=== PATIENT | female | born 1945 | race Caucasian/White ===

== ENCOUNTER 2020-02-02 16:35 | Inpatient (IN) | payer MEDICARE, SELFPAY ==
[2020-02-02] VITALS (11 sets, daily range): BP systolic 118–166; BP diastolic 65–103; PULSE 78–96; RESP 17–24; TEMP 36.3–36.4; O2SAT 82–100; BMI 16.2
--- NOTE | ~2020-02-02 | XR_ITS ---
EXAMINATION: XR chest 2V DATE: 02/02/2020 17:23 INDICATION: Emphysema presenting with shortness of breath TECHNIQUE: frontal and lateral views of the chest were obtained. COMPARISON: Chest radiograph dated 07/19/2018 FINDINGS: Hyperexpansion of the lungs with flattening of the diaphragm consistent with given history of emphyse ma. No pulmonary edema, pleural effusion or pneumothorax. Calcified nodule in the right midlung zone consistent with old granulomatous disease. The cardiomediastinal silhouette is normal. Cholecystectom y clips in the right upper quadrant. IMPRESSION: 1. Emphysema. No acute cardiopulmonary disease. Reviewed, dictated and finalized at location A.
--- NOTE | ~2020-02-02 | XR_ITS ---
EXAMINATION: XR barium swallow modified DATE: 02/04/2020 14:14 INDICATION: Dysphagia. TECHNIQUE: The patient was given barium-containing material of multiple consistencies to swallow by ruth lowery speech pathologist while I performed fluoroscopy. Dose-area product was 1.184 Gy-cm2. 2 minutes fluoroscopy time FINDINGS: Oral Preparatory Stage: Normal Oral Stage: Normal Pharyngeal Phase: Normal Cervical/Esophageal Stage: Normal IMPRESSION: Modified esophagram findings as above. Please refer to the speech therapy report [facility]. Reviewed, dictated and finalized at Location [facility]. Reviewed, dictated and finalized at location A. IMPRESSION: Modified esophagram findings as above. Please refer to the speech t herapy report for specific recommendations.
--- NOTE | 2020-02-02 16:50 | ECG_ITS ---
Measurements Intervals [place] Rate: 95 P: 92 MS: 151 QRS: 50 QRSD: 76 T: 54 QT: 333 QTc: 420 Interpretive Statements SINUS RHYTHM POSSIBLE RIGHT ATRIAL ENLARGEMENT BORDERLINE ST ABNORMALITY- LATERAL LEADS BASELINE ARTIFACT- I, II, III, AVR, AVL, AVF, V1-V6 BORDERLINE ECG Electronically Signed On 02-03-2020 8:21:50 CDT by Moises Hidalgo D.O.
--- NOTE | 2020-02-02 16:56 | PC.NURSE ---
patient put on o2 at 3lpm/nc for low o2 sat
[2020-02-02 16:58] LABS: Basophils Percent Auto 0.2 % (0.2-1.2); Eosinophils Absolute Auto 0.8 K/mm3 (0-0.3); Eosinophils Percent Auto 6.1 % (0-4.4); Hematocrit 44.7 % (37.0-47.0); Hemoglobin 15.1 g/dL (12.0-15.0); Immature Granulocyte Absolute 0.04 K/mm3 (0.00-0.031); Immature Granulocyte Percent A 0.3 % (0-0.5); Lymphocytes Absolute Auto 3.52 K/mm3 (0.9-3.2); Lymphocytes Percent Auto 26.8 % (18.3-44.2); Mean Corpuscular HGB Conc 33.8 g/dl (32-36); Mean Corpuscular Hemoglobin 30.6 pg (26-34); Mean Corpuscular Volume 90.5 fl (80-100); Mean Platelet Volume 8.7 fl (7.4-10.4); Monocytes Absolute Auto 1.2 K/mm3 (0.1-0.6); Monocytes Percent Auto 8.8 % (2.6-8.5); Neutrophils Absolute Auto 7.6 K/mm3 (1.3-6.7); Neutrophils Percent Auto 57.8 % (45.5-73.1); Platelet Count Result 521 k/mm3 (150-375); Red Blood Count 4.94 M/mm3 (4.2-5.4); Red Cell Distribution Width 12.4 % (11.5-14.5); White Blood Count 13.1 K/mm3 (4.5-10.0)
[2020-02-02 17:09] LABS: Anion Gap 6 mmol/L (8-16); Blood Urea Nitrogen 17 mg/dL (7-17); Calcium 9.5 mg/dL (8.4-10.2); Carbon Dioxide 37 mmol/L (22-30); Chloride 88 mmol/L (98-107); Estimated Glomerular Filt Rate > 60; Glucose 134 mg/dL (65-105); Potassium 4.2 mmol/L (3.4-5.0); Sodium 131 mmol/L (137-145)
[2020-02-02] MEDS: methylPREDNISolone SOD SUCC 125 MG VIAL IV PUSH (17:14)
--- NOTE | 2020-02-02 17:15 | PCRCNOTE ---
Arrived to draw ABG and give continuous neb tx and Pt. was not in the room.
[2020-02-02] MEDS: ALBUTEROL SULFATE NEB 2.5 MG/0.5 ML INH 10 MG INHALATION (17:22)
[2020-02-02] MEDS: IPRATROPIUM BR 0.02% INH SOLN 0.5 MG/2.5 ML VIAL 1 MG INHALATION (17:22)
--- NOTE | 2020-02-02 17:31 | ED.SOB ---
HPI - SOB/Dyspnea General Chief Complaint: Shortness of Breath/Dyspnea Stated Complaint: diff breathing Time Seen by Provider: 02/02/20 17:00 History of Present Illness HPI Narrative: 74 yo female w/ COPD presents from home for SOB. She reports that she has had constant SOB for several weeks. She has seen Dr. Plaza. She has not been taking all of her medications due to side effects. She has trouble getting around at home due to SOB. She reports dropping as low as 85% at times. Related Data Home Medications Medication Instructions Recorded Confirmed atorvastatin 20 mg tablet 20 mg PO DAILY 10/10/19 02/02/20 levothyroxine 125 mcg tablet 125 mcg PO DAILY 10/10/19 02/02/20 Allergies Allergy/AdvReac Type Severity Reaction Status Date / Time aspirin Allergy Intermediate Nausea Verified 02/02/20 20:58 Macrolide Antibiotics Allergy Intermediate Unknown Verified 02/02/20 20:58 erythromycin base Allergy Unknown Nausea Verified 02/02/20 20:58 latex Allergy Unknown Itching Verified 02/02/20 20:58 mold Allergy Unknown Difficulty Verified 02/02/20 20:58 Breathing ragweed pollen Allergy Unknown Difficulty Verified 02/02/20 20:58 Breathing Sulfa (Sulfonamide Allergy Unknown Unknown Verified 02/02/20 20:58 Antibiotics) Review of Systems Review of Systems: All systems reviewed & are unremarkable except as noted in HPI and below Constitutional: Constitutional: Denies chills and Denies fever(s) ENT: Denies dizziness Cardiovascular: Cardiovascular: Reports chest pain and Denies radiating jaw, neck or arm pain Respiratory: Respiratory: Reports chest congestion, Reports cough and Reports dyspnea Gastrointestinal: Gastrointestinal: Denies abdominal pain Neurologic: Reports weakness Psychiatric: Psychiatric: Reports anxiety PMFSH Past Medical History Medical History 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 attack Chronic obstructive pulmonary disease Depression Diastolic dysfunction Echocardiogram April 2018 demonstrated grade 1 diastolic dysfunction EF of 60% impaired right ventricular systolic dysfunction mild mitral valve regurgitation mild aortic stenosis based on velocities valve not well visualized Elevated platelet count Chronic Emphysema lung Essential (primary) hypertension (12/07/18) Fibromyalgia Hyperlipidemia, unspecified Hypothyroidism, unspecified Osteoporosis, unspecified PAD (peripheral artery disease) Sleep disorder breathing Noted on polysomnogram March 2018 TIA (transient ischemic attack) Tobacco abuse Vitamin D deficiency, unspecified (12/07/18) Surgical History Surgical History History of appendectomy History of bilateral carpal tunnel release History of bilateral cataract extraction History of cholecystectomy History of colonoscopy with polypectomy [address] Alcantara with pathology demonstrating adenomas polyp History of hysterectomy History of tonsillectomy Family History Family History Father Family history of lung cancer Chronic obstructive pulmonary disease Mother Bulbar myasthenia gravis Chronic obstructive pulmonary disease Unknown Anxiety Depression ADHD Sibling Chronic obstructive pulmonary disease Social History Social History Social History: She is since 2015 and lives in her own home in [place]. Just prior to November she was planning on moving in with her son but when she went in his home she thought she smelled mold and thought that it made her breathing worse and has remained in her own home. She is considering other living options at this time as she feels that her current house is too big. Primary care provider: Dr. Justice Platt Code status: DNR/DNI Durable power of hea
[2020-02-02 17:40] LABS: Alveolar/Arterial O2 Gradient 52.6 mmHg; Base Excess ABG 3.4 mEq/l (+/-2.0); Carboxyhemoglobin 0.7 % THb (0-2.0); Fractional Inspired Oxygen 36 %; HCO3 ABG 30.1 mEq/l (22.0-26.0); Methemoglobin ABG 0.2 %THb (0-1.5); Oxygen Saturation ABG 98.7 % (95.0-100.0); Oxyhemoglobin 97.6 % THb (90.0-100.0); PCO2 ABG 54.4 mmHg (35.0-45.0); PO2 FiO2 Ratio Arterial Blood 3.92 %; Reduced Hemoglobin 1.5 %THb (0-5.0); Total Hemoglobin 14.4 g/dL (12.0-18.0); pH ABG 7.361 (7.350-7.450)
[2020-02-02 17:41] LABS: Device NASAL CANNULA; Site Drawn LEFT BRACHIAL
--- NOTE | 2020-02-02 20:44 | ADMGEN ---
This patient, Ella Puckett, was admitted to Medical Room 346-01. Patient/family oriented to hospital policies and general routines including ID bracelet, bed and alarms, visiting hours, pain management, procedures, bathroom and other care routines, personal items, smoking policy, room service/diet, and visiting hours. Valuables list has been completed. Information on how to activate the Rapid Response Team has been discussed. Patient/Family are encouraged to report perceived risks to care and to ask questions if they do not understand what they are told or what they should do.
[2020-02-02] MEDS: IPRATROPIUM BR 0.02% INH SOLN 0.5 MG/2.5 ML VIAL INHALATION (21:03)
[2020-02-02] MEDS: ALBUTEROL SULFATE NEB 2.5 MG/0.5 ML INH 5 MG INHALATION (21:03)
[2020-02-02] MEDS: LACTATED RINGERS 1,000 ML 75 ML IV CONT (21:12)
[2020-02-03] VITALS (19 sets, daily range): BP systolic 136–166; BP diastolic 53–67; PULSE 69–115; RESP 14–22; TEMP 36.3–36.8; O2SAT 94–99
[2020-02-03] MEDS: methylPREDNISolone SOD SUCC 125 MG VIAL 60 MG IV PUSH ×2 (00:51→06:47)
[2020-02-03] MEDS: IPRATROPIUM BR 0.02% INH SOLN 0.5 MG/2.5 ML VIAL INHALATION ×2 (03:19→10:14)
[2020-02-03] MEDS: ALBUTEROL SULFATE NEB 2.5 MG/0.5 ML INH 5 MG INHALATION ×2 (03:19→10:13)
--- NOTE | 2020-02-03 06:24 | PM.IMHP ---
H&P: HPI History of Present Illness Date/Time: 02/03/20 06:24 Chief complaint: Shortness of breath Narrative: Ella Puckett is a 74 year old female With a past medical history of COPD who presented to the ER with constant shortness of breath for several weeks. The patient is established with Dr. Plaza. She had an appoint with Dr. Plaza in November at at which time a sick had walk test and PFTs were ordered. Patient could not get in to have the studies performed until February 07. She reports that she has been chronically short of breath for months. Her shortness of breath has been persistent since she saw all the engineering clerk. Her cough has increased slightly but her sputum production is unchanged. She still produces of very tiny amount of sputum a couple of times a day that may be yellow err green in color. She has not had any fevers or chills. She reports that she cannot walk from her living room to her bathroom without sitting in the bathroom for quite some time and praying that she can catch her breath again. Her oxygen saturations at rest home have been in the low 90s. She reports that after she walks back from the bathroom her oxygen saturations have been as low as 85%. After her pulmonology visit she was sent home on Daliresp, albuterol and Atrovent nebulizers. She reports that took 5 days to get her medications from the [employer]. When she started using the albuterol and Atrovent she began having pain in her lower posterior ribs. She is directly associated this with the medications. She did not know which medication was causing the symptoms so she stopped taking both of them after 2 days. She does admit that she would feel very panicked after taking those medications and would be claustrophobic and had open her front door to get relief. She has been receiving albuterol nebulizers since admission to the hospital last night and denies any back pain or symptoms similar to the ones that she had at home when using the medication. She attributes this to the nebulizer machine at home being different than her receiving the nebulizers here. The patient is quite anxious and is frequently tearful during my interview. She has several environmental triggers to her symptoms including mold and dust. Weight and muscle mass. At the engineering clerk office was 52.6 kg. She has lost 10 kg since November. Given her will weight loss and localized wheezing during her engineering clerk visit the patient had a CT scan ordered which the patient has not yet had completed. She also was supposed to received a prednisone taper. She denies ever having received prednisone prescription. She states that she has been reading up on COPD and that she knows that she is end-stage COPD. When she mentions that she again becomes tearful. She denies any recent ill contacts. She has not been going to the store or doing her own shopping. Her children have been doing her shopping for her. Review of Systems Review of Systems: Narrative: 12 systems were reviewed with pertinent positives and negatives per HPI. Except as documented in the HPI, all other systems were reviewed and are negative. [facility] Past Medical History Medical History (Updated 02/03/20 @ 08:57 by Shakira Carrera, DO) 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 attack Chronic obstructive pulmonary disease Depression Diastolic dysfunction Echocardiogram April 2018 demonstrated grade 1 diastolic dysfunction EF of 60% impaired right ventricular systolic dysfunction mild mitral valve regurgitation mild aortic stenosis based on velocities valve not well visualized Elevated platelet count Chronic Emphysema lung Essential (primary) hypertension (12/07/18) Fibromyalgia Hyperlipidemia, unspecified Hypothyroidism, unspecified Osteoporosis, unspecified PAD (peripheral artery disease) Sleep disorder breathing Noted on polysomnogram March 2018 TIA (transient ischemic attack) Tobacco abuse V
[2020-02-03] MEDS: LEVOTHYROXINE SODIUM 125 MCG TABLET PO (06:47)
[2020-02-03] MEDS: ATORVASTATIN 20 MG TABLET PO (09:15)
[2020-02-03] MEDS: SERTRALINE HCL 50 MG TABLET 150 MG PO (09:15)
[2020-02-03] MEDS: carvediloL 6.25 MG TABLET PO (09:19)
[2020-02-03] MEDS: FLUTICASONE/SALMETEROL 115-21 MCG INHALER 1 PUFF 2 PUFF INHALATION ×2 (12:10→21:44)
--- NOTE | 2020-02-03 12:11 | PM.IMPN ---
Progress Note: A&P Assessment and Plan (1) Acute respiratory failure: Code(s): J96.00 - Acute respiratory failure, unspecified whether with hypoxia or hypercapnia Status: Acute Assessment and Plan: Patient with hypoxia on admission felt to be acute but may be chronic if she is having disease progression. ABG with pO2 141 on 4L. Also with elevated pCO2 at 54 with normal pH to suggest chronic respiratory failure. Will check apnea link when she is better. Wean O2 as tolerated. Repeat ABG when feeling better. (2) COPD exacerbation: Code(s): J44.1 - Chronic obstructive pulmonary disease with (acute) exacerbation Status: Acute Assessment and Plan: COPD exacerbation versus progression of the patient's chronic lung disease. Patient has been placed on scheduled nebulizer treatments with albuterol and Atrovent as well as IV Solu-Medrol. Pulmonology consult ordered. Continue Advair. Consider adding LAMA. Plan for home O2 evaluation prior to discharge. (3) Dysphagia: Code(s): R13.10 - Dysphagia, unspecified Status: Acute Assessment and Plan: Patient having dysphagia with liquids. Probably able to protect her airway but brice have speech evaluate. (4) Essential (primary) hypertension: Onset Date: 12/07/18 Code(s): I10 - Essential (primary) hypertension Status: Acute Assessment and Plan: Patient's blood pressure was reviewed on 02/02 Blood pressure elevated mostly since admission. Will continue current medications. (5) PAD (peripheral artery disease): Code(s): I73.9 - Peripheral vascular disease, unspecified Status: Acute Assessment and Plan: Patient with hx of PAD. Not on ASA but takes Lipitor. Continue Lipitor. (6) Anxiety: Code(s): F41.9 - Anxiety disorder, unspecified Status: Acute Assessment and Plan: Mood stable. Continue Zoloft. Consider Buspar. (7) DVT prophylaxis: Code(s): Z29.9 - Encounter for prophylactic measures, unspecified Status: Acute Assessment and Plan: Lovenox Subjective Date/time seen: 02/03/20 12:11 Interval history: Date of service: 02/02 74yo female with COPD here for SOB. Patient up walking to the bathroom. She feels very weak. She has dyspnea on exertion. She denies any shortness of breath at rest at this time. No chest pain. She has a chronic dry cough that she states has been more noticeable since November. No new medications. Eating poorly at home. She denies any dysphagia symptoms with solids but does have occasional symptoms with liquids. She quit tobacco in 2013. Exam Narrative: Exam Narrative: AF 97.3 166/63 85 20 94% 2L Gen - NARD sitting up in bed Chest - distatn BS with prolonged expiratory phase; no wheezes CV - RRR S1/S2; Tele showing one episode of NSVT x4 Abd - Soft, NT/ND, Positive BS Ext - No pedal edema; negative Suzanne's Neuro - Alert and oriented. Nonfocal exam. Psych - mildly tearful at times Skin - Warm and dry Objective Data Vital Signs Vital Signs: Vital Signs - 24 hr 02/02/20 16:38 02/02/20 16:55 02/02/20 17:32 Temperature 97.6 F Pulse Rate 91 96 87 Respiratory Rate 24 H 24 H 17 Blood Pressure 164/65 H 118/103 H Pulse Oximetry 92 82 L 02/02/20 18:18 02/02/20 18:35 02/02/20 20:00 Temperature Pulse Rate 83 90 87 Respiratory Rate 20 19 Blood Pressure 147/73 H Pulse Oximetry 100 02/02/20 20:20 02/02/20 20:44 02/02/20 21:04 Temperature 97.3 F L Pulse Rate 78 88 88 Respiratory Rate 20 20 20 Blood Pressure 166/74 H 151/78 H Pulse Oximetry 99 97 02/02/20 21:10 02/02/20 21:16 02/03/20 00:00 Temperature Pulse Rate 90 75 Respiratory Rate 20 Blood Pressure Pulse Oximetry 95 02/03/20 03:19 02/03/20 03:26 02/03/20 04:07 Temperature Pulse Rate 81 82 80 Respiratory Rate 20 20 Blood Pressure Pulse Oximetry
[2020-02-03] MEDS: ENOXAPARIN 40 MG/0.4 ML SYRINGE SUB-Q (12:31)
[2020-02-03] MEDS: LORazepam (*CRX) 0.5 MG TABLET PO ×2 (12:36→21:29)
[2020-02-03] MEDS: ALBUTEROL SULFATE NEB 2.5 MG/0.5 ML INH INHALATION (15:29)
--- NOTE | 2020-02-03 16:52 | PM.CNPUL ---
Assessment and Plan Assessment and plan (1) COPD exacerbation: Code(s): J44.1 - Chronic obstructive pulmonary disease with (acute) exacerbation Status: Acute Assessment and Plan: - advised her to use Advair with spacer device and not to miss doses - will add spiriva 18 mcg 1 puff daily - recommend switch from Carvedilol to Metorpolol as a carvedilol can cause bronchospasm in patients with COPD - PT/OT - she has some baseline hypercarbia at base line with CO2 in 50's. Would recommend repeating ABG in 48 hours, if chronic hypercapnia still present she may benefit from NIV therpay at home. History of Present Illness History of Present Illness Consult date: 02/03/20 Chief complaint: Shortness of breath Narrative: 74 y/o female with COPD presents with COPD exarbation. She takes Advair 115/21 mcg 2 puffs bid at home but does not use a space device and admits to missing doses sometimes. She also takes Ventolin PRN. She developed itching after use of albuterol nebulizer and daliresp and stopped both because she didn't know which one caused it. She Denies fever, chills, night sweats, loss of taste or smell, n/v, diarrhea, body aches, nasal stuffiness or runny nose. She is feeling slight better since admission and she is on duonebs Q6, systemic steroids, and advair and antibiotics. Review of Systems Review of Systems: All systems reviewed & are unremarkable except as noted in HPI and below PMFSH Past Medical History Medical History (Updated 02/03/20 @ 12:21 by Panchito Daniels MD) 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 attack Chronic obstructive pulmonary disease Depression Diastolic dysfunction Echocardiogram April 2018 demonstrated grade 1 diastolic dysfunction EF of 60% impaired right ventricular systolic dysfunction mild mitral valve regurgitation mild aortic stenosis based on velocities valve not well visualized Elevated platelet count Chronic Emphysema lung Essential (primary) hypertension (12/07/18) Fibromyalgia Hyperlipidemia, unspecified Hypothyroidism, unspecified Osteoporosis, unspecified PAD (peripheral artery disease) Sleep disorder breathing Noted on polysomnogram March 2018 TIA (transient ischemic attack) Tobacco abuse Vitamin D deficiency, unspecified (12/07/18) Surgical History Surgical History (Updated 02/03/20 @ 06:41 by Shakira Carrera DO) History of appendectomy History of bilateral carpal tunnel release History of bilateral cataract extraction History of cholecystectomy History of colonoscopy with polypectomy [address] Alcantara with pathology demonstrating adenomas polyp History of hysterectomy History of tonsillectomy Family History Family History Father Family history of lung cancer Chronic obstructive pulmonary disease Mother Bulbar myasthenia gravis Chronic obstructive pulmonary disease Unknown Anxiety Depression ADHD Sibling Chronic obstructive pulmonary disease Social History Social History (Updated 02/03/20 @ 08:48 by Shakira Carrera DO) Social History: She is since 2015 and lives in her own home in [place]. Just prior to November she was planning on moving in with her son but when she went in his home she thought she smelled mold and thought that it made her breathing worse and has remained in her own home. She is considering other living options at this time as she feels that her current house is too big. Primary care provider: Dr. Justice Platt Code status: DNR/DNI Durable power of healthcare: Magno Betty (oldest son) Smoking packs per day: 1 Smoking cigarettes per day: 20.0 Years smoked: 49 Smoking pack-years: 49.00 Smoking status: Former smoker Tobacco type: cigarettes Smoking end date: 05/02/13 Alcohol intake: never Substance use: never Gender identity (if verbalized by the patient): Female Spiritual care c
[2020-02-03] MEDS: METOPROLOL TARTRATE 25 MG TABLET PO (20:10)
[2020-02-04] VITALS (14 sets, daily range): BP systolic 111–166; BP diastolic 47–61; PULSE 69–99; RESP 12–16; TEMP 36.6–37.1; O2SAT 86–97; BMI 16.2
[2020-02-04] MEDS: LEVOTHYROXINE SODIUM 125 MCG TABLET PO (06:02)
[2020-02-04] MEDS: FLUTICASONE/SALMETEROL 115-21 MCG INHALER 1 PUFF 2 PUFF INHALATION (07:16)
[2020-02-04 07:40] LABS: Base Excess ABG 5.4 mEq/l (+/-2.0); Fractional Inspired Oxygen 24 %; Oxygen Content ABG 17.3 %vol (16.0-22.0); Oxyhemoglobin 94.5 % THb (90.0-100.0); PCO2 ABG 43.8 mmHg (35.0-45.0); PO2 FiO2 Ratio Arterial Blood 3.25 %; pH ABG 7.453 (7.350-7.450)
[2020-02-04 07:41] LABS: Device NASAL CANNULA; Modified Allen's Test Pass; Site Drawn RIGHT RADIAL
[2020-02-04] MEDS: predniSONE 20 MG, predniSONE 10 MG 30 MG PO (08:38)
[2020-02-04] MEDS: SERTRALINE HCL 50 MG TABLET 150 MG PO (08:39)
[2020-02-04] MEDS: ENOXAPARIN 40 MG/0.4 ML SYRINGE SUB-Q (08:40)
[2020-02-04] MEDS: ATORVASTATIN 20 MG TABLET PO (08:40)
[2020-02-04] MEDS: METOPROLOL TARTRATE 25 MG TABLET PO (08:41)
--- NOTE | 2020-02-04 14:30 | PCSTNOTE ---
Please refer to the Bedside Swallow Evaluation in the EMR. Please note, silent aspiration cannot be ruled out at bedside.
--- NOTE | 2020-02-04 14:30 | PCSTNOTE ---
Please refer to the Modified Barium Swallow Evaluation in the EMR.
--- NOTE | 2020-02-04 15:28 | HOMEO2EVAL ---
Home Oxygen Evaluation RC: Home Oxygen (O2) Evaluation Start: 02/04/20 07:05 Freq: ONCE Status: Active Protocol: RPE Activity Type Activity Date Activity User E-Sign Co-Sign Detail Recorded Client Recorded Date Recorded By Document 02/04/20 11:20 GERMAN [id number] 02/04/20 15:28 GERMAN Document 02/04/20 11:25 GERMAN [id number] 02/04/20 15:28 GERMAN Document 02/04/20 11:28 GERMAN [email or web address] 02/04/20 15:28 GERMAN Document 02/04/20 11:30 GERMAN [id number] 02/04/20 15:28 GERMAN Document 02/04/20 11:45 GERMAN [id number] 02/04/20 15:28 GERMAN 02/04/20 02/04/20 02/04/20 11:20 11:25 11:28 Home O2 Evaluation Test Phase Resting Exercise Exercise Oxygen Delivery Room Air Room Air Nasal Cannula Oxygen Flow Rate (L/min) 1 Pulse Oximetry (90-100 %) 94 86 L 87 L Pulse Rate (60-100 beats/min) 76 99 Activity Tolerance Home Oxygen Evaluation Comments Treatment Charges O2 Evaluation 02/04/20 02/04/20 11:30 11:45 Home O2 Evaluation Test Phase Exercise Resting Oxygen Delivery Nasal Cannula Room Air Oxygen Flow Rate (L/min) 2 Pulse Oximetry (90-100 %) 91 93 Pulse Rate (60-100 beats/min) 96 79 Activity Tolerance Good Home Oxygen Evaluation Comments PT REQUIRES 2L WITH ACTIVITY ONLY Treatment Charges
--- NOTE | 2020-02-04 16:02 | PCRCNOTE ---
HOME O2 EVAL COMPLETED. PT WILL BE SET UP WITH [facility]. CONTACT CELINE AT [phone] OR OFFICE [phone]. I WILL DROP OFF TANK IN PATIENTS ROOM FOR TRANSPORT HOME. PT TO CALL [facility] ONCE HOME.
--- NOTE | 2020-02-04 16:04 | PM.DS ---
DS: Admitting Diagnosis Admitting Diagnosis Admitting Diagnosis: Shortness of breath DS: Discharge Diagnosis Discharge Diagnosis (1) Acute respiratory failure: Code(s): J96.00 - Acute respiratory failure, unspecified whether with hypoxia or hypercapnia Status: Acute Assessment and Plan: Patient with hypoxia on admission felt to be acute but may be chronic if she is having disease progression. ABG with pO2 141 on 4L. Also with elevated pCO2 at 54 with normal pH to suggest chronic respiratory failure. Repeat ABG showing now normal pCO2. She did have improvement but did require O2 2L NC with activity but no O2 at rest. (2) COPD exacerbation: Code(s): J44.1 - Chronic obstructive pulmonary disease with (acute) exacerbation Status: Acute Assessment and Plan: COPD exacerbation versus progression of the patient's chronic lung disease. Patient was placed on scheduled nebulizer treatments with albuterol and Atrovent as well as IV Solu-Medrol. Pulmonology was consulted. We continued Advair. Steroids changed to Prednisone. Spiriva added. (3) Dysphagia: Code(s): R13.10 - Dysphagia, unspecified Status: Acute Assessment and Plan: Patient having dysphagia with liquids. Speech evaluation done with MBS showing patient able to swallow safely. (4) Essential (primary) hypertension: Onset Date: 12/07/18 Code(s): I10 - Essential (primary) hypertension Status: Acute Assessment and Plan: Patient's blood pressure was monitored. Blood pressure elevated at times. We continued her curent home meds. (5) PAD (peripheral artery disease): Code(s): I73.9 - Peripheral vascular disease, unspecified Status: Acute Assessment and Plan: Patient with hx of PAD. Not on ASA but takes Lipitor. Continue Lipitor. (6) Anxiety: Code(s): F41.9 - Anxiety disorder, unspecified Status: Acute Assessment and Plan: Mood stable. We continued Zoloft. DS: Summary Hospital Course Reason for hospitalization: 74yo female here SOB. Please see H&P for details, Hospital Course: As above Time Spent with Patient Time attestation: Total time spent providing and/or coordinating discharge services:34 minutes Time spent: Greater than 30 minutes Specific discharge activities: patient eduaction Exam Narrative: Exam Narrative: AF 97.9 166/61 80 16 97% 2L Gen - NARD sitting up in chair Chest - distant but clear BS, nml RR CV - RRR S1/S2; Tele showing 2 episodes of brief, probable ATach Abd - Soft, NT/ND, Positive BS Ext - No pedal edema Psych - less anxious today Skin - Warm and dry DS: Data Data Completed and Pending Labs on day of discharge: Labs from last 24 hours 02/04/20 07:31 Puncture Site Right radial ABG pH 7.453 H ABG pCO2 43.8 ABG pO2 78.0 L ABG PO2/FiO2 Ratio 3.25 ABG HCO3 30.0 H ABG O2 Saturation 96.0 ABG O2 Content 17.3 ABG Base Excess 5.4 A-a Gradient 41.0 Oxyhemoglobin 94.5 Total Hemoglobin 13.0 O2 Delivery Device Nasal cannula O2 Liters/Min 1.0 FiO2 24 Discharge Plan Discharge Attending physician on discharge: Panchito Daniels Consulting providers: Radu Salinas Discharging Clinician: Panchito Daniels Anticipated Discharge Date/Time: 02/04/20 16:16 Patient Disposition: Home, Self-Care Activity: as tolerated Diet: regular Discharge Instructions: Please avoid large gathering, wear face coverings in public and practice social distance. Take precautions to avoid falls. Rise slowly from a lying or sitting position. Pause before standing or walking. Use Home oxygen at 2 Liters when active. You do not need to wear Oxygen when you are at rest. Follow-up with your doctor in 1-2 weeks. Please call for appointment. Patient Instructions: COPD (Chronic Obstructive Pulmonary Disease) (DC), Antibiotic Form Stand Alone Forms: Gen
--- NOTE | 2020-02-04 17:20 | PM.PNPUL ---
Progress Note: A&P Assessment and Plan (1) COPD exacerbation: Code(s): J44.1 - Chronic obstructive pulmonary disease with (acute) exacerbation Status: Acute Assessment and Plan: - advised her to use Advair with spacer device and not to miss doses - Spiriva 18 mcg 1 puff daily - Dr Daniels stopped her carvedilol and switched to Metoprolol 25 mg twice a day; carvedilol can cause bronchospasm in patients with COPD - PT/OT - she has some baseline hypercarbia at base line with CO2 in 50's. Her new ABG shows that this has resolved. - she is stable and able to go home today. We will see her in the office in a month. - She got a letter from [employer] allowing low dose chest CT for lung cancer screening. We will schedule this from the office. (2) Chronic shortness of breath: Code(s): R06.02 - Shortness of breath Status: Acute Assessment and Plan: May be able to adjust meds after discharge. She reports that she feels anxious and tearful after using ipratropium /albuterol nebulized. She had 2 treatments in one day before admission, and this caused her great distress. SHe stopped the nebs and the Daliresp not knowing which medication it was. She can continue Daliresp 250 mcg a day until the 28 day pack is complete then start 500 mcg a day Daliresp. Continue Advair and Spiriva. (3) Acute respiratory failure: Code(s): J96.00 - Acute respiratory failure, unspecified whether with hypoxia or hypercapnia Status: Acute Assessment and Plan: Improved. Needs no supplemental O2 at rest, 2 L/min with exertion. Came in with O2 at 4 L/min which may have worsened CO2 retention. Subjective Date/time seen: 02/04/20 17:20 This 74 yo female is seen in follow up for a COPD exacerbation. Her son Magno is at the bedside. SHe is being discharged this evening. She feels better than when she was admitted. Her ABG today is improved; pH 7.45, pCO2 43.8, pO2 78, HCO3 30 on 1 L/min. She is planning to keep her Mar 06 appt in our office. She lives at home alone, has friends near by. She is tearful, COPD is causing weight loss, weakness, and she has upper back pain. About 4 years ago she lost 3 people close to her within 5 months, and she feels that she is ready to , although she is not in any way thinking of hurting herself. Review of Systems Review of Systems: All systems reviewed & are unremarkable except as noted in HPI and below Exam Const: General: comfortable and no acute distress Eyes: General: appearance normal, both eyes and all related structures Neck: Neck: supple and no JVD Resp: Auscultation: no crackles, no rales, no rhonchi, wheezes and diminished lung sounds Cardio: Rate: regular rate Rhythm: regular rhythm Heart sounds: no murmurs GI: Auscultation: normal bowel sounds Skin: General skin exam: normal color and no rashes or lesions noted Neuro: Speech: normal speech Extrem: General: normal to inspection Psych: Mental Status: mental status grossly normal Affect: normal affect Objective Data Vital Signs Vital Signs: Vital Signs - 24 hr 02/03/20 20:00 02/03/20 20:10 02/03/20 21:17 Temperature 36.8 C Pulse Rate 85 115 H 76 Respiratory Rate 14 Blood Pressure 136/53 L Pulse Oximetry 99 02/03/20 21:45 02/03/20 21:51 02/04/20 00:00 Temperature Pulse Rate 69 69 70 Respiratory Rate 20 20 Blood Pressure Pulse Oximetry 97 02/04/20 04:00 02/04/20 06:39 02/04/20 07:19 Temperature 37.1 C Pulse Rate 69 69 Respiratory Rate 12 Blood Pressure 111/47 L Pulse Oximetry 96 95 02/04/20 08:00 02/04/20 08:41 02/04/20 11:20 Temperature Pulse Rate 80 76 76 Respiratory Rate 14 Blood Pressure Pulse Oximetry 94 94 02/04/20 11:25 02/04/20 11:28
== END 2020-02-04 18:45 | disposition home or self-care (01) | DRG 190 ==
LOC: ANHED 19:08 → ANH3MED 19:17
PROVIDERS: Admitting Provider Internal Medicine; Emergency Provider Emergency Medicine; PCP Internal Medicine; Visit Provider Internal Medicine
DX: J43.9 Emphysema, unspecified (principal); J96.00 Acute respiratory failure, unspecified whether with hypoxia or hypercapnia; R13.10 Dysphagia, unspecified; I10 Essential (primary) hypertension; I73.9 Peripheral vascular disease, unspecified; F41.9 Anxiety disorder, unspecified; E03.9 Hypothyroidism, unspecified; E78.5 Hyperlipidemia, unspecified; Z66 Do not resuscitate; Z79.899 Other long term (current) drug therapy; Z86.73 Personal history of transient ischemic attack (TIA), and cerebral infarction without residual deficits; Z87.891 Personal history of nicotine dependence; Z98.41 Cataract extraction status, right eye; Z98.42 Cataract extraction status, left eye
CPT/HCPCS: 36415; 36600; 71046; 80048; 82375; 82805; 83050; 85025; 92610; 92611; 93005; 94618; 94640; 96374; 97161; 99285; A9270; J1650; J2930; J7120; J7512

== ENCOUNTER 2020-03-17 11:10 | Outpatient (CLI) | payer MEDICARE, SELFPAY ==
--- NOTE | ~2020-03-17 | CT_ITS ---
EXAMINATION: CT lung screening DATE: 03/17/2020 11:37 INDICATION: PERS HX OF TOBACCO DEPENDENCE Z87.891 - Personal history of nicotine dependence TECHNIQUE: Computed tomography (CT) of the chest was performed without intravenous contrast. Addition al 3D reconstructions utilizing coronal maximum intensity projection (MIP) were performed. Automated exposure control and iterative reconstruction technique were employed. The dose-length product was 61 .00 mGy-cm. COMPARISON: None FINDINGS: Moderate emphysema. There are a few calcified nodules in the right lung along with calcified right hi lar and mediastinal lymph nodes consistent with old granulomatous disease. There are several scattere d tiny <3 mm nodules in both lungs with upper lung predominance most likely additional granulomatous disease. No pneumonia, pulmonary edema or pleural effusion. Heart size is normal. Atherosclerotic cor onary artery calcification. Aortic valve calcification. No pericardial effusion. Atherosclerotic calc ific a cyst along the normal caliber thoracic aorta. No pathologically enlarged thoracic lymphadenopa thy. Several scattered hepatic and splenic calcification is also consistent with old granulomatous di sease. Cholecystectomy clips at the gallbladder fossa. Mild thoracic spondylosis. IMPRESSION: 1. . Lung-RADS category 2: Benign appearance or behavior. Continue annual screening with noncontrast low-dose chest CT in 12 months. Reviewed, dictated and finalized at location H. RATING SUPERVISOR IMPRESSION: 1. . Lung-RADS category 2: Benign appearance or behavior. Continue annual scree sylvester with noncontrast low-dose chest CT in 12 months.
--- NOTE | 2020-03-20 17:16 | PFT_ITS ---
This report was moved to the correct visit, [id number], on April 03, 2020. Original report was signed by Dr. Plaza on March 20, 2020 at 1716. PFT Interpretation PFT Interpretation: DOS: 03/17/2020 REQUESTING: Dr Plaza REASON FOR TESTING: Nicotine use, [facility] Results are reliable and reproducible. Spirometry: FEV1 47%, severely decreased. FVC 70%. FEV1% severely decreased. FVC increased 13% and more than 200 ml, which is significant. Lung volumes: TLC 113%. RV 178% severe air trapping. Airway resistance severely increased 998%. Diffusion: DLCO moderately decreased 57%. Flow volume loop: Severe scooping of the expiratory limb. IMPRESSION: Severe obstructive ventilatory impairment, severe air trapping, severe increase in airway resistance and moderate decrease in diffusion. There is a significant response to bronchodilator. This pattern is compatible with emphysema. Marcy Plaza MD Report Initialized date/time: Marcy Plaza MD 03/20/20 / 1716 Electronically signed by: Marcy Plaza MD 03/20/20 1716 [facility]
== END 2020-03-17 11:11 | disposition home or self-care (01) ==
PROVIDERS: PCP Internal Medicine; Visit Provider Internal Medicine Critical Care Medicine
DX: Z12.2 Encounter for screening for malignant neoplasm of respiratory organs (principal); Z87.891 Personal history of nicotine dependence
CPT/HCPCS: 94060; 94726; 94729; G0297

== ENCOUNTER 2020-08-04 21:40 | Inpatient (IN) | payer MEDICARE, SELFPAY ==
--- NOTE | ~2020-08-04 | XR_ITS ---
EXAMINATION: XR ribs LT 2V DATE: 08/05/2020 01:33 INDICATION: Left rib pain. TECHNIQUE: 3 views of the left ribs were obtained. COMPARISON: Chest 2 views 08/04/2020, chest CT 03/17/2020 FINDINGS: There is no left-sided pneumonia, pleural effusion, or pneumothorax. The heart size is norm al. There is no rib fracture. IMPRESSION: 1. No rib fracture. Reviewed, dictated and finalized at location A. IMPRESSION: 1. No rib fracture.
--- NOTE | ~2020-08-04 | XR_ITS ---
EXAMINATION: XR chest 2V DATE: 08/04/2020 22:39 INDICATION: Shortness of breath and hypoxia TECHNIQUE: Frontal and lateral views of the chest are obtained COMPARISON: 02/02/2020, 03/17/2020 FINDINGS: A calcified nodule of the right lower lobe is consistent with old granulomatous disease. Th ere is a focal opacity of the right lung base on the frontal view. There is no pleural effusion or pn eumothorax. The cardiomediastinal silhouette is normal. There is mild thoracic spondylosis. Surgical clips in the right upper quadrant are likely from prior cholecystectomy. IMPRESSION: 1. Focal opacity of the right lung base of the frontal view which is likely infectious or inflammator y given the recent CT lung cancer screening examination. Recommend followup radiographs in 10-14 days after appropriate therapy to evaluate for improvement/resolution. Reviewed, dictated and finalized at location A. IMPRESSION: 1. Focal opacity of the right lung base of the frontal view which is likely inf ectious or inflammatory given the recent CT lung cancer screening examination. Recommend followup radiographs in 10-14 days after appropriate therapy to evalu ate for improvement/resolution.
[2020-08-04 21:43] VITALS: BP 206/75; PULSE 73; RESP 16; TEMP 36.2; O2SAT 88
--- NOTE | 2020-08-04 21:50 | PC.NURSE ---
Pt's home O2 noted to not be working. Pt placed on 2L per n/c on a portable tank and oxygen saturations increased to 97%. PT reports feeling better at this time.
--- NOTE | 2020-08-04 22:11 | ECG_ITS ---
Measurements Intervals [place] Rate: 68 P: 83 MA: 158 QRS: 73 QRSD: 80 T: 78 QT: 376 QTc: 400 Interpretive Statements SINUS RHYTHM INCOMPLETE RIGHT BUNDLE BRANCH BLOCK BORDERLINE R WAVE PROGRESSION, ANTERIOR LEADS BASELINE ARTIFACT- AVR, AVL, AVF, V4-V6 BORDERLINE ECG Electronically Signed On 08-05-2020 6:46:38 CDT by Moises Hidalgo D.O.
[2020-08-04 22:23] LABS: Basophils Percent Auto 0.2 % (0.2-1.2); Eosinophils Absolute Auto 1.3 K/mm3 (0-0.3); Eosinophils Percent Auto 10.4 % (0-4.4); Hematocrit 39.8 % (37.0-47.0); Hemoglobin 13.1 g/dL (12.0-15.0); Immature Granulocyte Absolute 0.04 K/mm3 (0.00-0.031); Immature Granulocyte Percent A 0.3 % (0-0.5); Lymphocytes Absolute Auto 3.26 K/mm3 (0.9-3.2); Lymphocytes Percent Auto 26.8 % (18.3-44.2); Mean Corpuscular HGB Conc 32.9 g/dl (32-36); Mean Corpuscular Hemoglobin 29.9 pg (26-34); Mean Corpuscular Volume 90.9 fl (80-100); Mean Platelet Volume 8.6 fl (7.4-10.4); Monocytes Absolute Auto 1.1 K/mm3 (0.1-0.6); Monocytes Percent Auto 9.2 % (2.6-8.5); Neutrophils Absolute Auto 6.4 K/mm3 (1.3-6.7); Neutrophils Percent Auto 53.1 % (45.5-73.1); Platelet Count Result 451 k/mm3 (150-375); Red Blood Count 4.38 M/mm3 (4.2-5.4); Red Cell Distribution Width 12.6 % (11.5-14.5); White Blood Count 12.2 K/mm3 (4.5-10.0)
[2020-08-04 22:35] LABS: Anion Gap 3 mmol/L (8-16); Blood Urea Nitrogen 20 mg/dL (7-17); Calcium 9.3 mg/dL (8.4-10.2); Carbon Dioxide 33 mmol/L (22-30); Chloride 96 mmol/L (98-107); Estimated CRCL calculation 42 ml/min; Estimated Glomerular Filt Rate > 60; Glucose 109 mg/dL (65-105); Potassium 4.7 mmol/L (3.4-5.0); Sodium 132 mmol/L (137-145)
[2020-08-04 23:19] VITALS: O2SAT 92
--- NOTE | 2020-08-04 23:32 | ED.SOB ---
HPI - SOB/Dyspnea General Chief Complaint: Shortness of Breath/Dyspnea Stated Complaint: L flank pain Time Seen by Provider: 08/04/20 23:20 Source: patient Mode of arrival: ambulatory Limitations: no limitations History of Present Illness HPI Narrative: Patient is a 74-year-old female complaining of shortness of breath x3 weeks, worse for the past week. Patient also complaining of chest discomfort, left chest, radiating to her left ribs, 5 out of 10, worse with movement that started approximately 2 to 3 days ago. Patient states that she has a history of COPD and on 2 L at home. Related Data Allergies Allergy/AdvReac Type Severity Reaction Status Date / Time aspirin Allergy Intermediate Nausea Verified 08/05/20 00:32 Macrolide Antibiotics Allergy Intermediate Unknown Verified 08/05/20 00:32 erythromycin base Allergy Unknown Nausea Verified 08/05/20 00:32 latex Allergy Unknown Itching Verified 08/05/20 00:32 mold Allergy Unknown Difficulty Verified 08/05/20 00:32 Breathing ragweed pollen Allergy Unknown Difficulty Verified 08/05/20 00:32 Breathing Sulfa (Sulfonamide Allergy Unknown Unknown Verified 08/05/20 00:32 Antibiotics) ipratropium AdvReac Severe Itching Verified 08/05/20 00:32 and panic attacks Review of Systems Review of Systems: All systems reviewed & are unremarkable except as noted in HPI and below Constitutional: Constitutional: Denies body ache(s), Denies chills, Denies excessive sweating, Denies fatigue, Denies fever(s), Denies headache(s), Denies lethargy, Denies malaise, Denies weakness and Denies weight loss Eyes: Eyes: Denies blurry vision, Denies change in vision and Denies loss of vision ENT: Denies dizziness, Denies ear discharge, Denies headache(s), Denies lip swelling, Denies epistaxis, Denies nasal congestion, Denies neck pain, Denies throat swelling and Denies tongue swelling Cardiovascular: Cardiovascular: Denies diaphoresis, Denies rapid heart rate, Denies edema, Denies irregular heart rhythm, Denies lightheadedness and Denies palpitations Respiratory: Respiratory: Denies chest congestion and Denies hemoptysis Gastrointestinal: Gastrointestinal: Denies abdominal pain, Denies melena, Denies hematochezia, Denies diarrhea, Denies nausea, Denies vomiting and Denies hematemesis Musculoskeletal: Musculoskeletal: Denies abnormal gait, Denies deformity, Denies joint swelling, Denies limited range of motion, Denies neck pain and Denies numbness Neurologic: Denies Abnormal speech present, Denies abnormal gait, Denies confusion, Denies dizziness, Denies headache(s), Denies focal weakness, Denies loss of vision, Denies numbness, Denies Other visual disturbances, Denies Sensory deficit (Neuro) and Denies weakness Psychiatric: Psychiatric: Denies confusion, Denies depression, Denies auditory hallucinations, Denies homicidal ideation and Denies suicidal ideation Endocrine: Endocrine: Denies cold intolerance, Denies excessive sweating, Denies fatigue, Denies heat intolerance and Denies palpitations Hematologic/Lymphatic: Hematologic/Lymphatic: Denies easy bleeding and Denies easy bruising Allergic/Immunologic: Allergic/Immunologic: Denies lip swelling, Denies throat swelling and Denies tongue swelling PMFSH Past Medical History Medical History 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 attack Chronic obstructive pulmonary disease Depression Diastolic dysfunction Echocardiogram April 2018 demonstrated grade 1 diastolic dysfunction EF of 60% impaired right ventricular systolic dysfunction mild mitral valve regurgitation mild aortic stenosis based on velocities valve not well visualized Elevated platelet count Chronic Emphysema lung Essential (primary) hypertension (12/07/18) Fibromyalgia History of tobacco abuse Hyperlipidemia, unspecified Hypothyroidism Hypothyroidism, unspecified Osteoporosis, unspecified PAD (periph
[2020-08-04] MEDS: methylPREDNISolone SOD SUCC 125 MG VIAL IV PUSH (23:44)
[2020-08-04 23:51] VITALS: PULSE 77; RESP 20
[2020-08-04] MEDS: ALBUTEROL SULFATE NEB 2.5 MG/0.5 ML INH 5 MG INHALATION (23:51)
[2020-08-04 23:52] LABS: Base Excess ABG 1.8 mEq/l (+/-2.0); Carboxyhemoglobin 0.4 % THb (0-2.0); Fractional Inspired Oxygen 28 %; HCO3 ABG 29.1 mEq/l (22.0-26.0); Methemoglobin ABG 0.4 %THb (0-1.5); Oxygen Saturation ABG 98.7 % (95.0-100.0); Oxyhemoglobin 97.5 % THb (90.0-100.0); PCO2 ABG 57.3 mmHg (35.0-45.0); PO2 ABG 145.1 mmHg (80.0-100.0); PO2 FiO2 Ratio Arterial Blood 5.18 %; Reduced Hemoglobin 1.7 %THb (0-5.0); Total Hemoglobin 13.7 g/dL (12.0-18.0); pH ABG 7.324 (7.350-7.450)
[2020-08-04 23:53] LABS: Device NASAL CANNULA; Modified Allen's Test Pass; Site Drawn RIGHT RADIAL
[2020-08-04 23:54] LABS: D Dimer 0.32 ug/mL (<0.48)
[2020-08-05] VITALS (20 sets, daily range): BP systolic 96–147; BP diastolic 51–80; PULSE 67–105; RESP 18–21; TEMP 36.1–36.6; O2SAT 94–100; BMI 20.8
[2020-08-05 00:03] LABS: Troponin I < 0.012 ng/mL (0.000-0.034)
--- NOTE | 2020-08-05 01:06 | PM.IMHP ---
H&P: HPI History of Present Illness Date/Time: 08/05/20 01:06 Chief Complaint: Left lateral rib pain and worsening shortness of breath Narrative: This is a pleasant 74-year-old female with known history of chronic respiratory failure on 1.5 L of oxygen at home at all times, COPD, and hypertension who presented to the hospital with a complaint of increased exertional shortness of breath over the past 3 weeks. She also complains of worsening productive cough, wheezing, and left-sided rib discomfort which has been very annoying to her for the past 3 days. The patient is known to see Dr. Plaza for her COPD. She denies any fevers, chills, chest pain other than left rib pain, nausea, vomiting, abdominal pain, dysuria, hematuria, diarrhea, or rectal bleeding. The patient was found to be saturating 88% on her usual 1.5 L of oxygen and she was bumped up to 3 L of oxygen in the ER today. she was treated with bronchodilators, Solu-Medrol, and Levaquin in the ER tonight. Chest x-ray demonstrated a focal opacity of the right lung base of the frontal view. We been asked to admit the patient to the hospital for her acute respiratory failure and likely COPD exacerbation. On my encounter with the patient tonight she states she feels somewhat better and is in no acute distress. 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 attack Chronic obstructive pulmonary disease Depression Diastolic dysfunction Echocardiogram April 2018 demonstrated grade 1 diastolic dysfunction EF of 60% impaired right ventricular systolic dysfunction mild mitral valve regurgitation mild aortic stenosis based on velocities valve not well visualized Elevated platelet count Chronic Emphysema lung Essential (primary) hypertension (12/07/18) Fibromyalgia History of tobacco abuse Hyperlipidemia, unspecified Hypothyroidism Hypothyroidism, unspecified Osteoporosis, unspecified PAD (peripheral artery disease) Sleep disorder breathing Noted on polysomnogram March 2018 TIA (transient ischemic attack) Tobacco abuse Vitamin D deficiency, unspecified (12/07/18) Surgical History Surgical History History of appendectomy History of bilateral carpal tunnel release History of bilateral cataract extraction History of cholecystectomy History of colonoscopy with polypectomy [address] Alcantara with pathology demonstrating adenomas polyp History of hysterectomy History of tonsillectomy Family History Family History Father Family history of lung cancer Chronic obstructive pulmonary disease Mother Bulbar myasthenia gravis Chronic obstructive pulmonary disease Unknown Anxiety Depression ADHD Sibling Chronic obstructive pulmonary disease Social History Social History Social History: She is since 2015 and lives in her own home in [place]. Just prior to November she was planning on moving in with her son but when she went in his home she thought she smelled mold and thought that it made her breathing worse and has remained in her own home. She is considering other living options at this time as she feels that her current house is too big. Primary care provider: Dr. Justice Platt Code status: DNR/DNI Durable power of healthcare: Magno Hernández (oldest son) Smoking packs per day: 1 Smoking cigarettes per day: 20.0 Years smoked: 49 Smoking pack-years: 49.00 Smoking status: Former smoker Tobacco type: cigarettes Smoking end date: 05/02/13 Alcohol intake: never Substance use: never Gender identity (if verbalized by the patient): Female Spir
[2020-08-05] MEDS: HYDROcodone/acetaminophen (*CRX) 5-325 MG TABLET 1 TAB PO (01:39)
[2020-08-05] MEDS: LACTATED RINGERS 1,000 ML 100 ML IV CONT ×3 (01:39→22:47)
--- NOTE | 2020-08-05 02:24 | ADMGEN ---
This patient, Ella Puckett, was admitted to IMU Room 211-01 ay 2023. Patient/family oriented to hospital policies and general routines including ID bracelet, bed and alarms, visiting hours, pain management, procedures, bathroom and other care routines, personal items, smoking policy, room service/diet, and visiting hours. Information on how to activate the Rapid Response Team has been discussed. Patient/Family are encouraged to report perceived risks to care and to ask questions if they do not understand what they are told or what they should do.
[2020-08-05 03:04] LABS: Troponin I < 0.012 ng/mL (0.000-0.034)
[2020-08-05 04:27] LABS: Basophils Percent Auto 0.2 % (0.2-1.2); Eosinophils Absolute Auto 0.1 K/mm3 (0-0.3); Eosinophils Percent Auto 0.6 % (0-4.4); Hematocrit 38.2 % (37.0-47.0); Hemoglobin 12.6 g/dL (12.0-15.0); Immature Granulocyte Absolute 0.05 K/mm3 (0.00-0.031); Immature Granulocyte Percent A 0.5 % (0-0.5); Lymphocytes Absolute Auto 1.21 K/mm3 (0.9-3.2); Lymphocytes Percent Auto 10.9 % (18.3-44.2); Mean Corpuscular Hemoglobin 29.9 pg (26-34); Mean Corpuscular Volume 90.7 fl (80-100); Mean Platelet Volume 8.7 fl (7.4-10.4); Monocytes Absolute Auto 0.1 K/mm3 (0.1-0.6); Monocytes Percent Auto 1.2 % (2.6-8.5); Neutrophils Absolute Auto 9.6 K/mm3 (1.3-6.7); Neutrophils Percent Auto 86.6 % (45.5-73.1); Platelet Count Result 413 k/mm3 (150-375); Red Blood Count 4.21 M/mm3 (4.2-5.4); Red Cell Distribution Width 12.5 % (11.5-14.5); White Blood Count 11.1 K/mm3 (4.5-10.0)
[2020-08-05 04:44] LABS: Anion Gap 3 mmol/L (8-16); Blood Urea Nitrogen 19 mg/dL (7-17); Calcium 8.6 mg/dL (8.4-10.2); Carbon Dioxide 34 mmol/L (22-30); Chloride 96 mmol/L (98-107); Estimated CRCL calculation 47 ml/min; Estimated Glomerular Filt Rate > 60; Glucose 124 mg/dL (65-105); Magnesium 1.8 mg/dL (1.6-2.3); Potassium 4.6 mmol/L (3.4-5.0); Sodium 133 mmol/L (137-145)
[2020-08-05 04:55] LABS: Troponin I < 0.012 ng/mL (0.000-0.034)
[2020-08-05] MEDS: methylPREDNISolone SOD SUCC 40 MG VIAL IV PUSH ×3 (06:23→21:43)
[2020-08-05] MEDS: LEVOTHYROXINE SODIUM 125 MCG TABLET PO (06:23)
[2020-08-05] MEDS: ALBUTEROL SULFATE NEB 2.5 MG/0.5 ML INH 5 MG INHALATION ×2 (07:57→13:45)
[2020-08-05] MEDS: ATORVASTATIN 20 MG TABLET PO (09:08)
[2020-08-05] MEDS: ENOXAPARIN 40 MG/0.4 ML SYRINGE SUB-Q (09:08)
[2020-08-05] MEDS: SERTRALINE HCL 50 MG TABLET 150 MG PO (09:09)
--- NOTE | 2020-08-05 14:16 | PM.IMPN ---
Progress Note: A&P Assessment and Plan (1) Acute respiratory failure: Qualifiers: Respiratory failure complication: unspecified whether with hypoxia or hypercapnia Qualified Code(s): J96.00 - Acute respiratory failure, unspecified whether with hypoxia or hypercapnia Code(s): J96.00 - Acute respiratory failure, unspecified whether with hypoxia or hypercapnia Status: Acute Assessment and Plan: Appears to be secondary to COPD exacerbation. (2) Acute exacerbation of chronic obstructive pulmonary disease: Code(s): J44.1 - Chronic obstructive pulmonary disease with (acute) exacerbation Status: Acute Assessment and Plan: . Continue Solu-Medrol, bronchodilators and Levaquin continue oxygen supplementation wean off as tolerated. (3) Abnormal chest x-ray: Code(s): R93.89 - Abnormal findings on diagnostic imaging of other specified body structures Status: Acute Assessment and Plan: Patient will need a follow-up chest x-ray in 2 weeks (4) Rib pain on left side: Code(s): R07.81 - Pleurodynia Status: Acute Assessment and Plan: We will check a left lateral rib series (5) Hypothyroidism: Qualifiers: Hypothyroidism type: unspecified Qualified Code(s): E03.9 - Hypothyroidism, unspecified Code(s): E03.9 - Hypothyroidism, unspecified Status: Chronic Assessment and Plan: Continue Synthroid (6) Essential (primary) hypertension: Onset Date: 12/07/18 Code(s): I10 - Essential (primary) hypertension Status: Chronic Assessment and Plan: Monitor blood pressure. Continue metoprolol. Subjective Date/time seen: 08/05/20 14:16 Interval history: 74-year-old female complaining of shortness of breath x3 weeks. Pt has history of COPD. Pt uses oxygen at home PRN. Review of Systems Review of Systems: All systems reviewed & are unremarkable except as noted in HPI and below Exam Const: General: alert and awake Neck: Neck: supple and no JVD Thyroid: thyroid normal Lymphatic: lymphadenopathy not noted Resp: Auscultation: wheezes and diminished lung sounds Cardio: Rate: regular rate Rhythm: regular rhythm Heart sounds: no murmurs GI: Inspection: normal to inspection Auscultation: normal bowel sounds Skin: General skin exam: normal color and no rashes or lesions noted Neuro: General: patient oriented x3 Cranial nerves: Yes CN's II-XII intact bilaterally and Yes Equal, round and reactive pupils present Speech: normal speech Motor exam (neuro): 5/5 motor strength present throughout Sensory Exam: normal sensation Extrem: General: normal to inspection and no edema Psych: Mental Status: mental status grossly normal Affect: normal affect Objective Data Vital Signs Vital Signs: Vital Signs - 24 hr 08/04/20 21:43 08/04/20 23:19 08/04/20 23:51 Temperature 36.2 C L Pulse Rate 73 77 Respiratory Rate 16 20 Blood Pressure 206/75 H Pulse Oximetry 88 L 92 08/05/20 00:00 08/05/20 02:02 08/05/20 02:24 Temperature Pulse Rate 79 71 73 Respiratory Rate 20 18 18 Blood Pressure 131/61 Pulse Oximetry 100 98 08/05/20 02:35 08/05/20 04:00 08/05/20 06:00 Temperature 36.4 C 36.5 C Pulse Rate 73 68 78 Respiratory Rate 18 20 Blood Pressure 145/58 H 96/66 L Pulse Oximetry 98 97 08/05/20 08:00 08/05/20 08:08 08/05/20 08:57 Temperature 36.4 C L Pulse Rate 73 74 74 Respiratory Rate 20 20 20 Blood Pressure 115/52 L Pulse Oximetry 95 100 08/05/20 13:00 08/05/20 13:45 08/05/20 13:53 Temperature 36.1 C L Pulse Rate 85 90 89 Respiratory Rate 20 20 20 Blood Pressure 144/51 H Pulse Oximetry 99 Intake/Output Intake/Output: Intake & Output 08/02/20 08/03/20 08/04/20 08/05/20 23:59 23:59 23:59 23:59 Intake Total 370 Output Total 0 Balance 370 Meds/Results Medications: Active Medications Generic Name Dose Route Start Last Admin T
--- NOTE | 2020-08-05 18:05 | PC.NURSE ---
This patient, Ella Puckett, was transferred to [facility] on 08/05/20 at 1806. Personal belongings sent with patient. Report given to THUY Huizar. Appropriate documentation sent with patient.
[2020-08-05] MEDS: IBUPROFEN 400 MG TABLET PO (21:43)
[2020-08-05] MEDS: LORazepam (*CRX) 0.5 MG TABLET PO (21:44)
[2020-08-05] MEDS: METOPROLOL TARTRATE 25 MG TABLET PO (22:58)
[2020-08-06] VITALS (14 sets, daily range): BP systolic 123–155; BP diastolic 61–78; PULSE 72–89; RESP 14–20; TEMP 36.3–36.6; O2SAT 94–100
[2020-08-06] MEDS: LEVOTHYROXINE SODIUM 125 MCG TABLET PO (06:45)
[2020-08-06] MEDS: methylPREDNISolone SOD SUCC 40 MG VIAL IV PUSH (06:45)
[2020-08-06] MEDS: ENOXAPARIN 40 MG/0.4 ML SYRINGE SUB-Q (08:45)
[2020-08-06] MEDS: METOPROLOL TARTRATE 25 MG TABLET PO ×2 (08:45→20:21)
[2020-08-06] MEDS: ATORVASTATIN 20 MG TABLET PO (08:46)
[2020-08-06] MEDS: SERTRALINE HCL 50 MG TABLET 150 MG PO (08:46)
[2020-08-06] MEDS: guaiFENesin/DEXTROMETHORPHAN 10 ML UDC 5 ML PO (08:47)
[2020-08-06] MEDS: ALBUTEROL SULFATE NEB 2.5 MG/0.5 ML INH 5 MG INHALATION ×4 (09:26→20:13)
[2020-08-06] MEDS: FLUTICASONE/SALMETEROL 115-21 MCG INHALER 1 PUFF 2 PUFF INHALATION ×2 (09:28→20:09)
--- NOTE | 2020-08-06 12:05 | PM.IMPN ---
Progress Note: A&P Assessment and Plan (1) Acute respiratory failure: Qualifiers: Respiratory failure complication: unspecified whether with hypoxia or hypercapnia Qualified Code(s): J96.00 - Acute respiratory failure, unspecified whether with hypoxia or hypercapnia Code(s): J96.00 - Acute respiratory failure, unspecified whether with hypoxia or hypercapnia Status: Acute Assessment and Plan: Appears to be secondary to COPD exacerbation. improving, hopeful DC tomorrow. (2) Acute exacerbation of chronic obstructive pulmonary disease: Code(s): J44.1 - Chronic obstructive pulmonary disease with (acute) exacerbation Status: Acute Assessment and Plan: Continue Solu-Medrol, bronchodilators and Levaquin continue oxygen supplementation wean off as tolerated. (3) Abnormal chest x-ray: Code(s): R93.89 - Abnormal findings on diagnostic imaging of other specified body structures Status: Acute Assessment and Plan: Patient will need a follow-up chest x-ray in 2 weeks (4) Rib pain on left side: Code(s): R07.81 - Pleurodynia Status: Acute Assessment and Plan: We will check a left lateral rib series, showed no fracture (5) Hypothyroidism: Qualifiers: Hypothyroidism type: unspecified Qualified Code(s): E03.9 - Hypothyroidism, unspecified Code(s): E03.9 - Hypothyroidism, unspecified Status: Chronic Assessment and Plan: Continue Synthroid (6) Essential (primary) hypertension: Onset Date: 12/07/18 Code(s): I10 - Essential (primary) hypertension Status: Chronic Assessment and Plan: Monitor blood pressure. Continue metoprolol. Subjective Date/time seen: 08/06/20 12:05 Interval history: 74-year-old female complaining of shortness of breath x3 weeks and left sided chest pain. Pt has history of COPD. Pt uses oxygen at home PRN. Review of Systems Review of Systems: All systems reviewed & are unremarkable except as noted in HPI and below Exam Const: General: cooperative, alert and other (on 2 liters of oxygen ) HENMT: Head: normal to inspection General nose exam: Normal external nose present Resp: Auscultation: diminished lung sounds Cardio: Rate: regular rate Rhythm: regular rhythm Heart sounds: no murmurs GI: Inspection: normal to inspection Auscultation: normal bowel sounds Skin: General skin exam: normal color and no rashes or lesions noted Neuro: General: patient oriented x3 Cranial nerves: Yes CN's II-XII intact bilaterally and Yes Equal, round and reactive pupils present Speech: normal speech Motor exam (neuro): 5/5 motor strength present throughout Sensory Exam: normal sensation Extrem: General: normal to inspection and no edema Psych: Mental Status: mental status grossly normal Affect: normal affect Objective Data Vital Signs Vital Signs: Vital Signs - 24 hr 08/05/20 13:00 08/05/20 13:45 08/05/20 13:53 Temperature 36.1 C L Pulse Rate 85 90 89 Respiratory Rate 20 20 20 Blood Pressure 144/51 H Pulse Oximetry 99 08/05/20 14:00 08/05/20 16:00 08/05/20 17:29 Temperature 36.6 C Pulse Rate 95 92 94 Respiratory Rate 21 H Blood Pressure 141/80 H Pulse Oximetry 94 98 08/05/20 20:00 08/05/20 22:00 08/05/20 22:58 Temperature 36.2 C L Pulse Rate 105 H 105 H Respiratory Rate 18 Blood Pressure 147/53 H Pulse Oximetry 98 97 08/06/20 00:00 08/06/20 08:45 08/06/20 08:47 Temperature 36.3 C L Pulse Rate 76 76 Respiratory Rate 18 20 Blood Pressure 155/78 H Pulse Oximetry 97 94 08/06/20 09:31 Temperature Pulse Rate 87 Respiratory Rate 20 Blood Pressure Pulse Oximetry 96 Intake/Output Intake/Output: Intake & Output 08/03/20 08/04/20 08/05/20 08/06/20 23:59 23:59 23:59 23:59 Intake Total 2960 1500 Output Total 400 600 Balance 2560 900 Meds/Results Medications: Active Medications Generic Name Do
[2020-08-06] MEDS: methylPREDNISolone SOD SUCC 40 MG VIAL 20 MG IV PUSH ×2 (14:50→20:21)
[2020-08-06] MEDS: LORazepam (*CRX) 0.5 MG TABLET PO (20:27)
[2020-08-07] VITALS (14 sets, daily range): BP systolic 140–144; BP diastolic 58–62; PULSE 68–98; RESP 18–20; TEMP 36.2–36.9; O2SAT 86–98
[2020-08-07] MEDS: ALBUTEROL SULFATE NEB 2.5 MG/0.5 ML INH 5 MG INHALATION ×3 (01:56→14:00)
[2020-08-07] MEDS: methylPREDNISolone SOD SUCC 40 MG VIAL 20 MG IV PUSH ×2 (06:26→13:47)
[2020-08-07] MEDS: ATORVASTATIN 20 MG TABLET PO (07:52)
[2020-08-07] MEDS: METOPROLOL TARTRATE 25 MG TABLET PO (07:52)
[2020-08-07] MEDS: ENOXAPARIN 40 MG/0.4 ML SYRINGE SUB-Q (07:52)
[2020-08-07] MEDS: SERTRALINE HCL 50 MG TABLET 150 MG PO (07:52)
[2020-08-07] MEDS: FLUTICASONE/SALMETEROL 115-21 MCG INHALER 1 PUFF 2 PUFF INHALATION (08:00)
[2020-08-07] MEDS: LEVOTHYROXINE SODIUM 125 MCG TABLET PO (10:37)
--- NOTE | 2020-08-07 12:26 | PM.DS ---
DS: Admitting Diagnosis Admitting Diagnosis Admitting Diagnosis: Left lateral rib pain and worsening shortness of breath DS: Discharge Diagnosis Discharge Diagnosis (1) Acute respiratory failure: Qualifiers: Respiratory failure complication: unspecified whether with hypoxia or hypercapnia Qualified Code(s): J96.00 - Acute respiratory failure, unspecified whether with hypoxia or hypercapnia Code(s): J96.00 - Acute respiratory failure, unspecified whether with hypoxia or hypercapnia Status: Acute Assessment and Plan: Appears to be secondary to COPD exacerbation. improving, hopeful DC today pt to continue with oxygen at home and inhaler treatments Advair and albuterol and oral medrol dose pack (2) Acute exacerbation of chronic obstructive pulmonary disease: Code(s): J44.1 - Chronic obstructive pulmonary disease with (acute) exacerbation Status: Acute Assessment and Plan: Continue Solu-Medrol, bronchodilators in hospital stable for dischrage (3) Abnormal chest x-ray: Code(s): R93.89 - Abnormal findings on diagnostic imaging of other specified body structures Status: Acute Assessment and Plan: Patient will need a follow-up chest x-ray in 2 weeks- 4 weeks time (4) Rib pain on left side: Code(s): R07.81 - Pleurodynia Status: Acute Assessment and Plan: We will check a left lateral rib series, showed no fracture (5) Hypothyroidism: Qualifiers: Hypothyroidism type: unspecified Qualified Code(s): E03.9 - Hypothyroidism, unspecified Code(s): E03.9 - Hypothyroidism, unspecified Status: Chronic Assessment and Plan: Continue Synthroid (6) Essential (primary) hypertension: Onset Date: 12/07/18 Code(s): I10 - Essential (primary) hypertension Status: Chronic Assessment and Plan: Monitor blood pressure. Continue metoprolol. DS: Summary Hospital Course Hospital Course: 74-year-old female complaining of shortness of breath x3 weeks and left sided chest pain. Pt has history of COPD. Pt uses oxygen at home PRN. Pt feels better stable or discharge. Follow up with DR Plaza with rpt Cxr for granulomatous disease and COPd. Time Spent with Patient Time attestation: Total time spent providing and/or coordinating discharge services:40 minutes on day of discharge Exam Const: General: cooperative, alert and other (on 2 liters of oxygen ) Nutritional Appearance: well nourished Orientation/consciousness: patient oriented x3 Resp: Auscultation: diminished lung sounds Cardio: Rate: regular rate Rhythm: regular rhythm Heart sounds: no murmurs GI: Inspection: normal to inspection Auscultation: normal bowel sounds Skin: General skin exam: normal color and no rashes or lesions noted Neuro: General: patient oriented x3 Cranial nerves: Yes CN's II-XII intact bilaterally and Yes Equal, round and reactive pupils present Speech: normal speech Motor exam (neuro): 5/5 motor strength present throughout Sensory Exam: normal sensation Extrem: General: normal to inspection and no edema Psych: Mental Status: mental status grossly normal Affect: normal affect Discharge Plan Discharge Attending physician on discharge: Kayla Chawla Discharging Clinician: Kayla Chawla Anticipated Discharge Date/Time: 08/07/20 15:00 Patient Disposition: Home, Self-Care Activity: as tolerated Diet: heart healthy Discharge Instructions: Per Care Coordination Patient to call Department of Aging to arrange a time for an assessment to evaluate if qualify for any services in her home. [phone] Patient Instructions: Antibiotic Form, COPD (Chronic Obstructive Pulmonary Disease) (GEN), Chronic Hypertension (GEN) Stand Alone Forms: General Discharge Information Follow-up/Referrals: Marcy Plaza MD [Physician] - (in 1-2 months time ) Justice Platt DO [Primary Care Provider] - Discharg
--- NOTE | 2020-08-07 15:01 | PCRCNOTE ---
HOME O2 EVAL COMPLETE, 1 LITER AT REST AND 3 LITERS WITH ACTIVITY. PT HAS HOME O2 AND HAS A TANK IN ROOM FOR DISCHARGE.
== END 2020-08-07 16:05 | disposition home or self-care (01) | DRG 190 ==
LOC: ANHED 23:49 → ANHIMU 08-05 02:54 → ANH2MED 08-06 02:06 → ANHIMU 08-11 16:40
PROVIDERS: Emergency Medicine; Admitting Provider Family Medicine; Emergency Provider Emergency Medicine; PCP Internal Medicine; Visit Provider Family Medicine
DX: J43.9 Emphysema, unspecified (principal); J96.20 Acute and chronic respiratory failure, unspecified whether with hypoxia or hypercapnia; R93.89 Abnormal findings on diagnostic imaging of other specified body structures; R07.81 Pleurodynia; E03.9 Hypothyroidism, unspecified; I10 Essential (primary) hypertension; E78.5 Hyperlipidemia, unspecified; M79.7 Fibromyalgia; M81.0 Age-related osteoporosis without current pathological fracture; I73.9 Peripheral vascular disease, unspecified; F41.0 Panic disorder [episodic paroxysmal anxiety]; F06.4 Anxiety disorder due to known physiological condition; Z66 Do not resuscitate; Z99.81 Dependence on supplemental oxygen; Z79.899 Other long term (current) drug therapy; Z86.73 Personal history of transient ischemic attack (TIA), and cerebral infarction without residual deficits; Z87.891 Personal history of nicotine dependence; Z88.1 Allergy status to other antibiotic agents; Z88.2 Allergy status to sulfonamides; Z88.8 Allergy status to other drugs, medicaments and biological substances; Z91.040 Latex allergy status; Z98.42 Cataract extraction status, left eye; Z98.41 Cataract extraction status, right eye
CPT/HCPCS: 36415; 36600; 71046; 71100; 80048; 82375; 82805; 83050; 83735; 84484; 85025; 85380; 93005; 94618; 94640; 96374; 99285; A9270; J0696; J1650; J1956; J2920; J2930; J7120

== ENCOUNTER → 2021-05-29 02:51 | Outpatient (CLI) | payer MEDICARE, SELFPAY ==
[2021-05-29 18:24] LABS: SARS-CoV-2 RNA PCR Negative
== END ==
PROVIDERS: PCP Internal Medicine; Visit Provider Internal Medicine
DX: Z20.822 Contact with and (suspected) exposure to COVID-19 (principal); R68.89 Other general symptoms and signs
CPT/HCPCS: C9803; U0003; U0005

== ENCOUNTER 2021-08-18 09:18 | Outpatient (CLI) | payer MEDICARE, SELFPAY ==
--- NOTE | 2021-08-21 12:55 | WPDHOLTEREM ---
Holter/Event Monitor Holter/Event Monitor Date of procedure: 08/18/21 Holter/Event Procedure: 48 Hr Holter Monitor Indications: SVT Conclusion: 1. 48 hour holter monitor on 08/18/21. 2. Underlying rhythm is sinus rhythm. HR range 57-112 bpm; average HR 75 bpm. 3. There are 208 premature supraventricular complexes, 3 supraventricular couplets and 1 supraventricular triplet. No supraventricular tachycardia. 4. There are 27 premature ventricular complexes. No ventricular tachycardia. 5. No sinoatrial or atrioventricular blocks. No significant pauses greater than 2 seconds. 6. Patient reports symptoms of pounding heart beats, difficulty breathing which demonstrate sinus rhythm, HR range 84-91 bpm.
== END 2021-08-18 09:19 | disposition home or self-care (01) ==
PROVIDERS: PCP Internal Medicine; Visit Provider Internal Medicine
DX: R00.0 Tachycardia, unspecified (principal); I49.1 Atrial premature depolarization
CPT/HCPCS: 93225; 93226

== ENCOUNTER 2021-08-22 12:35 | Inpatient (IN) | payer MEDICARE, SELFPAY ==
[2021-08-22] VITALS (38 sets, daily range): BP systolic 114–210; BP diastolic 43–109; PULSE 75–92; RESP 12–29; TEMP 36.3–36.5; O2SAT 85–100; BMI 18.5
--- NOTE | ~2021-08-22 | XR_ITS ---
EXAMINATION: XR chest 1V portable DATE: 08/22/2021 13:40 INDICATION: Dyspnea TECHNIQUE: AP view of the chest was obtained. COMPARISON: Chest radiograph dated 08/05/[address] dated 03/17/2020 FINDINGS: Hyperexpansion of the lungs. Calcified nodule in the right midlung zone consistent with old granuloma tous disease. No pneumonia, pulmonary edema, pleural effusion or pneumothorax. Cardiomediastinal silh ouette is normal. Mild thoracic levocurvature. IMPRESSION: 1. Hyperexpansion of lungs consistent with emphysema better appreciated on prior CT. Reviewed, dictated and finalized at location A. IMPRESSION: 1. Hyperexpansion of lungs consistent with emphysema better appreciated on prio r CT.
--- NOTE | 2021-08-22 12:40 | ECG_ITS ---
Measurements Intervals [place] Rate: 82 P: 89 PA: 161 QRS: 56 QRSD: 90 T: 77 QT: 359 QTc: 422 Interpretive Statements SINUS RHYTHM ST AND T ABNORMALITY CONSIDER HYPERKALEMIA COMPARED TO ECG 08/04/2020 22:03:45 T-WAVE ABNORMALITY NOTED Electronically Signed On 08-23-2021 7:56:49 CDT by Filippo Morelos M.D.
--- NOTE | 2021-08-22 12:45 | PC.NURSE ---
pt c/o increasing sob over past several days. pt unable to speak in full sentences. on home o2 2 liters with multiple tubings connected together. when questioned pt states she does have home neb treatments but hasnt been using them for past 2 weeks because she doesnt feel good.
[2021-08-22 13:09] LABS: Basophils Percent Auto 0.3 % (0.2-1.2); Eosinophils Absolute Auto 1.2 K/mm3 (0-0.3); Eosinophils Percent Auto 8.7 % (0-4.4); Hematocrit 43.5 % (37.0-47.0); Hemoglobin 14.1 g/dL (12.0-15.0); Immature Granulocyte Absolute 0.03 K/mm3 (0.00-0.031); Immature Granulocyte Percent A 0.2 % (0-0.5); Lymphocytes Absolute Auto 3.47 K/mm3 (0.9-3.2); Mean Corpuscular HGB Conc 32.4 g/dl (32-36); Mean Corpuscular Hemoglobin 30.4 pg (26-34); Mean Corpuscular Volume 93.8 fl (80-100); Mean Platelet Volume 8.4 fl (7.4-10.4); Monocytes Percent Auto 7.5 % (2.6-8.5); Neutrophils Absolute Auto 8.1 K/mm3 (1.3-6.7); Neutrophils Percent Auto 58.3 % (45.5-73.1); Platelet Count Result 471 k/mm3 (150-375); Red Blood Count 4.64 M/mm3 (4.2-5.4); Red Cell Distribution Width 12.1 % (11.5-14.5); White Blood Count 13.9 K/mm3 (4.5-10.0)
--- NOTE | 2021-08-22 13:09 | ED.GENADULT ---
HPI - General Adult General Chief complaint: Shortness of Breath/Dyspnea Stated complaint: cant breath Time Seen by Provider: 08/22/21 13:03 Source: patient History of Present Illness HPI narrative: 75-year-old female with history of COPD presented to the emergency department for evaluation of worsening shortness of breath over the course of the last 3 weeks. Patient states over the course of the last few weeks that she has not had follow-up with her primary care physician. Patient is not currently on antibiotics or steroids. Patient states she does have breathing treatments at home but has not had a breathing treatment in approximately 2 weeks because she did not feel well . Patient does have history of COPD with an oxygen requirement of 2 L per nasal cannula at all times Related Data Allergies Allergy/AdvReac Type Severity Reaction Status Date / Time aspirin Allergy Intermediate Nausea Verified 08/22/21 12:51 Macrolide Antibiotics Allergy Intermediate Unknown Verified 08/22/21 12:51 erythromycin base Allergy Unknown Nausea Verified 08/22/21 12:51 latex Allergy Unknown Itching Verified 08/22/21 12:51 mold Allergy Unknown Difficulty Verified 08/22/21 12:51 Breathing ragweed pollen Allergy Unknown Difficulty Verified 08/22/21 12:51 Breathing Sulfa (Sulfonamide Allergy Unknown Unknown Verified 08/22/21 12:51 Antibiotics) ipratropium AdvReac Severe Itching Verified 08/22/21 12:51 and panic attacks Review of Systems Review of Systems: CONSTITUTIONAL: Denies fever, chills, or sweats. EYES: Denies visual changes, redness, or discharge. ENT: Denies rhinorrhea, congestion, sore throat, or otalgia. CARDIOVASCULAR: Denies chest pain, palpitations, or edema. RESPIRATORY: See HPI GASTROINTESTINAL: Denies abdominal pain, nausea, vomiting, or diarrhea. GENITOURINARY: Denies dysuria or hematuria. SKIN: Denies rash or itching. MUSCULOSKELETAL: Denies back pain, joint pain, or myalgia. NEUROLOGIC: Denies headache, numbness, or weakness. [facility] Past Medical History Medical History 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 attack Chronic obstructive pulmonary disease Depression Diastolic dysfunction Echocardiogram April 2018 demonstrated grade 1 diastolic dysfunction EF of 60% impaired right ventricular systolic dysfunction mild mitral valve regurgitation mild aortic stenosis based on velocities valve not well visualized Elevated platelet count Chronic Emphysema lung Essential (primary) hypertension (12/07/18) Fibromyalgia History of tobacco abuse Hyperlipidemia, unspecified Hypothyroidism Hypothyroidism, unspecified Osteoporosis, unspecified PAD (peripheral artery disease) Sleep disorder breathing Noted on polysomnogram March 2018 TIA (transient ischemic attack) Tobacco abuse Vitamin D deficiency, unspecified (12/07/18) Surgical History Surgical History History of appendectomy History of bilateral carpal tunnel release History of bilateral cataract extraction History of cholecystectomy History of colonoscopy with polypectomy [address] Alcantara with pathology demonstrating adenomas polyp History of hysterectomy History of tonsillectomy Family History Family History Father Family history of lung cancer Chronic obstructive pulmonary disease Mother Bulbar myasthenia gravis Chronic obstructive pulmonary disease Unknown Anxiety Depression ADHD Sibling Chronic obstructive pulmonary disease Social History Social History Social History: She is since 2015 and lives in her own home in [place]. Just prior to November she was planning on moving in with her son but when she went in his home she thought she smelled mold and thought th
[2021-08-22] MEDS: ALBUTEROL SULFATE NEB 2.5 MG/0.5 ML INH 5 MG INHALATION (13:11)
[2021-08-22 13:21] LABS: Alanine Aminotransferase 21 U/L (4-35); Albumin Level 4.5 g/dL (3.5-5.1); Alkaline Phosphatase 83 U/L (38-126); Anion Gap 4 mmol/L (8-16); Aspartate Amino Transferase 32 U/L (14-36); Bilirubin,Total 0.2 mg/dL (0.2-1.3); Blood Urea Nitrogen 15 mg/dL (7-17); Calcium 8.9 mg/dL (8.4-10.2); Carbon Dioxide 32 mmol/L (22-30); Chloride 95 mmol/L (98-107); Estimated CRCL calculation 41 ml/min; Estimated Glomerular Filt Rate > 60; Glucose 127 mg/dL (65-110); Potassium 4.9 mmol/L (3.4-5.0); Sodium 131 mmol/L (137-145)
[2021-08-22 13:27] LABS: Base Excess ABG 0.1 mEq/l (+/-2.0); Carboxyhemoglobin 0.5 % THb (0-2.0); Fractional Inspired Oxygen 28 %; HCO3 ABG 28.8 mEq/l (22.0-26.0); Methemoglobin ABG 0.3 %THb (0-1.5); Oxygen Content ABG 19.5 %vol (16.0-22.0); Oxygen Saturation ABG 98.3 % (95.0-100.0); Oxyhemoglobin 97.3 % THb (90.0-100.0); PO2 ABG 136.7 mmHg (80.0-100.0); PO2 FiO2 Ratio Arterial Blood 4.88 %; Reduced Hemoglobin 1.9 %THb (0-5.0); Total Hemoglobin 14.1 g/dL (12.0-18.0)
[2021-08-22 13:28] LABS: PCO2 ABG 65.9 mmHg (35.0-45.0); pH ABG 7.259 (7.350-7.450)
[2021-08-22 13:31] LABS: Modified Allen's Test Pass; Site Drawn RIGHT RADIAL
[2021-08-22 13:32] LABS: Device NASAL CANNULA
[2021-08-22] MEDS: methylPREDNISolone SOD SUCC 125 MG VIAL IV PUSH (13:41)
[2021-08-22] MEDS: ALBUTEROL SULFATE NEB 2.5 MG/0.5 ML INH 10 MG INHALATION (14:50)
[2021-08-22] MEDS: ALBUTEROL SULFATE NEB 2.5 MG/3 ML INH 10 MG (14:50)
--- NOTE | 2021-08-22 15:30 | PC.NURSE ---
pt is breathing much better. less use of accessory muscles noted. pt conversing with family at bedside.
--- NOTE | 2021-08-22 16:45 | PC.NURSE ---
respiratory contacted regarding need for repeat abgs.
[2021-08-22 17:14] LABS: Alveolar/Arterial O2 Gradient 64.7 mmHg; Base Excess ABG 1.2 mEq/l (+/-2.0); Fractional Inspired Oxygen 28 %; HCO3 ABG 26.7 mEq/l (22.0-26.0); Oxygen Content ABG 19.3 %vol (16.0-22.0); Oxygen Saturation ABG 95.7 % (95.0-100.0); PCO2 ABG 45.7 mmHg (35.0-45.0); PO2 FiO2 Ratio Arterial Blood 2.89 %; Total Hemoglobin 14.4 g/dL (12.0-18.0); pH ABG 7.385 (7.350-7.450)
[2021-08-22 17:15] LABS: Device NASAL CANNULA; Modified Allen's Test Pass; Site Drawn RIGHT RADIAL
--- NOTE | 2021-08-22 17:15 | PM.IMHP ---
H&P: HPI History of Present Illness Date/Time: 08/22/21 17:15 Chief Complaint: Shortness of breath. Narrative: This is a 75-year-old female with chronic respiratory failure on 2 L nasal cannula, chronic obstructive pulmonary disease, seasonal allergies, hypertension, hypothyroidism, and anxiety presented to the emergency department from home for evaluation of shortness of breath. She has chronic dyspnea though reports increasing dyspnea on lesser and lesser exertion over the past couple of weeks. Over the last 3 days or so she has developed a cough productive of thick green sputum and her appetite has been poor. She also believes that she has been running a low-grade fever. She uses her inhalers ?when I remember? and she reports being forgetful and ?spacey? which she believes is due to hypoxia, noting that her SpO2 drops down into the mid 80s frequently. Her shortness of breath and wheezing have gotten much worse over the past 2 days however she has not used her nebulizer because it takes too much energy to get set up. SpO2 was 85% on arrival to the emergency department though she is currently at her baseline oxygen requirements with adequate oxygenation. Chest x-ray showed hyperexpansion of the lungs consistent with emphysema without any other acute findings. Due to continued and significant wheezing she is being admitted for further treatment of COPD exacerbation. She denies documented fever, headache, neck ache, sore throat, syncope, near syncope, chest pain, pleuritic pain, orthopnea, paroxysmal nocturnal dyspnea, edema, vomiting, and diarrhea. No sick contacts. No dysarthria concerns for aspiration. Review of Systems Review of Systems: Twelve systems were reviewed. Appetite has been decreased with some nausea. No vomiting. No diarrhea or constipation. She denies dysuria. She does not get out of the house much and does not even walk down the hill to get her mail anymore due to shortness of breath and claudication. Except as documented, all other systems were reviewed and are negative. [facility] Past Medical History Medical History (Updated 08/22/21 @ 22:56 by Melany Dao PA-C) 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 attack Chronic obstructive pulmonary disease Chronic respiratory failure with hypoxia, on home oxygen therapy Depression Diastolic dysfunction Echocardiogram April 2018 demonstrated grade 1 diastolic dysfunction EF of 60% impaired right ventricular systolic dysfunction mild mitral valve regurgitation mild aortic stenosis based on velocities valve not well visualized Elevated platelet count Chronic Emphysema lung Essential (primary) hypertension (12/07/18) Fibromyalgia History of tobacco abuse Hyperlipidemia, unspecified Hypothyroidism Osteoporosis, unspecified Peripheral artery disease Sleep disorder breathing Noted on polysomnogram March 2018 Tobacco abuse Transient ischemic attack Vitamin D deficiency, unspecified (12/07/18) Surgical History Surgical History History of appendectomy History of bilateral carpal tunnel release History of bilateral cataract extraction History of cholecystectomy History of colonoscopy with polypectomy [address] Alcantara with pathology demonstrating adenomas polyp History of hysterectomy History of tonsillectomy Family History Family History Father Family history of lung cancer Chronic obstructive pulmonary disease Mother Bulbar myasthenia gravis Chronic obstructive pulmonary disease Unknown Anxiety Depression ADHD Sibling Chronic obstructive pulmonary disease Social History Social History (Updated 08/22/21 @ 22:44 by Melany Dao PA-C) Social History: Primary care provider: Dr. Justice Platt Code status: DNR/DNI Durable power of healthcare: Magno Hernández (oldest son) Smoking packs per day: 1
--- NOTE | 2021-08-22 19:50 | ADMGEN ---
This patient, Ella Puckett, was admitted to [facility] Surg Room 304-01. Patient/family oriented to hospital policies and general routines including ID bracelet, bed and alarms, visiting hours, pain management, procedures, bathroom and other care routines, personal items, smoking policy, room service/diet, and visiting hours. Information on how to activate the Rapid Response Team has been discussed. Patient/Family are encouraged to report perceived risks to care and to ask questions if they do not understand what they are told or what they should do.
[2021-08-22] MEDS: AMOXICILLIN/CLAVULANATE K 875-125 MG TAB 1 TABLET PO (23:25)
[2021-08-22] MEDS: guaiFENesin 12 HR 600 MG TABCR PO (23:25)
[2021-08-22] MEDS: METOPROLOL TARTRATE 25 MG TABLET PO (23:25)
[2021-08-22] MEDS: methylPREDNISolone SOD SUCC 125 MG VIAL 60 MG IV PUSH (23:25)
[2021-08-22] MEDS: SODIUM CHLORIDE 0.9% IV 1,000 ML 100 ML IV CONT (23:26)
[2021-08-23] VITALS (17 sets, daily range): BP systolic 104–145; BP diastolic 47–62; PULSE 68–91; RESP 16–20; TEMP 36.3–36.8; O2SAT 94–100
[2021-08-23] MEDS: LORazepam (*CRX) 0.5 MG TABLET PO ×3 (00:17→21:35)
--- NOTE | 2021-08-23 01:59 | PCRCNOTE ---
Window of time for administration has passed. See next scheduled administration.
[2021-08-23] MEDS: ALBUTEROL SULFATE NEB 2.5 MG/0.5 ML INH 5 MG INHALATION ×4 (02:01→19:50)
[2021-08-23] MEDS: methylPREDNISolone SOD SUCC 125 MG VIAL 60 MG IV PUSH ×3 (05:36→17:30)
[2021-08-23 06:06] LABS: Hematocrit 38.8 % (37.0-47.0); Hemoglobin 12.7 g/dL (12.0-15.0); Mean Corpuscular HGB Conc 32.7 g/dl (32-36); Mean Corpuscular Hemoglobin 30.5 pg (26-34); Mean Platelet Volume 8.6 fl (7.4-10.4); Platelet Count Result 420 k/mm3 (150-375); Red Blood Count 4.17 M/mm3 (4.2-5.4); Red Cell Distribution Width 12.5 % (11.5-14.5); White Blood Count 10.5 K/mm3 (4.5-10.0)
--- NOTE | 2021-08-23 06:08 | PC.NURSE ---
08/23/[address] spivey contacted regarding pt refusing levothyroxine stating she will only take synthroid. stated that was fine just let day shift know.
[2021-08-23 06:22] LABS: Anion Gap 3 mmol/L (8-16); Blood Urea Nitrogen 18 mg/dL (7-17); Calcium 8.7 mg/dL (8.4-10.2); Carbon Dioxide 31 mmol/L (22-30); Chloride 99 mmol/L (98-107); Estimated CRCL calculation 47 ml/min; Estimated Glomerular Filt Rate > 60; Glucose 134 mg/dL (65-110); Magnesium 2.1 mg/dL (1.6-2.3); Potassium 4.6 mmol/L (3.4-5.0); Sodium 133 mmol/L (137-145)
[2021-08-23 07:00] LABS: Thyroid Stimulating Hormone Reflex 0.029 uIU/mL (0.465-4.68)
[2021-08-23 07:52] LABS: Free T4 Free Thyroxine Reflex 1.35 ng/dL (0.78-2.19)
[2021-08-23 09:05] LABS: Total Triiodothyronine (T3) 1.04 NG/ML (0.97-1.69)
[2021-08-23] MEDS: FLUTICASONE/SALMETEROL 115-21 MCG INHALER 1 PUFF 2 PUFF INHALATION ×2 (09:19→19:50)
[2021-08-23] MEDS: SERTRALINE HCL 50 MG TABLET 150 MG PO (09:53)
[2021-08-23] MEDS: METOPROLOL TARTRATE 25 MG TABLET PO ×2 (09:53→21:37)
[2021-08-23] MEDS: ENOXAPARIN 40 MG/0.4 ML SYRINGE SUB-Q (09:53)
[2021-08-23] MEDS: ATORVASTATIN 20 MG TABLET PO (09:53)
[2021-08-23] MEDS: cefTRIAXone 2 GM in SODIUM CHLORIDE 0.9% IV 100 ML 200 ML IVPB (09:55)
[2021-08-23] MEDS: guaiFENesin 12 HR 600 MG TABCR PO ×2 (09:55→21:35)
[2021-08-23] MEDS: DOXYCYCLINE 100 MG/NS 100 ML 100 MG/100 ML BAG IVPB ×2 (10:07→21:34)
--- NOTE | 2021-08-23 12:33 | PM.IMPN ---
Progress Note: A&P Assessment and Plan (1) COPD exacerbation: Code(s): J44.1 - Chronic obstructive pulmonary disease with (acute) exacerbation Status: Acute Assessment and Plan: Likely precipitated by her seasonal allergies (eosinophils are quite elevated) in addition to intermittent compliance with her inhalers. Patient reports that she forgets to use them sometime and thinks she may be getting forgetful from hypoxia, reporting SpO2 into the mid 80s ?frequently.? She is looking in to assisted living and I think that would be beneficial for her. At this time she will be admitted to the medical floor with scheduled bronchodilators and Solu-Medrol with pulmonary toilet. Chest x-ray showed no acute findings but she has been started on antibiotics given increasing and purulence cough with worsening shortness of breath. 08/23/2021 interval history: Patient is 75-year-old female with history of COPD presented emergency department with complaint cough shortness of breath is found to have exacerbation of COPD patient was started on methylprednisone updraft and started on antibiotics to cover for atypicals, patient states feeling much better compared to when she arrived, will continue present management as patient's symptoms improved will taper Solu-Medrol, will have PT OT evaluate the patient and further recommendation to follow. (2) Acute on chronic respiratory failure with hypoxia and hypercapnia: Code(s): J96.21 - Acute and chronic respiratory failure with hypoxia; J96.22 - Acute and chronic respiratory failure with hypercapnia Status: Resolved Assessment and Plan: Blood gas on arrival showed a pH of 7.259 and a pCO2 of 65.9. She received a continuous nebulizer and is now moving a lot more air with marked improvement in a repeat gas 3-1/2 hours later. She is currently at her baseline oxygen requirement but would benefit from a home oxygen evaluation prior to discharge due to reports of SpO2 in the 80s at home. (3) Hyponatremia: Code(s): E87.1 - Hypo-osmolality and hyponatremia Status: Acute Assessment and Plan: In part secondary to her COPD however she does look dry and with her decreased oral intake the last several days I think she would benefit from a L of fluid overnight. Repeat electrolytes in a.m. (4) Essential (primary) hypertension: Onset Date: 12/07/18 Code(s): I10 - Essential (primary) hypertension Status: Chronic Assessment and Plan: Blood pressures were reviewed and they are reasonable. Continue antihypertensives and monitor daily. (5) Hypothyroidism: Qualifiers: Hypothyroidism type: unspecified Qualified Code(s): E03.9 - Hypothyroidism, unspecified Code(s): E03.9 - Hypothyroidism, unspecified Status: Chronic Assessment and Plan: Continue levothyroxine and check TSH. Subjective Date/time seen: 08/23/21 12:33 Chief Complaint: Shortness of breath. HPI-Narrative: This is a 75-year-old female with chronic respiratory failure on 2 L nasal cannula, chronic obstructive pulmonary disease, seasonal allergies, hypertension, hypothyroidism, and anxiety presented to the emergency department from home for evaluation of shortness of breath. She has chronic dyspnea though reports increasing dyspnea on lesser and lesser exertion over the past couple of weeks. Over the last 3 days or so she has developed a cough productive of thick green sputum and her appetite has been poor. She also believes that she has been running a low-grade fever. She uses her inhalers ?when I remember? and she reports being forgetful and ?spacey? which she believes is due to hypoxia, noting that her SpO2 drops down into the mid 80s frequently. Her shortness of breath and wheezing have gotten much worse over the past 2 days however she has not used her nebulizer because it takes too much energy to get set up. SpO2 was 85% on arrival to the emergency department th
--- NOTE | 2021-08-23 18:01 | PC.NURSE ---
when I went to give pt her 1700 meds, she was nonverbal, not directable, and had a vacant stare. I checked pt's vitals and her pulse ox was 82% and 114. I administered oxygen via nasal canula until pt's pulse ox was at least 90% and then began weaning it down until she remained at least 90%. Pt's was in the room and had been feeding her instead of letting her attempt to feed herself or ask for our help. Pt was in a reclined position and her cheeks were full of unchewed food. Pt's keep shaking pt's cheek and stroking her throat telling her to eat with no response from pt.
[2021-08-24] VITALS (10 sets, daily range): BP systolic 133; BP diastolic 58; PULSE 75–87; RESP 16–18; TEMP 36.3; O2SAT 88–97
[2021-08-24] MEDS: methylPREDNISolone SOD SUCC 125 MG VIAL 60 MG IV PUSH ×3 (00:05→13:05)
--- NOTE | 2021-08-24 06:29 | PC.NURSE ---
08/24/21 0629 attempted to administer pt's levothyroxine pt refused stating it wouldn't be the first time she has not taken that med. pt states she always go sometimes w/o taking it. pt reminded of risks of not taking levothyroxine pt verbalized understanding.
[2021-08-24 06:50] LABS: Hematocrit 37.4 % (37.0-47.0); Hemoglobin 12.4 g/dL (12.0-15.0); Mean Corpuscular HGB Conc 33.2 g/dl (32-36); Mean Corpuscular Hemoglobin 30.9 pg (26-34); Mean Corpuscular Volume 93.3 fl (80-100); Mean Platelet Volume 9.4 fl (7.4-10.4); Platelet Count Result 451 k/mm3 (150-375); Red Blood Count 4.01 M/mm3 (4.2-5.4); Red Cell Distribution Width 13.1 % (11.5-14.5); White Blood Count 22.4 K/mm3 (4.5-10.0)
[2021-08-24 07:05] LABS: Anion Gap 6 mmol/L (8-16); Blood Urea Nitrogen 19 mg/dL (7-17); Calcium 8.7 mg/dL (8.4-10.2); Carbon Dioxide 26 mmol/L (22-30); Chloride 102 mmol/L (98-107); Estimated CRCL calculation 47 ml/min; Estimated Glomerular Filt Rate > 60; Glucose 133 mg/dL (65-110); Potassium 4.4 mmol/L (3.4-5.0); Sodium 134 mmol/L (137-145)
[2021-08-24] MEDS: LORazepam (*CRX) 0.5 MG TABLET PO (08:52)
[2021-08-24] MEDS: METOPROLOL TARTRATE 25 MG TABLET PO (08:52)
[2021-08-24] MEDS: ATORVASTATIN 20 MG TABLET PO (08:52)
[2021-08-24] MEDS: guaiFENesin 12 HR 600 MG TABCR PO (08:52)
[2021-08-24] MEDS: SERTRALINE HCL 50 MG TABLET 150 MG PO (08:53)
[2021-08-24] MEDS: ENOXAPARIN 40 MG/0.4 ML SYRINGE SUB-Q (08:53)
[2021-08-24] MEDS: cefTRIAXone 2 GM in SODIUM CHLORIDE 0.9% IV 100 ML 200 ML IVPB (08:54)
[2021-08-24] MEDS: DOXYCYCLINE 100 MG/NS 100 ML 100 MG/100 ML BAG IVPB (08:54)
[2021-08-24] MEDS: FLUTICASONE/SALMETEROL 115-21 MCG INHALER 1 PUFF 2 PUFF INHALATION (09:04)
[2021-08-24] MEDS: ALBUTEROL SULFATE NEB 2.5 MG/0.5 ML INH 5 MG INHALATION (09:04)
--- NOTE | 2021-08-24 12:19 | HOMEO2EVAL ---
Evaluation was performed at [facility] Home Oxygen Evaluation RC: Home Oxygen (O2) Evaluation Start: 08/24/21 10:23 Freq: ONCE Status: Active Protocol: RPE Activity Type Activity Date Activity User E-Sign Co-Sign Detail Recorded Client Recorded Date Recorded By Document 08/24/21 12:00 KRM [id number] 08/24/21 12:19 KRM Document 08/24/21 12:02 KRM [email or web address] 08/24/21 12:19 KRM Document 08/24/21 12:04 KRM [email or web address] 08/24/21 12:19 KRM Document 08/24/21 12:06 KRM [email or web address] 08/24/21 12:19 KRM 08/24/21 08/24/21 08/24/21 12:00 12:02 12:04 Home O2 Evaluation Test Phase Resting Resting Resting Oxygen Delivery Room Air Nasal Cannula Nasal Cannula Oxygen Flow Rate (L/min) 1 2 Pulse Oximetry (90-100 %) 88 L 89 L 90 Pulse Rate (60-100 beats/min) 79 78 79 Activity Tolerance Ambulation Distance (feet) Ambulation Distance (meters) Home Oxygen Evaluation Comments Treatment Charges 08/24/21 12:06 Home O2 Evaluation Test Phase Exercise Oxygen Delivery Nasal Cannula Oxygen Flow Rate (L/min) 2 Pulse Oximetry (90-100 %) 89 L Pulse Rate (60-100 beats/min) 75 Activity Tolerance Good Ambulation Distance (feet) 200 Ambulation Distance (meters) 60.95 Home Oxygen Evaluation Comments 2lpm at rest and with activity. Treatment Charges O2 Evaluation - Inpatient
--- NOTE | 2021-08-24 12:21 | PCRCNOTE ---
HOME O2 EVAL COMPLETE. NO CHANGES FROM CURRENT OXYGEN SETTING OF 2LPM.
--- NOTE | 2021-08-24 13:15 | PM.DS ---
DS: Admitting Diagnosis Discharge Date Admitting Diagnosis shortness of breath DS: Discharge Diagnosis Discharge Diagnosis (1) COPD exacerbation: Code(s): J44.1 - Chronic obstructive pulmonary disease with (acute) exacerbation Status: Acute Assessment and Plan: Likely precipitated by her seasonal allergies (eosinophils are quite elevated) in addition to intermittent compliance with her inhalers. Patient reports that she forgets to use them sometime and thinks she may be getting forgetful from hypoxia, reporting SpO2 into the mid 80s ?frequently.? She is looking in to assisted living and I think that would be beneficial for her. At this time she will be admitted to the medical floor with scheduled bronchodilators and Solu-Medrol with pulmonary toilet. Chest x-ray showed no acute findings but she has been started on antibiotics given increasing and purulence cough with worsening shortness of breath. 08/23/2021 interval history: Patient is 75-year-old female with history of COPD presented emergency department with complaint cough shortness of breath is found to have exacerbation of COPD patient was started on methylprednisone updraft and started on antibiotics to cover for atypicals, patient states feeling much better compared to when she arrived, will continue present management as patient's symptoms improved will taper Solu-Medrol, will have PT OT evaluate the patient and further recommendation to follow. (2) Acute on chronic respiratory failure with hypoxia and hypercapnia: Code(s): J96.21 - Acute and chronic respiratory failure with hypoxia; J96.22 - Acute and chronic respiratory failure with hypercapnia Status: Resolved Assessment and Plan: Blood gas on arrival showed a pH of 7.259 and a pCO2 of 65.9. She received a continuous nebulizer and is now moving a lot more air with marked improvement in a repeat gas 3-1/2 hours later. She is currently at her baseline oxygen requirement but would benefit from a home oxygen evaluation prior to discharge due to reports of SpO2 in the 80s at home. (3) Hyponatremia: Code(s): E87.1 - Hypo-osmolality and hyponatremia Status: Acute Assessment and Plan: In part secondary to her COPD however she does look dry and with her decreased oral intake the last several days I think she would benefit from a L of fluid overnight. Repeat electrolytes in a.m. (4) Essential (primary) hypertension: Onset Date: 12/07/18 Code(s): I10 - Essential (primary) hypertension Status: Chronic Assessment and Plan: Blood pressures were reviewed and they are reasonable. Continue antihypertensives and monitor daily. (5) Hypothyroidism: Qualifiers: Hypothyroidism type: unspecified Qualified Code(s): E03.9 - Hypothyroidism, unspecified Code(s): E03.9 - Hypothyroidism, unspecified Status: Chronic Assessment and Plan: Continue levothyroxine and check TSH. DS: Summary Hospital Course Reason for hospitalization: Chief Complaint: Shortness of breath. Narrative: This is a 75-year-old female with chronic respiratory failure on 2 L nasal cannula, chronic obstructive pulmonary disease, seasonal allergies, hypertension, hypothyroidism, and anxiety presented to the emergency department from home for evaluation of shortness of breath. She has chronic dyspnea though reports increasing dyspnea on lesser and lesser exertion over the past couple of weeks. Over the last 3 days or so she has developed a cough productive of thick green sputum and her appetite has been poor. She also believes that she has been running a low-grade fever. She uses her inhalers ?when I remember? and she reports being forgetful and ?spacey? which she believes is due to hypoxia, noting that her SpO2 drops down into the mid 80s frequently. Her shortness of breath and wheezing have gotten much worse over the past 2 days however she has not used her
--- NOTE | 2021-09-08 10:12 | PC.NURSE ---
Called patient about home medications that were left behind at discharge. I let patient know it was a Tuesday and Tuesday pill sorter with some pills. Patient said to throw away.
== END 2021-08-24 15:01 | disposition home or self-care (01) | DRG 190 ==
LOC: ANHED 13:25 → ANH3MEDSUR 18:41
PROVIDERS: Emergency Medicine; Physician Assistant; Admitting Provider Internal Medicine; Emergency Provider Emergency Medicine; PCP Internal Medicine; Visit Provider Family Medicine
DX: J44.1 Chronic obstructive pulmonary disease with (acute) exacerbation (principal); J96.21 Acute and chronic respiratory failure with hypoxia; J96.22 Acute and chronic respiratory failure with hypercapnia; E87.1 Hypo-osmolality and hyponatremia; I10 Essential (primary) hypertension; E03.9 Hypothyroidism, unspecified; Z99.81 Dependence on supplemental oxygen; Z87.891 Personal history of nicotine dependence; Z66 Do not resuscitate; Z83.6 Family history of other diseases of the respiratory system; Z86.73 Personal history of transient ischemic attack (TIA), and cerebral infarction without residual deficits; I73.9 Peripheral vascular disease, unspecified; M19.90 Unspecified osteoarthritis, unspecified site; G47.9 Sleep disorder, unspecified; M79.7 Fibromyalgia; M81.0 Age-related osteoporosis without current pathological fracture; E78.5 Hyperlipidemia, unspecified; Z79.899 Other long term (current) drug therapy
CPT/HCPCS: 36415; 36600; 71045; 80048; 80053; 82375; 82805; 83050; 83735; 84439; 84443; 84480; 85025; 85027; 93005; 94618; 94640; 94667; 94668; 96361; 96365; 96366; 96367; 96372; 96375; 96376; 99285; A9270; G0378; J0696; J1650; J2930; J7030

== ENCOUNTER 2021-10-18 12:19 | Observation (INO) | payer MEDICARE, SELFPAY ==
[2021-10-18] VITALS (13 sets, daily range): BP systolic 112–200; BP diastolic 54–88; PULSE 74–94; RESP 16–26; TEMP 36.2–36.5; O2SAT 91–100; BMI 18.1
--- NOTE | ~2021-10-18 | XR_ITS ---
XR chest 2V DATE: 10/18/2021 12:46 INDICATION: Increasing shortness of breath. COPD. TECHNIQUE: AP and lateral views COMPARISON: 08/22/2021 portable AP chest FINDINGS: There is bilateral hyperinflation with flattening the diaphragm and increased retrosternal airspace, consistent with COPD. No pulmonary infiltrate or consolidation, pleural effusion or pulmona ry vascular congestion or pneumothorax is detected. Heart size is within normal range. There is aortic arch calcification. There is diffuse osteopenia. IMPRESSION: COPD Aortic atherosclerosis Osteopenia No active pulmonary disease Reviewed, dictated and finalized at location A.
--- NOTE | 2021-10-18 12:27 | ECG_ITS ---
Measurements Intervals [place] Rate: 79 P: 86 [place]: 125 QRS: 58 QRSD: 88 T: 80 QT: 374 QTc: 430 Interpretive Statements SINUS RHYTHM POSSIBLE RIGHT ATRIAL ENLARGEMENT [0.25mV P WAVE] BORDERLINE ECG COMPARED TO ECG 08/22/2021 12:46:10 T-WAVE ABNORMALITY HAS IMPROVED Electronically Signed On 10-19-2021 12:58:43 CDT by Filippo Morelos M.D.
[2021-10-18] MEDS: ALBUTEROL SULFATE NEB 2.5 MG/3 ML INH 15 MG INHALATION (12:49)
[2021-10-18] MEDS: methylPREDNISolone SOD SUCC 125 MG VIAL IV PUSH (13:03)
[2021-10-18 13:04] LABS: Basophils Absolute Auto 0.1 K/mm3 (0.0-0.1); Basophils Percent Auto 0.3 % (0.2-1.2); Eosinophils Absolute Auto 1.6 K/mm3 (0-0.3); Hemoglobin 14.4 g/dL (12.0-15.0); Immature Granulocyte Absolute 0.07 K/mm3 (0.00-0.031); Immature Granulocyte Percent A 0.4 % (0-0.5); Lymphocytes Absolute Auto 3.16 K/mm3 (0.9-3.2); Mean Corpuscular HGB Conc 32.7 g/dl (32-36); Mean Corpuscular Hemoglobin 30.2 pg (26-34); Mean Corpuscular Volume 92.2 fl (80-100); Mean Platelet Volume 8.6 fl (7.4-10.4); Monocytes Absolute Auto 1.2 K/mm3 (0.1-0.6); Monocytes Percent Auto 6.9 % (2.6-8.5); Neutrophils Absolute Auto 11.5 K/mm3 (1.3-6.7); Neutrophils Percent Auto 65.4 % (45.5-73.1); Platelet Count Result 442 k/mm3 (150-375); Red Blood Count 4.77 M/mm3 (4.2-5.4); Red Cell Distribution Width 12.7 % (11.5-14.5); White Blood Count 17.5 K/mm3 (4.5-10.0)
[2021-10-18 13:10] LABS: Alveolar/Arterial O2 Gradient 10.2 mmHg; Base Excess ABG 0.9 mEq/l (+/-2.0); Carboxyhemoglobin 0.7 % THb (0-2.0); Fractional Inspired Oxygen 28 %; HCO3 ABG 27.2 mEq/l (22.0-26.0); Methemoglobin ABG 0.3 %THb (0-1.5); Oxygen Content ABG 19.6 %vol (16.0-22.0); Oxygen Saturation ABG 98.5 % (95.0-100.0); Oxyhemoglobin 97.3 % THb (90.0-100.0); PCO2 ABG 49.4 mmHg (35.0-45.0); PO2 ABG 131.2 mmHg (80.0-100.0); PO2 FiO2 Ratio Arterial Blood 4.69 %; Reduced Hemoglobin 1.7 %THb (0-5.0); Total Hemoglobin 14.2 g/dL (12.0-18.0); pH ABG 7.358 (7.350-7.450)
[2021-10-18 13:11] LABS: Device NASAL CANNULA; Modified Allen's Test Pass; Site Drawn LEFT RADIAL
[2021-10-18 13:32] LABS: Alanine Aminotransferase 28 U/L (6-35); Albumin Level 4.4 g/dL (3.5-5.1); Alkaline Phosphatase 90 U/L (38-126); Anion Gap 2 mmol/L (8-16); Aspartate Amino Transferase 35 U/L (14-36); Bilirubin,Total 0.1 mg/dL (0.2-1.3); Blood Urea Nitrogen 15 mg/dL (7-17); Carbon Dioxide 33 mmol/L (22-30); Chloride 94 mmol/L (98-107); Estimated CRCL calculation 46 ml/min; Estimated Glomerular Filt Rate > 60; Glucose 101 mg/dL (65-110); Potassium 4.5 mmol/L (3.4-5.0); Sodium 129 mmol/L (137-145)
--- NOTE | 2021-10-18 14:19 | ED.SOB ---
HPI - SOB/Dyspnea General Chief Complaint: Shortness of Breath/Dyspnea Stated Complaint: SOB Time Seen by Provider: 10/18/21 12:29 History of Present Illness HPI Narrative: Patient is a 75-year-old female who presents ER with shortness of breath. Worsening over the last couple weeks. Especially so over the last day. She reports she cannot walk without turning of her oxygen but states she cannot walk due to extreme fatigue. No fevers or chills or sweats. No sinus congestion or sore throat. Patient has not called her doctor to get steroids. No new productive cough. Related Data Allergies Allergy/AdvReac Type Severity Reaction Status Date / Time aspirin Allergy Intermediate Nausea Verified 09/04/21 13:13 Macrolide Antibiotics Allergy Intermediate Unknown Verified 09/04/21 13:13 erythromycin base Allergy Unknown Nausea Verified 09/04/21 13:13 latex Allergy Unknown Itching Verified 09/04/21 13:13 mold Allergy Unknown Difficulty Verified 09/04/21 13:13 Breathing ragweed pollen Allergy Unknown Difficulty Verified 09/04/21 13:13 Breathing Sulfa (Sulfonamide Allergy Unknown Unknown Verified 09/04/21 13:13 Antibiotics) ipratropium AdvReac Severe Itching Verified 09/04/21 13:13 and panic attacks Review of Systems Review of Systems: All systems reviewed & are unremarkable except as noted in HPI and below Constitutional: Constitutional: Denies chills and Denies fever(s) ENT: Denies nasal congestion and Denies sore throat Cardiovascular: Cardiovascular: Denies chest pain, Denies rapid heart rate and Denies radiating jaw, neck or arm pain Respiratory: Respiratory: Reports cough, Reports dyspnea and Reports wheezing Gastrointestinal: Gastrointestinal: Denies abdominal pain, Denies nausea and Denies vomiting [facility] Past Medical History Medical History 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 attack Chronic obstructive pulmonary disease Chronic respiratory failure with hypoxia, on home oxygen therapy Depression Diastolic dysfunction Echocardiogram April 2018 demonstrated grade 1 diastolic dysfunction EF of 60% impaired right ventricular systolic dysfunction mild mitral valve regurgitation mild aortic stenosis based on velocities valve not well visualized Elevated platelet count Chronic Emphysema lung Essential (primary) hypertension (12/07/18) Fibromyalgia History of tobacco abuse Hyperlipidemia, unspecified Hypothyroidism Osteoporosis, unspecified Peripheral artery disease Sleep disorder breathing Noted on polysomnogram March 2018 Tobacco abuse Transient ischemic attack Vitamin D deficiency, unspecified (12/07/18) Surgical History Surgical History History of appendectomy History of bilateral carpal tunnel release History of bilateral cataract extraction History of cholecystectomy History of colonoscopy with polypectomy [address] Alcantara with pathology demonstrating adenomas polyp History of hysterectomy History of tonsillectomy Family History Family History Father Family history of lung cancer Chronic obstructive pulmonary disease Mother Bulbar myasthenia gravis Chronic obstructive pulmonary disease Unknown Anxiety Depression ADHD Sibling Chronic obstructive pulmonary disease Social History Social History Social History: Primary care provider: Dr. Justice Platt Code status: DNR/DNI Durable power of healthcare: Magno Hernández (oldest son) Smoking packs per day: 1 Smoking cigarettes per day: 20.0 Years smoked: 49 Smoking pack-years: 49.00 Second hand tobacco smoke exposure: No Alcohol intake: never Alcohol use details: Rare alcohol use. Substance use: never Substance use type: does not use Add
--- NOTE | 2021-10-18 14:25 | PM.IMHP ---
H&P: HPI History of Present Illness Date/Time: 10/18/21 14:25 Chief Complaint: Shortness of breath. Narrative: This is a very pleasant 75-year-old female with chronic respiratory failure on 2 L nasal cannula, chronic obstructive pulmonary disease, seasonal allergies, hypertension, hypothyroidism, and anxiety who presented to the emergency department from home for evaluation of shortness of breath. She has chronic dyspnea though reports increasing dyspnea on lesser and lesser exertion over the past couple of weeks. The last 5 days she has been wheezing pretty consistently and reports a cough productive of thick, green sputum. She has been so short of breath with minimal activity that it is hard for her to even get up to go to the kitchen to eat let alone set up her nebulizer. She is feeling somewhat better after receiving a nebulizer and dose of Solu-Medrol in the ER and she is being admitted in this setting for further care. She denies fever, chills, sweats, chest pain, pleuritic pain, nausea, vomiting, syncope, and near syncope. Review of Systems Review of Systems: 12 systems were reviewed and are negative except for as per HPI. 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 attack Chronic obstructive pulmonary disease Chronic respiratory failure with hypoxia, on home oxygen therapy Depression Diastolic dysfunction Echocardiogram April 2018 demonstrated grade 1 diastolic dysfunction EF of 60% impaired right ventricular systolic dysfunction mild mitral valve regurgitation mild aortic stenosis based on velocities valve not well visualized Emphysema lung Essential (primary) hypertension (12/07/18) Fibromyalgia History of tobacco abuse Hyperlipidemia, unspecified Hypothyroidism Osteoporosis, unspecified Peripheral artery disease Sleep disorder breathing Noted on polysomnogram March 2018 Thrombocytosis Tobacco abuse Transient ischemic attack Vitamin D deficiency, unspecified (12/07/18) Surgical History Surgical History History of appendectomy History of bilateral carpal tunnel release History of bilateral cataract extraction History of cholecystectomy History of colonoscopy with polypectomy [address] Alcantara with pathology demonstrating adenomas polyp History of hysterectomy History of tonsillectomy Family History Family History Father Family history of lung cancer Chronic obstructive pulmonary disease Mother Bulbar myasthenia gravis Chronic obstructive pulmonary disease Unknown Anxiety Depression ADHD Sibling Chronic obstructive pulmonary disease Social History Social History Social History: Primary care provider: Dr. Justice Platt Code status: DNR/DNI Durable power of [facility]: Magno Hernández (oldest son) Smoking packs per day: 1 Smoking cigarettes per day: 20.0 Years smoked: 49 Smoking pack-years: 49.00 Smoking status: Former smoker Tobacco type: cigarettes Second hand tobacco smoke exposure: No Alcohol intake: never Alcohol use details: Rare alcohol use. Substance use: never Substance use type: does not use Additional living arrangements comments: The patient lives in her own home in [place]. Spiritual care concerns: No Meds Home Medications and Allergies Home Medications Medication Instructions Recorded Confirmed Type Synthroid 125 mcg tablet 125 mcg PO DAILY #90 tabs 11/26/20 08/22/21 Rx (levothyroxine) albuterol sulfate 1.25 mg/3 mL 1.25 mg (3 mL) inhalation Q4-6H 11/26/20 08/22/21 Rx solution for nebulization PRN shortness of breath or wheezing #360 mL fluticasone 250 mcg-salmeterol 50 1 inh inhalation BID #180 ea 11/26/20
--- NOTE | 2021-10-18 16:37 | ADMGEN ---
This patient, Ella Puckett, was admitted to [facility] Surg Room 329-01 at 1630. Patient/family oriented to hospital policies and general routines including ID bracelet, bed and alarms, visiting hours, pain management, procedures, bathroom and other care routines, personal items, smoking policy, room service/diet, and visiting hours. Information on how to activate the Rapid Response Team has been discussed. Patient/Family are encouraged to report perceived risks to care and to ask questions if they do not understand what they are told or what they should do.
[2021-10-18] MEDS: methylPREDNISolone SOD SUCC 125 MG VIAL 60 MG IV PUSH ×2 (16:59→23:00)
[2021-10-18] MEDS: METOPROLOL TARTRATE 25 MG TABLET PO (20:12)
[2021-10-18] MEDS: guaiFENesin 12 HR 600 MG TABCR PO (20:12)
[2021-10-18] MEDS: AMOXICILLIN/CLAVULANATE K 875-125 MG TAB 1 TABLET PO (20:12)
[2021-10-18] MEDS: LORazepam (*CRX) 0.5 MG TABLET PO (20:20)
[2021-10-18] MEDS: ALBUTEROL SULFATE NEB 2.5 MG/3 ML INH 5 MG INHALATION (20:23)
[2021-10-19] VITALS (16 sets, daily range): BP systolic 104–128; BP diastolic 42–68; PULSE 65–83; RESP 14–19; TEMP 36.6–36.9; O2SAT 97–99
[2021-10-19] MEDS: ALBUTEROL SULFATE NEB 2.5 MG/3 ML INH 5 MG INHALATION ×4 (02:31→20:15)
[2021-10-19] MEDS: LEVOTHYROXINE SODIUM 125 MCG TABLET PO (05:35)
[2021-10-19] MEDS: methylPREDNISolone SOD SUCC 125 MG VIAL 60 MG IV PUSH (05:36)
[2021-10-19 05:48] LABS: Hematocrit 37.8 % (37.0-47.0); Hemoglobin 12.6 g/dL (12.0-15.0); Mean Corpuscular HGB Conc 33.3 g/dl (32-36); Mean Corpuscular Hemoglobin 30.3 pg (26-34); Mean Corpuscular Volume 90.9 fl (80-100); Mean Platelet Volume 8.6 fl (7.4-10.4); Platelet Count Result 393 k/mm3 (150-375); Red Blood Count 4.16 M/mm3 (4.2-5.4); Red Cell Distribution Width 12.9 % (11.5-14.5)
[2021-10-19 06:08] LABS: Anion Gap 2 mmol/L (8-16); Blood Urea Nitrogen 17 mg/dL (7-17); Calcium 8.9 mg/dL (8.4-10.2); Carbon Dioxide 30 mmol/L (22-30); Chloride 96 mmol/L (98-107); Estimated CRCL calculation 48 ml/min; Estimated Glomerular Filt Rate > 60; Glucose 146 mg/dL (65-110); Potassium 3.9 mmol/L (3.4-5.0); Sodium 128 mmol/L (137-145)
[2021-10-19] MEDS: METOPROLOL TARTRATE 25 MG TABLET PO ×2 (08:03→20:18)
[2021-10-19] MEDS: ATORVASTATIN 20 MG TABLET PO (08:03)
[2021-10-19] MEDS: ENOXAPARIN 40 MG/0.4 ML SYRINGE SUB-Q (08:03)
[2021-10-19] MEDS: SERTRALINE HCL 50 MG TABLET 150 MG PO (08:03)
[2021-10-19] MEDS: guaiFENesin 12 HR 600 MG TABCR PO ×2 (08:03→20:18)
[2021-10-19] MEDS: AMOXICILLIN/CLAVULANATE K 875-125 MG TAB 1 TABLET PO ×2 (08:04→20:18)
[2021-10-19] MEDS: FLUTICASONE/SALMETEROL 115-21 MCG INHALER 1 PUFF 2 PUFF INHALATION ×2 (08:05→20:39)
--- NOTE | 2021-10-19 09:22 | PM.IMPN ---
Progress Note: A&P Assessment and Plan (1) COPD exacerbation: Code(s): J44.1 - Chronic obstructive pulmonary disease with (acute) exacerbation Status: Acute Assessment and Plan: Monitor vital signs, I&Os, neuro status and patient is a fall risk Monitor serum electrolytes, cultures and CBC Monitor Oxygen saturation, Oxygen via NC; wean oxygen as tolerated, keep SpO2 greater than 88% Send sputum cultures if possible Patient had increasing shortness of breath with purulence cough therefore she was started on course of antibiotics. Due to the patient's allergy list she was started on Augmentin. However, no pneumonia noted on imaging. Duonebz q6H and Albuterol q2H prn Solu-Medrol 60 mg IV q.6 was transition to Solu-Medrol 40 mg IVq12H on 10/19/2021. Patient did receive a 1 time dose of 125 mg Solu-Medrol in the emergency department. (2) Hyponatremia: Code(s): E87.1 - Hypo-osmolality and hyponatremia Status: Acute Assessment and Plan: Patient does have a history of chronically low sodium. Ranging from 06/01 to 134. Sodium on 10/18/2021 was 129. Continue to monitor sodium levels and neurosis status. Low-sodium most likely due to underlying lung disease and sertraline. Patient does appear euvolemic (3) Essential (primary) hypertension: Onset Date: 12/07/18 Code(s): I10 - Essential (primary) hypertension Status: Chronic Assessment and Plan: Blood pressures were reviewed and aside from a elevated pressure on arrival (200/86) they have been reasonable. Continue antihypertensives and monitor daily. (4) Hypothyroidism: Qualifiers: Hypothyroidism type: unspecified Qualified Code(s): E03.9 - Hypothyroidism, unspecified Code(s): E03.9 - Hypothyroidism, unspecified Status: Chronic Assessment and Plan: Continue levothyroxine. She was normal in May 2021. (5) Leukocytosis: Code(s): D72.829 - Elevated white blood cell count, unspecified Status: Acute Assessment and Plan: She has chronic leukocytosis. Ranging from 13.1-17. 65.4% neutrophils, 18% lymphocytes, and 9% eosinophils noted on automated differential on 10/18/2021 Subjective Date/time seen: 10/19/21 09:22 Patient is doing well this morning. She is on her 2 L of oxygen. She wears 2 L of oxygen at home. Patient continues with Augmentin. She does have a chronic leukocytosis. Receiving IV steroids and nebulizer treatments. Patient is noncompliant with medications at home. She reports that she can not be home on the hottest days of the year. Therefore she is in hospital. Patient reports his air conditioner home. She appears stable, here under observation. Monitor clinically for 24 hours and plan for discharge pending patient's clinical course. Exam Narrative: General: Thin female sitting up in bed. Weight: 48.08 kg. BMI: 18.2. HEENT: PERRL, EOMI. Sclerae anicteric. Tacky mucous membranes. Neck: Supple. No lymphadenopathy or jugular venous distention. Respiratory: Lungs are clear to auscultation bilaterally. Cardiovascular: She is speaking in 4-5 word sentences but appears to be in no distress at this time. Diffuse inspiratory and expiratory wheezes with increased expiratory phase. Gastrointestinal: Abdomen is soft, nontender, and nondistended with positive bowel sounds. Skin: Warm and dry. No rash or lesions on limited exam. Extremities: No cyanosis, clubbing, or edema. Radial and pedal pulses intact. Neurological: Alert. Cranial nerves 2-12 are grossly intact. No gross focal deficits to casual conversation. Psychiatric: Pleasant and cooperative with normal mood and affect. Judgment and insight intact. Objective Data Vital Signs Vital Signs: Vital Signs - 24 hr 10/18/21 12:22 10/18/21 13:03 10/18/21 13:04 Temperature 97.2 F L Pulse Rate 74 78 87 Respiratory Rate 26 H 20 Blood Pressure 200/86 H Pulse Oximetry 91 Oxygen Delivery N
[2021-10-19 11:48] LABS: Appearance Urine Clear (Clear); Bilirubin Urine Negative (Negative); Blood Urine Negative (Negative); Color Urine Yellow (Yellow); Glucose Urine UA Negative (Negative); Ketones Urine Negative (Negative); Leukocyte Esterase Ur Negative LEU/UL (NEGATIVE); Nitrate Urine Negative (Negative); Protein Urine Negative (Negative); Specific Grav Ur 1.015 (1.001-1.035); Urobilinogen Urine 0.2 mg/dL (<2.0)
[2021-10-19 12:58] LABS: Add Urine Microscopic? NO
[2021-10-19] MEDS: methylPREDNISolone SOD SUCC 40 MG VIAL IV PUSH (16:15)
[2021-10-19] MEDS: LORazepam (*CRX) 0.5 MG TABLET PO (20:19)
[2021-10-20] VITALS (12 sets, daily range): BP systolic 117–136; BP diastolic 43–65; PULSE 71–85; RESP 16–18; TEMP 36.4–37; O2SAT 97–100
[2021-10-20] MEDS: LEVOTHYROXINE SODIUM 125 MCG TABLET PO (05:39)
[2021-10-20] MEDS: FLUTICASONE/SALMETEROL 115-21 MCG INHALER 1 PUFF 2 PUFF INHALATION ×2 (07:44→20:55)
[2021-10-20] MEDS: ALBUTEROL SULFATE NEB 2.5 MG/3 ML INH 5 MG INHALATION ×3 (07:44→20:54)
[2021-10-20 08:37] LABS: Hematocrit 36.8 % (37.0-47.0); Hemoglobin 12.3 g/dL (12.0-15.0); Mean Corpuscular HGB Conc 33.4 g/dl (32-36); Mean Corpuscular Hemoglobin 30.8 pg (26-34); Mean Platelet Volume 8.5 fl (7.4-10.4); Platelet Count Result 404 k/mm3 (150-375); Red Cell Distribution Width 13.5 % (11.5-14.5); White Blood Count 20.9 K/mm3 (4.5-10.0)
[2021-10-20 08:46] LABS: Anion Gap -2 mmol/L (8-16); Blood Urea Nitrogen 21 mg/dL (7-17); Calcium 8.7 mg/dL (8.4-10.2); Carbon Dioxide 35 mmol/L (22-30); Chloride 98 mmol/L (98-107); Estimated CRCL calculation 42 ml/min; Estimated Glomerular Filt Rate > 60; Glucose 100 mg/dL (65-110); Potassium 4.2 mmol/L (3.4-5.0); Sodium 131 mmol/L (137-145)
[2021-10-20] MEDS: ENOXAPARIN 40 MG/0.4 ML SYRINGE SUB-Q (08:46)
[2021-10-20] MEDS: AMOXICILLIN/CLAVULANATE K 875-125 MG TAB 1 TABLET PO ×2 (08:46→21:42)
[2021-10-20] MEDS: ATORVASTATIN 20 MG TABLET PO (08:46)
[2021-10-20] MEDS: methylPREDNISolone SOD SUCC 40 MG VIAL IV PUSH ×2 (08:46→17:48)
[2021-10-20] MEDS: METOPROLOL TARTRATE 25 MG TABLET PO ×2 (08:46→21:41)
[2021-10-20] MEDS: SERTRALINE HCL 50 MG TABLET 150 MG PO (08:46)
[2021-10-20] MEDS: guaiFENesin 12 HR 600 MG TABCR PO ×2 (08:46→21:41)
--- NOTE | 2021-10-20 14:55 | PM.IMPN ---
Progress Note: A&P Assessment and Plan (1) COPD exacerbation: Code(s): J44.1 - Chronic obstructive pulmonary disease with (acute) exacerbation Status: Acute Assessment and Plan: Presented with increased shortness of breath and wheezing Continue IV Solu-Medrol 40 mg b.i.d. Plan to transition to p.o. prednisone tomorrow and will continue for 5 days of treatment Maintaining adequate O2 saturations on 2 L per nasal cannula, consistent with her home setting CXR reviewed which demonstrated bilateral hyperinflation consistent with COPD, no evidence of pneumonia Given increased sputum production, she has been started on Augmentin which will be continued Continue bronchodilators Hopeful discharge tomorrow if continued improved (2) Hyponatremia: Code(s): E87.1 - Hypo-osmolality and hyponatremia Status: Acute Assessment and Plan: Improved. Appears to be a chronic issue. Sodium 131 today May be due to chronic lung disease as well as chronic SSRI use Continue to monitor levels closely (3) Essential (primary) hypertension: Onset Date: 12/07/18 Code(s): I10 - Essential (primary) hypertension Status: Chronic Assessment and Plan: Blood pressure reviewed and has been well controlled. Last BP 129/43 Continue metoprolol tartrate Monitor BP trends (4) Hypothyroidism: Qualifiers: Hypothyroidism type: unspecified Qualified Code(s): E03.9 - Hypothyroidism, unspecified Code(s): E03.9 - Hypothyroidism, unspecified Status: Chronic Assessment and Plan: Check updated TSH Continue levothyroxine (5) Leukocytosis: Code(s): D72.829 - Elevated white blood cell count, unspecified Status: Acute Assessment and Plan: She has chronic leukocytosis. Ranging from 13.1-17. White blood cell count slightly elevated from baseline at 20 today, likely due to IV steroid use Continue to monitor CBC Subjective Date/time seen: 10/20/21 14:55 Interval history: Date of service: 10/20/2021 Ella Puckett is a 75-year-old female with a history COPD, chronic respiratory failure on 2 L supplemental oxygen, diastolic CHF, hypertension, hyperlipidemia, hypothyroidism, fibromyalgia, and anxiety who is seen in follow-up for COPD exacerbation. She continues to endorse shortness of breath. She feels very poorly today and states she is ?exhausted? from dealing with this COPD exacerbation. She does note that overall her shortness of breath has improved this hospitalization but is still rather significant. She endorses cough productive of phlegm that she is not able to expectorates. She states she coughs more after receiving breathing treatments. She feels very weak and a bit shaky when she is trying to walk. She states that it does not take much to trigger COPD exacerbation for her, and she felt that this time it was due to allergens. She denies wheezing. She did become quite frustrated and tearful, stating that at her last hospitalization she had issues with insurance coverage and providers being out of network. She expressed that she did not want me to see her because she was afraid my visit would not be covered. I explained to her that a medical provider needs to monitor her while in the hospital. I did offer her to have a physician see her tomorrow if she would prefer, however she does not want to change providers, she just wants to ensure that her stay will be covered. I informed her that I would pass this along to nursing bead supervisor to determine what can be done. Following that conversation, I was informed that she will be contacted tomorrow to review this issue. I informed the patient of this and she was pleased. Review of Systems Review of Systems: All systems reviewed & are unremarkable except as noted in HPI and below Exam Narrative: General: Thin, well-appearing 75year-old female, sitting up in bed, comfortable, NARD N
[2021-10-20] MEDS: LORazepam (*CRX) 0.5 MG TABLET PO (21:47)
[2021-10-21] VITALS (9 sets, daily range): BP systolic 140; BP diastolic 63; PULSE 68–84; RESP 16–18; TEMP 36.7; O2SAT 95–100
[2021-10-21] MEDS: ALBUTEROL SULFATE NEB 2.5 MG/3 ML INH 5 MG INHALATION ×3 (02:08→14:04)
[2021-10-21] MEDS: LEVOTHYROXINE SODIUM 125 MCG TABLET PO (05:40)
[2021-10-21 05:58] LABS: Hematocrit 36.2 % (37.0-47.0); Hemoglobin 11.9 g/dL (12.0-15.0); Mean Corpuscular HGB Conc 32.9 g/dl (32-36); Mean Corpuscular Hemoglobin 30.4 pg (26-34); Mean Corpuscular Volume 92.6 fl (80-100); Mean Platelet Volume 8.7 fl (7.4-10.4); Platelet Count Result 390 k/mm3 (150-375); Red Blood Count 3.91 M/mm3 (4.2-5.4); Red Cell Distribution Width 13.6 % (11.5-14.5); White Blood Count 18.7 K/mm3 (4.5-10.0)
[2021-10-21 06:14] LABS: Anion Gap 3 mmol/L (8-16); Blood Urea Nitrogen 26 mg/dL (7-17); Calcium 8.4 mg/dL (8.4-10.2); Carbon Dioxide 30 mmol/L (22-30); Chloride 99 mmol/L (98-107); Estimated CRCL calculation 42 ml/min; Estimated Glomerular Filt Rate > 60; Glucose 101 mg/dL (65-110); Potassium 4.2 mmol/L (3.4-5.0); Sodium 132 mmol/L (137-145)
[2021-10-21] MEDS: FLUTICASONE/SALMETEROL 115-21 MCG INHALER 1 PUFF 2 PUFF INHALATION (07:55)
[2021-10-21] MEDS: guaiFENesin 12 HR 600 MG TABCR PO (09:10)
[2021-10-21] MEDS: SERTRALINE HCL 50 MG TABLET 150 MG PO (09:10)
[2021-10-21] MEDS: AMOXICILLIN/CLAVULANATE K 875-125 MG TAB 1 TABLET PO (09:10)
[2021-10-21] MEDS: predniSONE 20 MG TABLET 40 MG PO (09:10)
[2021-10-21] MEDS: ATORVASTATIN 20 MG TABLET PO (09:10)
[2021-10-21] MEDS: METOPROLOL TARTRATE 25 MG TABLET PO (09:11)
[2021-10-21] MEDS: ENOXAPARIN 40 MG/0.4 ML SYRINGE SUB-Q (09:11)
--- NOTE | 2021-10-22 08:51 | PM.DS ---
DS: Admitting Diagnosis Discharge Date 10/21/21 Admitting Diagnosis COPD exacerbation DS: Discharge Diagnosis Discharge Diagnosis (1) COPD exacerbation: Code(s): J44.1 - Chronic obstructive pulmonary disease with (acute) exacerbation Status: Acute Assessment and Plan: Presented with increased shortness of breath and wheezing Treated with IV Solu-Medrol with symptomatic improvement Transitioned to p.o. prednisone 40 mg daily which she will continue to complete 5 days of treatment Maintained adequate oxygen saturations on usual home settings, 2 L per nasal cannula CXR reviewed which demonstrated bilateral hyperinflation consistent with COPD, no evidence of pneumonia Given increased sputum production, she was started on Augmentin which will be continued on discharge to complete 7 days of therapy Continue home bronchodilators and maintenance inhalers (2) Hyponatremia: Code(s): E87.1 - Hypo-osmolality and hyponatremia Status: Acute Assessment and Plan: Appears to be a chronic issue. Sodium did declined slightly to 128 but improved and was 132 at time of discharge May be due to chronic lung disease as well as chronic SSRI use (3) Essential (primary) hypertension: Onset Date: 12/07/18 Code(s): I10 - Essential (primary) hypertension Status: Chronic Assessment and Plan: Blood pressure reviewed and was well controlled. Continue metoprolol tartrate Monitor BP trends (4) Hypothyroidism: Qualifiers: Hypothyroidism type: unspecified Qualified Code(s): E03.9 - Hypothyroidism, unspecified Code(s): E03.9 - Hypothyroidism, unspecified Status: Chronic Assessment and Plan: Continue levothyroxine (5) Leukocytosis: Code(s): D72.829 - Elevated white blood cell count, unspecified Status: Acute Assessment and Plan: She has chronic leukocytosis. Ranging from 13.1-17. White blood cell count slightly elevated from baseline due to IV steroid use DS: Summary Hospital Course Hospital Course: Date of admission: 10/18/2021 Date of discharge: 10/21/2021 Ella Puckett is a 75-year-old female with a history COPD, chronic respiratory failure on 2 L supplemental oxygen, diastolic CHF, hypertension, hyperlipidemia, hypothyroidism, fibromyalgia, and anxiety who presented to the emergency department on 10/18/2021 with complaints of shortness of breath worsening over the past couple weeks. On presentation to the ED, she was mildly tachypneic, maintaining adequate oxygen saturations on her home oxygen settings, white blood cell count was elevated, sodium 129, CXR showed findings consistent with COPD with no active pulmonary disease. She was admitted to the hospitalist service for further evaluation and management. Please see above for further details. She had symptomatic improvement following IV steroids and was able to be transitioned to prednisone. She was feeling improved and requested discharge home. Given her overall improvement, she was determined to no longer require inpatient care and was discharged in hemodynamically stable condition on 10/21/2021. Status at Discharge Functional status at discharge: independent ambulation Overall status at discharge: patient is progressing back to baseline Time Spent with Patient Time attestation: Total time spent providing and/or coordinating discharge services: 45 minutes Time spent: Greater than 30 minutes Exam Narrative: General: Thin, well-appearing 75year-old female, sitting up in bed, comfortable, NARD Neuro: awake, alert and oriented x4, speech clear, no focal neuro deficits noted HEENMT: normocephalic, atraumatic, EOMI, sclerae anicteric, moist oral mucosa Respiratory: Clear to auscultation bilaterally without crackles, rhonchi, or wheezes, nonlabored breathing Cardio: regular rate, regular rhythm with S1-S2 Abdomen: nondistended, normoactive bowel sounds,
== END 2021-10-21 14:40 | disposition home or self-care (01) ==
LOC: ANHED 14:49 → ANH3MEDSUR 15:16
PROVIDERS: Nurse Practitioner Family; Physician Assistant; Admitting Provider Chiropractor; Emergency Provider Emergency Medicine; PCP Internal Medicine; Visit Provider Family Medicine
DX: J44.1 Chronic obstructive pulmonary disease with (acute) exacerbation (principal); E87.1 Hypo-osmolality and hyponatremia; D72.829 Elevated white blood cell count, unspecified; I11.0 Hypertensive heart disease with heart failure; E03.9 Hypothyroidism, unspecified; E78.5 Hyperlipidemia, unspecified; F41.9 Anxiety disorder, unspecified; M81.0 Age-related osteoporosis without current pathological fracture; I50.30 Unspecified diastolic (congestive) heart failure; Z99.81 Dependence on supplemental oxygen; J96.10 Chronic respiratory failure, unspecified whether with hypoxia or hypercapnia
CPT/HCPCS: 36415; 36600; 71046; 80048; 80053; 81003; 82375; 82805; 83050; 85025; 85027; 93005; 94640; 96372; 96374; 96376; 97110; 97116; 97161; 97165; 97530; 99285; A9270; G0378; J1650; J2920; J2930; J7512

== ENCOUNTER 2022-07-08 10:11 | Emergency (ER) | payer MEDICARE, SELFPAY ==
[2022-07-08] VITALS (9 sets, daily range): BP systolic 128–144; BP diastolic 50–79; PULSE 75–84; RESP 14–32; O2SAT 96–100
--- NOTE | ~2022-07-08 | XR_ITS ---
Clinical Indication: Shortness of breath PA and lateral views of the chest: Comparison: 10/18/2021 Findings: Probable COPD pattern with stable calcified right upper lobe granuloma. No acute consolidat ion or pleural effusion seen. No pneumothorax. Cardiomediastinal silhouette is within normal limits. Bones and soft tissues are unremarkable. Impression: No acute abnormality. COPD. Reviewed, dictated and finalized at location . LINING SUPERVISOR Impression: No acute abnormality. COPD.
--- NOTE | 2022-07-08 10:12 | ECG_ITS ---
Measurements Intervals [place] Rate: 79 P: 89 NH: 147 QRS: 52 QRSD: 86 T: 87 QT: 386 QTc: 443 Interpretive Statements SINUS RHYTHM POSSIBLE RIGHT ATRIAL ENLARGEMENT POSSIBLE LEFT ATRIAL ENLARGEMENT INCOMPLETE RIGHT BUNDLE BRANCH BLOCK BASELINE ARTIFACT- I, II, III, AVR, AVL, V1-V2 BORDERLINE ECG COMPARED TO ECG 10/18/2021 14:01:05 NO SIGNIFICANT CHANGES Electronically Signed On 07-08-2022 11:11:00 HARDENING MACHINE OPERATOR by Moises Hidalgo D.O.
[2022-07-08 10:42] LABS: Basophils Absolute Auto 0.1 K/mm3 (0.0-0.1); Basophils Percent Auto 0.5 % (0.2-1.2); Eosinophils Absolute Auto 1.2 K/mm3 (0-0.3); Eosinophils Percent Auto 9.1 % (0-4.4); Hematocrit 45.8 % (37.0-47.0); Hemoglobin 14.9 g/dL (12.0-15.0); Immature Granulocyte Absolute 0.03 K/mm3 (0.00-0.031); Immature Granulocyte Percent A 0.2 % (0-0.5); Lymphocytes Absolute Auto 2.17 K/mm3 (0.9-3.2); Mean Corpuscular HGB Conc 32.5 g/dl (32-36); Mean Corpuscular Hemoglobin 30.7 pg (26-34); Mean Corpuscular Volume 94.4 fl (80-100); Mean Platelet Volume 8.4 fl (7.4-10.4); Monocytes Absolute Auto 1.2 K/mm3 (0.1-0.6); Monocytes Percent Auto 9.1 % (2.6-8.5); Neutrophils Absolute Auto 8.2 K/mm3 (1.3-6.7); Neutrophils Percent Auto 64.1 % (45.5-73.1); Platelet Count Result 480 k/mm3 (150-375); Red Blood Count 4.85 M/mm3 (4.2-5.4); Red Cell Distribution Width 13.5 % (11.5-14.5); White Blood Count 12.8 K/mm3 (4.5-10.0)
[2022-07-08 10:48] LABS: Alanine Aminotransferase 29 U/L (6-35); Albumin Level 4.4 g/dL (3.5-5.1); Alkaline Phosphatase 71 U/L (38-126); Anion Gap 6 mmol/L (8-16); Aspartate Amino Transferase 37 U/L (14-36); Bilirubin,Total 0.4 mg/dL (0.2-1.3); Blood Urea Nitrogen 23 mg/dL (7-17); Calcium 8.9 mg/dL (8.4-10.2); Carbon Dioxide 31 mmol/L (22-30); Chloride 100 mmol/L (98-107); Estimated CRCL calculation 51 ml/min; Estimated Glomerular Filt Rate > 60; Glucose 84 mg/dL (65-110); Potassium 4.4 mmol/L (3.4-5.0); Sodium 137 mmol/L (137-145)
--- NOTE | 2022-07-08 10:50 | PC.NURSE ---
Patient off unit to radiology.
--- NOTE | 2022-07-08 11:01 | PC.NURSE ---
Patient report given to THUY Zamora. All questions answered and care of patient transferred.
--- NOTE | 2022-07-08 11:19 | ED.SOB ---
HPI - SOB/Dyspnea General Chief Complaint: Shortness of Breath/Dyspnea Stated Complaint: SOB Time Seen by Provider: 07/08/22 11:19 Source: patient, family and EMS Mode of arrival: EMS Limitations: no limitations History of Present Illness HPI Narrative: 76 years old white female with history of COPD on 2 L of oxygen. Patient reported that her shortness of breath getting worse over the last few days, her oxygen level been increased to 3 L by nasal cannula recently. Patient came from [facility]. Last nebulizer treatment was this morning. She denies any fever, chills, chest pain, nausea or vomiting. Patient reports that she have been coughing green sputum over the last few days Related Data Allergies Allergy/AdvReac Type Severity Reaction Status Date / Time aspirin Allergy Intermediate Nausea Verified 07/08/22 10:25 Macrolide Antibiotics Allergy Intermediate Unknown Verified 07/08/22 10:25 erythromycin base Allergy Unknown Nausea Verified 07/08/22 10:25 latex Allergy Unknown Itching Verified 07/08/22 10:25 mold Allergy Unknown Difficulty Verified 07/08/22 10:25 Breathing ragweed pollen Allergy Unknown Difficulty Verified 07/08/22 10:25 Breathing Sulfa (Sulfonamide Allergy Unknown Unknown Verified 07/08/22 10:25 Antibiotics) ipratropium AdvReac Severe Itching Verified 07/08/22 10:25 and panic attacks 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 attack Chronic obstructive pulmonary disease Chronic respiratory failure with hypoxia, on home oxygen therapy Depression Diastolic dysfunction Echocardiogram April 2018 demonstrated grade 1 diastolic dysfunction EF of 60% impaired right ventricular systolic dysfunction mild mitral valve regurgitation mild aortic stenosis based on velocities valve not well visualized Emphysema lung Essential (primary) hypertension (12/07/18) Fibromyalgia History of tobacco abuse Hyperlipidemia, unspecified Hypothyroidism Osteoporosis, unspecified Peripheral artery disease Sleep disorder breathing Noted on polysomnogram March 2018 Thrombocytosis Tobacco abuse Transient ischemic attack Vitamin D deficiency, unspecified (12/07/18) Surgical History Surgical History History of appendectomy History of bilateral carpal tunnel release History of bilateral cataract extraction History of cholecystectomy History of colonoscopy with polypectomy [address] Alcantara with pathology demonstrating adenomas polyp History of hysterectomy History of tonsillectomy Family History Family History Father Family history of lung cancer Chronic obstructive pulmonary disease Mother Bulbar myasthenia gravis Chronic obstructive pulmonary disease Unknown Anxiety Depression ADHD Sibling Chronic obstructive pulmonary disease Social History Social History Social History: Primary care provider: Dr. Justice Platt Code status: DNR/DNI Durable power of [facility]: Magno Hernández (oldest son) Smoking packs per day: 1 Smoking cigarettes per day: 20.0 Years smoked: 49 Smoking pack-years: 49.00 Smoking status: Former smoker Tobacco type: cigarettes Second hand tobacco smoke exposure: No Alcohol intake: never Alcohol use details: Rare alcohol use. Substance use: never Substance use type: does not use Living arrangements: alone Additional living arrangements comments: The patient lives in her own home in [place]. Occupation/Education: retired Spiritual care concerns: No Exam Narrative: General appearance: Well-developed, well-josé miguel
[2022-07-08] MEDS: ALBUTEROL SULFATE NEB 2.5 MG/3 ML INH INHALATION ×3 (11:43→12:20)
[2022-07-08] MEDS: methylPREDNISolone SOD SUCC 125 MG VIAL IV PUSH (11:47)
[2022-07-08 11:59] LABS: Alveolar/Arterial O2 Gradient 72.8 mmHg; Base Excess ABG 3.8 mEq/l (+/-2.0); Fractional Inspired Oxygen 32 %; HCO3 ABG 30.1 mEq/l (22.0-26.0); Oxygen Content ABG 19.5 %vol (16.0-22.0); Oxyhemoglobin 95.5 % THb (90.0-100.0); PCO2 ABG 52.1 mmHg (35.0-45.0); PO2 ABG 94.4 mmHg (80.0-100.0); PO2 FiO2 Ratio Arterial Blood 2.95 %; Total Hemoglobin 14.5 g/dL (12.0-18.0)
[2022-07-08 12:00] LABS: Device NASAL CANNULA; Site Drawn RIGHT BRACHIAL
[2022-07-08 12:16] LABS: Magnesium 2.1 mg/dL (1.6-2.3)
[2022-07-08 12:24] LABS: D Dimer < 0.27 ug/mL (<0.48)
[2022-07-08 12:47] LABS: SARS-CoV-2 RNA PCR Negative
== END 2022-07-08 13:52 | disposition home or self-care (01) ==
PROVIDERS: Emergency Provider Emergency Medicine; PCP Internal Medicine
DX: J43.9 Emphysema, unspecified (principal); Z20.822 Contact with and (suspected) exposure to COVID-19; J96.11 Chronic respiratory failure with hypoxia; I10 Essential (primary) hypertension; I73.9 Peripheral vascular disease, unspecified; E78.5 Hyperlipidemia, unspecified; E03.9 Hypothyroidism, unspecified; G47.9 Sleep disorder, unspecified; E55.9 Vitamin D deficiency, unspecified; M81.0 Age-related osteoporosis without current pathological fracture; M79.7 Fibromyalgia; Z99.81 Dependence on supplemental oxygen; Z66 Do not resuscitate; Z86.73 Personal history of transient ischemic attack (TIA), and cerebral infarction without residual deficits; Z86.010 Personal history of colon polyps; Z87.891 Personal history of nicotine dependence; Z98.42 Cataract extraction status, left eye; Z98.41 Cataract extraction status, right eye; Z90.710 Acquired absence of both cervix and uterus; R94.31 Abnormal electrocardiogram [ECG] [EKG]
CPT/HCPCS: 36415; 36600; 71046; 80053; 82805; 83735; 85025; 85380; 93005; 94640; 96374; 99284; J2930; U0003; U0005

== ENCOUNTER 2023-01-10 16:25 | Emergency (ER) | payer MEDICARE, SELFPAY ==
[2023-01-10] VITALS (19 sets, daily range): BP systolic 157–172; BP diastolic 60–88; PULSE 80–89; RESP 13–24; TEMP 36.6; O2SAT 91–99
--- NOTE | ~2023-01-10 | XR_ITS ---
EXAMINATION: XR chest 2V Exam Date/Time: 01/10/2023 18:07 CDT HISTORY: shortness of breath, HX EMPHYSEMA Comparison: 07/08/2022. RESULT: Lines, tubes, and devices: None. Lungs and pleura: Senescent/emphysematous change. Calcified right midlung granuloma. Cardiomediastinal silhouette: Stable. Other: No acute osseous or upper abdominal finding. IMPRESSION: No acute cardiopulmonary process. Reviewed, dictated and finalized at location K.
--- NOTE | 2023-01-10 19:51 | ECG_ITS ---
Measurements Intervals [place] Rate: 81 P: 92 WI: 151 QRS: 47 QRSD: 84 T: 89 QT: 362 QTc: 422 Interpretive Statements SINUS RHYTHM RIGHT ATRIAL ENLARGEMENT BORDERLINE T WAVE ABNORMALITY- HIGH LATERAL LEADS BASELINE ARTIFACT- I, III, AVL, V4-V6 BORDERLINE ECG COMPARED TO ECG 07/08/2022 10:15:37 NO SIGNIFICANT CHANGES Electronically Signed On 01-11-2023 6:41:33 CDT by Moises Hidalgo D.O.
--- NOTE | 2023-01-10 19:54 | ED.SOB ---
HPI - SOB/Dyspnea General Chief Complaint: Shortness of Breath/Dyspnea Stated Complaint: SOB Time Seen by Provider: 01/10/23 19:50 Source: patient and family Mode of arrival: ambulatory Limitations: no limitations History of Present Illness HPI Narrative: 77 years old white female came with her son by private car to the emergency room complaining that her emphysema is exacerbated. Complaining shortness of breath for the last 2 weeks, increased productive cough and frequency of coughing. History of COPD, on 2 L of oxygen. Patient does not remember when the last had her breathing treatment. Does not want to answer this question and is not clear about it. Although she have it at home. She denies any fever, chills, nausea, vomiting, chest pain or back pain. She is telling me that her oxygenation at home is 93% on 2 L, currently her oxygenation is 99% on 2 L. Related Data Home Medications Medication Instructions Recorded Confirmed levothyroxine 112 mcg tablet 112 mcg PO DAILY 10/14/22 10/14/22 (Synthroid) Allergies Allergy/AdvReac Type Severity Reaction Status Date / Time aspirin Allergy Intermediate Nausea Verified 10/14/22 14:46 Macrolide Antibiotics Allergy Intermediate Unknown Verified 10/14/22 14:46 erythromycin base Allergy Unknown Nausea Verified 10/14/22 14:46 latex Allergy Unknown Itching Verified 10/14/22 14:46 mold Allergy Unknown Difficulty Verified 10/14/22 14:46 Breathing ragweed pollen Allergy Unknown Difficulty Verified 10/14/22 14:46 Breathing Sulfa (Sulfonamide Allergy Unknown Unknown Verified 10/14/22 14:46 Antibiotics) ipratropium AdvReac Severe Itching Verified 10/14/22 14:46 and panic attacks 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 attack Chronic obstructive pulmonary disease Chronic respiratory failure with hypoxia, on home oxygen therapy Depression Diastolic dysfunction Echocardiogram April 2018 demonstrated grade 1 diastolic dysfunction EF of 60% impaired right ventricular systolic dysfunction mild mitral valve regurgitation mild aortic stenosis based on velocities valve not well visualized Emphysema lung Essential (primary) hypertension (12/07/18) Fibromyalgia History of tobacco abuse Hyperlipidemia, unspecified Hypothyroidism Osteoporosis, unspecified Peripheral artery disease Sleep disorder breathing Noted on polysomnogram March 2018 Thrombocytosis Tobacco abuse Transient ischemic attack Vitamin D deficiency, unspecified (12/07/18) Surgical History Surgical History History of appendectomy History of bilateral carpal tunnel release History of bilateral cataract extraction History of cholecystectomy History of colonoscopy with polypectomy [address] Alcantara with pathology demonstrating adenomas polyp History of hysterectomy History of tonsillectomy Family History Family History Father Family history of lung cancer Chronic obstructive pulmonary disease Mother Bulbar myasthenia gravis Chronic obstructive pulmonary disease Unknown Anxiety Depression ADHD Sibling Chronic obstructive pulmonary disease Social History Social History Social History: Primary care provider: Dr. Justice Platt Code status: DNR/DNI Durable power of healthcare: Magno Hernández (oldest son) Smoking packs per day: 1 Smoking cigarettes per day: 20.0 Years smoked: 49 Smoking pack-years: 49.00 Smoking status: Former smoker Tobacco type: cigarettes Second hand tobacco smoke exposure: No Alcohol intake: never Alcohol use details: Rare alcohol use. [place]
[2023-01-10] MEDS: ALBUTEROL SULFATE NEB 2.5 MG/3 ML INH INHALATION ×2 (20:33→22:17)
[2023-01-10 20:40] LABS: Alveolar/Arterial O2 Gradient 57.3 mmHg; Base Excess ABG -1.1 mEq/l (+/-2.0); Fractional Inspired Oxygen 28 %; HCO3 ABG 24.7 mEq/l (22.0-26.0); Oxygen Content ABG 19.9 %vol (16.0-22.0); Oxygen Saturation ABG 96.4 % (95.0-100.0); Oxyhemoglobin 95.2 % THb (90.0-100.0); PCO2 ABG 45.4 mmHg (35.0-45.0); PO2 ABG 88.8 mmHg (80.0-100.0); PO2 FiO2 Ratio Arterial Blood 3.17 %; Total Hemoglobin 14.8 g/dL (12.0-18.0); pH ABG 7.354 (7.350-7.450)
[2023-01-10 20:42] LABS: Device NASAL CANNULA; Modified Allen's Test Pass; Site Drawn LEFT RADIAL
[2023-01-10] MEDS: methylPREDNISolone SOD SUCC 125 MG VIAL 62.5 MG IV PUSH (21:07)
[2023-01-10 21:15] LABS: Basophils Percent Auto 0.3 % (0.2-1.2); Eosinophils Absolute Auto 0.7 K/mm3 (0-0.3); Eosinophils Percent Auto 5.6 % (0-4.4); Hematocrit 44.1 % (37.0-47.0); Hemoglobin 14.7 g/dL (12.0-15.0); Immature Granulocyte Absolute 0.04 K/mm3 (0.00-0.031); Immature Granulocyte Percent A 0.3 % (0-0.5); Lymphocytes Absolute Auto 3.19 K/mm3 (0.9-3.2); Lymphocytes Percent Auto 25.8 % (18.3-44.2); Mean Corpuscular HGB Conc 33.3 g/dl (32-36); Mean Corpuscular Hemoglobin 30.6 pg (26-34); Mean Corpuscular Volume 91.9 fl (80-100); Mean Platelet Volume 8.7 fl (7.4-10.4); Monocytes Absolute Auto 1.2 K/mm3 (0.1-0.6); Monocytes Percent Auto 9.5 % (2.6-8.5); Neutrophils Absolute Auto 7.2 K/mm3 (1.3-6.7); Neutrophils Percent Auto 58.5 % (45.5-73.1); Platelet Count Result 444 k/mm3 (150-375); Red Cell Distribution Width 12.5 % (11.5-14.5); White Blood Count 12.4 K/mm3 (4.5-10.0)
[2023-01-10 21:26] LABS: Alanine Aminotransferase 28 U/L (6-35); Albumin Level 4.5 g/dL (3.5-5.1); Alkaline Phosphatase 92 U/L (38-126); Anion Gap 6 mmol/L (8-16); Aspartate Amino Transferase 35 U/L (14-36); Bilirubin,Total 0.5 mg/dL (0.2-1.3); Blood Urea Nitrogen 20 mg/dL (7-17); Calcium 9.3 mg/dL (8.4-10.2); Carbon Dioxide 32 mmol/L (22-30); Chloride 94 mmol/L (98-107); Estimated CRCL calculation 41 ml/min; Estimated Glomerular Filt Rate > 60; Glucose 101 mg/dL (65-110); Magnesium 2.2 mg/dL (1.6-2.3); Potassium 4.4 mmol/L (3.4-5.0); Sodium 132 mmol/L (137-145)
[2023-01-10 21:31] LABS: Prothrombin Time 13.5 Seconds (11.1-14.7)
[2023-01-10 21:32] LABS: Partial Thromboplastin Time 31.5 SECONDS (22.3-36.8)
[2023-01-10 21:36] LABS: NT Pro B Type Natriuretic Pept 2050 pg/mL (19.9-100); Troponin I < 0.012 ng/mL (0.000-0.034)
[2023-01-10 22:55] LABS: Influenza A QL RT-PCR Negative (Negative); Influenza B QL RT-PCR Negative (Negative); SARS-CoV-2 RNA PCR Negative (Negative)
== END 2023-01-10 22:45 | disposition home or self-care (01) ==
PROVIDERS: Emergency Provider Emergency Medicine; PCP Family Medicine
DX: J44.1 Chronic obstructive pulmonary disease with (acute) exacerbation (principal); J96.11 Chronic respiratory failure with hypoxia; Z99.81 Dependence on supplemental oxygen; I11.9 Hypertensive heart disease without heart failure; E78.5 Hyperlipidemia, unspecified; E03.9 Hypothyroidism, unspecified; I73.9 Peripheral vascular disease, unspecified; M79.7 Fibromyalgia; F32.A Depression, unspecified; M81.0 Age-related osteoporosis without current pathological fracture; E55.9 Vitamin D deficiency, unspecified; F41.0 Panic disorder [episodic paroxysmal anxiety]; Z20.822 Contact with and (suspected) exposure to COVID-19; Z86.73 Personal history of transient ischemic attack (TIA), and cerebral infarction without residual deficits; Z87.891 Personal history of nicotine dependence; Z79.82 Long term (current) use of aspirin; Z79.51 Long term (current) use of inhaled steroids; Z79.52 Long term (current) use of systemic steroids
CPT/HCPCS: 36415; 36600; 71046; 80053; 82805; 83735; 83880; 84484; 85025; 85610; 85730; 87040; 87636; 93005; 94640; 96374; 99284; J2930

== ENCOUNTER 2023-07-15 09:48 | Outpatient (CLI) | payer MEDICARE, SELFPAY ==
--- NOTE | ~2023-07-15 | CT_ITS ---
EXAMINATION: CT lung screening DATE: 07/15/2023 INDICATION: Chest pain. Nicotine dependence. TECHNIQUE: Computed tomography (CT) of the chest was performed without intravenous contrast. Addition al 3D reconstructions utilizing coronal maximum intensity projection (MIP) were performed. Automated exposure control and iterative reconstruction technique were employed. The dose-length product was 59 .72 mGy-cm. COMPARISON: 03/17/2020 FINDINGS: Moderate emphysema.There are a few calcified nodules in the right lung along with calcified right hil ar and mediastinal lymph nodes consistent with old granulomatous disease. No interval change in a few scattered <3 mm nodules in both lungs with upper lung predominance most likely additional granulomat ous disease. No pneumonia, pulmonary edema or pleural effusion. Heart size is normal. Atherosclerotic coronary artery calcification. Aortic valve calcification. No pericardial effusion. Atherosclerotic calcifications along the normal caliber thoracic aorta. No pathologically enlarged thoracic lymphaden opathy. Several scattered hepatic and splenic calcification is also consistent with old granulomatous disease. Cholecystectomy clips at the gallbladder fossa. Mild thoracic spondylosis. IMPRESSION: 1. . Lung-RADS category 2: Benign appearance or behavior. Continue annual screening with noncontrast low-dose chest CT in 12 months. Reviewed, dictated and finalized at location B. IMPRESSION: 1. . Lung-RADS category 2: Benign appearance or behavior. Continue annual scree sylvester with noncontrast low-dose chest CT in 12 months.
== END 2023-07-15 09:49 | disposition home or self-care (01) ==
LOC: ANHIMG 09:50
PROVIDERS: PCP Family Medicine; Visit Provider Family Medicine
DX: Z12.2 Encounter for screening for malignant neoplasm of respiratory organs (principal); Z87.891 Personal history of nicotine dependence
CPT/HCPCS: 71271; 92557; 92567

== ENCOUNTER 2023-07-15 13:26 | Outpatient (CLI) | payer MEDICARE, SELFPAY | END 2023-07-15 13:27 | disposition home or self-care (01) | LOC: ANHAUDASC 13:28 | PROVIDERS: PCP Family Medicine; Visit Provider Family Medicine | DX: H90.3 Sensorineural hearing loss, bilateral (principal) | CPT/HCPCS: 92557; 92567 ==

== ENCOUNTER 2023-10-10 11:00 | Outpatient (RCR) | payer MEDICARE, SELFPAY | END 2023-10-23 23:59 | disposition home or self-care (01) | LOC: ANHAUDASC 11:00 | PROVIDERS: PCP Family Medicine; Visit Provider Family Medicine | DX: Z46.1 Encounter for fitting and adjustment of hearing aid (principal) | CPT/HCPCS: 99199; V5261 ==

== ENCOUNTER 2024-02-29 16:38 | Inpatient (IN) | payer MEDICARE, SELFPAY ==
--- NOTE | ~2024-02-29 | XR_ITS ---
EXAMINATION: XR chest 1V portable Exam Date/Time: 02/29/2024 20:46 CDT HISTORY: shortness of breath Comparison: None. RESULT: Lines, tubes, and devices: None. Lungs and pleura: Emphysematous/senescent change. Calcified right lung granulomas. Otherwise clear. Cardiomediastinal silhouette: Stable. Other: No acute osseous or upper abdominal finding. IMPRESSION: No acute cardiopulmonary process. Reviewed, dictated and finalized at location K.
--- NOTE | ~2024-02-29 | CT_ITS ---
EXAMINATION: CTA chest PE protocol DATE: 02/29/2024 21:07 INDICATION: CHEST PAIN TECHNIQUE: Computed tomography angiography (CTA) of the chest was performed with 100 mL Omnipaque-350 intravenous contrast timed to evaluate the pulmonary arteries. Coronal maximum intensity projection 3D-reconstructions were created by the technologist. The dose-length product (DLP) was 179.95 mGy-cm. Automated exposure control and iterative reconstruction technique were employed. COMPARISON: X-ray chest, same date; CT lung screening 07/15/2023. FINDINGS: Lung parenchyma and airways: Motion artifact in the upper lobes. Severe emphysematous change. Multipl e calcified granulomas.. Bronchial wall thickening, most notably in the right lower lobe Pleura: Small bilateral simple pleural fluid collections. Thoracic inlet, axillae and chest wall: Unremarkable. Thoracic aorta: No significant dilation. No dissection. Atherosclerotic calcifications. Mediastinum: Calcified nodes. Heart and pericardium: Aortic valve calcification. Coronary artery calcifications: Mild. Upper abdomen: Bilateral renal cortical thinning. Multifocal hyperdensities/areas of hypoenhancement in the bilateral renal cortices. Bones: No acute osseous finding. Pulmonary arteries: Study quality: Adequate. No pulmonary emboli detected. IMPRESSION: No CT evidence of acute pulmonary embolus. Bronchial wall thickening is seen with bronchitis. Small bilateral pleural effusions. Patchy bilateral renal enhancement, may be secondary to renal scarring and subcentimeter cysts, howev er pyelonephritis could appear similarly, correlate with urinalysis. Reviewed, dictated and finalized at location K. IMPRESSION: No CT evidence of acute pulmonary embolus. Bronchial wall thickening is seen with bronchitis. Small bilateral pleural effusions. Patchy bilateral renal enhancement, may be secondary to renal scarring and subc entimeter cysts, however pyelonephritis could appear similarly, correlate with urinalysis.
[2024-02-29 16:44] VITALS: BP 149/99; PULSE 94; RESP 18; TEMP 36.3; O2SAT 94
--- NOTE | 2024-02-29 16:48 | ECG_ITS ---
Test Date: 2024-02-29 16:53:22 Measurements Intervals [place] Rate: 84 P: 83 [place]: 148 QRS: 44 QRSD: 82 T: 77 QT: 374 QTc: 443 Interpretive Statements SINUS RHYTHM POSSIBLE LEFT ATRIAL ENLARGEMENT [-0.1mV P WAVE IN V1/V2] POSSIBLE LEFT VENTRICULAR HYPERTROPHY [VOLTAGE CRITERIA PLUS LAE OR QRS WIDENING] NONSPECIFIC ST & T-WAVE ABNORMALITY No previous ECG available for comparison Electronically Signed On 03-01-2024 11:39:00 CDT by Kris Aldana M.D.
--- NOTE | 2024-02-29 18:21 | ED.SOB ---
HPI - SOB/Dyspnea General Chief Complaint: Shortness of Breath/Dyspnea Stated Complaint: EMPHYSEMA EXACERBATION Time Seen by Provider: 02/29/24 18:00 Focused HPI: Patient is a 78-year-old female presents to the ER with a COPD exacerbation. She reports she started having chills approximately 4 days ago and her dyspnea has progressively worsened. Patient called her PCP who called her in a prescription for azithromycin and oral steroids. She reports she completed the last pill of her prescription today. Patient endorses significant shortness of breath that has not improved with nebulizer treatments at home. Patient has no complaints of chest pain, fevers, or abdominal pain. GENERAL: Well-appearing, well-nourished, and in mild respiratory distress. HEAD: Normocephalic, atraumatic. CHEST: Decreased air movement through all lung toure. ?Mild respiratory distress increases with exertion. HEART: Regular rate and rhythm.?Swollen bilateral lower extremities. NEURO: ?Alert and oriented x3. Patient screened in triage and initial orders placed.? ?Additional care and disposition to be based upon?diagnostic testing and treatment. Related Data Allergies Allergy/AdvReac Type Severity Reaction Status Date / Time aspirin Allergy Intermediate Nausea Verified 11/01/23 10:10 Macrolide Antibiotics Allergy Intermediate Unknown Verified 11/01/23 10:10 erythromycin base Allergy Unknown Nausea Verified 11/01/23 10:10 latex Allergy Unknown Itching Verified 11/01/23 10:10 mold Allergy Unknown Difficulty Verified 11/01/23 10:10 Breathing ragweed pollen Allergy Unknown Difficulty Verified 11/01/23 10:10 Breathing Sulfa (Sulfonamide Allergy Unknown Unknown Verified 11/01/23 10:10 Antibiotics) ipratropium AdvReac Severe Itching Verified 11/01/23 10:10 and panic attacks metal Allergy Unknown Itching Uncoded 11/01/23 10:10 [facility] Past Medical History Medical History 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 attack Chronic obstructive pulmonary disease Chronic respiratory failure with hypoxia, on home oxygen therapy Depression Diastolic dysfunction Echocardiogram April 2018 demonstrated grade 1 diastolic dysfunction EF of 60% impaired right ventricular systolic dysfunction mild mitral valve regurgitation mild aortic stenosis based on velocities valve not well visualized Emphysema lung Essential (primary) hypertension (12/07/18) Fibromyalgia History of tobacco abuse Hyperlipidemia, unspecified Hypothyroidism Osteoporosis, unspecified Peripheral artery disease Personal history of colonic polyps Sleep disorder breathing Noted on polysomnogram March 2018 Thrombocytosis Tobacco abuse Transient ischemic attack Vitamin D deficiency, unspecified (12/07/18) Surgical History Surgical History History of appendectomy History of bilateral carpal tunnel release History of bilateral cataract extraction History of cholecystectomy History of colonoscopy with polypectomy [address] Alcantara with pathology demonstrating adenomas polyp History of hysterectomy History of tonsillectomy Family History Family History Father Family history of lung cancer Chronic obstructive pulmonary disease Mother Bulbar myasthenia gravis Chronic obstructive pulmonary disease Unknown Anxiety Depression ADHD Sibling Chronic obstructive pulmonary disease Social History Social History Social History: Primary care provider: Dr. Justice Platt Code status: DNR/DNI Durable power of healthcare: Magno Hernández (oldest son) Smoking packs per day: 1 Smoking cigarettes per day: 20.0 Years smoked: 49 Smoking pack-years: 49.00 Smoking status: Former smoker Tobacco type: cigarettes Second hand tobacco smoke exposure: No Alcohol intake: never Alcohol use details: Rare alcohol use. Substance use: never Substance use type: does not use Lack of Transportation: No Lack of Food: Never True Current Housing: Decline to Answer Concerned About Future Housing: No Difficulty Paying Gas/Electric Bills: No Difficulty Paying for Meds: No Currently Unemployed: YES Education: High School Diploma/GED Difficulty w/ Childcare or Family Care: No Living arrangements: skilled nursing [facility] Additional living arrangements comments: The patient lives in her own home in [place]. Occupation/Education: retired Spiritual care concerns: No Course Vital Signs Vital signs: Vital Signs Temperature 36.3 C L 02/29/24 16:44 Pulse Rate 94 02/29/24 16:44 Respiratory Rate 18 02/29/24 16:44 Blood Pressure 149/99 H 02/29/24 16:44 Pulse Oximetry 94 02/29/24 16:44 Oxygen Delivery Nasal Cannula 02/29/24 16:44 Oxygen Flow Rate 2 02/29/24 16:44 Temperature 36.3 C L 02/29/24 16:44 Pulse Rate 94 02/29/24 16:44 Respiratory Rate 18 02/29/24 16:44 Blood Pressure 149/99 H 02/29/24 16:44 Pulse Oximetry 94 02/29/24 16:44 Oxygen Delivery Nasal Cannula 02/29/24 16:44 Oxygen Flow Rate 2 02/29/24 16:44 Discharge Plan Discharge Prescriptions: No Action terbinafine HCl 250 mg tablet 250 mg PO DAILY Qty: 84 0RF Breztri Aerosphere 160-9-4.8 mcg/actuation HFA aerosol inhaler 2 inh inhalation QAM AND QPM 30 Days Qty: 10.7 8RF levothyroxine [Synthroid] 112 mcg tablet 112 mcg PO DAILY Qty: 90 1RF albuterol sulfate 2.5 mg/0.5 mL Solution For Nebulization 5 mg inhalation Q6HRT Qty: 30 0RF metoprolol tartrate 25 mg tablet See Rx Instructions .ROUTE .COMPLEX Qty: 180 1RF Dose Instruction: TAKE 1 TABLET BY MOUTH EVERY 12 HOURS Rx Instructions: TAKE 1 TABLET BY MOUTH EVERY 12 HOURS lorazepam 0.5 mg tablet 0.5 mg PO TID PRN (Reason: anxiety) Qty: 60 0RF albuterol sulfate [Ventolin HFA] 90 mcg/actuation HFA aerosol inhaler 1 inh inhalation Q4H PRN (Reason: shortness of breath or wheezing) Qty: 51 2RF atorvastatin 20 mg tablet See Rx Instructions .ROUTE .COMPLEX Qty: 90 2RF Dose Instruction: TAKE 1 TABLET BY MOUTH EVERY DAY Rx Instructions: TAKE 1 TABLET BY MOUTH EVERY DAY prednisone 20 mg tablet 40 mg PO DAILY Qty: 10 0RF azithromycin [Zithromax Z-Navin] 250 mg tablet See Rx Instructions PO .COMPLEX Qty: 6 0RF Rx Instructions: For 250 mg dose pack: take 500 mg today (day 1), then 250 mg for 4 days (days 2-5) PO sertraline 100 mg tablet See Rx Instructions .ROUTE .COMPLEX Qty: 135 2RF Dose Instruction: TAKE ONE AND ONE-HALF TABLET BY MOUTH EVERY DAY Rx Instructions: TAKE ONE AND ONE-HALF TABLET BY MOUTH EVERY DAY Follow-up/Referrals: Omer Antunez MD [Primary Care Provider] -
[2024-02-29 18:35] LABS: Alveolar/Arterial O2 Gradient 43.5 mmHg; Base Excess ABG -2.3 mEq/l (+/-2.0); Fractional Inspired Oxygen 28 %; HCO3 ABG 23.1 mEq/l (22.0-26.0); Oxygen Content ABG 17.9 %vol (16.0-22.0); Oxygen Saturation ABG 97.7 % (95.0-100.0); Oxyhemoglobin 97.1 % THb (90.0-100.0); PCO2 ABG 41.8 mmHg (35.0-45.0); PO2 ABG 106.8 mmHg (80.0-100.0); PO2 FiO2 Ratio Arterial Blood 3.81 %
[2024-02-29 18:37] LABS: Device NASAL CANNULA; Site Drawn LEFT BRACHIAL
--- NOTE | 2024-02-29 18:42 | PCRCNOTE ---
ABG AND CONTINUOUS NEB TREATMENT WERE ORDERED WHILE THE PT. WAS IN THE WAITING ROOM. PULLED TO A ROOM TO DRAW THE ABG. PROVIDER STATES WILL CALL WHEN PT. GETS A ROOM SO THE CONTINUOUS NEB CAN BE STARTED. WILL INFORM ED THERAPIST FOR PRINCIPAL AUTOMATION ENGINEER.
[2024-02-29] MEDS: methylPREDNISolone SOD SUCC 125 MG VIAL IV PUSH (19:36)
[2024-02-29 19:43] VITALS: O2SAT 100
[2024-02-29 20:06] LABS: Hematocrit 36.6 % (37.0-47.0); Hemoglobin 12.1 g/dL (12.0-15.0); Immature Granulocyte Absolute 0.03 K/mm3 (0.00-0.031); Immature Granulocyte Percent A 0.3 % (0-0.5); Lymphocytes Absolute Auto 1.27 K/mm3 (0.9-3.2); Lymphocytes Percent Auto 13.9 % (18.3-44.2); Mean Corpuscular HGB Conc 33.1 g/dl (32-36); Mean Corpuscular Hemoglobin 31.2 pg (26-34); Mean Corpuscular Volume 94.3 fl (80-100); Mean Platelet Volume 9.4 fl (7.4-10.4); Monocytes Absolute Auto 0.6 K/mm3 (0.1-0.6); Monocytes Percent Auto 6.1 % (2.6-8.5); Neutrophils Absolute Auto 7.3 K/mm3 (1.3-6.7); Neutrophils Percent Auto 79.7 % (45.5-73.1); Platelet Count Result 406 k/mm3 (150-375); Red Blood Count 3.88 M/mm3 (4.2-5.4); Red Cell Distribution Width 13.1 % (11.5-14.5); White Blood Count 9.1 K/mm3 (4.5-10.0)
[2024-02-29 20:16] LABS: Partial Thromboplastin Time 27.3 Seconds (22.3-36.8); Prothrombin Time 13.6 Seconds (11.1-14.7)
[2024-02-29 20:17] LABS: Alanine Aminotransferase 39 U/L (6-35); Albumin Level 4.1 g/dL (3.5-5.1); Alkaline Phosphatase 78 U/L (38-126); Anion Gap 8 mmol/L (4-12); Aspartate Amino Transferase 35 U/L (14-36); Bilirubin,Total 0.4 mg/dL (0.2-1.3); Blood Urea Nitrogen 19 mg/dL (7-17); Calcium 8.9 mg/dL (8.4-10.2); Carbon Dioxide 26 mmol/L (22-30); Chloride 100 mmol/L (98-107); Estimated CRCL calculation 40 ml/min; Estimated Glomerular Filt Rate > 60; Glucose 119 mg/dL (65-110); Magnesium 2.1 mg/dL (1.6-2.3); Potassium 4.3 mmol/L (3.4-5.0); Sodium 134 mmol/L (137-145)
[2024-02-29 20:28] LABS: NT Pro B Type Natriuretic Pept 18200 pg/mL (19.9-100); Troponin I < 0.012 ng/mL (0.000-0.034)
--- NOTE | 2024-02-29 20:30 | PC.NURSE ---
RN called respiratory at this time.
--- NOTE | 2024-02-29 20:31 | PC.NURSE ---
This patient brought in for SOB, patient is on 2 L nc. Patient has normal work of breathing. Patient is alert and oriented x's 4. Medication given per MAR. Labs drawn and sent to laboratory.
--- NOTE | 2024-02-29 20:40 | ED.SOB ---
HPI - SOB/Dyspnea General Chief Complaint: Shortness of Breath/Dyspnea Stated Complaint: EMPHYSEMA EXACERBATION Time Seen by Provider: 02/29/24 18:00 History of Present Illness HPI Narrative: Pt presents with SOB for several weeks getting gradually worse. Pt denies fever or CP. Pt has already completed antibiotics and steroids without relief. Related Data Allergies Allergy/AdvReac Type Severity Reaction Status Date / Time aspirin Allergy Intermediate Nausea Verified 11/01/23 10:10 Macrolide Antibiotics Allergy Intermediate Unknown Verified 11/01/23 10:10 erythromycin base Allergy Unknown Nausea Verified 11/01/23 10:10 latex Allergy Unknown Itching Verified 11/01/23 10:10 mold Allergy Unknown Difficulty Verified 11/01/23 10:10 Breathing ragweed pollen Allergy Unknown Difficulty Verified 11/01/23 10:10 Breathing Sulfa (Sulfonamide Allergy Unknown Unknown Verified 11/01/23 10:10 Antibiotics) ipratropium AdvReac Severe Itching Verified 11/01/23 10:10 and panic attacks metal Allergy Unknown Itching Uncoded 11/01/23 10:10 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 attack Chronic obstructive pulmonary disease Chronic respiratory failure with hypoxia, on home oxygen therapy Depression Diastolic dysfunction Echocardiogram April 2018 demonstrated grade 1 diastolic dysfunction EF of 60% impaired right ventricular systolic dysfunction mild mitral valve regurgitation mild aortic stenosis based on velocities valve not well visualized Emphysema lung Essential (primary) hypertension (12/07/18) Fibromyalgia History of tobacco abuse Hyperlipidemia, unspecified Hypothyroidism Osteoporosis, unspecified Peripheral artery disease Personal history of colonic polyps Sleep disorder breathing Noted on polysomnogram March 2018 Thrombocytosis Tobacco abuse Transient ischemic attack Vitamin D deficiency, unspecified (12/07/18) Surgical History Surgical History History of appendectomy History of bilateral carpal tunnel release History of bilateral cataract extraction History of cholecystectomy History of colonoscopy with polypectomy [address] Alcantara with pathology demonstrating adenomas polyp History of hysterectomy History of tonsillectomy Family History Family History Father Family history of lung cancer Chronic obstructive pulmonary disease Mother Bulbar myasthenia gravis Chronic obstructive pulmonary disease Unknown Anxiety Depression ADHD Sibling Chronic obstructive pulmonary disease Social History Social History Social History: Primary care provider: Dr. Justice Platt Code status: DNR/DNI Durable power of healthcare: Magno Hernández (oldest son) Smoking packs per day: 1 Smoking cigarettes per day: 20.0 Years smoked: 49 Smoking pack-years: 49.00 Smoking status: Former smoker Tobacco type: cigarettes Second hand tobacco smoke exposure: No Alcohol intake: never Alcohol use details: Rare alcohol use. Substance use: never Substance use type: does not use Lack of Transportation: No Lack of Food: Never True Current Housing: Decline to Answer Concerned About Future Housing: No Difficulty Paying Gas/Electric Bills: No Difficulty Paying for Meds: No Currently Unemployed: YES Education: High School Diploma/GED Difficulty w/ Childcare or Family Care: No Living arrangements: custodial village Additional living arrangements comments: The patient lives in her own home in [place]. Occupation/Education: retired Spiritual care concerns: No Exam Const: General: healthy appearing and no acute distress Nutritional Appearance: well nourished Orientation/consciousness: patient oriented x3 Limitations: no limitations Resp: Effort & Inspection: labored Auscultation: wheezes Cardio: Rate: regular rate Rhythm: regular rhythm GI: GI Palp: Yes Soft to palpation Auscultation: normal bowel sounds Skin: General skin exam: normal color Wounds: no wounds Neuro: General: patient oriented x3 and moves all extremities Cranial nerves: Yes Nystagmus not present Speech: normal speech Extrem: General: normal to inspection and no clubbing, cyanosis or edema Psych: Mental Status: mental status grossly normal Affect: normal affect Attitude: cooperative Course Vital Signs Vital signs: Vital Signs Temperature 97.4 F L 02/29/24 16:44 Pulse Rate 94 02/29/24 16:44 Respiratory Rate 18 02/29/24 16:44 Blood Pressure 149/99 H 02/29/24 16:44 Pulse Oximetry 94 02/29/24 16:44 Oxygen Delivery Nasal Cannula 02/29/24 16:44 Oxygen Flow Rate 2 02/29/24 16:44 Temperature 97.4 F L 02/29/24 16:44 Pulse Rate 94 02/29/24 21:19 Respiratory Rate 22 H 02/29/24 21:19 Blood Pressure 149/99 H 02/29/24 16:44 Pulse Oximetry 100 02/29/24 19:43 Oxygen Delivery Nasal Cannula 02/29/24 19:43 Oxygen Flow Rate 2 02/29/24 19:43 MDM - SOB/Dyspnea MDM Narrative Medical decision making narrative: Pt could be in chf or pneumonia or copd. will get cxr and ekg and labs. BNP elevated. will give lasix and nebs. cxr and cta unremarkable. Pt copd exacerbation also elevated bnp but cxr looks fine. discussed with dr harmon agrees to admit ot obs Differential Diagnosis Differential diagnosis: Likely acute exacerbation of chronic obstructive airways disease, congestive heart failure, community acquired pneumonia and asthma with exacerbation Lab Data 02/29/24 19:52 02/29/24 19:52 Labs: Lab Results 02/29/24 02/29/24 Range/Units 19:52 22:02 WBC 9.1 (4.5-10.0) K/mm3 RBC 3.88 L (4.2-5.4) M/mm3 Hgb 12.1 (12.0-15.0) g/dL Hct 36.6 L (37.0-47.0) % MCV 94.3 (80-100) fl MCH 31.2 (26-34) pg MCHC 33.1 (32-36) g/dl RDW 13.1 (11.5-14.5) % Plt Count 406 H (150-375) k/mm3 MPV 9.4 (7.4-10.4) fl Immature Gran % (Auto) 0.3 (0-0.5) % Neut % (Auto) 79.7 H (45.5-73.1) % Lymph % (Auto) 13.9 L (18.3-44.2) % [place] % (Auto) 6.1 (2.6-8.5) % Eos % (Auto) 0.0 (0-4.4) % Baso % (Auto) 0.0 L (0.2-1.2) % Lymph # (Auto) 1.27 (0.9-3.2) K/mm3 [place] # (Auto) 0.6 (0.1-0.6) K/mm3 Eos # (Auto) 0.0 (0-0.3) K/mm3 Baso # (Auto) 0.0 (0.0-0.1) K/mm3 Abs Immat Gran (auto) 0.03 (0.00-0.031) K/mm3 Absolute Neuts (auto) 7.3 H (1.3-6.7) K/mm3 Absolute Nucleated RBC 0.000 (0.0-0.012) K/mm3 Nucleated RBC % 0.0 (0.0-0.2) % PT 13.6 (11.1-14.7) Seconds INR 1.0 APTT 27.3 (22.3-36.8) Seconds Sodium 134 L (137-145) mmol/L Potassium 4.3 (3.4-5.0) mmol/L Chloride 100 (98-107) mmol/L Carbon Dioxide 26 (22-30) mmol/L Anion Gap 8 (4-12) mmol/L BUN 19 H (7-17) mg/dL Creatinine 0.90 (0.7-1.0) mg/dL Estim Creat Clear Calc 40 ml/min Estimated GFR > 60 (59 - ) Glucose 119 H (65-110) mg/dL Lactic Acid 1.0 (0.7-2.0) mmol/L Calcium 8.9 (8.4-10.2) mg/dL Magnesium 2.1 (1.6-2.3) mg/dL Total Bilirubin 0.4 (0.2-1.3) mg/dL AST 35 (14-36) U/L ALT 39 H (6-35) U/L Alkaline Phosphatase 78 (38-126) U/L Troponin I < 0.012 (0.000-0.034) ng/mL NT-Pro-B Natriuret Pep 31509 H (19.9-100) pg/mL Total Protein 7.0 (6.3-8.2) g/dL Albumin 4.1 (3.5-5.1) g/dL Urine Color Yellow (Yellow) Urine Appearance Clear (Clear) Urine pH 6.0 (5.0-9.0) Ur Specific [place] 1.019 (1.001-1.035) Urine Protein Negative (Negative) mg/dL Urine Glucose (UA) Negative (Negative) mg/dL Urine Ketones Negative (Negative) mg/dL Ur Blood (Man) Negative (Negative) Urine Nitrate Negative (Negative) Urine Bilirubin Negative (Negative) Urine Urobilinogen 0.2 (<2.0) mg/dL Leukocyte Esterase Rfl Negative (Negative) ALAN/UL ABG Data ABG results: 02/29/24 18:30 Puncture Site Left brachial ABG pH 7.360 ABG pCO2 41.8 ABG pO2 106.8 H ABG PO2/FiO2 Ratio 3.81 ABG HCO3 23.1 ABG O2 Saturation 97.7 ABG O2 Content 17.9 ABG Base Excess -2.3 A-a Gradient 43.5 Oxyhemoglobin 97.1 Total Hemoglobin 13.0 O2 Delivery Device Nasal cannula O2 Liters/Min 2.0 FiO2 28 Discharge Plan Discharge Clinical Impression: Acute exacerbation of chronic obstructive pulmonary disease Patient Disposition: Still a Patient Condition: Improved Prescriptions: No Action terbinafine HCl 250 mg tablet 250 mg PO DAILY Qty: 84 0RF Breztri Aerosphere 160-9-4.8 mcg/actuation HFA aerosol inhaler 2 inh inhalation QAM AND QPM 30 Days Qty: 10.7 8RF levothyroxine [Synthroid] 112 mcg tablet 112 mcg PO DAILY Qty: 90 1RF albuterol sulfate 2.5 mg/0.5 mL Solution For Nebulization 5 mg inhalation Q6HRT Qty: 30 0RF metoprolol tartrate 25 mg tablet See Rx Instructions .ROUTE .COMPLEX Qty: 180 1RF Dose Instruction: TAKE 1 TABLET BY MOUTH EVERY 12 HOURS Rx Instructions: TAKE 1 TABLET BY MOUTH EVERY 12 HOURS lorazepam 0.5 mg tablet 0.5 mg PO TID PRN (Reason: anxiety) Qty: 60 0RF albuterol sulfate [Ventolin HFA] 90 mcg/actuation HFA aerosol inhaler 1 inh inhalation Q4H PRN (Reason: shortness of breath or wheezing) Qty: 51 2RF atorvastatin 20 mg tablet See Rx Instructions .ROUTE .COMPLEX Qty: 90 2RF Dose Instruction: TAKE 1 TABLET BY MOUTH EVERY DAY Rx Instructions: TAKE 1 TABLET BY MOUTH EVERY DAY prednisone 20 mg tablet 40 mg PO DAILY Qty: 10 0RF azithromycin [Zithromax Z-Navin] 250 mg tablet See Rx Instructions PO .COMPLEX Qty: 6 0RF Rx Instructions: For 250 mg dose pack: take 500 mg today (day 1), then 250 mg for 4 days (days 2-5) PO sertraline 100 mg tablet See Rx Instructions .ROUTE .COMPLEX Qty: 135 2RF Dose Instruction: TAKE ONE AND ONE-HALF TABLET BY MOUTH EVERY DAY Rx Instructions: TAKE ONE AND ONE-HALF TABLET BY MOUTH EVERY DAY Follow-up/Referrals: Omer Antunez MD [Primary Care Provider] -
[2024-02-29] MEDS: ALBUTEROL SULFATE NEB 2.5 MG/3 ML INH 20 MG INHALATION (21:16)
[2024-02-29] MEDS: ALBUTEROL SULFATE NEB 2.5 MG/3 ML INH INHALATION (21:18)
[2024-02-29 21:19] VITALS: PULSE 94; RESP 22
[2024-02-29] MEDS: FUROSEMIDE INJ 40 MG/4 ML VIAL IV PUSH (21:26)
--- NOTE | 2024-02-29 22:06 | PC.NURSE ---
UA sent to lab
[2024-02-29 22:08] LABS: Add Urine Microscopic? NO; Appearance Urine Clear (Clear); Bilirubin Urine Negative (Negative); Blood Urine Negative (Negative); Color Urine Yellow (Yellow); Glucose Urine UA Negative (Negative); Ketones Urine Negative (Negative); Leukocyte Esterase Ur Negative LEU/UL (Negative); Nitrate Urine Negative (Negative); Protein Urine Negative (Negative); Specific Grav Ur 1.019 (1.001-1.035); Urobilinogen Urine 0.2 mg/dL (<2.0)
--- NOTE | 2024-02-29 22:26 | PC.NURSE ---
this patient reports feeling better.
--- NOTE | 2024-02-29 22:40 | PC.NURSE ---
patient ambulatory to bathroom with walker. Steady gait. Patient reconnected to monitor.
--- NOTE | 2024-02-29 22:43 | PC.NURSE ---
patient is shaky.
[2024-03-01] VITALS (24 sets, daily range): BP systolic 106–142; BP diastolic 42–86; PULSE 75–106; RESP 18–22; TEMP 36.1–36.8; O2SAT 94–100; BMI 19.6
--- NOTE | 2024-03-01 | ECHO_ITS ---
Patient Info Name: Ella Puckett Age: 78 years : 1945 Gender: Female Ht: 65 in Wt: 117 lbs BSA: 1.55 m2 HR: 85 bpm BP: 111 / 46 mmHg Technical Quality: Fair Exam Date: 03/01/2024 2:04 PM Exam Location: Echo Lab Patient Status: Outpatient Admit Date: 02/29/2024 Staff Ordering Physician: Kristin Casas APRN Seismograph Operator: Tyler Mares RDCS Attending Provider: Kristin Casas APRN Exam Type: CA echo doppler color flow Study Info Indications R07.89 - Other chest pain Complete two-dimensional, color flow and Doppler transthoracic echocardiogram is performed. Summary 1. Complete two-dimensional, color flow and Doppler transthoracic echocardiogram is performed. Left Ventricle The left ventricle is normal in size and systolic function. There is mild thickening of the left ventricular ignacio. LVEF is visually estimated to be 60-65%. Right Ventricle The right ventricle is normal in size and systolic function. Left Atria The left atrium is normal size. Right Atria The right atrium is normal size. Aortic Valve The aortic valve is probably trileaflet and heavily calcified. There is evidence of critical aortic stenosis with a peak velocity 5.5 m/sec, mean gradient of 65 mm Hg, and aortic valve area of 0.3cm2. There is at least mild aortic regurgitation. Pulmonic Valve The pulmonic valve is not well visualized. There is no pulmonic regurgitation. Mitral Valve The mitral valves are calcified but opens well. There is mild mitral regurgitation. Tricuspid Valve The tricuspid valve opens well. There is trace tricuspid regurgitation. Pericardium/Pleural Pericardium is normal in appearance with no evidence for significant pericardial effusion. Inferior Vena Cava Normal inferior vena cava with <50% collapse upon inspiration consistent with elevated right atrial pressure, 8 mmHg. Left Ventricular Outflow Tract Name Value Normal LVOT 2D LVOT Diameter 1.9 cm LVOT Doppler LVOT Peak Gradient 2 mmHg LVOT Mean Gradient 1 mmHg LVOT VTI 13 cm LVOT VTI/AV VTI Ratio 0.1 LVOT Stroke Volume 37 ml LVOT CO 2.9 l/min LVOT CI 1.9 l/min/m2 Pulmonic Valve Name Value Normal PV Doppler PV Peak Gradient 2 mmHg Tricuspid Valve Name Value Normal TV Regurgitation Doppler TR Peak Velocity 411 cm/s TR Peak Gradient 68 mmHg Estimated PAP/RSVP RA Pressure 8 mmHg <=5 PA Systolic Pressure 76 mmHg <36 RV Systolic Pressure 76 mmHg <36 Aorta Name Value Normal Ascending Aorta Ao Root Diameter (MM) 2.3 cm Ao Root Diam Index (MM) 1.5 cm/m2 Aortic Valve Name Value Normal AV Doppler AV Peak Velocity 550 cm/s AV Peak Gradient 107 mmHg AV Mean Gradient 65 mmHg AV VTI 129 cm AV Area (Cont Eq VTI) 0.3 cm2 >=3.0 AV Area (Cont Eq Claude) 0.3 cm2 AV Regurgitation 2D LVOT Area 2.8 cm2 AV Regurgitation Doppler AR Decel Time 808 ms AR Decel Real 354 cm/s2 AR PHT 234 ms Ventricles Name Value Normal LV Dimensions 2D/MM IVS Diastolic Thickness (2D) 1.2 cm 0.6-1.0 IVS Diastole Thickness (MM) 0.8 cm 0.6-0.9 LVID Diastole (2D) 4.3 cm 3.8-5.2 LVID Diastole (MM) 4.5 cm 3.8-5.2 LVIW Diastolic Thickness (2D) 1.2 cm 0.6-0.9 LVIW Diastolic Thickness (MM) 0.8 cm 0.6-0.9 LVID Systole (2D) 3.6 cm 2.2-3.5 LVID Systole (MM) 3.0 cm 2.2-3.5 LVOT Diameter 1.9 cm LV Mass (2D Cubed) 192.15 g 67.00-162.00 LV Mass Index (2D Cubed) 124 g/m2 43-95 Relative Wall Thickness (2D) 0.55 LV Mass (MM Cubed) 107.62 g 67.00-162.00 LV Mass Index (MM Cubed) 69 g/m2 43-95 Relative Wall Thickness (MM) 0.34 LV Fractional Shortening/Ejection Fraction 2D/MM LV Fractional Shortening (2D) 18 % 27-45 LV Fractional Shortening (MM) 34 % 27-45 LV EF (MM Teicholz) 63 % 54-74 LV EF (2D Teicholz) 38 % 54-74 LV Diastolic Volume (4C MOD) 76 ml LV EF (4C MOD) 52 % LV Diastolic Volume (2C MOD) 63 ml LV EF (2C MOD) 59 % LV Diastolic Volume (BP MOD) 69 ml 46-106 LV Diastolic Volume Index (BP MOD) 44 ml/m2 29-61 LV Systolic Volume (BP MOD) 32 ml 14-42 LV Systolic Volume Index (BP MOD) 20 ml/m2 8-24 LV EF (BP MOD) 54 % 54-74 LV Diastolic Length (4C) 7.5 cm LV Systolic Length (4C) 6.1 cm LV Stroke Volume (4C MOD) 39 ml Atria Name Value Normal LA Dimensions LA Dimension (MM) 3.8 cm 2.7-3.8 LA Volume (4C A-L) 47 ml LA Volume (BP A-L) 53 ml RA Dimensions RA Area (4C) 10.4 cm2 <=18.0 Report Signatures
--- NOTE | 2024-03-01 01:53 | ADMGEN ---
This patient, Ella Puckett, was admitted to Medical Room 344-01. Patient/family oriented to hospital policies and general routines including ID bracelet, bed and alarms, visiting hours, pain management, procedures, bathroom and other care routines, personal items, smoking policy, room service/diet, and visiting hours. Information on how to activate the Rapid Response Team has been discussed. Patient/Family are encouraged to report perceived risks to care and to ask questions if they do not understand what they are told or what they should do.
[2024-03-01] MEDS: ALBUTEROL SULFATE NEB 2.5 MG/3 ML INH 5 MG INHALATION ×4 (02:39→21:03)
--- NOTE | 2024-03-01 03:07 | P.HP_ITS ---
H&P: HPI History of Present Illness Date/Time: 03/01/24 03:07 Chief Complaint: Increased shortness of breath Narrative: 78-year-old with past medical history of chronic hypoxic respiratory failure, COPD, essential hypertension, hypothyroidism and anxiety who presented to the ER for evaluation of increased shortness of breath. The patient recently received script for prednisone and azithromycin on 02/25/2024 and despite taking these medications she has been having persistent shortness of breath. She reports intermittent sensation of tightness around her ribcage. She reports that symptoms improves intermittently. She has not had an increase her home oxygen level. She denies any recent ill contacts and wears a face mask any time that she is out in the pelvic. She denies any fevers or chills. She denies any significant lower extremity swelling besides the swelling that she gets from a prior ankle injury. She reports that she does have a mild cough and actually seems to feel like she has not been able to cough as much as usual. Review of Systems Review of Systems: 12 systems were reviewed with pertinent positives and negatives per HPI. Except as documented in the HPI, all other systems were reviewed and are negative. [facility] Past Medical History Medical History 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 attack Chronic obstructive pulmonary disease Chronic respiratory failure with hypoxia, on home oxygen therapy Depression Diastolic dysfunction Echocardiogram April 2018 demonstrated grade 1 diastolic dysfunction EF of 60% impaired right ventricular systolic dysfunction mild mitral valve regurgitation mild aortic stenosis based on velocities valve not well visualized Emphysema lung Essential (primary) hypertension (12/07/18) Fibromyalgia History of tobacco abuse Hyperlipidemia, unspecified Hypothyroidism Osteoporosis, unspecified PAD (peripheral artery disease) Peripheral artery disease Personal history of colonic polyps Sleep disorder breathing Noted on polysomnogram March 2018 Thrombocytosis Transient ischemic attack Vitamin D deficiency, unspecified (12/07/18) Surgical History Surgical History History of appendectomy History of bilateral carpal tunnel release History of bilateral cataract extraction History of cholecystectomy History of colonoscopy with polypectomy [address] Alcantara with pathology demonstrating adenomas polyp History of hysterectomy History of tonsillectomy Family History Family History Father Family history of lung cancer Chronic obstructive pulmonary disease Mother Bulbar myasthenia gravis Chronic obstructive pulmonary disease Unknown Anxiety Depression ADHD Sibling Chronic obstructive pulmonary disease Social History Social History (Updated 03/01/24 @ 03:09 by Shakira Carrera DO) Social History: Code status: DNR/DNI Durable power of healthcare: Magno Hernández (oldest son) Smoking packs per day: 1 Smoking cigarettes per day: 20.0 Years smoked: 49 Smoking pack-years: 49.00 Smoking status: Former smoker Second hand tobacco smoke exposure: No Alcohol intake: current Alcohol use details: Rare alcohol use. Substance use: never Substance use type: does not use Do You Feel Safe in your Home?: Yes Lack of Transportation: No Lack of Food: Never True Current Housing: I Have Housing Concerned About Future Housing: No Difficulty Paying Gas/Electric Bills: No Difficulty Paying for Meds: No Currently Unemployed: No Education: High School Diploma/GED Difficulty w/ Childcare or Family Care: No Living arrangements: [facility] Additional living arrangements comments: The patient lives in her own home in [place]. Occupation/Education: retired Spiritual care concerns: No Meds Home Medications and Allergies Home Medications Medication Instructions Recorded Confirmed Type budesonide 160 mcg-glycopyr 9 2 inh inhalation QAM AND QPM 30 03/16/23 03/01/24 Rx mcg-formot 4.8 mcg/actuation HFA days #10.7 grams inhaler (Breztri Aerosphere) Synthroid 112 mcg tablet 112 mcg PO DAILY #90 tabs 11/01/23 03/01/24 Rx (levothyroxine) lorazepam 0.5 mg tablet 0.5 mg PO TID PRN anxiety #60 tabs 01/29/24 03/01/24 Rx albuterol sulfate 90 mcg/actuation 1 inh inhalation Q4H PRN shortness 02/21/24 03/01/24 Rx aerosol inhaler (Ventolin HFA) of breath or wheezing #51 grams atorvastatin 20 mg tablet 20 mg PO DAILY 03/01/24 03/01/24 History metoprolol tartrate 25 mg tablet 25 mg PO Q12H 03/01/24 03/01/24 History sertraline 100 mg tablet 150 mg PO DAILY 03/01/24 03/01/24 History Allergies Allergy/AdvReac Type Severity Reaction Status Date / Time aspirin Allergy Intermediate Nausea Verified 03/01/24 04:51 Macrolide Antibiotics Allergy Intermediate Unknown Verified 03/01/24 04:51 erythromycin base Allergy Unknown Nausea Verified 03/01/24 04:51 latex Allergy Unknown Itching Verified 03/01/24 04:51 mold Allergy Unknown Difficulty Verified 03/01/24 04:51 Breathing ragweed pollen Allergy Unknown Difficulty Verified 03/01/24 04:51 Breathing Sulfa (Sulfonamide Allergy Unknown Unknown Verified 03/01/24 04:51 Antibiotics) ipratropium AdvReac Severe Itching Verified 03/01/24 04:51 and panic attacks metal Allergy Unknown Itching Uncoded 03/01/24 04:51 Vital Signs Vital Signs - 24 hr 02/29/24 16:44 02/29/24 19:43 02/29/24 21:19 Temperature 97.4 F L Pulse Rate 94 94 Respiratory Rate 18 22 H Blood Pressure 149/99 H Pulse Oximetry 94 100 Oxygen Delivery Nasal Cannula Nasal Cannula Oxygen Flow Rate 2 2 03/01/24 01:37 03/01/24 02:00 03/01/24 02:27 Temperature 98.2 F Pulse Rate 106 H 103 H Respiratory Rate 22 H Blood Pressure 124/42 L Pulse Oximetry 95 94 Oxygen Delivery Nasal Cannula Oxygen Flow Rate 2 03/01/24 02:30 03/01/24 02:43 03/01/24 02:52 Temperature 97.0 F L Pulse Rate 95 86 88 Respiratory Rate 20 18 18 Blood Pressure 124/53 L Pulse Oximetry 100 Oxygen Delivery Oxygen Flow Rate Exam Narrative: Weight 53.5 kg BMI 19.6 Const: Other: Thin body habitus, appears stated age, no acute distress, sitting up with head of bed at almost 90? HENMT: Other: Mucous membranes are dry, no oral pharyngeal erythema, head dentures upper and lower jaw, head is normocephalic atraumatic Eyes: Other: Pupils are equal and reactive, no scleral icterus, no conjunctival pallor Neck: Other: No JVD, supple Resp: Other: Conversational dyspnea, crackles at bilateral bases Cardio: Other: Regular rate, regular rhythm, 2+ bilateral radial pedal pulses, 3/6 systolic murmur heard best at the left upper sternal border GI: Other: Soft, nontender, nondistended Back/Spine/Pelvis: Other: Mild thoracic kyphosis Skin: Other: No jaundice, no pallor, normal temperature to touch, no petechiae or bruising Neuro: Other: Alert orient x4, speech is clear, no facial asymmetry Extrem: Other: No clubbing, cyanosis or edema Psych: Other: Pleasant and cooperative, moderately anxious in appearance, slightly pressured speech H&P: Results Labs Labs: Laboratory Tests 02/29/24 19:52 02/29/24 19:52 02/29/24 02/29/24 02/29/24 18:30 19:52 22:02 WBC 9.1 RBC 3.88 L Hgb 12.1 Hct 36.6 L MCV 94.3 MCH 31.2 MCHC 33.1 RDW 13.1 Plt Count 406 H MPV 9.4 Immature Gran % (Auto) 0.3 Neut % (Auto) 79.7 H Lymph % (Auto) 13.9 L [place] % (Auto) 6.1 Eos % (Auto) 0.0 Baso % (Auto) 0.0 L Lymph # (Auto) 1.27 [place] # (Auto) 0.6 Eos # (Auto) 0.0 Baso # (Auto) 0.0 Abs Immat Gran (auto) 0.03 Absolute Neuts (auto) 7.3 H Absolute Nucleated RBC 0.000 Nucleated RBC % 0.0 PT 13.6 INR 1.0 APTT 27.3 Puncture Site Left brachial ABG pH 7.360 ABG pCO2 41.8 ABG pO2 106.8 H ABG PO2/FiO2 Ratio 3.81 ABG HCO3 23.1 ABG O2 Saturation 97.7 ABG O2 Content 17.9 ABG Base Excess -2.3 A-a Gradient 43.5 Oxyhemoglobin 97.1 Total Hemoglobin 13.0 O2 Delivery Device Nasal cannula O2 Liters/Min 2.0 FiO2 28 Sodium 134 L Potassium 4.3 Chloride 100 Carbon Dioxide 26 Anion Gap 8 BUN 19 H Creatinine 0.90 Estim Creat Clear Calc 40 Estimated GFR > 60 Glucose 119 H Lactic Acid 1.0 Calcium 8.9 Magnesium 2.1 Total Bilirubin 0.4 AST 35 ALT 39 H Alkaline Phosphatase 78 Troponin I < 0.012 NT-Pro-B Natriuret Pep 47998 H Total Protein 7.0 Albumin 4.1 Urine Color Yellow Urine Appearance Clear Urine pH 6.0 Ur Specific [place] 1.019 Urine Protein Negative Urine Glucose (UA) Negative Urine Ketones Negative Ur Blood (Man) Negative Urine Nitrate Negative Urine Bilirubin Negative Urine Urobilinogen 0.2 Leukocyte Esterase Rfl Negative 03/01/24 02:50 WBC RBC Hgb Hct MCV MCH MCHC RDW Plt Count MPV Immature Gran % (Auto) Neut % (Auto) Lymph % (Auto) [place] % (Auto) Eos % (Auto) Baso % (Auto) Lymph # (Auto) [place] # (Auto) Eos # (Auto) Baso # (Auto) Abs Immat Gran (auto) Absolute Neuts (auto) Absolute Nucleated RBC Nucleated RBC % PT INR APTT Puncture Site ABG pH ABG pCO2 ABG pO2 ABG PO2/FiO2 Ratio ABG HCO3 ABG O2 Saturation ABG O2 Content ABG Base Excess A-a Gradient Oxyhemoglobin Total Hemoglobin O2 Delivery Device O2 Liters/Min FiO2 Sodium Potassium Chloride Carbon Dioxide Anion Gap BUN Creatinine Estim Creat Clear Calc Estimated GFR Glucose Lactic Acid Calcium Magnesium Total Bilirubin AST ALT Alkaline Phosphatase Troponin I Pending NT-Pro-B Natriuret Pep Total Protein Albumin Urine Color Urine Appearance Urine pH Ur Specific [place] Urine Protein Urine Glucose (UA) Urine Ketones Ur Blood (Man) Urine Nitrate Urine Bilirubin Urine Urobilinogen Leukocyte Esterase Rfl Impressions Chest X-Ray 02/29/24 20:53 (personally reviewed and interpreted. Agree with radiologic interpretation) IMPRESSION: No acute cardiopulmonary process. Chest CTA 02/29/24 21:15 IMPRESSION: No CT evidence of acute pulmonary embolus. Bronchial wall thickening is seen with bronchitis. Small bilateral pleural effusions. Patchy bilateral renal enhancement, may be secondary to renal scarring and subcentimeter cysts, however pyelonephritis could appear similarly, correlate with urinalysis. EKG: Personally reviewed and interpreted. Cardiology interpretation pending Sinus rhythm, baseline artifact in lead 1 and 2, left atrial enlargement, meets criteria for LVH, nonspecific ST and T-wave abnormality in V1, V2. QTC 443 rate 84 Assessment and Plan Assessment and plan (1) Acute exacerbation of chronic obstructive pulmonary disease: Code(s): J44.1 - Chronic obstructive pulmonary disease with (acute) exacerbation Status: Acute (2) Diastolic dysfunction: Code(s): I51.89 - Other ill-defined heart diseases Status: Acute (3) Hypothyroidism: Qualifiers: Hypothyroidism type: unspecified Qualified Code(s): E03.9 - Hypothyroidism, unspecified Code(s): E03.9 - Hypothyroidism, unspecified Status: Chronic (4) Essential (primary) hypertension: Onset Date: 12/07/18 Code(s): I10 - Essential (primary) hypertension Status: Chronic (5) Chronic respiratory failure with hypoxia, on home oxygen therapy: Code(s): J96.11 - Chronic respiratory failure with hypoxia; Z99.81 - Dependence on supplemental oxygen Status: Acute Plan Patient has acute exacerbation of chronic COPD. Will place patient on scheduled nebulizer treatments with albuterol. Will continue patient's home chronic controlling inhalers. Will continue IV Solu-Medrol. Patient does have chronic hypoxic respiratory failure but she is stable on her home oxygen requirement. Will add Mucinex. Patient does have a history of diastolic dysfunction without recorded episodes of heart failure. She is noted to have a loud murmur left upper sternal border. She states that she has had a murmur since childhood but I did not find prior documentation as such. Will check echocardiogram to evaluate for possible valvular disease. Patient's BNP is around the patient's baseline. Patient did receive 1 dose of IV Lasix in the ER but the patient appears euvolemic. Will not continue diuretic therapy. Will check BMP in a.m. given administration of Lasix. Patient does have some chronic hyponatremia and chronic elevation in BUN that her stable compared to prior baselines. Will resume patient's home levothyroxine and antihypertensives. Will continue home anxiety medications. Patient has been admitted as observation status. Quality VTE Prophylaxis VTE prophylaxis: pharmacologic ordered (Lovenox 30 mg subQ daily.) Hospitalist [facility] Advance Care Plan I have confirmed that the patient's Advanced Care Plan is present, code status is documented, or surrogate decision maker is listed in patient medical record.: Yes Medication Reconciliation I have utilized all available resources to obtain, update and review the patients current medications (includes all prescriptions, OTC, herbals, cannabis, and nutritional supplements).: Yes
[2024-03-01 03:18] LABS: Troponin I 0.032 ng/mL (0.000-0.034)
[2024-03-01] MEDS: methylPREDNISolone SOD SUCC 125 MG VIAL 40 MG IV PUSH (05:50)
[2024-03-01] MEDS: LEVOTHYROXINE SODIUM 112 MCG TABLET PO (05:51)
[2024-03-01 06:50] LABS: Anion Gap 6 mmol/L (4-12); Blood Urea Nitrogen 22 mg/dL (7-17); Carbon Dioxide 33 mmol/L (22-30); Chloride 98 mmol/L (98-107); Estimated CRCL calculation 35 ml/min; Estimated Glomerular Filt Rate 54; Glucose 147 mg/dL (65-110); Potassium 3.7 mmol/L (3.4-5.0); Sodium 137 mmol/L (137-145)
[2024-03-01] MEDS: FLUTICASONE/UMECLIDIN/VILANTER 100-62.5-25 MCG ELLIPTA 1 PUFF INHALATION (07:23)
[2024-03-01] MEDS: ATORVASTATIN 20 MG TABLET PO (09:22)
[2024-03-01] MEDS: METOPROLOL TARTRATE 25 MG TABLET PO ×2 (09:22→20:04)
[2024-03-01] MEDS: SERTRALINE HCL 50 MG TABLET 150 MG PO (09:22)
[2024-03-01] MEDS: ENOXAPARIN 30 MG/0.3 ML SYRINGE SUB-Q (09:22)
--- NOTE | 2024-03-01 09:35 | PM.IMPN ---
Progress Note: A&P Assessment and Plan (1) Acute exacerbation of chronic obstructive pulmonary disease: Code(s): J44.1 - Chronic obstructive pulmonary disease with (acute) exacerbation Status: Acute Assessment and Plan: Home meds: Breztri, Albuterol prn S/p Solumedrol 125mg in the ER, continuing 40mg q8 Continue Trelegy, substituted for Breztri --Continue Albuterol nebs 5mg q6 --Change solumedrol to Prednisone 40mg daily x5 days --Check O2 with ambulation (2) Diastolic dysfunction: Code(s): I51.89 - Other ill-defined heart diseases Status: Acute (3) Hypothyroidism: Qualifiers: Hypothyroidism type: unspecified Qualified Code(s): E03.9 - Hypothyroidism, unspecified Code(s): E03.9 - Hypothyroidism, unspecified Status: Chronic Assessment and Plan: Continue synthroid (4) Essential (primary) hypertension: Onset Date: 12/07/18 Code(s): I10 - Essential (primary) hypertension Status: Chronic Assessment and Plan: Home meds: Metoprolol 25 q12 (5) Chronic respiratory failure with hypoxia, on home oxygen therapy: Code(s): J96.11 - Chronic respiratory failure with hypoxia; Z99.81 - Dependence on supplemental oxygen Status: Acute Assessment and Plan: Treating for a COPD exacerbation also s/p lasix 40mg x1 CTA showed bronchial wall thickening possible bronchitis Continuing albuterol Check COVID/Flu Guaifenesin for cough (6) Chest tightness: Code(s): R07.89 - Other chest pain Status: Acute Assessment and Plan: Chest tightness this morning after eating, resolved. Patient reports chronic. Troponins negative x2 Prior echo with mild aortic stenosis, mild MVR, normal LVEF in 2018 --Continue to monitor on tele --Start pantoprazole, steroids may be exacerbating reflux --EKG nonspecific, sinus --TTE Plan Time Spent With Patient Time: 59 minutes Subjective Date/time seen: 03/01/24 09:35 Interval history: Reports shortness of breath walking in the room, but isn't on oxygen. Has 2L O2 that she wears as needed at home. Wheezing resolved on IV solumedrol Had chest tightness this morning after eating, resolved. Reports it's intermittent and ongoing in the last year. No events on telemetry. Review of Systems Review of Systems: 12 systems were reviewed with pertinent positives and negatives per HPI. Except as documented in the HPI, all other systems were reviewed and are negative. Exam Narrative: Weight 53.5 kg BMI 19.6 General - Awake and alert. No acute distress Eyes - PERRLA, EOM intact ENT - No thrush, No erythema Neck - No noticeable or palpable swelling Lymph Nodes - No lymphadenopathy Cardiovascular - RRR no m/r/g, no JVD Lungs: No wheezing, use of accessory muscles, basilar crackles Skin - Skin warm and dry, no wounds or rashes Abdomen - Normal bowel sounds, abdomen soft and nontender Extremities - No edema, cyanosis or clubbing Musculoskeletal - 5/5 strength, normal range of motion, no swollen or erythematous joints. Neurological ? Alert and oriented x 3, CN 2-12 grossly intact. Psych: Normal mood and affect Objective Data Vital Signs Vital Signs: Vital Signs - 24 hr 02/29/24 16:44 02/29/24 19:43 02/29/24 21:19 Temperature 97.4 F L Pulse Rate 94 94 Respiratory Rate 18 22 H Blood Pressure 149/99 H Pulse Oximetry 94 100 Oxygen Delivery Nasal Cannula Nasal Cannula Oxygen Flow Rate 2 2 03/01/24 01:37 03/01/24 02:00 03/01/24 02:27 Temperature 98.2 F Pulse Rate 106 H 103 H Respiratory Rate 22 H Blood Pressure 124/42 L Pulse Oximetry 95 94 Oxygen Delivery Nasal Cannula Oxygen Flow Rate 2 03/01/24 02:30 03/01/24 02:43 03/01/24 02:52 Temperature 97.0 F L Pulse Rate 95 86 88 Respiratory Rate 20 18 18 Blood Pressure 124/53 L Pulse Oximetry 100 Oxygen Delivery Oxygen Flow Rate 03/01/24 04:00 03/01/24 07:24 03/01/24 07:30 Temperature Pulse Rate 88 84 Respiratory Rate 18 Blood Pressure Pulse Oximetry 99 Oxygen Delivery Nasal Cannula Oxygen Flow Rate 2 03/01/24 07:44 03/01/24 06:00 03/01/24 09:22 Temperature 97.0 F L Pulse Rate 87 81 91 Respiratory Rate 18 20 Blood Pressure 106/45 L Pulse Oximetry 100 Oxygen Delivery Oxygen Flow Rate Meds/Results Medications: Active Medications Generic Name Dose Route Start Last Admin Trade Name Freq PRN Reason Stop Dose Admin Albuterol 5 mg 03/01/24 02:00 03/01/24 07:22 Albuterol Sulfate Neb 2.5 Mg/3 Ml Inh INHALATION 5 mg Q6HRT AXEL Administration Atorvastatin Calcium 20 mg 03/01/24 09:00 03/01/24 09:22 Atorvastatin 20 Mg Tablet PO 20 mg DAILY AXEL Administration Enoxaparin Sodium 30 mg 03/01/24 09:00 03/01/24 09:22 Enoxaparin 30 Mg/0.3 Ml Syringe SUB-Q 30 mg DAILY AXEL Administration Fluticasone/Umeclidinium/Vilanterol 1 puff 03/01/24 08:00 03/01/24 07:23 Fluticasone/Umeclidin/Vilanter 100-62.5-25 Mcg Ellipta INHALATION 1 puff DAILYRT AXEL Administration Guaifenesin 600 mg 03/01/24 21:00 Guaifenesin 12 Hr 600 Mg Tabcr PO Q12HR AXEL Levothyroxine Sodium 112 mcg 03/01/24 06:30 03/01/24 05:51 Levothyroxine Sodium 112 Mcg Tablet PO 112 mcg DAILY@0630 AXEL Administration Lorazepam 0.5 mg 03/01/24 03:14 Lorazepam (*Crx) 0.5 Mg Tablet PO TID PRN anxiety Methylprednisolone Sodium Succinate 40 mg 03/01/24 06:00 03/01/24 05:50 Methylprednisolone Sod Succ 125 Mg Vial IV PUSH 40 mg Q8HR AXEL Administration Metoprolol Tartrate 25 mg 03/01/24 09:00 03/01/24 09:22 Metoprolol Tartrate 25 Mg Tablet PO 25 mg Q12HR AXEL Administration Sertraline HCl 150 mg 03/01/24 09:00 03/01/24 09:22 Sertraline Hcl 50 Mg Tablet PO 150 mg DAILY AXEL Administration Radiology Results: ITS Impressions Chest X-Ray 02/29/24 20:53 IMPRESSION: No acute cardiopulmonary process. Chest CTA 02/29/24 21:15 IMPRESSION: No CT evidence of acute pulmonary embolus. Bronchial wall thickening is seen with bronchitis. Small bilateral pleural effusions. Patchy bilateral renal enhancement, may be secondary to renal scarring and subcentimeter cysts, however pyelonephritis could appear similarly, correlate with urinalysis. Labs Labs: Laboratory Results - last 24 hr 02/29/24 02/29/24 02/29/24 18:30 19:52 22:02 WBC 9.1 RBC 3.88 L Hgb 12.1 Hct 36.6 L MCV 94.3 MCH 31.2 MCHC 33.1 RDW 13.1 Plt Count 406 H MPV 9.4 Immature Gran % (Auto) 0.3 Neut % (Auto) 79.7 H Lymph % (Auto) 13.9 L [place] % (Auto) 6.1 Eos % (Auto) 0.0 Baso % (Auto) 0.0 L Lymph # (Auto) 1.27 [place] # (Auto) 0.6 Eos # (Auto) 0.0 Baso # (Auto) 0.0 Abs Immat Gran (auto) 0.03 Absolute Neuts (auto) 7.3 H Absolute Nucleated RBC 0.000 Nucleated RBC % 0.0 PT 13.6 INR 1.0 APTT 27.3 Puncture Site Left brachial ABG pH 7.360 ABG pCO2 41.8 ABG pO2 106.8 H ABG PO2/FiO2 Ratio 3.81 ABG HCO3 23.1 ABG O2 Saturation 97.7 ABG O2 Content 17.9 ABG Base Excess -2.3 A-a Gradient 43.5 Oxyhemoglobin 97.1 Total Hemoglobin 13.0 O2 Delivery Device Nasal cannula O2 Liters/Min 2.0 FiO2 28 Sodium 134 L Potassium 4.3 Chloride 100 Carbon Dioxide 26 Anion Gap 8 BUN 19 H Creatinine 0.90 Estim Creat Clear Calc 40 Estimated GFR > 60 Glucose 119 H Lactic Acid 1.0 Calcium 8.9 Magnesium 2.1 Total Bilirubin 0.4 AST 35 ALT 39 H Alkaline Phosphatase 78 Troponin I < 0.012 NT-Pro-B Natriuret Pep 59067 H Total Protein 7.0 Albumin 4.1 Urine Color Yellow Urine Appearance Clear Urine pH 6.0 Ur Specific [place] 1.019 Urine Protein Negative Urine Glucose (UA) Negative Urine Ketones Negative Ur Blood (Man) Negative Urine Nitrate Negative Urine Bilirubin Negative Urine Urobilinogen 0.2 Leukocyte Esterase Rfl Negative 03/01/24 03/01/24 02:50 06:01 WBC RBC Hgb Hct MCV MCH MCHC RDW Plt Count MPV Immature Gran % (Auto) Neut % (Auto) Lymph % (Auto) [place] % (Auto) Eos % (Auto) Baso % (Auto) Lymph # (Auto) [place] # (Auto) Eos # (Auto) Baso # (Auto) Abs Immat Gran (auto) Absolute Neuts (auto) Absolute Nucleated RBC Nucleated RBC % PT INR APTT Puncture Site ABG pH ABG pCO2 ABG pO2 ABG PO2/FiO2 Ratio ABG HCO3 ABG O2 Saturation ABG O2 Content ABG Base Excess A-a Gradient Oxyhemoglobin Total Hemoglobin O2 Delivery Device O2 Liters/Min FiO2 Sodium 137 Potassium 3.7 Chloride 98 Carbon Dioxide 33 H Anion Gap 6 BUN 22 H Creatinine 1.00 Estim Creat Clear Calc 35 Estimated GFR 54 L Glucose 147 H Lactic Acid Calcium 9.0 Magnesium Total Bilirubin AST ALT Alkaline Phosphatase Troponin I 0.032 D NT-Pro-B Natriuret Pep Total Protein Albumin Urine Color Urine Appearance Urine pH Ur Specific [place] Urine Protein Urine Glucose (UA) Urine Ketones Ur Blood (Man) Urine Nitrate Urine Bilirubin Urine Urobilinogen Leukocyte Esterase Rfl Imaging Radiologist's impression: 02/28 CTA Chest IMPRESSION: No CT evidence of acute pulmonary embolus. Bronchial wall thickening is seen with bronchitis. Small bilateral pleural effusions. Patchy bilateral renal enhancement, may be secondary to renal scarring and subcentimeter cysts, however pyelonephritis could appear similarly, correlate with urinalysis. Quality VTE Prophylaxis VTE prophylaxis: pharmacologic ordered (Lovenox 30 mg subQ daily.) Hospitalist [facility] Advance Care Plan I have confirmed that the patient's Advanced Care Plan is present, code status is documented, or surrogate decision maker is listed in patient medical record.: Yes Medication Reconciliation I have utilized all available resources to obtain, update and review the patients current medications (includes all prescriptions, OTC, herbals, cannabis, and nutritional supplements).: Yes
[2024-03-01] MEDS: predniSONE 20 MG TABLET 40 MG PO (11:25)
[2024-03-01] MEDS: PANTOPRAZOLE 40 MG TABLET PO (11:25)
[2024-03-01 12:28] LABS: Influenza A QL RT-PCR Negative (Negative); Influenza B QL RT-PCR Negative (Negative); RSV RNA, RT-PCR Negative (Negative); SARS-CoV-2 RNA PCR Negative (Negative)
[2024-03-01] MEDS: guaiFENesin 12 HR 600 MG TABCR PO (20:03)
[2024-03-01] MEDS: LORazepam (*CRX) 0.5 MG TABLET PO (20:08)
[2024-03-02] VITALS (19 sets, daily range): BP systolic 117–124; BP diastolic 48–97; PULSE 57–90; RESP 16–20; TEMP 36.1–36.5; O2SAT 91–100
[2024-03-02] MEDS: ALBUTEROL SULFATE NEB 2.5 MG/3 ML INH 5 MG INHALATION ×2 (03:32→07:45)
[2024-03-02] MEDS: LEVOTHYROXINE SODIUM 112 MCG TABLET PO (05:41)
[2024-03-02] MEDS: FLUTICASONE/UMECLIDIN/VILANTER 100-62.5-25 MCG ELLIPTA 1 PUFF INHALATION (07:45)
[2024-03-02] MEDS: ATORVASTATIN 20 MG TABLET PO (10:11)
[2024-03-02] MEDS: PANTOPRAZOLE 40 MG TABLET PO (10:11)
[2024-03-02] MEDS: METOPROLOL TARTRATE 25 MG TABLET PO ×2 (10:11→21:05)
[2024-03-02] MEDS: guaiFENesin 12 HR 600 MG TABCR PO ×2 (10:12→21:05)
[2024-03-02] MEDS: predniSONE 20 MG TABLET 40 MG PO (10:12)
[2024-03-02] MEDS: SERTRALINE HCL 50 MG TABLET 150 MG PO (10:12)
--- NOTE | 2024-03-02 11:54 | P.PNIM_ITS ---
Progress Note: A&P Assessment and Plan (1) Acute exacerbation of chronic obstructive pulmonary disease: Code(s): J44.1 - Chronic obstructive pulmonary disease with (acute) exacerbation Status: Acute Assessment and Plan: - Slowly stabilizing. - Continue scheduled bronchodilators, mucinex, PO prednisone. - Continue supplemental O2 now at 2L/NC. - Monitor symptoms progression. (2) Diastolic dysfunction: Code(s): I51.89 - Other ill-defined heart diseases Status: Acute Assessment and Plan: - Chronic. - Appears stable. - Continue PO lasix. - TT ECHO 03/01/24 showing LVEF 60-65%. (3) Hypothyroidism: Qualifiers: Hypothyroidism type: unspecified Qualified Code(s): E03.9 - Hypothyroidism, unspecified Code(s): E03.9 - Hypothyroidism, unspecified Status: Chronic Assessment and Plan: - Continue levothyrooxine. (4) Essential (primary) hypertension: Onset Date: 12/07/18 Code(s): I10 - Essential (primary) hypertension Status: Chronic Assessment and Plan: - Appears well controlled. - Continue metoprolol. (5) Chronic respiratory failure with hypoxia, on home oxygen therapy: Code(s): J96.11 - Chronic respiratory failure with hypoxia; Z99.81 - Dependence on supplemental oxygen Status: Acute Assessment and Plan: - See # 1. Plan Continue bronchodilators and PO prednisone with supplemental O2 for sats > 90 %. Time Spent With Patient Time with patient: 25 - 35 minutes Subjective Date/time seen: 03/02/24 11:54 Patient states she's not feeling good today. Reports she barely tolerates even just going to the bathroom due to SOB, despite using supplemental O2. States was informed by the nurse she could increase her O2 level when she goes to the bathroom. Interval history: Patient presented to the hospital with reports of worsening SOB at home. She was noted to be in acute exacerbation of her chronic COPD and was admitted for stabilization. Patient currently appears comfortable on 2L supplemental O2, not in any acute distress. Review of Systems Review of Systems: 12 systems were reviewed with pertinent positives and negatives per HPI. Except as documented in the HPI, all other systems were reviewed and are negative. Exam Narrative: Weight 53.5 kg BMI 19.6 General - Awake and alert. No acute distress Eyes - PERRLA, EOM intact ENT - No thrush, No erythema Neck - No noticeable or palpable swelling, supple. Lymph Nodes - No lymphadenopathy Cardiovascular - RRR, left apical murmur, no JVD Lungs: No wheezing, use of accessory muscles, faint basilar crackles Skin - Skin warm and dry, no wounds or rashes Abdomen - Normal bowel sounds, abdomen soft and nontender Extremities - No edema, cyanosis or clubbing Musculoskeletal - 5/5 strength, normal range of motion, no swollen or erythematous joints. Neurological ? Alert and oriented x 3, CN II-XII grossly intact. Psych: Normal mood and affect Const: Other: Thin body habitus, appears stated age, no acute distress, Objective Data Vital Signs Vital Signs: Vital Signs - 24 hr 03/01/24 12:00 03/01/24 14:00 03/01/24 15:40 Temperature 97.0 F L Pulse Rate 75 95 81 Respiratory Rate 18 18 Blood Pressure 133/68 Pulse Oximetry 95 Oxygen Delivery Oxygen Flow Rate Fraction of Inspired Oxygen 03/01/24 15:58 03/01/24 16:00 03/01/24 20:04 Temperature Pulse Rate 85 85 85 Respiratory Rate 18 Blood Pressure Pulse Oximetry Oxygen Delivery Oxygen Flow Rate Fraction of Inspired Oxygen 03/01/24 21:51 03/01/24 20:00 03/02/24 00:00 Temperature 97.6 F Pulse Rate 85 83 70 Respiratory Rate 20 Blood Pressure 142/86 H Pulse Oximetry 100 Oxygen Delivery Oxygen Flow Rate Fraction of Inspired Oxygen 03/01/24 21:03 03/01/24 21:03 03/02/24 03:32 Temperature Pulse Rate 79 77 Respiratory Rate 18 20 Blood Pressure Pulse Oximetry 97 Oxygen Delivery Nasal Cannula Oxygen Flow Rate 2 Fraction of Inspired Oxygen 03/01/24 21:16 03/02/24 04:00 03/02/24 06:00 Temperature 97.0 F L Pulse Rate 82 71 72 Respiratory Rate 18 20 Blood Pressure 124/48 L Pulse Oximetry 100 Oxygen Delivery Oxygen Flow Rate Fraction of Inspired Oxygen 03/02/24 07:47 03/02/24 07:47 03/02/24 08:06 Temperature Pulse Rate 76 72 Respiratory Rate 20 20 Blood Pressure Pulse Oximetry 98 Oxygen Delivery Nasal Cannula Oxygen Flow Rate 2 Fraction of Inspired Oxygen 28 03/02/24 10:11 Temperature Pulse Rate 76 Respiratory Rate Blood Pressure Pulse Oximetry Oxygen Delivery Oxygen Flow Rate Fraction of Inspired Oxygen Intake/Output Intake/Output: Intake & Output 02/28/24 02/29/24 03/01/24 03/02/24 23:59 23:59 23:59 23:59 Intake Total 740 750 Balance 740 750 Meds/Results Medications: Active Medications Generic Name Dose Route Start Last Admin Trade Name Freq PRN Reason Stop Dose Admin Albuterol 5 mg 03/01/24 02:00 03/02/24 07:45 Albuterol Sulfate Neb 2.5 Mg/3 Ml Inh INHALATION 5 mg Q6HRT AXEL Administration Atorvastatin Calcium 20 mg 03/01/24 09:00 03/02/24 10:11 Atorvastatin 20 Mg Tablet PO 20 mg DAILY AXEL Administration Enoxaparin Sodium 30 mg 03/01/24 09:00 03/02/24 10:02 Enoxaparin 30 Mg/0.3 Ml Syringe SUB-Q Not Given DAILY AXEL Fluticasone/Umeclidinium/Vilanterol 1 puff 03/01/24 08:00 03/02/24 07:45 Fluticasone/Umeclidin/Vilanter 100-62.5-25 Mcg Ellipta INHALATION 1 puff DAILYRT AXEL Administration Guaifenesin 600 mg 03/01/24 21:00 03/02/24 10:12 Guaifenesin 12 Hr 600 Mg Tabcr PO 600 mg Q12HR AXEL Administration Levothyroxine Sodium 112 mcg 03/01/24 06:30 03/02/24 05:41 Levothyroxine Sodium 112 Mcg Tablet PO 112 mcg DAILY@0630 AXEL Administration Lorazepam 0.5 mg 03/01/24 03:14 03/01/24 20:08 Lorazepam (*Crx) 0.5 Mg Tablet PO 0.5 mg TID PRN Administration anxiety Metoprolol Tartrate 25 mg 03/01/24 09:00 03/02/24 10:11 Metoprolol Tartrate 25 Mg Tablet PO 25 mg Q12HR AXEL Administration Pantoprazole Sodium 40 mg 03/01/24 11:10 03/02/24 10:11 Pantoprazole 40 Mg Tablet PO 40 mg QAM AXEL Administration Perflutren Lipid Microsphere 0 ml 03/01/24 11:06 Perflutren Lipid Microspheres 1.5 Ml Vial Diluted To 10 Ml Total Volume IV PUSH 03/04/24 11:06 ONCE PRN adequate visualization Protocol Prednisone 40 mg 03/01/24 11:05 03/02/24 10:12 Prednisone 20 Mg Tablet PO 03/05/24 13:00 40 mg DAILY@0800 [facility] Administration Sertraline HCl 150 mg 03/01/24 09:00 03/02/24 10:12 Sertraline Hcl 50 Mg Tablet PO 150 mg DAILY AXEL Administration Radiology Results: ITS Impressions Chest X-Ray 02/29/24 20:53 IMPRESSION: No acute cardiopulmonary process. Chest CTA 02/29/24 21:15 IMPRESSION: No CT evidence of acute pulmonary embolus. Bronchial wall thickening is seen with bronchitis. Small bilateral pleural effusions. Patchy bilateral renal enhancement, may be secondary to renal scarring and subcentimeter cysts, however pyelonephritis could appear similarly, correlate with urinalysis. Labs Labs: Laboratory Results - last 24 hr 03/01/24 11:24 Influenza A (RT-PCR) Negative Influenza B (RT-PCR) Negative RSV (RT-PCR) Negative SARS-CoV-2 RNA (RT-PCR) Negative Quality VTE Prophylaxis VTE prophylaxis: pharmacologic ordered (Lovenox 30 mg subQ daily.) Hospitalist [facility] Advance Care Plan I have confirmed that the patient's Advanced Care Plan is present, code status is documented, or surrogate decision maker is listed in patient medical record.: Yes Medication Reconciliation I have utilized all available resources to obtain, update and review the patients current medications (includes all prescriptions, OTC, herbals, cannabis, and nutritional supplements).: Yes
[2024-03-02] MEDS: ALBUTEROL SULFATE NEB 2.5 MG/3 ML INH INHALATION ×2 (14:06→20:17)
[2024-03-02] MEDS: LORazepam (*CRX) 0.5 MG TABLET PO (21:08)
[2024-03-03] VITALS (13 sets, daily range): BP systolic 112–139; BP diastolic 60–91; PULSE 68–87; RESP 16–20; TEMP 36.4; O2SAT 93–99
[2024-03-03] MEDS: ALBUTEROL SULFATE NEB 2.5 MG/3 ML INH INHALATION ×3 (02:33→13:34)
[2024-03-03] MEDS: LEVOTHYROXINE SODIUM 112 MCG TABLET PO (06:41)
[2024-03-03] MEDS: FLUTICASONE/UMECLIDIN/VILANTER 100-62.5-25 MCG ELLIPTA 1 PUFF INHALATION (08:05)
[2024-03-03] MEDS: METOPROLOL TARTRATE 25 MG TABLET PO (08:45)
[2024-03-03] MEDS: guaiFENesin 12 HR 600 MG TABCR PO (08:45)
[2024-03-03] MEDS: ATORVASTATIN 20 MG TABLET PO (08:45)
[2024-03-03] MEDS: predniSONE 20 MG TABLET 40 MG PO (08:45)
[2024-03-03] MEDS: PANTOPRAZOLE 40 MG TABLET PO (08:46)
[2024-03-03] MEDS: SERTRALINE HCL 50 MG TABLET 150 MG PO (08:46)
[2024-03-03] MEDS: ENOXAPARIN 30 MG/0.3 ML SYRINGE SUB-Q (08:46)
--- NOTE | 2024-03-03 11:55 | P.DS_ITS ---
DS: Admitting Diagnosis Discharge Date 03/03/2024 Admitting Diagnosis SOB DS: Discharge Diagnosis Discharge Diagnosis (1) Acute exacerbation of chronic obstructive pulmonary disease: Code(s): J44.1 - Chronic obstructive pulmonary disease with (acute) exacerbation Status: Acute Assessment and Plan: - Continues to stabilize. - Patient states she's almost at baseline and wants to go home. - Patient to continue scheduled bronchodilators, mucinex, and tapered PO prednisone at home. - Continue supplemental O2 at 2L/NC and adjust as needed for sats > 90 %. - Follow-up with PCP for symptoms mgt outpatient. (2) Diastolic dysfunction: Code(s): I51.89 - Other ill-defined heart diseases Status: Acute Assessment and Plan: - Chronic. - Compensated inpatient. - Continue PO lasix PRN. - TT ECHO 03/01/24 showed LVEF 60-65%. (3) Hypothyroidism: Qualifiers: Hypothyroidism type: unspecified Qualified Code(s): E03.9 - Hypothyroidism, unspecified Code(s): E03.9 - Hypothyroidism, unspecified Status: Chronic Assessment and Plan: - Continued on levothyroxine at home. (4) Essential (primary) hypertension: Onset Date: 12/07/18 Code(s): I10 - Essential (primary) hypertension Status: Chronic Assessment and Plan: - Stayed well controlled inpatient. - Continue metoprolol at home. (5) Chronic respiratory failure with hypoxia, on home oxygen therapy: Code(s): J96.11 - Chronic respiratory failure with hypoxia; Z99.81 - Dependence on supplemental oxygen Status: Acute Assessment and Plan: - Mgt as # 1. - Continue supplemental O2 at home to maintain sats > 90 %. Plan Patient scheduled for home discharge today. States almost back to baseline and will complete treatment at home. DS: Summary Hospital Course Reason for hospitalization: Worsening SOB Hospital Course: Patient presented to the ER for evaluation of increased shortness of breath. The patient recently received script for prednisone and azithromycin 5 days before coming to the hospital and despite taking these medications she has been having persistent shortness of breath. She reports intermittent sensation of tightness around her ribcage. She reports that symptoms improves intermittently. She did not had an increase her home oxygen level. She denies any recent ill contacts and wears a face mask any time that she is out in the public. She also reported intermittent cough episodes but was not able to cough anything up. Patient has chronic hypoxia and uses 2L/NC supplemental O2 and adjusts to 3L/NC with activity. Patient was noted to be in acute exacerbation of her chronic COPD and admitted for stabilization. Patient's symptoms have been stabilized with antibiotics, IV and PO steroids, scheduled bronchodilators and supplemental O2. Pt reports she's almost at her baseline and wants to be discharged today. Patient appears stable for discharge and will be discharged on a tapered dose of steroids. She completed her antibiotics therapy prior to discharge. Patient will also continue to use her supplemental O2 at home and increase dose to 3-4L/NC with activity. Status at Discharge Functional status at discharge: independent ambulation Overall status at discharge: patient is progressing back to baseline Time Spent with Patient Time attestation: Total time spent providing and/or coordinating discharge services: Time spent: Greater than 30 minutes Exam Narrative: Weight 53.5 kg BMI 19.6 General - Awake and alert. No acute distress Eyes - PERRLA, EOM intact ENT - No thrush, No erythema Neck - No noticeable or palpable swelling, supple. Lymph Nodes - No lymphadenopathy Cardiovascular - RRR, left apical murmur, no JVD Lungs: Faint expiratory wheezing, Skin - Skin warm and dry, no wounds or rashes Abdomen - Normal bowel sounds, abdomen soft and nontender Extremities - No edema, cyanosis or clubbing Musculoskeletal - 4/5 strength, normal range of motion, no swollen or erythematous joints. Neurological ? Alert and oriented x 3, CN II-XII grossly intact. Psych: Normal mood and affect Const: Other: Thin body habitus, appears chronically ill, no acute distress, HENMT: Other: Mucous membranes are dry, no oral pharyngeal erythema, head dentures upper and lower jaw, head is normocephalic atraumatic Eyes: Other: Pupils are equal and reactive, no scleral icterus, no conjunctival pallor Neck: Other: No JVD, supple Resp: Other: Conversational dyspnea, faint expiratory wheezes. Cardio: Other: Regular rate, regular rhythm, 2+ bilateral radial pedal pulses, GI: Other: Soft, nontender, nondistended, +ve bowel sounds X4 Quadrants. Back/Spine/Pelvis: Other: Mild thoracic kyphosis Skin: Other: No jaundice, no pallor, normal temperature to touch, no petechiae or bruising Neuro: Other: Alert orient x4, speech is clear, no focal neuro deficits noted. Extrem: Other: No clubbing, cyanosis or edema Psych: Other: Pleasant and cooperative, DS: Data Data Completed and Pending Labs on day of discharge: Preliminary micro results at discharge 02/29/24 20:03 Blood Culture - Preliminary Blood 02/29/24 20:03 Blood Culture - Preliminary Blood Discharge Plan Discharge Attending physician on discharge: Nitesh Vides Discharging Clinician: Diamond Corrales Anticipated Discharge Date/Time: 03/03/24 12:25 Patient Disposition: Home, Self-Care Activity: as tolerated Diet: heart healthy Patient Instructions: Antibiotic Form Patient Language: French Stand Alone Forms: General Discharge Information Follow-up/Referrals: Omer Antunez MD [Primary Care Provider] - 1 Week Discharge Medications: New guaifenesin [Mucus Relief ER] 600 mg Tablet Extended Release 12hr 600 mg PO Q12HR Qty: 8 0RF prednisone 20 mg Tablet 40 mg PO DAILY@0800 Qty: 4 0RF Continued Breztri Aerosphere 160-9-4.8 mcg/actuation HFA aerosol inhaler 2 inh inhalation QAM AND QPM 30 Days Qty: 10.7 8RF levothyroxine [Synthroid] 112 mcg tablet 112 mcg PO DAILY Qty: 90 1RF atorvastatin 20 mg tablet 20 mg PO DAILY sertraline 100 mg tablet 150 mg PO DAILY metoprolol tartrate 25 mg tablet 25 mg PO Q12H lorazepam 0.5 mg tablet 0.5 mg PO TID PRN (Reason: anxiety) Qty: 60 0RF albuterol sulfate [Ventolin HFA] 90 mcg/actuation HFA aerosol inhaler 1 inh inhalation Q4H PRN (Reason: shortness of breath or wheezing) Qty: 51 2RF Date of admission: 03/02/24 13:00 Primary Care Provider: Omer Antunez Admitting Provider: Shakira Carrera Attending physician on admission: Nitesh Vides Condition: Improved Quality VTE Prophylaxis VTE prophylaxis: pharmacologic ordered (Lovenox 30 mg subQ daily.) If No VTE Prophylaxis Answer both mechanical and pharmacologic: Reason no mechanical VTE proph: low risk/not indicated Reason no pharmacologic proph: low risk/not indicated Hospitalist MIPS Heart Failure (Exclusion) Patient has history of Heart Transplant or Left Ventricular Assistive Device?: No IF YES, STOP HERE Heart Failure (Qualifier) Patient has current or prior documentation of LVEF less than or equal to 40%, or mod/servere depressed LVSF?: No IF NO, STOP HERE If Yes, Heart Failure (Qualifier) Patient was prescribed or already taking an Angiotensin-Converting Enzyme (NOLAN) Inhibitor, or Antiotensin Receptor Toni (ARB): No Patient was prescribed or already taking bisoprolol, carvedilol, or sustained release metoprolol succinate: Yes If Medications not prescribed/taking Reason patient not prescribed/taking NOLAN or ARB: Patient reasons: pt declined or other pt reason (Patient declined)
== END 2024-03-03 16:00 | disposition home or self-care (01) | DRG 191 ==
LOC: ANHED 22:32 → ANH3MED 03-01 00:40
PROVIDERS: Nurse Practitioner Acute Care; Registered Nurse; Admitting Provider Internal Medicine; Emergency Provider Emergency Medicine; PCP Family Medicine; Visit Provider Nurse Practitioner Adult Health
DX: J44.1 Chronic obstructive pulmonary disease with (acute) exacerbation (principal); J96.11 Chronic respiratory failure with hypoxia; D69.6 Thrombocytopenia, unspecified; I73.9 Peripheral vascular disease, unspecified; E78.5 Hyperlipidemia, unspecified; E03.9 Hypothyroidism, unspecified; E55.9 Vitamin D deficiency, unspecified; M79.7 Fibromyalgia; M81.0 Age-related osteoporosis without current pathological fracture; F41.0 Panic disorder [episodic paroxysmal anxiety]; F32.A Depression, unspecified; Z20.822 Contact with and (suspected) exposure to COVID-19; Z99.81 Dependence on supplemental oxygen; Z86.0101 Personal history of adenomatous and serrated colon polyps; Z86.73 Personal history of transient ischemic attack (TIA), and cerebral infarction without residual deficits; Z87.891 Personal history of nicotine dependence; I51.89 Other ill-defined heart diseases
CPT/HCPCS: 36415; 36600; 71045; 71275; 80048; 80053; 81003; 82805; 83605; 83735; 83880; 84484; 85018; 85025; 85610; 85730; 87040; 87637; 93005; 93306; 94640; 96372; 96374; 96375; 96376; 97161; 97165; 99285; A9270; G0378; J1650; J1940; J2919; J7512; Q9967

== ENCOUNTER 2024-03-26 01:19 | Inpatient (IN) | payer MEDICARE, SELFPAY ==
[2024-03-26] VITALS (27 sets, daily range): BP systolic 98–152; BP diastolic 52–76; PULSE 82–113; RESP 14–37; TEMP 36.6–37.1; O2SAT 96–100; BMI 21.2; BMI 22.1
--- NOTE | ~2024-03-26 | XR_ITS ---
EXAMINATION: XR chest 1V portable DATE: 03/26/2024 01:45 INDICATION: Shortness of breath. TECHNIQUE: A single frontal view of the chest was obtained. COMPARISON: Chest single view 02/29/2024, chest CT 02/29/2024 FINDINGS: There are lucencies in the lungs, consistent with emphysema. There is a diffuse interstitia l pattern, consistent with mild pulmonary edema. A calcified right lung nodule and calcified right hi lar lymph nodes are consistent with old granulomatous disease. There are small pleural effusions. No pneumothorax. The heart size is normal. IMPRESSION: 1. Mild pulmonary edema. 2. Emphysema. 3. Small pleural effusions. Reviewed, dictated and finalized at location A. OGICAL SCIENTIST
--- NOTE | 2024-03-26 01:31 | ECG_ITS ---
Test Date: 2024-03-26 01:55:43 Measurements Intervals [place] Rate: 89 P: 76 NC: 146 QRS: 67 QRSD: 93 T: 90 QT: 375 QTc: 458 Interpretive Statements SINUS RHYTHM POSSIBLE LEFT ATRIAL ENLARGEMENT DELAYED PRECORDIAL R/S TRANSITION BORDERLINE ST-T WAVE ABNORMALITY- INF/LAT LEADS BASELINE ARTIFACT- I, II, III, AVR, AVL, AVF, V1-V2, V4-V6 BORDERLINE ECG Compared to ECG 02/29/2024 16:53:22 No significant changes Electronically Signed On 03-26-2024 06:25:21 [employer] by Moises Hidalgo D.O.
[2024-03-26 01:45] LABS: Basophils Percent Auto 0.2 % (0.2-1.2); Eosinophils Absolute Auto 0.1 K/mm3 (0-0.3); Eosinophils Percent Auto 0.8 % (0-4.4); Hematocrit 37.6 % (37.0-47.0); Hemoglobin 12.4 g/dL (12.0-15.0); Immature Granulocyte Absolute 0.03 K/mm3 (0.00-0.031); Immature Granulocyte Percent A 0.2 % (0-0.5); Lymphocytes Absolute Auto 2.03 K/mm3 (0.9-3.2); Lymphocytes Percent Auto 16.1 % (18.3-44.2); Mean Corpuscular Hemoglobin 31.5 pg (26-34); Mean Corpuscular Volume 95.4 fl (80-100); Mean Platelet Volume 9.4 fl (7.4-10.4); Monocytes Absolute Auto 1.1 K/mm3 (0.1-0.6); Monocytes Percent Auto 8.9 % (2.6-8.5); Neutrophils Absolute Auto 9.3 K/mm3 (1.3-6.7); Neutrophils Percent Auto 73.8 % (45.5-73.1); Platelet Count Result 312 k/mm3 (150-375); Red Blood Count 3.94 M/mm3 (4.2-5.4); Red Cell Distribution Width 13.4 % (11.5-14.5); White Blood Count 12.6 K/mm3 (4.5-10.0)
[2024-03-26 01:54] LABS: Alanine Aminotransferase 21 U/L (6-35); Albumin Level 3.8 g/dL (3.5-5.1); Alkaline Phosphatase 82 U/L (38-126); Anion Gap 2 mmol/L (4-12); Aspartate Amino Transferase 29 U/L (14-36); Bilirubin,Total 0.7 mg/dL (0.2-1.3); Blood Urea Nitrogen 16 mg/dL (7-17); Calcium 9.1 mg/dL (8.4-10.2); Carbon Dioxide 29 mmol/L (22-30); Chloride 101 mmol/L (98-107); Estimated CRCL calculation 40 ml/min; Estimated Glomerular Filt Rate > 60; Glucose 128 mg/dL (65-110); Potassium 4.7 mmol/L (3.4-5.0); Sodium 132 mmol/L (137-145)
[2024-03-26] MEDS: MAGNESIUM SULF 2 GM/WATER 50ML 2 GM/50 ML BAG IVPB (05:41)
[2024-03-26] MEDS: methylPREDNISolone SOD SUCC 125 MG VIAL IV PUSH ×3 (05:41→18:51)
[2024-03-26] MEDS: LACTATED RINGERS 1,000 ML 999 ML IV CONT (05:41)
--- NOTE | 2024-03-26 05:42 | PC.NURSE ---
RN asked MD Good if magnesium and lactate ringers could be ran together due to no results on micromedex. verbally stated magnbesium and lactated ringers can run together. l
[2024-03-26] MEDS: ALBUTEROL SULFATE NEB 2.5 MG/3 ML INH 10 MG INHALATION (05:46)
[2024-03-26] MEDS: IPRATROPIUM BR 0.02% INH SOLN 0.5 MG/2.5 ML VIAL 1 MG INHALATION (05:46)
--- NOTE | 2024-03-26 06:00 | ED_ITS ---
HPI - SOB/Dyspnea General Chief Complaint: Shortness of Breath/Dyspnea Stated Complaint: DIFFICULTY IN BREATHING Time Seen by Provider: 03/26/24 04:01 History of Present Illness HPI Narrative: 78-year-old female with a past medical history significant for significant emphysema on home oxygen as needed. She also has a history of congestive heart failure and CKD. She presents today with which he feels like is a COPD exacerbation. She did have 2-3 word dyspnea on arrival to the ER. She has been using on her home oxygen more frequently instead of being as needed she has not been using it around the clock and increasing from 2-3 L at home. She states that she has previously been on steroids and azithromycin for her flare ups and that these usually help after several treatments. She has been using her treatments at home without any relief of symptoms. Has been seen by her primary care provider recently and previous admissions for similar complaints earlier this month. She denies any chest pain, nausea, vomiting, headache, vision change, productive cough. Related Data Home Medications Medication Instructions Recorded Confirmed atorvastatin 20 mg tablet 20 mg PO DAILY 03/01/24 03/22/24 metoprolol tartrate 25 mg tablet 25 mg PO Q12H 03/01/24 03/22/24 sertraline 100 mg tablet 150 mg PO DAILY 03/01/24 03/22/24 Allergies Allergy/AdvReac Type Severity Reaction Status Date / Time aspirin Allergy Intermediate Nausea Verified 03/26/24 01:31 Macrolide Antibiotics Allergy Intermediate Unknown Verified 03/26/24 01:31 erythromycin base Allergy Unknown Nausea Verified 03/26/24 01:31 latex Allergy Unknown Itching Verified 03/26/24 01:31 mold Allergy Unknown Difficulty Verified 03/26/24 01:31 Breathing ragweed pollen Allergy Unknown Difficulty Verified 03/26/24 01:31 Breathing Sulfa (Sulfonamide Allergy Unknown Unknown Verified 03/26/24 01:31 Antibiotics) ipratropium AdvReac Severe Itching Verified 03/26/24 01:31 and panic attacks metal Allergy Unknown Itching Uncoded 03/26/24 01:31 Review of Systems Review of Systems: As reviewed above in HPI PMFSH Past Medical History Medical History Acute exacerbation of chronic obstructive pulmonary disease 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 attack Chronic obstructive pulmonary disease Chronic respiratory failure with hypoxia, on home oxygen therapy COPD exacerbation Depression Diastolic dysfunction Echocardiogram April 2018 demonstrated grade 1 diastolic dysfunction EF of 60% impaired right ventricular systolic dysfunction mild mitral valve regurgitation mild aortic stenosis based on velocities valve not well visualized Emphysema lung Essential (primary) hypertension (12/07/18) Fibromyalgia History of tobacco abuse Hyperlipidemia, unspecified Hypothyroidism Osteoporosis, unspecified PAD (peripheral artery disease) Peripheral artery disease Personal history of colonic polyps Sleep disorder breathing Noted on polysomnogram March 2018 Thrombocytosis Transient ischemic attack Vitamin D deficiency, unspecified (12/07/18) Surgical History Surgical History History of appendectomy History of bilateral carpal tunnel release History of bilateral cataract extraction History of cholecystectomy History of colonoscopy with polypectomy [address] Alcantara with pathology demonstrating adenomas polyp History of hysterectomy History of tonsillectomy Family History Family History Father Family history of lung cancer Chronic obstructive pulmonary disease Mother Bulbar myasthenia gravis Chronic obstructive pulmonary disease Unknown Anxiety Depression ADHD Sibling Chronic obstructive pulmonary disease Social History Social History Social History: Code status: DNR/DNI Durable power of healthcare: Magno Hernández (oldest son) Smoking packs per day: 1 Smoking cigarettes per day: 20.0 Years smoked: 49 Smoking pack-years: 49.00 Smoking status: Former smoker Second hand tobacco smoke exposure: No Alcohol intake: current Alcohol use details: Rare alcohol use. Substance use: never Substance use type: does not use Do You Feel Safe in your Home?: Yes Lack of Transportation: No Lack of Food: Never True Current Housing: I Have Housing Concerned About Future Housing: No Difficulty Paying Gas/Electric Bills: No Difficulty Paying for Meds: No Currently Unemployed: No Education: High School Diploma/GED Difficulty w/ Childcare or Family Care: No Living arrangements: [facility] Additional living arrangements comments: The patient lives in her own home in [place]. Occupation/Education: retired Spiritual care concerns: No Exam Narrative: GENERAL: 2-3 word conversational dyspnea but not any severe respiratory distress, awake alert oriented and able to answer my questions. HEAD: [Normocephalic, atraumatic.] EYES: [PERRLA and EOMI.] ENT: Nares clear, no rhinorrhea or epistaxis. Mucous membranes moist. NECK: Supple. CHEST: scattered wheezing in the bilateral bases the lungs but air entry is appreciated. Prolonged expiratory phase without any significant retractions or accessory muscle use noted. No tenderness of the chest wall or overlying skin changes. HEART: [Regular rate and rhythm]. No murmur heard. [Normal peripheral pulses.] ABDOMEN: [Soft, nondistended], [nontender], [No rigidity or guarding] EXTREMITIES: Normal range of motion. [No edema.] SKIN: Warm, dry, no rash. NEURO: [No focal deficits]. Alert and oriented [x3.] PSYCH: [Normal mood and affect.] Course Vital Signs Vital signs: Vital Signs Temperature 36.6 C 03/26/24 01:21 Pulse Rate 94 03/26/24 01:21 Respiratory Rate 26 H 03/26/24 01:21 Blood Pressure 98/73 L 03/26/24 01:21 Pulse Oximetry 100 03/26/24 01:21 Oxygen Delivery Nasal Cannula 03/26/24 01:21 Oxygen Flow Rate 2 03/26/24 01:21 Temperature 36.6 C 03/26/24 01:21 Pulse Rate 113 H 03/26/24 04:31 Respiratory Rate 27 H 03/26/24 04:31 Blood Pressure 140/76 03/26/24 04:31 Pulse Oximetry 100 03/26/24 04:31 Oxygen Delivery Nasal Cannula 03/26/24 01:21 Oxygen Flow Rate 2 03/26/24 01:21 MDM - SOB/Dyspnea MDM Narrative Medical decision making narrative: 78-year-old female with history of severe emphysema presenting to the emergency room with chief complaint of COPD exacerbation. She has a history of oxygen dependence at home but utilizes her home nasal cannula as needed and has been increasing it to 3 L and using it more often now 247 over last few days. She states that it feels similar to her previous flare ups in her last admission for something similar was earlier this month. She recently saw her primary care provider and was referred to a artificial cherry maker but patient had discussions and did not want to seek specialist opinion at This time. patient is denying any chest pain, nausea, vomiting, abdominal pain or back pain. She states that she has tried her bronchodilators at home without any significant improvement in her symptoms and been increasing her oxygen requirements lately. No fevers or chills. Nonproductive cough noted which is chronic for her. Her examination shows scattered end-expiratory wheezes and a prolonged expiratory phase and some conversational dyspnea 2-3 words but she is not in any severe respiratory distress as she is awake alert oriented, lying back comfortably and able to answer my questions. She is saturating 100% presently on 2 L nasal cannula. Slightly tachycardic at 113 but blood pressure reassuring at 170/76, slight tachypneic 27, temperature 36.6? C. differential diagnosis includes COPD exacerbation, CHF exacerbation, pneumonia, less likely other intrathoracic process such as ACS. Workup was ordered including EKG, chest x-ray and she was treated with nebulizers of albuterol and Atrovent in addition to Solu-Medrol and magnesium sulfate. She was given a fluid bolus for her tachycardia. lab shows slight white cell elevation at 12.6 but she is on steroids frequently and this is similar to her previous elevations without infections linings. Her x-ray is clear without any signs of infection. X-rays independent reviewed by myself and also interpreted by radiology. Stable appearance of the chest with severe emphysema but no consolidations, pneumonia or masses. Chemistry panel shows normal electrolyte profile, normal renal function panel. Glucose 126. patient had improvement after the treatment here in the emergency department and given her functional status with increasing oxygen requirements at home and the COPD exacerbation that brought her to the hospital today I believe she would be benefited by an admission for continued treatment on observation admission and patient was agreeable to this plan of care. I discussed the case with Dr. Fermin over the phone who agreed to accept the patient to the hospital at this time after we went over patient's imaging findings, plan of care and improvement in respiratory status after therapies here in the ED. Differential Diagnosis Differential diagnosis: Likely acute exacerbation of chronic obstructive airways disease, congestive heart failure, community acquired pneumonia, asthma with exacerbation and other Medical Records Attestation: I reviewed the patient's medical records. Lab Data Attestation: I reviewed the patient's lab results. 03/26/24 01:37 03/26/24 01:37 Labs: Lab Results 03/26/24 Range/Units 01:37 WBC 12.6 H (4.5-10.0) K/mm3 RBC 3.94 L (4.2-5.4) M/mm3 Hgb 12.4 (12.0-15.0) g/dL Hct 37.6 (37.0-47.0) % MCV 95.4 (80-100) fl MCH 31.5 (26-34) pg MCHC 33.0 (32-36) g/dl RDW 13.4 (11.5-14.5) % Plt Count 312 (150-375) k/mm3 MPV 9.4 (7.4-10.4) fl Immature Gran % (Auto) 0.2 (0-0.5) % Neut % (Auto) 73.8 H (45.5-73.1) % Lymph % (Auto) 16.1 L (18.3-44.2) % [place] % (Auto) 8.9 H (2.6-8.5) % Eos % (Auto) 0.8 (0-4.4) % Baso % (Auto) 0.2 (0.2-1.2) % Lymph # (Auto) 2.03 (0.9-3.2) K/mm3 [place] # (Auto) 1.1 H (0.1-0.6) K/mm3 Eos # (Auto) 0.1 (0-0.3) K/mm3 Baso # (Auto) 0.0 (0.0-0.1) K/mm3 Abs Immat Gran (auto) 0.03 (0.00-0.031) K/mm3 Absolute Neuts (auto) 9.3 H (1.3-6.7) K/mm3 Absolute Nucleated RBC 0.000 (0.0-0.012) K/mm3 Nucleated RBC % 0.0 (0.0-0.2) % Sodium 132 L (137-145) mmol/L Potassium 4.7 (3.4-5.0) mmol/L Chloride 101 (98-107) mmol/L Carbon Dioxide 29 (22-30) mmol/L Anion Gap 2 L (4-12) mmol/L BUN 16 (7-17) mg/dL Creatinine 0.90 (0.7-1.0) mg/dL Estim Creat Clear Calc 40 ml/min Estimated GFR > 60 (59 - ) Glucose 128 H (65-110) mg/dL Calcium 9.1 (8.4-10.2) mg/dL Total Bilirubin 0.7 (0.2-1.3) mg/dL AST 29 (14-36) U/L ALT 21 (6-35) U/L Alkaline Phosphatase 82 (38-126) U/L Total Protein 7.0 (6.3-8.2) g/dL Albumin 3.8 (3.5-5.1) g/dL ABG Data ABG results: 03/26/24 05:49 VBG pH 7.333 VBG pCO2 46.3 VBG pO2 36.4 VBG HCO3 24.0 O2 Delivery Device Nasal cannula O2 Liters/Min 3.0 FiO2 36 Attestation: I personally reviewed and interpreted this ABG as follows: Interpretation: Normal pH, normal pCO2 and oxygen status on a VBG. No acute decompensation or acidosis. Imaging Data Attestation: I personally reviewed and interpreted this imaging study as follows: Radiologist's impression: Impressions Chest X-Ray 03/26/24 05:58 IMPRESSION: 1. Mild pulmonary edema. 2. Emphysema. 3. Small pleural effusions. Critical Care Time Critical Care Time Critical Care Time: Yes Total Critical Care Time: 35 Discharge Plan Discharge Clinical Impression: Acute exacerbation of chronic obstructive pulmonary disease (COPD) Patient Disposition: Still a Patient Condition: Stable Prescriptions: No Action Mary Aerosphere 160-9-4.8 mcg/actuation HFA aerosol inhaler 2 inh inhalation QAM AND QPM 30 Days Qty: 10.7 8RF levothyroxine [Synthroid] 112 mcg tablet 112 mcg PO DAILY Qty: 90 1RF albuterol sulfate 2.5 mg/0.5 mL solution for nebulization 5 mg inhalation Q6H Qty: 30 0RF atorvastatin 20 mg tablet 20 mg PO DAILY sertraline 100 mg tablet 150 mg PO DAILY metoprolol tartrate 25 mg tablet 25 mg PO Q12H prednisone 20 mg Tablet 40 mg PO DAILY@0800 Qty: 4 0RF guaifenesin [Mucus Relief ER] 600 mg Tablet Extended Release 12hr 600 mg PO Q12HR Qty: 8 0RF lorazepam 0.5 mg tablet 0.5 mg PO TID PRN (Reason: anxiety) Qty: 60 0RF albuterol sulfate [Ventolin HFA] 90 mcg/actuation HFA aerosol inhaler 1 inh inhalation Q4H PRN (Reason: shortness of breath or wheezing) Qty: 51 2RF Follow-up/Referrals: Omer Antunez MD [Primary Care Provider] - Time of Disposition: 06:09
[2024-03-26 06:03] LABS: Fractional Inspired Oxygen 36 %; PCO2 VBG 46.3 mmHg (42.0-48.0); PO2 VBG 36.4 mmHg (35.0-45.0); pH VBG 7.333 (7.300-7.400)
[2024-03-26 06:04] LABS: Device NASAL CANNULA
[2024-03-26] MEDS: IPRATROPIUM 0.5 MG/ALBUTEROL SULFATE 2.5 MG AMPUL.NEB 3 ML INHALATION ×3 (08:38→19:43)
--- NOTE | 2024-03-26 09:17 | P.HP_ITS ---
H&P: HPI History of Present Illness Date/Time: 03/26/24 09:17 Chief Complaint: sob Narrative: 78-year-old female with pmh/of COPD, CHF, HTN, Fibfomyalgia, hypothyroidism, TIA, vit d deficiency significant emphysema on home oxygen as needed. She also has a history of congestive heart failure and CKD. She presents today with which he feels like is a COPD exacerbation. She has been using on her home oxygen more frequently instead of being as needed. When she does need it, she wears it at 2l. Has been seen by her primary care provider recently and previous admissions for similar complaints earlier this month. She denies any chest pain, nausea, vomiting, headache, vision change, productive cough. She reports that home remodeling was done recently at her assistive living apartment, and they were pulling carpet- generating a lot of dust. She is wearing mask during the assessment to protect herself . She is alert and oriented. Comfortable, denies chest pain, n/v Review of Systems Review of Systems: All systems reviewed & are unremarkable except as noted in HPI and below (h/p) [facility] Past Medical History Medical History Acute exacerbation of chronic obstructive pulmonary disease 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 attack Chronic obstructive pulmonary disease Chronic respiratory failure with hypoxia, on home oxygen therapy COPD exacerbation Depression Diastolic dysfunction Echocardiogram April 2018 demonstrated grade 1 diastolic dysfunction EF of 60% impaired right ventricular systolic dysfunction mild mitral valve regurgitation mild aortic stenosis based on velocities valve not well visualized Emphysema lung Essential (primary) hypertension (12/07/18) Fibromyalgia History of tobacco abuse Hyperlipidemia, unspecified Hypothyroidism Osteoporosis, unspecified PAD (peripheral artery disease) Peripheral artery disease Personal history of colonic polyps Sleep disorder breathing Noted on polysomnogram March 2018 Thrombocytosis Transient ischemic attack Vitamin D deficiency, unspecified (12/07/18) Surgical History Surgical History History of appendectomy History of bilateral carpal tunnel release History of bilateral cataract extraction History of cholecystectomy History of colonoscopy with polypectomy [address] Alcantara with pathology demonstrating adenomas polyp History of hysterectomy History of tonsillectomy Family History Family History Father Family history of lung cancer Chronic obstructive pulmonary disease Mother Bulbar myasthenia gravis Chronic obstructive pulmonary disease Unknown Anxiety Depression ADHD Sibling Chronic obstructive pulmonary disease Social History Social History Social History: Code status: DNR/DNI Durable power of healthcare: Magno Hernández (oldest son) Smoking packs per day: 1 Smoking cigarettes per day: 20.0 Years smoked: 50 Smoking pack-years: 50.00 Smoking status: Former smoker Tobacco type: cigarettes Second hand tobacco smoke exposure: No Alcohol intake: never Alcohol use details: Rare alcohol use. Substance use: never Substance use type: does not use Do You Feel Safe in your Home?: Yes Lack of Transportation: YES Lack of Food: Never True Current Housing: I Have Housing Concerned About Future Housing: No Difficulty Paying Gas/Electric Bills: No Difficulty Paying for Meds: No Currently Unemployed: No Education: Master's Degree or Higher Difficulty w/ Childcare or Family Care: No Living arrangements: shelter [facility] Additional living arrangements comments: The patient lives in her own home in [place]. Occupation/Education: retired Spiritual care concerns: No Meds Home Medications and Allergies Home Medications Medication Instructions Recorded Confirmed Type budesonide 160 mcg-glycopyr 9 2 inh inhalation QAM AND QPM 30 03/16/23 03/26/24 Rx mcg-formot 4.8 mcg/actuation HFA days #10.7 grams inhaler (Breztri Aerosphere) lorazepam 0.5 mg tablet 0.5 mg PO TID PRN anxiety #60 tabs 01/29/24 03/26/24 Rx albuterol sulfate 90 mcg/actuation 1 inh inhalation Q4H PRN shortness 02/21/24 03/26/24 Rx aerosol inhaler (Ventolin HFA) of breath or wheezing #51 grams atorvastatin 20 mg tablet 20 mg PO DAILY 03/01/24 03/26/24 History metoprolol tartrate 25 mg tablet 25 mg PO Q12H 03/01/24 03/26/24 History sertraline 100 mg tablet 150 mg PO DAILY 03/01/24 03/26/24 History albuterol sulfate 2.5 mg/0.5 mL 5 mg inhalation Q6H #30 vials 03/22/24 03/26/24 Rx solution for nebulization levothyroxine 112 mcg tablet 112 mcg PO DAILY 03/26/24 03/26/24 History (Synthroid) Allergies Allergy/AdvReac Type Severity Reaction Status Date / Time aspirin Allergy Intermediate Nausea Verified 03/26/24 12:21 Macrolide Antibiotics Allergy Intermediate Unknown Verified 03/26/24 12:21 erythromycin base Allergy Unknown Nausea Verified 03/26/24 12:21 latex Allergy Unknown Itching Verified 03/26/24 12:21 mold Allergy Unknown Difficulty Verified 03/26/24 12:21 Breathing ragweed pollen Allergy Unknown Difficulty Verified 03/26/24 12:21 Breathing Sulfa (Sulfonamide Allergy Unknown Unknown Verified 03/26/24 12:21 Antibiotics) ipratropium AdvReac Severe Itching Verified 03/26/24 12:21 and panic attacks metal Allergy Unknown Itching Uncoded 03/26/24 12:21 Vital Signs Vital Signs - 24 hr 03/26/24 01:21 03/26/24 01:21 03/26/24 01:21 Temperature 97.8 F Pulse Rate 94 90 Respiratory Rate 26 H Blood Pressure 98/73 L Pulse Oximetry 100 100 Oxygen Delivery Nasal Cannula Nasal Cannula Oxygen Flow Rate 2 2 Fraction of Inspired Oxygen 03/26/24 02:01 03/26/24 02:16 03/26/24 02:31 Temperature Pulse Rate 90 86 88 Respiratory Rate 35 H 37 H 32 H Blood Pressure 124/61 126/58 L 125/60 Pulse Oximetry 100 100 100 Oxygen Delivery Oxygen Flow Rate Fraction of Inspired Oxygen 03/26/24 02:46 03/26/24 03:16 03/26/24 03:31 Temperature Pulse Rate 90 86 91 Respiratory Rate 36 H 24 H 25 H Blood Pressure 133/69 136/64 139/70 Pulse Oximetry 100 100 100 Oxygen Delivery Oxygen Flow Rate Fraction of Inspired Oxygen 03/26/24 04:31 03/26/24 05:31 03/26/24 05:46 Temperature Pulse Rate 113 H 87 86 Respiratory Rate 27 H 20 21 H Blood Pressure 140/76 122/55 L 129/60 Pulse Oximetry 100 100 100 Oxygen Delivery Oxygen Flow Rate Fraction of Inspired Oxygen 03/26/24 06:01 03/26/24 06:16 03/26/24 06:31 Temperature Pulse Rate 82 82 87 Respiratory Rate 17 23 H 24 H Blood Pressure 126/55 L 130/62 124/58 L Pulse Oximetry 100 100 100 Oxygen Delivery Oxygen Flow Rate Fraction of Inspired Oxygen 03/26/24 06:46 03/26/24 07:40 03/26/24 07:01 Temperature Pulse Rate 88 90 89 Respiratory Rate 24 H 20 19 Blood Pressure 115/68 108/52 L 112/54 L Pulse Oximetry 100 100 Oxygen Delivery Oxygen Flow Rate Fraction of Inspired Oxygen 03/26/24 08:38 03/26/24 08:38 03/26/24 08:36 Temperature 98.6 F Pulse Rate 87 86 Respiratory Rate 20 17 Blood Pressure 152/72 H Pulse Oximetry 99 98 Oxygen Delivery Nasal Cannula Oxygen Flow Rate 3 Fraction of Inspired Oxygen 32 03/26/24 08:44 Temperature Pulse Rate 88 Respiratory Rate 20 Blood Pressure Pulse Oximetry Oxygen Delivery Oxygen Flow Rate Fraction of Inspired Oxygen Exam Const: General: comfortable Eyes: General: appearance normal, both eyes and all related structures Neck: Neck: supple Resp: Effort & Inspection: normal respiratory effort Auscultation: diminished lung sounds Cardio: Rate: regular rate Rhythm: regular rhythm Skin: General skin exam: normal color Neuro: Speech: normal speech Sensory Exam: normal sensation Extrem: General: normal to inspection H&P: Results Labs Labs: Short CBC 03/26/24 Range/Units 01:37 WBC 12.6 H (4.5-10.0) K/mm3 Hgb 12.4 (12.0-15.0) g/dL Hct 37.6 (37.0-47.0) % Plt Count 312 (150-375) k/mm3 BMP 03/26/24 01:37 Sodium 132 L Potassium 4.7 Chloride 101 Carbon Dioxide 29 BUN 16 Creatinine 0.90 Glucose 128 H Calcium 9.1 Liver Function 03/26/24 Range/Units 01:37 Total Bilirubin 0.7 (0.2-1.3) mg/dL AST 29 (14-36) U/L ALT 21 (6-35) U/L Alkaline Phosphatase 82 (38-126) U/L Albumin 3.8 (3.5-5.1) g/dL Assessment and Plan Assessment and plan (1) Acute exacerbation of chronic obstructive pulmonary disease (COPD): Code(s): J44.1 - Chronic obstructive pulmonary disease with (acute) exacerbation Status: Acute Assessment and Plan: continue methylprdnisolone IV duonneb, albuterol wean ox if able IS (2) Hyperlipidemia, unspecified: Code(s): E78.5 - Hyperlipidemia, unspecified Status: Acute Assessment and Plan: continue home statin (3) Hypothyroidism: Qualifiers: Hypothyroidism type: unspecified Qualified Code(s): E03.9 - Hypothyroidism, unspecified Code(s): E03.9 - Hypothyroidism, unspecified Status: Chronic Assessment and Plan: continue home synthroid will check tsh (4) Essential (primary) hypertension: Onset Date: 12/07/18 Code(s): I10 - Essential (primary) hypertension Status: Chronic Assessment and Plan: continue home metoprolol Plan # chronic depression- continue zoloft DVT prophylaxis: lovenox will order PT/OT Quality VTE Prophylaxis VTE prophylaxis: pharmacologic ordered Hospitalist MIPS Advance Care Plan I have confirmed that the patient's Advanced Care Plan is present, code status is documented, or surrogate decision maker is listed in patient medical record.: Yes Medication Reconciliation I have utilized all available resources to obtain, update and review the patients current medications (includes all prescriptions, OTC, herbals, cannabis, and nutritional supplements).: Yes
--- NOTE | 2024-03-26 12:09 | ADMGEN ---
This patient, Ella Puckett, was admitted to 3 [facility] Surg Room 320-01. Patient/family oriented to hospital policies and general routines including ID bracelet, bed and alarms, visiting hours, pain management, procedures, bathroom and other care routines, personal items, smoking policy, room service/diet, and visiting hours. Information on how to activate the Rapid Response Team has been discussed. Patient/Family are encouraged to report perceived risks to care and to ask questions if they do not understand what they are told or what they should do.
--- NOTE | 2024-03-26 14:38 | ECG_ITS ---
Test Date: 2024-03-26 15:16:03 Measurements Intervals [place] Rate: 100 P: 77 OR: 136 QRS: 11 QRSD: 94 T: 89 QT: 370 QTc: 478 Interpretive Statements SINUS TACHYCARDIA POSSIBLE LEFT ATRIAL ENLARGEMENT CANNOT R/O SEPTAL INFARCT, AGE INDETERMINATE ST-T WAVE ABNORMALITY IN INF/LAT LEADS- CONSIDER ISCHEMIA BASELINE ARTIFACT- V4, V6 ABNORMAL ECG Compared to ECG 03/26/2024 01:55:43 HEART RATE HAS INCREASED POSSIBLE ISCHEMIA NOW PRESENT Electronically Signed On 03-26-2024 15:30:03 PAID INTERNSHIP by Moises Hidalgo D.O.
[2024-03-26] MEDS: FAMOTIDINE 20 MG TABLET PO (21:39)
[2024-03-26] MEDS: METOPROLOL TARTRATE 25 MG TABLET PO (21:39)
[2024-03-26] MEDS: LORazepam (*CRX) 0.5 MG TABLET PO (21:39)
[2024-03-27] VITALS (16 sets, daily range): BP systolic 99–124; BP diastolic 48–59; PULSE 72–91; RESP 16–20; TEMP 36.3–36.6; O2SAT 96–99
[2024-03-27] MEDS: methylPREDNISolone SOD SUCC 125 MG VIAL IV PUSH ×5 (00:32→23:56)
[2024-03-27] MEDS: ALBUTEROL SULFATE NEB 2.5 MG/3 ML INH INHALATION ×4 (01:42→20:21)
[2024-03-27] MEDS: LEVOTHYROXINE SODIUM 112 MCG TABLET PO (06:14)
[2024-03-27 07:02] LABS: Hematocrit 34.1 % (37.0-47.0); Hemoglobin 10.9 g/dL (12.0-15.0); Mean Corpuscular Hemoglobin 30.8 pg (26-34); Mean Corpuscular Volume 96.3 fl (80-100); Mean Platelet Volume 10.4 fl (7.4-10.4); Platelet Count Result 250 k/mm3 (150-375); Red Blood Count 3.54 M/mm3 (4.2-5.4); Red Cell Distribution Width 13.7 % (11.5-14.5); White Blood Count 15.5 K/mm3 (4.5-10.0)
[2024-03-27 07:13] LABS: Anion Gap 4 mmol/L (4-12); Blood Urea Nitrogen 16 mg/dL (7-17); Calcium 8.7 mg/dL (8.4-10.2); Carbon Dioxide 27 mmol/L (22-30); Chloride 104 mmol/L (98-107); Estimated CRCL calculation 44 ml/min; Estimated Glomerular Filt Rate > 60; Glucose 147 mg/dL (65-110); Potassium 4.3 mmol/L (3.4-5.0); Sodium 135 mmol/L (137-145)
[2024-03-27 07:43] LABS: Thyroid Stimulating Hormone Reflex < 0.015 uIU/mL (0.465-4.68)
[2024-03-27 08:12] LABS: Free T4 Free Thyroxine Reflex 1.43 ng/dL (0.78-2.19)
[2024-03-27] MEDS: SERTRALINE HCL 50 MG TABLET 150 MG PO (10:01)
[2024-03-27] MEDS: ATORVASTATIN 20 MG TABLET PO (10:01)
[2024-03-27] MEDS: METOPROLOL TARTRATE 25 MG TABLET PO ×2 (10:01→21:23)
[2024-03-27] MEDS: FAMOTIDINE 20 MG TABLET PO ×2 (10:02→21:24)
[2024-03-27] MEDS: ENOXAPARIN 40 MG/0.4 ML SYRINGE SUB-Q (10:02)
[2024-03-27 12:12] LABS: Total Triiodothyronine (T3) 0.88 NG/ML (0.97-1.69)
--- NOTE | 2024-03-27 14:33 | PM.IMPN ---
Progress Note: A&P Assessment and Plan (1) Acute exacerbation of chronic obstructive pulmonary disease (COPD): Code(s): J44.1 - Chronic obstructive pulmonary disease with (acute) exacerbation Status: Acute Assessment and Plan: continue methylprednisolone IV duoneb, albuterol wean ox if able IS wbc elevated today0 prob due to prednisone- small pleural effusion but will hold off on treating with antibiotics if condition worsens- will repeat chest xray and start antibiotics (2) Hyperlipidemia, unspecified: Code(s): E78.5 - Hyperlipidemia, unspecified Status: Acute Assessment and Plan: continue home statin (3) Hypothyroidism: Qualifiers: Hypothyroidism type: unspecified Qualified Code(s): E03.9 - Hypothyroidism, unspecified Code(s): E03.9 - Hypothyroidism, unspecified Status: Chronic Assessment and Plan: continue home synthroid will check tsh (4) Essential (primary) hypertension: Onset Date: 12/07/18 Code(s): I10 - Essential (primary) hypertension Status: Chronic Assessment and Plan: continue home metoprolol Plan # chronic depression- continue zoloft DVT prophylaxis: lovenox will order PT/OT Time Spent With Patient Time with patient: Greater than 35 minutes Subjective Date/time seen: 03/27/24 14:33 Interval history: 03/27 seen and examined. she is doing well today, breathing is better. Does not want duonebs. workign with PT/OT Review of Systems Review of Systems: All systems reviewed & are unremarkable except as noted in HPI and below (h/p) Exam Const: General: comfortable Eyes: General: appearance normal, both eyes and all related structures Neck: Neck: supple Resp: Effort & Inspection: normal respiratory effort Auscultation: diminished lung sounds Cardio: Rate: regular rate Rhythm: regular rhythm Skin: General skin exam: normal color Neuro: Speech: normal speech Sensory Exam: normal sensation Extrem: General: normal to inspection Objective Data Vital Signs Vital Signs: Vital Signs - 24 hr 03/26/24 19:44 03/26/24 19:50 03/26/24 19:57 Temperature Pulse Rate 96 92 Respiratory Rate 20 20 Blood Pressure Pulse Oximetry 96 Oxygen Delivery Nasal Cannula Oxygen Flow Rate 2 Fraction of Inspired Oxygen 28 03/26/24 20:00 03/26/24 21:39 03/27/24 01:45 Temperature 98.1 F Pulse Rate 97 97 83 Respiratory Rate 16 20 Blood Pressure 110/58 L Pulse Oximetry 98 Oxygen Delivery Oxygen Flow Rate Fraction of Inspired Oxygen 03/27/24 01:51 03/27/24 04:45 03/27/24 08:01 Temperature 97.4 F L Pulse Rate 81 85 Respiratory Rate 20 16 Blood Pressure 109/59 L Pulse Oximetry 98 96 Oxygen Delivery Nasal Cannula Oxygen Flow Rate 2 Fraction of Inspired Oxygen 03/27/24 08:01 03/27/24 08:11 03/27/24 08:51 Temperature Pulse Rate 74 77 Respiratory Rate 20 20 Blood Pressure Pulse Oximetry Oxygen Delivery Nasal Cannula Oxygen Flow Rate 2 Fraction of Inspired Oxygen 03/27/24 10:01 03/27/24 10:20 03/27/24 08:00 Temperature Pulse Rate 91 91 Respiratory Rate Blood Pressure Pulse Oximetry 98 Oxygen Delivery Nasal Cannula Nasal Cannula Oxygen Flow Rate 2.5 2 Fraction of Inspired Oxygen 03/27/24 13:26 03/27/24 13:40 Temperature Pulse Rate 72 76 Respiratory Rate 20 20 Blood Pressure Pulse Oximetry Oxygen Delivery Oxygen Flow Rate Fraction of Inspired Oxygen Intake/Output Intake/Output: Intake & Output 03/24/24 03/25/24 03/26/24 03/27/24 23:59 23:59 23:59 23:59 Intake Total 1288 1530 Balance 1288 1530 Meds/Results Medications: Active Medications Generic Name Dose Route Start Last Admin Trade Name Freq PRN Reason Stop Dose Admin Albuterol 1 puff 03/26/24 13:24 Albuterol Sulfate (*Sp) Aerosol 1 Puff INHALATION Q4HRT PRN shortness of breath or wheezing Albuterol 2.5 mg 03/27/24 02:00 03/27/24 13:26 Albuterol Sulfate Neb 2.5 Mg/3 Ml Inh INHALATION 2.5 mg Q6HRT AXEL Administration Atorvastatin Calcium 20 mg 03/27/24 09:00 03/27/24 10:01 Atorvastatin 20 Mg Tablet PO 20 mg DAILY AXEL Administration Enoxaparin Sodium 40 mg 03/27/24 09:00 03/27/24 10:02 Enoxaparin 40 Mg/0.4 Ml Syringe SUB-Q 40 mg DAILY AXEL Administration Famotidine 20 mg 03/26/24 21:00 03/27/24 10:02 Famotidine 20 Mg Tablet PO 20 mg Q12HR AXEL Administration Levothyroxine Sodium 112 mcg 03/27/24 06:30 03/27/24 06:14 Levothyroxine Sodium 112 Mcg Tablet PO 112 mcg DAILY@0630 AXEL Administration Lorazepam 0.5 mg 03/26/24 13:24 03/26/24 21:39 Lorazepam (*Crx) 0.5 Mg Tablet PO 0.5 mg TID PRN Administration anxiety Methylprednisolone Sodium Succinate 125 mg 03/26/24 12:00 03/27/24 12:33 Methylprednisolone Sod Succ 125 Mg Vial IV PUSH 125 mg Q6HR AXEL Administration Metoprolol Tartrate 25 mg 03/26/24 21:00 03/27/24 10:01 Metoprolol Tartrate 25 Mg Tablet PO 25 mg Q12HR AXEL Administration Sertraline HCl 150 mg 03/27/24 09:00 03/27/24 10:01 Sertraline Hcl 50 Mg Tablet PO 150 mg DAILY AXEL Administration Radiology Results: ITS Impressions Chest X-Ray 03/26/24 05:58 IMPRESSION: 1. Mild pulmonary edema. 2. Emphysema. 3. Small pleural effusions. Labs Labs: Laboratory Results - last 24 hr 03/27/24 06:47 WBC 15.5 H RBC 3.54 L Hgb 10.9 L Hct 34.1 L MCV 96.3 MCH 30.8 MCHC 32.0 RDW 13.7 Plt Count 250 MPV 10.4 Sodium 135 L Potassium 4.3 Chloride 104 Carbon Dioxide 27 Anion Gap 4 BUN 16 Creatinine 0.80 Estim Creat Clear Calc 44 Estimated GFR > 60 Glucose 147 H Calcium 8.7 TSH (Reflex) < 0.015 L Free T4 1.43 Total T3 0.88 L Quality VTE Prophylaxis VTE prophylaxis: pharmacologic ordered
[2024-03-27] MEDS: LORazepam (*CRX) 0.5 MG TABLET PO (21:27)
[2024-03-28] VITALS (13 sets, daily range): BP systolic 107–126; BP diastolic 57–63; PULSE 71–100; RESP 18–20; TEMP 36.3–37.3; O2SAT 95–99
[2024-03-28] MEDS: ALBUTEROL SULFATE NEB 2.5 MG/3 ML INH INHALATION ×4 (02:02→21:00)
[2024-03-28] MEDS: methylPREDNISolone SOD SUCC 125 MG VIAL IV PUSH ×3 (06:12→17:49)
[2024-03-28] MEDS: LEVOTHYROXINE SODIUM 88 MCG TABLET PO (06:12)
[2024-03-28 07:01] LABS: Hematocrit 36.2 % (37.0-47.0); Hemoglobin 11.2 g/dL (12.0-15.0); Mean Corpuscular HGB Conc 30.9 g/dl (32-36); Mean Corpuscular Hemoglobin 31.5 pg (26-34); Platelet Count Result 324 k/mm3 (150-375); Red Blood Count 3.55 M/mm3 (4.2-5.4); Red Cell Distribution Width 14.1 % (11.5-14.5); White Blood Count 14.4 K/mm3 (4.5-10.0)
[2024-03-28 07:13] LABS: Anion Gap 5 mmol/L (4-12); Blood Urea Nitrogen 28 mg/dL (7-17); Calcium 8.8 mg/dL (8.4-10.2); Carbon Dioxide 25 mmol/L (22-30); Chloride 100 mmol/L (98-107); Estimated CRCL calculation 40 ml/min; Estimated Glomerular Filt Rate > 60; Glucose 146 mg/dL (65-110); Potassium 5.2 mmol/L (3.4-5.0); Sodium 130 mmol/L (137-145)
[2024-03-28] MEDS: ENOXAPARIN 40 MG/0.4 ML SYRINGE SUB-Q (08:03)
[2024-03-28] MEDS: METOPROLOL TARTRATE 25 MG TABLET PO ×2 (08:04→21:10)
[2024-03-28] MEDS: SERTRALINE HCL 50 MG TABLET 150 MG PO (08:04)
[2024-03-28] MEDS: ATORVASTATIN 20 MG TABLET PO (08:04)
[2024-03-28] MEDS: FAMOTIDINE 20 MG TABLET PO ×2 (08:04→21:10)
[2024-03-28] MEDS: FLUTICASONE/UMECLIDIN/VILANTER 100-62.5-25 MCG ELLIPTA 1 PUFF INHALATION (08:49)
--- NOTE | 2024-03-28 19:02 | PM.IMPN ---
Progress Note: A&P Assessment and Plan (1) Acute exacerbation of chronic obstructive pulmonary disease (COPD): Code(s): J44.1 - Chronic obstructive pulmonary disease with (acute) exacerbation Status: Acute Assessment and Plan: methylprednisolone IV dose decreased; 125 mg QID>> 60 mg QID. Continue budesonide with duoneb and albuterol updrafts. wean ox if able to maintain sats > 90 %, currently on 2L/NC. - Consider repeat chest xray and antibiotics if no significant improvement. (2) Hyperlipidemia, unspecified: Code(s): E78.5 - Hyperlipidemia, unspecified Status: Acute Assessment and Plan: continue home statin (3) Hypothyroidism: Qualifiers: Hypothyroidism type: unspecified Qualified Code(s): E03.9 - Hypothyroidism, unspecified Code(s): E03.9 - Hypothyroidism, unspecified Status: Chronic Assessment and Plan: continue home dose synthroid (4) Essential (primary) hypertension: Onset Date: 12/07/18 Code(s): I10 - Essential (primary) hypertension Status: Chronic Assessment and Plan: continue home metoprolol Plan # chronic depression- continue zoloft DVT prophylaxis: lovenox will order PT/OT Time Spent With Patient Time with patient: 25 - 35 minutes Subjective Date/time seen: 03/28/24 14:02 Patient states she's feeling better but still gets really SOB with minimal exertion, including just ambulating to the bathroom. Interval history: Patient calm on bedrest and looks to be in no acute distress. Review of Systems Review of Systems: All systems reviewed & are unremarkable except as noted in HPI and below (h/p) Exam Narrative: General: Chronically ill appearing. HEENT: Atraumatic, PERRL, EOM, moist mucosa. Neck: Supple. Lungs: Diminished with faint expiratory wheezes. Heart: RRR, no murmurs. Abdomen: Soft, non-tender, non-distended, +ve bowel sounds X4 quadrants. Extremities: No edema, 2+ radial and pedal pulses. Skin: Warm and dry with no lesions. Neuro: Well oriented. no focal neuro deficits noted. Psych: Pleasant and co-operative. Objective Data Vital Signs Vital Signs: Vital Signs - 24 hr 03/27/24 20:23 03/27/24 20:26 03/27/24 20:36 Temperature Pulse Rate 87 90 Respiratory Rate 20 20 Blood Pressure Pulse Oximetry 97 Oxygen Delivery Nasal Cannula Oxygen Flow Rate 2 03/27/24 21:23 03/27/24 20:33 03/28/24 02:03 Temperature 98 F Pulse Rate 86 86 71 Respiratory Rate 20 19 Blood Pressure 124/58 L Pulse Oximetry 99 Oxygen Delivery Oxygen Flow Rate 03/28/24 02:13 03/28/24 04:45 03/28/24 08:04 Temperature 98.2 F Pulse Rate 73 84 82 Respiratory Rate 19 20 Blood Pressure 126/58 L Pulse Oximetry 95 Oxygen Delivery Oxygen Flow Rate 03/28/24 08:53 03/28/24 08:53 03/28/24 09:16 Temperature Pulse Rate 77 74 Respiratory Rate 20 20 Blood Pressure Pulse Oximetry 97 Oxygen Delivery Nasal Cannula Oxygen Flow Rate 2 03/28/24 13:42 03/28/24 14:11 03/28/24 14:29 Temperature 97.4 F L Pulse Rate 86 82 79 Respiratory Rate 20 20 20 Blood Pressure 121/57 L Pulse Oximetry 96 Oxygen Delivery Oxygen Flow Rate Intake/Output Intake/Output: Intake & Output 03/25/24 03/26/24 03/27/24 03/28/24 23:59 23:59 23:59 23:59 Intake Total 1288 1650 1664 Balance 1288 1650 1664 Meds/Results Medications: Active Medications Generic Name Dose Route Start Last Admin Trade Name Freq PRN Reason Stop Dose Admin Albuterol 1 puff 03/26/24 13:24 Albuterol Sulfate (*Sp) Aerosol 1 Puff INHALATION Q4HRT PRN shortness of breath or wheezing Albuterol 2.5 mg 03/27/24 02:00 03/28/24 14:10 Albuterol Sulfate Neb 2.5 Mg/3 Ml Inh INHALATION 2.5 mg Q6HRT AXEL Administration Atorvastatin Calcium 20 mg 03/27/24 09:00 03/28/24 08:04 Atorvastatin 20 Mg Tablet PO 20 mg DAILY AXEL Administration Enoxaparin Sodium 40 mg 03/27/24 09:00 03/28/24 08:03 Enoxaparin 40 Mg/0.4 Ml Syringe SUB-Q 40 mg DAILY AXEL Administration Famotidine 20 mg 03/26/24 21:00 03/28/24 08:04 Famotidine 20 Mg Tablet PO 20 mg Q12HR AXEL Administration Fluticasone/Umeclidinium/Vilanterol 1 puff 03/28/24 08:00 03/28/24 08:49 Fluticasone/Umeclidin/Vilanter 100-62.5-25 Mcg Ellipta INHALATION 1 puff DAILYRT AXEL Administration Levothyroxine Sodium 88 mcg 03/28/24 06:30 03/28/24 06:12 Levothyroxine Sodium 88 Mcg Tablet PO 88 mcg DAILY@0630 AXEL Administration Lorazepam 0.5 mg 03/26/24 13:24 03/27/24 21:27 Lorazepam (*Crx) 0.5 Mg Tablet PO 0.5 mg TID PRN Administration anxiety Methylprednisolone Sodium Succinate 125 mg 03/26/24 12:00 03/28/24 17:49 Methylprednisolone Sod Succ 125 Mg Vial IV PUSH 125 mg Q6HR AXEL Administration Metoprolol Tartrate 25 mg 03/26/24 21:00 03/28/24 08:04 Metoprolol Tartrate 25 Mg Tablet PO 25 mg Q12HR AXEL Administration Sertraline HCl 150 mg 03/27/24 09:00 03/28/24 08:04 Sertraline Hcl 50 Mg Tablet PO 150 mg DAILY AXEL Administration Radiology Results: ITS Impressions Chest X-Ray 03/26/24 05:58 IMPRESSION: 1. Mild pulmonary edema. 2. Emphysema. 3. Small pleural effusions. Labs Labs: Laboratory Results - last 24 hr 03/28/24 06:29 WBC 14.4 H RBC 3.55 L Hgb 11.2 L Hct 36.2 L MCV 102.0 H D MCH 31.5 MCHC 30.9 L RDW 14.1 Plt Count 324 MPV 10.0 Sodium 130 L Potassium 5.2 H Chloride 100 Carbon Dioxide 25 Anion Gap 5 BUN 28 H D Creatinine 0.90 Estim Creat Clear Calc 40 Estimated GFR > 60 Glucose 146 H Calcium 8.8 Quality VTE Prophylaxis VTE prophylaxis: pharmacologic ordered Hospitalist [facility] Advance Care Plan I have confirmed that the patient's Advanced Care Plan is present, code status is documented, or surrogate decision maker is listed in patient medical record.: Yes Medication Reconciliation I have utilized all available resources to obtain, update and review the patients current medications (includes all prescriptions, OTC, herbals, cannabis, and nutritional supplements).: Yes
[2024-03-28] MEDS: LORazepam (*CRX) 0.5 MG TABLET PO (21:12)
[2024-03-29] VITALS (12 sets, daily range): BP systolic 105–127; BP diastolic 59–76; PULSE 63–84; RESP 16–20; TEMP 36.2–36.6; O2SAT 97–100
[2024-03-29] MEDS: methylPREDNISolone SOD SUCC 125 MG VIAL 60 MG IV PUSH ×3 (00:17→12:19)
[2024-03-29] MEDS: ALBUTEROL SULFATE NEB 2.5 MG/3 ML INH INHALATION ×3 (02:06→20:24)
[2024-03-29] MEDS: LEVOTHYROXINE SODIUM 88 MCG TABLET PO (05:44)
[2024-03-29 06:47] LABS: Hematocrit 34.3 % (37.0-47.0); Hemoglobin 10.9 g/dL (12.0-15.0); Mean Corpuscular HGB Conc 31.8 g/dl (32-36); Mean Corpuscular Hemoglobin 30.5 pg (26-34); Mean Corpuscular Volume 96.1 fl (80-100); Mean Platelet Volume 9.7 fl (7.4-10.4); Platelet Count Result 341 k/mm3 (150-375); Red Blood Count 3.57 M/mm3 (4.2-5.4); Red Cell Distribution Width 13.7 % (11.5-14.5); White Blood Count 10.4 K/mm3 (4.5-10.0)
[2024-03-29 06:56] LABS: Anion Gap 3 mmol/L (4-12); Blood Urea Nitrogen 34 mg/dL (7-17); Calcium 8.6 mg/dL (8.4-10.2); Carbon Dioxide 28 mmol/L (22-30); Chloride 100 mmol/L (98-107); Estimated CRCL calculation 30 ml/min; Estimated Glomerular Filt Rate 44; Glucose 149 mg/dL (65-110); Potassium 4.4 mmol/L (3.4-5.0); Sodium 131 mmol/L (137-145)
[2024-03-29] MEDS: FLUTICASONE/UMECLIDIN/VILANTER 100-62.5-25 MCG ELLIPTA 1 PUFF INHALATION (08:02)
[2024-03-29] MEDS: ATORVASTATIN 20 MG TABLET PO (08:58)
[2024-03-29] MEDS: FAMOTIDINE 20 MG TABLET PO ×2 (08:58→20:22)
[2024-03-29] MEDS: SERTRALINE HCL 50 MG TABLET 150 MG PO (08:58)
[2024-03-29] MEDS: METOPROLOL TARTRATE 25 MG TABLET PO ×2 (08:59→20:21)
[2024-03-29] MEDS: ENOXAPARIN 40 MG/0.4 ML SYRINGE SUB-Q (09:00)
--- NOTE | 2024-03-29 13:46 | PM.IMPN ---
Progress Note: A&P Assessment and Plan (1) Acute exacerbation of chronic obstructive pulmonary disease (COPD): Code(s): J44.1 - Chronic obstructive pulmonary disease with (acute) exacerbation Status: Acute Assessment and Plan: methylprednisolone IV discontinued and steroids changed to oral. Continue budesonide with duoneb and albuterol updrafts. wean ox if able to maintain sats > 90 %, currently on 2L/NC, per home dose. - Continue to monitor closely for decompensation. (2) Hyperlipidemia, unspecified: Code(s): E78.5 - Hyperlipidemia, unspecified Status: Acute Assessment and Plan: continue home statin (3) Hypothyroidism: Qualifiers: Hypothyroidism type: unspecified Qualified Code(s): E03.9 - Hypothyroidism, unspecified Code(s): E03.9 - Hypothyroidism, unspecified Status: Chronic Assessment and Plan: continue home dose synthroid (4) Essential (primary) hypertension: Onset Date: 12/07/18 Code(s): I10 - Essential (primary) hypertension Status: Chronic Assessment and Plan: continue home metoprolol (5) Generalized weakness: Code(s): R53.1 - Weakness Status: Acute Assessment and Plan: PT/OT eval and treatment. Fall precautions. Plan # chronic depression- continue zoloft DVT prophylaxis: lovenox Time Spent With Patient Time with patient: 15 - 25 minutes Subjective Date/time seen: 03/29/24 13:46 Patient states she's improving and SOB is slowly getting better, even with activity. Interval history: Patient seated bedside with no signs of acute distress noted. Review of Systems Review of Systems: All systems reviewed & are unremarkable except as noted in HPI and below (h/p) Exam Narrative: General: Chronically ill appearing, no acute distress. HEENT: Atraumatic, PERRL, EOM, moist mucosa. Neck: Supple. Lungs: Diminished breath sounds. Heart: RRR, no murmurs. Abdomen: Soft, non-tender, non-distended, +ve bowel sounds X4 quadrants. Extremities: No edema, 2+ radial and pedal pulses. Skin: Warm and dry with no lesions. Neuro: Well oriented. no focal neuro deficits noted. Psych: Pleasant and co-operative. Objective Data Vital Signs Vital Signs: Vital Signs - 24 hr 03/28/24 14:11 03/28/24 14:29 03/28/24 21:01 Temperature Pulse Rate 82 79 Respiratory Rate 20 20 Blood Pressure Pulse Oximetry 97 Oxygen Delivery Nasal Cannula Oxygen Flow Rate 2 03/28/24 21:01 03/28/24 20:25 03/28/24 21:09 Temperature 99.2 F Pulse Rate 87 89 82 Respiratory Rate 18 20 18 Blood Pressure 107/63 Pulse Oximetry 99 Oxygen Delivery Oxygen Flow Rate 03/28/24 21:10 03/29/24 02:08 03/29/24 04:22 Temperature 98 F Pulse Rate 100 74 78 Respiratory Rate 18 Blood Pressure 127/63 Pulse Oximetry 100 Oxygen Delivery Oxygen Flow Rate 03/29/24 07:41 03/29/24 07:42 03/29/24 07:58 Temperature Pulse Rate 79 77 Respiratory Rate Blood Pressure Pulse Oximetry 98 Oxygen Delivery Nasal Cannula Oxygen Flow Rate 2 03/29/24 08:59 Temperature Pulse Rate 84 Respiratory Rate Blood Pressure Pulse Oximetry Oxygen Delivery Oxygen Flow Rate Intake/Output Intake/Output: Intake & Output 03/26/24 03/27/24 03/28/24 03/29/24 23:59 23:59 23:59 23:59 Intake Total 1288 1650 1664 749 Balance 1288 1650 1664 749 Meds/Results Medications: Active Medications Generic Name Dose Route Start Last Admin Trade Name Freq PRN Reason Stop Dose Admin Albuterol 1 puff 03/26/24 13:24 Albuterol Sulfate (*Sp) Aerosol 1 Puff INHALATION Q4HRT PRN shortness of breath or wheezing Albuterol 2.5 mg 03/27/24 02:00 03/29/24 07:36 Albuterol Sulfate Neb 2.5 Mg/3 Ml Inh INHALATION 2.5 mg Q6HRT AXEL Administration Atorvastatin Calcium 20 mg 03/27/24 09:00 03/29/24 08:58 Atorvastatin 20 Mg Tablet PO 20 mg DAILY AXEL Administration Enoxaparin Sodium 40 mg 03/27/24 09:00 03/29/24 09:00 Enoxaparin 40 Mg/0.4 Ml Syringe SUB-Q 40 mg DAILY AXEL Administration Famotidine 20 mg 03/26/24 21:00 03/29/24 08:58 Famotidine 20 Mg Tablet PO 20 mg Q12HR AXEL Administration Fluticasone/Umeclidinium/Vilanterol 1 puff 03/28/24 08:00 03/28/24 08:49 Fluticasone/Umeclidin/Vilanter 100-62.5-25 Mcg Ellipta INHALATION 1 puff DAILYRT AXEL Administration Levothyroxine Sodium 88 mcg 03/28/24 06:30 03/29/24 05:44 Levothyroxine Sodium 88 Mcg Tablet PO 88 mcg DAILY@0630 AXEL Administration Lorazepam 0.5 mg 03/26/24 13:24 03/28/24 21:12 Lorazepam (*Crx) 0.5 Mg Tablet PO 0.5 mg TID PRN Administration anxiety Methylprednisolone Sodium Succinate 60 mg 03/29/24 00:00 03/29/24 12:19 Methylprednisolone Sod Succ 125 Mg Vial IV PUSH 60 mg Q6HR AXEL Administration Metoprolol Tartrate 25 mg 03/26/24 21:00 03/29/24 08:59 Metoprolol Tartrate 25 Mg Tablet PO 25 mg Q12HR AXEL Administration Sertraline HCl 150 mg 03/27/24 09:00 03/29/24 08:58 Sertraline Hcl 50 Mg Tablet PO 150 mg DAILY AXEL Administration Radiology Results: ITS Impressions Chest X-Ray 03/26/24 05:58 IMPRESSION: 1. Mild pulmonary edema. 2. Emphysema. 3. Small pleural effusions. Labs Labs: Laboratory Results - last 24 hr 03/29/24 06:38 WBC 10.4 H RBC 3.57 L Hgb 10.9 L Hct 34.3 L MCV 96.1 D MCH 30.5 MCHC 31.8 L RDW 13.7 Plt Count 341 MPV 9.7 Sodium 131 L Potassium 4.4 Chloride 100 Carbon Dioxide 28 Anion Gap 3 L BUN 34 H Creatinine 1.20 H Estim Creat Clear Calc 30 Estimated GFR 44 L Glucose 149 H Calcium 8.6 Quality VTE Prophylaxis VTE prophylaxis: pharmacologic ordered Hospitalist [facility] Advance Care Plan I have confirmed that the patient's Advanced Care Plan is present, code status is documented, or surrogate decision maker is listed in patient medical record.: Yes Medication Reconciliation I have utilized all available resources to obtain, update and review the patients current medications (includes all prescriptions, OTC, herbals, cannabis, and nutritional supplements).: Yes
[2024-03-29] MEDS: predniSONE 20 MG TABLET 40 MG PO (17:45)
--- NOTE | 2024-03-29 18:20 | PCRCNOTE ---
Window of time for administration has passed. See next scheduled administration.
[2024-03-29] MEDS: LORazepam (*CRX) 0.5 MG TABLET PO (20:25)
[2024-03-30] VITALS (15 sets, daily range): BP systolic 104–126; BP diastolic 46–73; PULSE 68–83; RESP 16–20; TEMP 36.2–36.4; O2SAT 94–100
[2024-03-30] MEDS: LEVOTHYROXINE SODIUM 88 MCG TABLET PO (05:18)
[2024-03-30 06:22] LABS: Hematocrit 35.1 % (37.0-47.0); Hemoglobin 11.3 g/dL (12.0-15.0); Mean Corpuscular HGB Conc 32.2 g/dl (32-36); Mean Corpuscular Volume 96.4 fl (80-100); Mean Platelet Volume 9.7 fl (7.4-10.4); Platelet Count Result 354 k/mm3 (150-375); Red Blood Count 3.64 M/mm3 (4.2-5.4); Red Cell Distribution Width 13.7 % (11.5-14.5); White Blood Count 10.8 K/mm3 (4.5-10.0)
[2024-03-30 06:42] LABS: Anion Gap 8 mmol/L (4-12); Blood Urea Nitrogen 40 mg/dL (7-17); Calcium 8.6 mg/dL (8.4-10.2); Carbon Dioxide 25 mmol/L (22-30); Chloride 100 mmol/L (98-107); Estimated CRCL calculation 28 ml/min; Estimated Glomerular Filt Rate 40; Glucose 155 mg/dL (65-110); Potassium 4.6 mmol/L (3.4-5.0); Sodium 133 mmol/L (137-145)
[2024-03-30] MEDS: ALBUTEROL SULFATE NEB 2.5 MG/3 ML INH INHALATION ×3 (07:22→20:53)
[2024-03-30] MEDS: FLUTICASONE/UMECLIDIN/VILANTER 100-62.5-25 MCG ELLIPTA 1 PUFF INHALATION (07:23)
[2024-03-30] MEDS: SERTRALINE HCL 50 MG TABLET 150 MG PO (09:19)
[2024-03-30] MEDS: predniSONE 20 MG TABLET 40 MG PO ×2 (09:19→17:57)
[2024-03-30] MEDS: ATORVASTATIN 20 MG TABLET PO (09:19)
[2024-03-30] MEDS: METOPROLOL TARTRATE 25 MG TABLET PO ×2 (09:20→21:06)
[2024-03-30] MEDS: FAMOTIDINE 20 MG TABLET PO ×2 (09:20→21:06)
[2024-03-30] MEDS: ENOXAPARIN 40 MG/0.4 ML SYRINGE SUB-Q (09:20)
--- NOTE | 2024-03-30 10:42 | PM.IMPN ---
Progress Note: A&P Assessment and Plan (1) Acute exacerbation of chronic obstructive pulmonary disease (COPD): Code(s): J44.1 - Chronic obstructive pulmonary disease with (acute) exacerbation Status: Acute Assessment and Plan: methylprednisolone IV discontinued and steroids changed to oral. Continue PO steroids and we'll taper dose. Continue budesonide with duoneb and albuterol updrafts. wean ox if able to maintain sats > 90 %, currently on 2L/NC, per home dose. Continue to monitor closely for decompensation. (2) Hyperlipidemia, unspecified: Code(s): E78.5 - Hyperlipidemia, unspecified Status: Acute Assessment and Plan: continue home statin (3) Hypothyroidism: Qualifiers: Hypothyroidism type: unspecified Qualified Code(s): E03.9 - Hypothyroidism, unspecified Code(s): E03.9 - Hypothyroidism, unspecified Status: Chronic Assessment and Plan: continue home dose synthroid (4) Essential (primary) hypertension: Onset Date: 12/07/18 Code(s): I10 - Essential (primary) hypertension Status: Chronic Assessment and Plan: Well controlled. continue home metoprolol dose. (5) Generalized weakness: Code(s): R53.1 - Weakness Status: Acute Assessment and Plan: Continue PT/OT treatment. Fall precautions. Plan # chronic depression- continue zoloft DVT prophylaxis: lovenox Subjective Date/time seen: 03/30/24 10:42 Patient states she's not feeling too good today. States her room has been hot and it has affected her breathing. Interval history: Patient seated bedside and looks to be in no acute distress. Review of Systems Review of Systems: All systems reviewed & are unremarkable except as noted in HPI and below Exam Narrative: General: Chronically ill appearing, no acute distress. HEENT: Atraumatic, PERRL, EOM, moist mucosa. Neck: Supple. Lungs: Diminished breath sounds. Heart: RRR, no murmurs. Abdomen: Soft, non-tender, non-distended, +ve bowel sounds X4 quadrants. Extremities: No edema, 2+ radial and pedal pulses. Skin: Warm and dry with no lesions. Neuro: Well oriented. no focal neuro deficits noted. Psych: Pleasant and co-operative. Objective Data Vital Signs Vital Signs: Vital Signs - 24 hr 03/29/24 14:00 03/29/24 20:21 03/29/24 20:24 Temperature 97.1 F L Pulse Rate 81 83 Respiratory Rate 16 Blood Pressure 105/76 Pulse Oximetry 99 97 Oxygen Delivery Nasal Cannula Oxygen Flow Rate 2.5 Fraction of Inspired Oxygen 03/29/24 20:24 03/29/24 21:03 03/29/24 20:00 Temperature 97.6 F Pulse Rate 63 83 83 Respiratory Rate 16 20 20 Blood Pressure 123/59 L Pulse Oximetry 98 98 Oxygen Delivery Nasal Cannula Oxygen Flow Rate 2 Fraction of Inspired Oxygen 03/30/24 05:49 03/30/24 07:23 03/30/24 07:24 Temperature 97.2 F L Pulse Rate 82 68 Respiratory Rate 20 16 Blood Pressure 125/65 Pulse Oximetry 99 98 Oxygen Delivery Nasal Cannula Oxygen Flow Rate 2 Fraction of Inspired Oxygen 03/30/24 09:20 Temperature Pulse Rate 80 Respiratory Rate Blood Pressure Pulse Oximetry Oxygen Delivery Oxygen Flow Rate Fraction of Inspired Oxygen Intake/Output Intake/Output: Intake & Output 03/27/24 03/28/24 03/29/24 03/30/24 23:59 23:59 23:59 23:59 Intake Total 1650 1664 1789 1540 Balance 1650 1664 1789 1540 Meds/Results Medications: Active Medications Generic Name Dose Route Start Last Admin Trade Name Freq PRN Reason Stop Dose Admin Albuterol 1 puff 03/26/24 13:24 Albuterol Sulfate (*Sp) Aerosol 1 Puff INHALATION Q4HRT PRN shortness of breath or wheezing Albuterol 2.5 mg 03/27/24 02:00 03/30/24 07:22 Albuterol Sulfate Neb 2.5 Mg/3 Ml Inh INHALATION 2.5 mg Q6HRT AXEL Administration Atorvastatin Calcium 20 mg 03/27/24 09:00 03/30/24 09:19 Atorvastatin 20 Mg Tablet PO 20 mg DAILY AXEL Administration Enoxaparin Sodium 40 mg 03/27/24 09:00 03/30/24 09:20 Enoxaparin 40 Mg/0.4 Ml Syringe SUB-Q 40 mg DAILY AXEL Administration Famotidine 20 mg 03/26/24 21:00 03/30/24 09:20 Famotidine 20 Mg Tablet PO 20 mg Q12HR AXEL Administration Fluticasone/Umeclidinium/Vilanterol 1 puff 03/28/24 08:00 03/30/24 07:23 Fluticasone/Umeclidin/Vilanter 100-62.5-25 Mcg Ellipta INHALATION 1 puff DAILYRT AXEL Administration Levothyroxine Sodium 88 mcg 03/28/24 06:30 03/30/24 05:18 Levothyroxine Sodium 88 Mcg Tablet PO 88 mcg DAILY@0630 AXEL Administration Lorazepam 0.5 mg 03/26/24 13:24 03/29/24 20:25 Lorazepam (*Crx) 0.5 Mg Tablet PO 0.5 mg TID PRN Administration anxiety Metoprolol Tartrate 25 mg 03/26/24 21:00 03/30/24 09:20 Metoprolol Tartrate 25 Mg Tablet PO 25 mg Q12HR AXEL Administration Prednisone 40 mg 03/29/24 17:00 03/30/24 09:19 Prednisone 20 Mg Tablet PO 40 mg BID AXEL Administration Sertraline HCl 150 mg 03/27/24 09:00 03/30/24 09:19 Sertraline Hcl 50 Mg Tablet PO 150 mg DAILY AXEL Administration Radiology Results: ITS Impressions Chest X-Ray 03/26/24 05:58 IMPRESSION: 1. Mild pulmonary edema. 2. Emphysema. 3. Small pleural effusions. Labs Labs: Laboratory Results - last 24 hr 03/30/24 06:10 WBC 10.8 H RBC 3.64 L Hgb 11.3 L Hct 35.1 L MCV 96.4 MCH 31.0 MCHC 32.2 RDW 13.7 Plt Count 354 MPV 9.7 Sodium 133 L Potassium 4.6 Chloride 100 Carbon Dioxide 25 Anion Gap 8 BUN 40 H Creatinine 1.30 H Estim Creat Clear Calc 28 Estimated GFR 40 L Glucose 155 H Calcium 8.6 Quality VTE Prophylaxis VTE prophylaxis: pharmacologic ordered
[2024-03-30] MEDS: LORazepam (*CRX) 0.5 MG TABLET PO (21:07)
[2024-03-31] VITALS (10 sets, daily range): BP systolic 94–113; BP diastolic 56–70; PULSE 69–88; RESP 16–20; TEMP 36.1–36.3; O2SAT 95–100
[2024-03-31] MEDS: ALBUTEROL SULFATE NEB 2.5 MG/3 ML INH INHALATION ×3 (01:51→13:20)
[2024-03-31] MEDS: LEVOTHYROXINE SODIUM 88 MCG TABLET PO (05:52)
[2024-03-31 06:59] LABS: Hematocrit 35.9 % (37.0-47.0); Hemoglobin 11.7 g/dL (12.0-15.0); Mean Corpuscular HGB Conc 32.6 g/dl (32-36); Mean Corpuscular Hemoglobin 30.8 pg (26-34); Mean Corpuscular Volume 94.5 fl (80-100); Mean Platelet Volume 9.8 fl (7.4-10.4); Platelet Count Result 361 k/mm3 (150-375); Red Cell Distribution Width 13.7 % (11.5-14.5); White Blood Count 10.5 K/mm3 (4.5-10.0)
[2024-03-31 07:18] LABS: Anion Gap 3 mmol/L (4-12); Blood Urea Nitrogen 32 mg/dL (7-17); Calcium 8.5 mg/dL (8.4-10.2); Carbon Dioxide 29 mmol/L (22-30); Chloride 102 mmol/L (98-107); Estimated CRCL calculation 36 ml/min; Estimated Glomerular Filt Rate 54; Glucose 118 mg/dL (65-110); Potassium 4.4 mmol/L (3.4-5.0); Sodium 134 mmol/L (137-145)
[2024-03-31] MEDS: FLUTICASONE/UMECLIDIN/VILANTER 100-62.5-25 MCG ELLIPTA 1 PUFF INHALATION (08:15)
[2024-03-31] MEDS: SERTRALINE HCL 50 MG TABLET 150 MG PO (08:25)
[2024-03-31] MEDS: ATORVASTATIN 20 MG TABLET PO (08:25)
[2024-03-31] MEDS: predniSONE 20 MG TABLET 40 MG PO (08:25)
[2024-03-31] MEDS: FAMOTIDINE 20 MG TABLET PO (08:25)
[2024-03-31] MEDS: ENOXAPARIN 40 MG/0.4 ML SYRINGE SUB-Q (08:25)
[2024-03-31] MEDS: METOPROLOL TARTRATE 25 MG TABLET PO (08:26)
--- NOTE | 2024-03-31 10:54 | PM.DS ---
DS: Admitting Diagnosis Discharge Date 03/31/2024 Patient states she feels alright and her breathing appears to be back to normal. Patient wants to be discharged today. Admitting Diagnosis Acute on Chronic COPD Exacerbation DS: Discharge Diagnosis Discharge Diagnosis (1) Acute exacerbation of chronic obstructive pulmonary disease (COPD): Code(s): J44.1 - Chronic obstructive pulmonary disease with (acute) exacerbation Status: Acute Assessment and Plan: Initially treated with methylprednisolone IV and steroids now changed to oral. Continue to taper PO steroids. Continue budesonide and duoneb updrafts at home. Currently on 2L/NC supplemental O2, home dose, with O2 sats > 90 %. (2) Hyperlipidemia, unspecified: Code(s): E78.5 - Hyperlipidemia, unspecified Status: Acute Assessment and Plan: continue home statin (3) Hypothyroidism: Qualifiers: Hypothyroidism type: unspecified Qualified Code(s): E03.9 - Hypothyroidism, unspecified Code(s): E03.9 - Hypothyroidism, unspecified Status: Chronic Assessment and Plan: continue home dose synthroid (4) Essential (primary) hypertension: Onset Date: 12/07/18 Code(s): I10 - Essential (primary) hypertension Status: Chronic Assessment and Plan: Well controlled. continue home metoprolol dose. (5) Generalized weakness: Code(s): R53.1 - Weakness Status: Acute Assessment and Plan: Continue PT/OT treatment. Fall precautions. Plan # chronic depression- continue zoloft DVT prophylaxis: lovenox DS: Summary Hospital Course Reason for hospitalization: COPD Exacerbation Hospital Course: Patient was admitted for COPD exacerbation after being discharged and discharged at this facility 3 weeks prior to this admission for the same condition. Patient is normally on 3L/NC at home and is back on 2L/NC with O2 sats > 90 %. She has been treated with IV and PO steroids, scheduled nebulized bronchodilators, and supplemental O2, initially at 3-4L/NC bus she's been able to be weaned down to 2L/NC per home dose, with sats > 90 %. Shes states she feels back to her baseline and wants to be discharged today. All her other chronic conditions remained stable inpatient. Status at Discharge Functional status at discharge: uses cane/walker Overall status at discharge: patient is progressing back to baseline Time Spent with Patient Time attestation: Total time spent providing and/or coordinating discharge services: Time spent: Greater than 30 minutes Exam Narrative: General: Chronically ill appearing, no acute distress. HEENT: Atraumatic, PERRL, EOM, moist mucosa. Neck: Supple. Lungs: Diminished breath sounds. Heart: RRR, no murmurs. Abdomen: Soft, non-tender, non-distended, +ve bowel sounds X4 quadrants. Extremities: No edema, 2+ radial and pedal pulses. Skin: Warm and dry with no lesions. Neuro: Well oriented. no focal neuro deficits noted. Psych: Pleasant and co-operative. DS: Data Data Completed and Pending Labs on day of discharge: Labs from last 24 hours 03/31/24 06:26 WBC 10.5 H RBC 3.80 L Hgb 11.7 L Hct 35.9 L MCV 94.5 MCH 30.8 MCHC 32.6 RDW 13.7 Plt Count 361 MPV 9.8 Sodium 134 L Potassium 4.4 Chloride 102 Carbon Dioxide 29 Anion Gap 3 L BUN 32 H Creatinine 1.00 Estim Creat Clear Calc 36 Estimated GFR 54 L Glucose 118 H Calcium 8.5 Discharge Plan Discharge Attending physician on discharge: Nitesh Vides Discharging Clinician: Diamond Corrales Anticipated Discharge Date/Time: 03/31/24 11:10 [facility] Activity: as tolerated Diet: heart healthy Patient Instructions: Antibiotic Form, Pain Management in Older Adults (DC) Stand Alone Forms: General Discharge Information Follow-up/Referrals: Omer Antunez MD [Primary Care Provider] - 1 Week Discharge Medications: New prednisone 20 mg tablet 20 mg PO DAILY Qty: 7 0RF Rx Instructions: 40 mg daily X 2 days then 20 mg daily X3 days then discontinue. Continued Breztri Aerosphere 160-9-4.8 mcg/actuation HFA aerosol inhaler 2 inh inhalation QAM AND QPM 30 Days Qty: 10.7 8RF albuterol sulfate 2.5 mg/0.5 mL solution for nebulization 5 mg inhalation Q6H Qty: 30 0RF atorvastatin 20 mg tablet 20 mg PO DAILY sertraline 100 mg tablet 150 mg PO DAILY metoprolol tartrate 25 mg tablet 25 mg PO Q12H levothyroxine [Synthroid] 112 mcg tablet 112 mcg PO DAILY lorazepam 0.5 mg tablet 0.5 mg PO TID PRN (Reason: anxiety) Qty: 60 0RF albuterol sulfate [Ventolin HFA] 90 mcg/actuation HFA aerosol inhaler 1 inh inhalation Q4H PRN (Reason: shortness of breath or wheezing) Qty: 51 2RF Date of admission: 03/28/24 18:30 Primary Care Provider: Omer Antunez Admitting Provider: Ambika Fermin V. Attending physician on admission: Luis Antonio Hawley Condition: Stable Quality If No VTE Prophylaxis Answer both mechanical and pharmacologic: Reason no mechanical VTE proph: low risk/not indicated Reason no pharmacologic proph: low risk/not indicated Hospitalist MIPS Heart Failure (Exclusion) Patient has history of Heart Transplant or Left Ventricular Assistive Device?: No IF YES, STOP HERE Heart Failure (Qualifier) Patient has current or prior documentation of LVEF less than or equal to 40%, or mod/servere depressed LVSF?: No IF NO, STOP HERE
== END 2024-03-31 15:05 | DRG 191 ==
LOC: ANHED 06:09 → ANH3MEDSUR 07:25
PROVIDERS: Nurse Practitioner; Admitting Provider Internal Medicine; Emergency Provider Student in an Organized Health Care Education/Training Program; PCP Family Medicine; Visit Provider Internal Medicine
DX: J44.1 Chronic obstructive pulmonary disease with (acute) exacerbation (principal); I13.0 Hypertensive heart and chronic kidney disease with heart failure and stage 1 through stage 4 chronic kidney disease, or unspecified chronic kidney disease; J96.12 Chronic respiratory failure with hypercapnia; I50.9 Heart failure, unspecified; N18.9 Chronic kidney disease, unspecified; E78.5 Hyperlipidemia, unspecified; E03.9 Hypothyroidism, unspecified; I73.9 Peripheral vascular disease, unspecified; E55.9 Vitamin D deficiency, unspecified; M81.0 Age-related osteoporosis without current pathological fracture; M79.7 Fibromyalgia; F41.0 Panic disorder [episodic paroxysmal anxiety]; F32.A Depression, unspecified; Z99.81 Dependence on supplemental oxygen; Z86.73 Personal history of transient ischemic attack (TIA), and cerebral infarction without residual deficits; Z87.891 Personal history of nicotine dependence
CPT/HCPCS: 36415; 71045; 80048; 80053; 82803; 84439; 84443; 84480; 85025; 85027; 93005; 94640; 96361; 96365; 96366; 96372; 96375; 97110; 97161; 97165; 97530; 97535; 99285; A9270; G0378; J1650; J2919; J3475; J7120; J7512

== ENCOUNTER 2024-04-06 16:32 | Inpatient (IN) | payer MEDICARE, SELFPAY ==
--- NOTE | ~2024-04-06 | XR_ITS ---
XR chest 2V Ordering provider: Jaylyn Mckeon PA-C History: 78 years Female with . cough, fever, sob . Comparison: March 26, 2024 FINDINGS: MEDIASTINUM: The cardiac silhouette is not enlarged. LUNGS: No pneumothorax. Bilateral basal interstitial thickening with infiltrate suggestive of pneumon itis with right pleural effusion. Blunting of the left costophrenic angle suggestive of minimal pleur al effusion. Opacification in the right midzone is noted. Underlying emphysematous changes. Cystic changes are seen suggestive of bronchiectasis. OTHER: No free air under the diaphragm. IMPRESSION: Bilateral basal pneumonia with bilateral pleural effusion. Reviewed, dictated and finalized at location [facility]
[2024-04-06 16:32] VITALS: BP 117/49; PULSE 93; RESP 17; TEMP 37.3; O2SAT 100
--- NOTE | 2024-04-06 18:34 | ECG_ITS ---
Test Date: 2024-04-06 18:43:24 Measurements Intervals [place] Rate: 87 P: 60 NM: 129 QRS: 35 QRSD: 85 T: 121 QT: 376 QTc: 453 Interpretive Statements SINUS RHYTHM WITH OCCASIONAL SUPRAVENTRICULAR PREMATURE COMPLEXES POSSIBLE LEFT ATRIAL ENLARGEMENT [-0.1mV P WAVE IN V1/V2] LEFT VENTRICULAR HYPERTROPHY AND ST-T CHANGE Compared to ECG 03/26/2024 15:16:03 Left ventricular hypertrophy now present Sinus tachycardia no longer present Electronically Signed On 04-07-2024 14:28:32 GALLERY MANAGER by Gato Sesay M.D.
--- NOTE | 2024-04-06 18:39 | ED_ITS ---
HPI - SOB/Dyspnea General Chief Complaint: Shortness of Breath/Dyspnea <MART Bone Last Filed: 04/06/24 18:43> Stated Complaint: SOB <MART Bone Last Filed: 04/06/24 18:43> Time Seen by Provider: 04/06/24 18:36 <MART Bone Last Filed: 04/06/24 18:43> Focused HPI: Patient is a 78-year-old female, with past medical history of COPD/emphysema on chronic 2 L nasal cannula, who presents to the ED via EMS with report of SOB. Patient reports she was recently admitted to the ED here for COPD exacerbation. States she has not been doing well since being discharged from the hospital. Has had persistent shortness of breath - worse with any type of exertion, productive cough, fevers up to 103? F. Also reports swelling in her lower extremities. States she contacted her PCP today and was rx'd augmentin and doxycycline for suspected PNA. Patient took first doses today. GENERAL: Elderly, frail, and in no acute distress. HEAD: Normocephalic, atraumatic. CHEST: Mild tachypnea with labored breathing, some accessory muscle use. Decreased air movement throughout. HEART: Regular rate and rhythm.? NEURO: ?Alert and oriented x3. Patient screened in triage and initial orders placed.? ?Additional care and disposition to be based upon?diagnostic testing and treatment. <Jaylyn Mckeon PA-C - Last Filed: 04/06/24 18:43> Source: patient and old records reviewed <MART Bone Last Filed: 04/06/24 18:43> Mode of arrival: ambulatory <MART Bone Last Filed: 04/06/24 18:43> Limitations: no limitations <MART Bone Last Filed: 04/06/24 18:43> History of Present Illness HPI Narrative: Patient 78-year-old female presents emergency department with chief complaint of shortness of breath patient reports that she has recently treated for COPD exacerbation was in the hospital the patient reports she had a fever up to 103 reports that she has had a cough also reports she has been having increasing edema. The patient was started on Augmentin and doxycycline as an outpatient <Panchito Mcpherson MD - Last Filed: 04/06/24 20:27> Related Data Home Medications: Home Medications Medication Instructions Recorded Confirmed atorvastatin 20 mg tablet 20 mg PO DAILY 03/01/24 04/06/24 metoprolol tartrate 25 mg tablet 25 mg PO Q12H 03/01/24 04/06/24 sertraline 100 mg tablet 150 mg PO DAILY 03/01/24 04/06/24 levothyroxine 112 mcg tablet 112 mcg PO DAILY 03/26/24 04/06/24 (Synthroid) <Jaylyn Mckeon PA-C - Last Filed: 04/06/24 18:43> Allergies/Adverse Reactions: Allergies Allergy/AdvReac Type Severity Reaction Status Date / Time aspirin Allergy Intermediate Nausea Verified 03/26/24 12:21 Macrolide Antibiotics Allergy Intermediate Unknown Verified 03/26/24 12:21 erythromycin base Allergy Unknown Nausea Verified 03/26/24 12:21 latex Allergy Unknown Itching Verified 03/26/24 12:21 mold Allergy Unknown Difficulty Verified 03/26/24 12:21 Breathing ragweed pollen Allergy Unknown Difficulty Verified 03/26/24 12:21 Breathing Sulfa (Sulfonamide Allergy Unknown Unknown Verified 03/26/24 12:21 Antibiotics) ipratropium AdvReac Severe Itching Verified 03/26/24 12:21 and panic attacks metal Allergy Unknown Itching Uncoded 03/26/24 12:21 <Jaylyn Mckeon PA-C - Last Filed: 04/06/24 18:43> Review of Systems 2 Review of Systems: A 10 system review of systems was completed on the patient and is negative except for what is stated in the HPI. Nursing and ancillary documentation was reviewed. <Panchito Mcpherson MD - Last Filed: 04/06/24 20:27> [facility] Past Medical History Medical History: Medical History Acute exacerbation of chronic obstructive pulmonary disease 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 attack Chronic obstructive pulmonary disease Chronic respiratory failure with hypoxia, on home oxygen therapy COPD exacerbation Depression Diastolic dysfunction Echocardiogram April 2018 demonstrated grade 1 diastolic dysfunction EF of 60% impaired right ventricular systolic dysfunction mild mitral valve regurgitation mild aortic stenosis based on velocities valve not well visualized Emphysema lung Essential (primary) hypertension (12/07/18) Fibromyalgia History of tobacco abuse Hyperlipidemia, unspecified Hypothyroidism Osteoporosis, unspecified PAD (peripheral artery disease) Peripheral artery disease Personal history of colonic polyps Sleep disorder breathing Noted on polysomnogram March 2018 Thrombocytosis Transient ischemic attack Vitamin D deficiency, unspecified (12/07/18) <Jaylyn Mckeon PA-C - Last Filed: 04/06/24 18:43> Surgical History Surgical History: Surgical History History of appendectomy History of bilateral carpal tunnel release History of bilateral cataract extraction History of cholecystectomy History of colonoscopy with polypectomy [address] Alcantara with pathology demonstrating adenomas polyp History of hysterectomy History of tonsillectomy <MART Bone Last Filed: 04/06/24 18:43> Family History Family History: Family History Father Family history of lung cancer Chronic obstructive pulmonary disease Mother Bulbar myasthenia gravis Chronic obstructive pulmonary disease Unknown Anxiety Depression ADHD Sibling Chronic obstructive pulmonary disease <Jaylyn Mckeon PA-C - Last Filed: 04/06/24 18:43> Social History Social History: Social History Social History: Code status: DNR/DNI Durable power [facility]: Magno Hernández (oldest son) Smoking packs per day: 1 Smoking cigarettes per day: 20.0 Years smoked: 50 Smoking pack-years: 50.00 Smoking status: Former smoker Tobacco type: cigarettes Second hand tobacco smoke exposure: No Alcohol intake: never Alcohol use details: Rare alcohol use. Substance use: never Substance use type: does not use Do You Feel Safe in your Home?: Yes Lack of Transportation: YES Lack of Food: Never True Current Housing: I Have Housing Concerned About Future Housing: No Difficulty Paying Gas/Electric Bills: No Difficulty Paying for Meds: No Currently Unemployed: No Education: Master's Degree or Higher Difficulty w/ Childcare or Family Care: No Living arrangements: skilled nursing [facility] Additional living arrangements comments: The patient lives in her own home in [place]. Occupation/Education: retired Spiritual care concerns: No <Jaylyn Mckeon PA-C - Last Filed: 04/06/24 18:43> Exam Narrative: GENERAL: Frail-appearing, well-nourished, and in no acute distress. HEAD: Normocephalic, atraumatic. EYES: PERRLA and EOMI. ENT: Nares clear, no rhinorrhea or epistaxis. Mucous membranes moist. NECK: Supple. CHEST: Clear to auscultation. No respiratory distress. HEART: Regular rate and rhythm. No murmur heard. Normal peripheral pulses. ABDOMEN: Soft, nontender, nondistended, normal active bowel sounds. EXTREMITIES: Normal range of motion. No edema. SKIN: Warm, dry, no rash. NEURO: No focal deficits. Alert and oriented x3. PSYCH: Normal mood and affect. <Panchito Mcpherson MD - Last Filed: 04/06/24 20:27> Course Vital Signs Vital signs: Vital Signs Temperature 37.3 C 04/06/24 16:32 Pulse Rate 93 04/06/24 16:32 Respiratory Rate 17 04/06/24 16:32 Blood Pressure 117/49 L 04/06/24 16:32 Pulse Oximetry 100 04/06/24 16:32 Oxygen Delivery Nasal Cannula 04/06/24 16:32 Oxygen Flow Rate 2 04/06/24 16:32 Temperature 37.3 C 04/06/24 16:32 Pulse Rate 82 04/06/24 20:02 Respiratory Rate 21 H 04/06/24 20:02 Blood Pressure 122/62 04/06/24 20:02 Pulse Oximetry 98 04/06/24 20:02 Oxygen Delivery Nasal Cannula 04/06/24 20:02 Oxygen Flow Rate 2 04/06/24 20:02 <Jaylyn Mckeon PA-C - Last Filed: 04/06/24 18:43> Vital Signs Temperature 37.3 C 04/06/24 16:32 Pulse Rate 93 04/06/24 16:32 Respiratory Rate 17 04/06/24 16:32 Blood Pressure 117/49 L 04/06/24 16:32 Pulse Oximetry 100 04/06/24 16:32 Oxygen Delivery Nasal Cannula 04/06/24 16:32 Oxygen Flow Rate 2 04/06/24 16:32 Temperature 37.3 C 04/06/24 16:32 Pulse Rate 82 04/06/24 20:02 Respiratory Rate 21 H 04/06/24 20:02 Blood Pressure 122/62 04/06/24 20:02 Pulse Oximetry 98 04/06/24 20:02 Oxygen Delivery Nasal Cannula 04/06/24 20:02 Oxygen Flow Rate 2 04/06/24 20:02 <Panchito Mcpherson MD - Last Filed: 04/06/24 20:27> MDM - SOB/Dyspnea MDM Narrative Medical decision making narrative: MSE by ALVA in triage. <Jaylyn Mckeon PA-C - Last Filed: 04/06/24 18:43> MSE by ALVA in triage. Differential diagnosis includes pneumonia, CHF, ACS BNP was significantly elevated from previous studies. Chest x-ray shows evidence of pneumonia patient has significant leukocytosis blood cultures were obtained the patient started on cefepime and vanc doxycycline was added for atypical coverage as the patient is allergic to macrolides <Panchito Mcpherson MD - Last Filed: 04/06/24 20:27> Lab Data Result diagrams: 04/06/24 18:52 04/06/24 18:52 <Jaylyn Mckeon PA-C - Last Filed: 04/06/24 18:43> Labs: Lab Results 04/06/24 Range/Units 18:52 WBC 22.3 H (4.5-10.0) K/mm3 RBC 3.95 L (4.2-5.4) M/mm3 Hgb 12.2 (12.0-15.0) g/dL Hct 37.1 (37.0-47.0) % MCV 93.9 (80-100) fl MCH 30.9 (26-34) pg MCHC 32.9 (32-36) g/dl RDW 14.1 (11.5-14.5) % Plt Count 324 (150-375) k/mm3 MPV 9.3 (7.4-10.4) fl Immature Gran % (Auto) 3.2 H (0-0.5) % Neut % (Auto) 81.1 H (45.5-73.1) % Lymph % (Auto) 7.3 L (18.3-44.2) % Traill % (Auto) 8.1 (2.6-8.5) % Eos % (Auto) 0.0 (0-4.4) % Baso % (Auto) 0.3 (0.2-1.2) % Lymph # (Auto) 1.63 (0.9-3.2) K/mm3 Traill # (Auto) 1.8 H (0.1-0.6) K/mm3 Eos # (Auto) 0.0 (0-0.3) K/mm3 Baso # (Auto) 0.1 (0.0-0.1) K/mm3 Abs Immat Gran (auto) 0.72 H (0.00-0.031) K/mm3 Absolute Neuts (auto) 18.1 H (1.3-6.7) K/mm3 Absolute Nucleated RBC 0.000 (0.0-0.012) K/mm3 Nucleated RBC % 0.0 (0.0-0.2) % PT 14.3 (11.1-14.7) Seconds INR 1.1 APTT 30.2 (22.3-36.8) Seconds D-Dimer 0.48 (<0.48) ug/mL Sodium 127 L (137-145) mmol/L Potassium 4.3 (3.4-5.0) mmol/L Chloride 96 L (98-107) mmol/L Carbon Dioxide 29 (22-30) mmol/L Anion Gap 2 L (4-12) mmol/L BUN 23 H (7-17) mg/dL Creatinine 0.90 (0.7-1.0) mg/dL Estim Creat Clear Calc Not Reportable Estimated GFR > 60 (59 - ) Glucose 98 (65-110) mg/dL Lactic Acid 0.8 (0.7-2.0) mmol/L Calcium 8.7 (8.4-10.2) mg/dL Total Bilirubin 0.6 (0.2-1.3) mg/dL AST 47 H (14-36) U/L ALT 67 H (6-35) U/L Alkaline Phosphatase 84 (38-126) U/L Troponin I 0.119 H* (0.000-0.034) ng/mL NT-Pro-B Natriuret Pep > 95953 H (19.9-100) pg/mL Total Protein 6.0 L (6.3-8.2) g/dL Albumin 3.5 (3.5-5.1) g/dL <Jaylyn Mckeon PA-C - Last Filed: 04/06/24 18:43> Lab Results 04/06/24 Range/Units 18:52 WBC 22.3 H (4.5-10.0) K/mm3 RBC 3.95 L (4.2-5.4) M/mm3 Hgb 12.2 (12.0-15.0) g/dL Hct 37.1 (37.0-47.0) % MCV 93.9 (80-100) fl MCH 30.9 (26-34) pg MCHC 32.9 (32-36) g/dl RDW 14.1 (11.5-14.5) % Plt Count 324 (150-375) k/mm3 MPV 9.3 (7.4-10.4) fl Immature Gran % (Auto) 3.2 H (0-0.5) % Neut % (Auto) 81.1 H (45.5-73.1) % Lymph % (Auto) 7.3 L (18.3-44.2) % Traill % (Auto) 8.1 (2.6-8.5) % Eos % (Auto) 0.0 (0-4.4) % Baso % (Auto) 0.3 (0.2-1.2) % Lymph # (Auto) 1.63 (0.9-3.2) K/mm3 Traill # (Auto) 1.8 H (0.1-0.6) K/mm3 Eos # (Auto) 0.0 (0-0.3) K/mm3 Baso # (Auto) 0.1 (0.0-0.1) K/mm3 Abs Immat Gran (auto) 0.72 H (0.00-0.031) K/mm3 Absolute Neuts (auto) 18.1 H (1.3-6.7) K/mm3 Absolute Nucleated RBC 0.000 (0.0-0.012) K/mm3 Nucleated RBC % 0.0 (0.0-0.2) % PT 14.3 (11.1-14.7) Seconds INR 1.1 APTT 30.2 (22.3-36.8) Seconds D-Dimer 0.48 (<0.48) ug/mL Sodium 127 L (137-145) mmol/L Potassium 4.3 (3.4-5.0) mmol/L Chloride 96 L (98-107) mmol/L Carbon Dioxide 29 (22-30) mmol/L Anion Gap 2 L (4-12) mmol/L BUN 23 H (7-17) mg/dL Creatinine 0.90 (0.7-1.0) mg/dL Estim Creat Clear Calc Not Reportable Estimated GFR > 60 (59 - ) Glucose 98 (65-110) mg/dL Lactic Acid 0.8 (0.7-2.0) mmol/L Calcium 8.7 (8.4-10.2) mg/dL Total Bilirubin 0.6 (0.2-1.3) mg/dL AST 47 H (14-36) U/L ALT 67 H (6-35) U/L Alkaline Phosphatase 84 (38-126) U/L Troponin I 0.119 H* (0.000-0.034) ng/mL NT-Pro-B Natriuret Pep > 68090 H (19.9-100) pg/mL Total Protein 6.0 L (6.3-8.2) g/dL Albumin 3.5 (3.5-5.1) g/dL <Panchito Mcpherson MD - Last Filed: 04/06/24 20:27> Discharge Plan Discharge Clinical Impression: Pneumonia, CHF (congestive heart failure), Elevated troponin <Jaylyn Mckeon PA-C - Last Filed: 04/06/24 18:43> Patient Disposition: Still a Patient <Jaylyn Mckeon PA-C - Last Filed: 04/06/24 18:43> Condition: Stable <Jaylyn Mckeon PA-C - Last Filed: 04/06/24 18:43> Prescriptions: No Action amoxicillin-pot clavulanate 875-125 mg tablet 1 tablet PO BID 5 Days Qty: 10 0RF doxycycline hyclate 100 mg tablet 100 mg PO BID 5 Days Qty: 10 0RF Breztri Aerosphere 160-9-4.8 mcg/actuation HFA aerosol inhaler 2 inh inhalation QAM AND QPM 30 Days Qty: 10.7 8RF albuterol sulfate 2.5 mg/0.5 mL solution for nebulization 5 mg inhalation Q6H Qty: 30 0RF atorvastatin 20 mg tablet 20 mg PO DAILY sertraline 100 mg tablet 150 mg PO DAILY metoprolol tartrate 25 mg tablet 25 mg PO Q12H levothyroxine [Synthroid] 112 mcg tablet 112 mcg PO DAILY lorazepam 0.5 mg tablet 0.5 mg PO TID PRN (Reason: anxiety) Qty: 60 0RF albuterol sulfate [Ventolin HFA] 90 mcg/actuation HFA aerosol inhaler 1 inh inhalation Q4H PRN (Reason: shortness of breath or wheezing) Qty: 51 2RF <Jaylyn Mckeon PA-C - Last Filed: 04/06/24 18:43> Follow-up/Referrals: Omer Antunez MD [Primary Care Provider] - <Jaylyn Mckeon PA-C - Last Filed: 04/06/24 18:43> Time of Disposition: 20:27 <Jaylyn Mckeon PA-C - Last Filed: 04/06/24 18:43> 20:27 <Panchito Mcpherson MD - Last Filed: 04/06/24 20:27>
[2024-04-06 18:58] LABS: Basophils Absolute Auto 0.1 K/mm3 (0.0-0.1); Basophils Percent Auto 0.3 % (0.2-1.2); Hematocrit 37.1 % (37.0-47.0); Hemoglobin 12.2 g/dL (12.0-15.0); Immature Granulocyte Absolute 0.72 K/mm3 (0.00-0.031); Immature Granulocyte Percent A 3.2 % (0-0.5); Lymphocytes Absolute Auto 1.63 K/mm3 (0.9-3.2); Lymphocytes Percent Auto 7.3 % (18.3-44.2); Mean Corpuscular HGB Conc 32.9 g/dl (32-36); Mean Corpuscular Hemoglobin 30.9 pg (26-34); Mean Corpuscular Volume 93.9 fl (80-100); Mean Platelet Volume 9.3 fl (7.4-10.4); Monocytes Absolute Auto 1.8 K/mm3 (0.1-0.6); Monocytes Percent Auto 8.1 % (2.6-8.5); Neutrophils Absolute Auto 18.1 K/mm3 (1.3-6.7); Neutrophils Percent Auto 81.1 % (45.5-73.1); Platelet Count Result 324 k/mm3 (150-375); Red Blood Count 3.95 M/mm3 (4.2-5.4); Red Cell Distribution Width 14.1 % (11.5-14.5); White Blood Count 22.3 K/mm3 (4.5-10.0)
[2024-04-06 19:07] LABS: Alanine Aminotransferase 67 U/L (6-35); Albumin Level 3.5 g/dL (3.5-5.1); Alkaline Phosphatase 84 U/L (38-126); Anion Gap 2 mmol/L (4-12); Aspartate Amino Transferase 47 U/L (14-36); Bilirubin,Total 0.6 mg/dL (0.2-1.3); Blood Urea Nitrogen 23 mg/dL (7-17); Calcium 8.7 mg/dL (8.4-10.2); Carbon Dioxide 29 mmol/L (22-30); Chloride 96 mmol/L (98-107); Estimated Glomerular Filt Rate > 60; Glucose 98 mg/dL (65-110); Lactic Acid Reflex 0.8 mmol/L (0.7-2.0); Potassium 4.3 mmol/L (3.4-5.0); Sodium 127 mmol/L (137-145)
[2024-04-06 19:13] LABS: INR 1.1; Prothrombin Time 14.3 Seconds (11.1-14.7)
[2024-04-06 19:14] LABS: Partial Thromboplastin Time 30.2 Seconds (22.3-36.8)
[2024-04-06 19:23] LABS: NT Pro B Type Natriuretic Pept > 30000 pg/mL (19.9-100); Troponin I 0.119 ng/mL (0.000-0.034)
[2024-04-06 19:38] LABS: D Dimer 0.48 ug/mL (<0.48)
[2024-04-06 20:02] VITALS: BP 122/62; PULSE 82; RESP 21; O2SAT 98
[2024-04-06] MEDS: CEFEPIME 2 GM/NS 50 ML 2 GM/50 ML BAG IVPB (20:28)
[2024-04-06] MEDS: VANCOMYCIN 1,500 MG/NS 500 ML 1,500 MG/500 ML BAG 250 MG IVPB (20:45)
[2024-04-06] MEDS: FUROSEMIDE INJ 40 MG/4 ML VIAL IV PUSH (21:04)
[2024-04-06 21:05] LABS: Influenza A QL RT-PCR Negative (Negative); Influenza B QL RT-PCR Negative (Negative); RSV RNA, RT-PCR Negative (Negative); SARS-CoV-2 RNA PCR Positive (Negative)
[2024-04-06 21:16] VITALS: BMI 21.9
[2024-04-06 21:40] VITALS: BP 106/44; PULSE 94; RESP 24; TEMP 36.7; O2SAT 98
[2024-04-06 21:41] LABS: MRSA (PCR) NOT DETECTED (NOT DETECTE)
[2024-04-06 22:00] VITALS: PULSE 78
[2024-04-06] MEDS: dexAMETHasone 2 MG TABLET 6 MG PO (22:21)
[2024-04-06] MEDS: DOXYCYCLINE 100 MG/NS 100 ML 100 MG/100 ML BAG IVPB (22:21)
--- NOTE | 2024-04-06 22:34 | P.HP_ITS ---
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 The patient was recently hospitalized 03/28 through 03/31 she was discharged home a p.o. prednisone. She evidently began having more shortness of breath and cough and was prescribed amoxicillin as outpatient. She took her 1st dose 1 hour prior to coming to the ER. She came to the ER because she was not feeling better after the 1 dose of amoxicillin. She is on chronic home O2 of 2 L which she is supposed be on all the time but she chooses to not wear it continuously. When EMS arrived at the facility patient was not wearing her oxygen. She was placed back on her oxygen has been satting 98% since presentation to the ER. In the ER she was noted to be [place]achyp[place] [address] and acute on chronic hyponatremia. Her troponin was mildly elevated 0.119 and her BNP had doubled compared to her values at the end of January. Her temperature on presentation the ER was 99.1. X-ray was suggestive of bilateral lower lobe pneumonia. She reports subjective fevers and chills. She reports that her sputum has changed color and is now green. She is unclear on how long her sputum has been green but it may have been a week or so. She has had decreased appetite. She denies nausea or vomiting. Her last bowel movement was is within the last couple of days. She denies hematochezia or melena. Patient was somnolent and was speaking and 2-3 word sentences making history process difficult. On review of records patient had echocardiogram during her admission in January. Echocardiogram at that time demonstrated is severe critical aortic stenosis with valve area of 0.3. The patient denies being told of history of aortic stenosis. She denies having palpitations. She has been having increased lower extremity swelling for the last week or so. She denies any increased abdominal swelling. She denies chest pain. She has not been evaluated by a drum loader and unloader. Review of Systems Review of Systems: 12 systems were reviewed with pertinent positives and negatives per HPI. Except as documented in the HPI, all other systems were reviewed and are negative. PMFSH Past Medical History Medical History (Updated 04/06/24 @ 22:53 by Shakira Carrera DO) 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 attack Chronic obstructive pulmonary disease Chronic respiratory failure with hypoxia, on home oxygen therapy Depression Diastolic dysfunction Echocardiogram April 2018 demonstrated grade 1 diastolic dysfunction EF of 60% impaired right ventricular systolic dysfunction mild mitral valve regurgitation mild aortic stenosis based on velocities valve not well visualized Emphysema lung Essential (primary) hypertension (12/07/18) Fibromyalgia History of tobacco abuse Hyperlipidemia, unspecified Hypothyroidism Osteoporosis, unspecified Peripheral artery disease Personal history of colonic polyps Severe aortic stenosis Echocardiogram 02/29/2024 demonstrated critical aortic stenosis peak velocity of 5.5 gradient of 65 and valve area of 0.3 with mild aortic regurgitation Sleep disorder breathing Noted on polysomnogram March 2018 Thrombocytosis Transient ischemic attack Vitamin D deficiency, unspecified (12/07/18) Surgical History Surgical History History of appendectomy History of bilateral carpal tunnel release History of bilateral cataract extraction History of cholecystectomy History of colonoscopy with polypectomy [address] Alcantara with pathology demonstrating adenomas polyp History of hysterectomy History of tonsillectomy Family History Family History Father Family history of lung cancer Chronic obstructive pulmonary disease Mother Bulbar myasthenia gravis Chronic obstructive pulmonary disease Unknown Anxiety Depression ADHD Sibling Chronic obstructive pulmonary disease Social History Social History (Updated 04/06/24 @ 22:47 by Shakira Carrera DO) Social History: Code status: DNR/DNI Durable power [facility]: Magno Restephanie (oldest son) Smoking packs per day: 1 Smoking cigarettes per day: 20.0 Years smoked: 50 Smoking pack-years: 50.00 Smoking status: Former smoker Tobacco type: cigarettes Second hand tobacco smoke exposure: No Alcohol intake: never Alcohol use details: Rare alcohol use. Substance use: never Substance use type: does not use Do You Feel Safe in your Home?: Yes Lack of Transportation: YES Lack of Food: Never True Current Housing: I Have Housing Concerned About Future Housing: No Difficulty Paying Gas/Electric Bills: No Difficulty Paying for Meds: No Currently Unemployed: No Education: Master's Degree or Higher Difficulty w/ Childcare or Family Care: No [facility] arrangements: [facility] Additional living arrangements comments: She is in the [facility] independent [facility]. Occupation/Education: retired Spiritual care concerns: No Meds Home Medications and Allergies Home Medications Medication Instructions Recorded Confirmed Type budesonide 160 mcg-glycopyr 9 2 inh inhalation QAM AND QPM 30 03/16/23 04/06/24 Rx mcg-formot 4.8 mcg/actuation HFA days #10.7 grams inhaler (Breztri Aerosphere) lorazepam 0.5 mg tablet 0.5 mg PO TID PRN anxiety #60 tabs 01/29/24 04/06/24 Rx albuterol sulfate 90 mcg/actuation 1 inh inhalation Q4H PRN shortness 02/21/24 04/06/24 Rx aerosol inhaler (Ventolin HFA) of breath or wheezing #51 grams atorvastatin 20 mg tablet 20 mg PO DAILY 03/01/24 04/06/24 History metoprolol tartrate 25 mg tablet 25 mg PO Q12H 03/01/24 04/06/24 History sertraline 100 mg tablet 150 mg PO DAILY 03/01/24 04/06/24 History levothyroxine 112 mcg tablet 112 mcg PO DAILY 03/26/24 04/06/24 History (Synthroid) amoxicillin 875 mg-potassium 1 tablet PO BID 5 days #10 tabs 04/06/24 04/06/24 Rx clavulanate 125 mg tablet doxycycline hyclate 100 mg tablet 100 mg PO BID 5 days #10 tabs 04/06/24 04/06/24 Rx Allergies Allergy/AdvReac Type Severity Reaction Status Date / Time aspirin Allergy Intermediate Nausea Verified 03/26/24 12:21 Macrolide Antibiotics Allergy Intermediate Unknown Verified 03/26/24 12:21 erythromycin base Allergy Unknown Nausea Verified 03/26/24 12:21 latex Allergy Unknown Itching Verified 03/26/24 12:21 mold Allergy Unknown Difficulty Verified 03/26/24 12:21 Breathing ragweed pollen Allergy Unknown Difficulty Verified 03/26/24 12:21 Breathing Sulfa (Sulfonamide Allergy Unknown Unknown Verified 03/26/24 12:21 Antibiotics) ipratropium AdvReac Severe Itching Verified 03/26/24 12:21 and panic attacks metal Allergy Unknown Itching Uncoded 03/26/24 12:21 Vital Signs Vital Signs - 24 hr 04/06/24 16:32 04/06/24 20:02 04/06/24 21:40 Temperature 99.1 F 98.1 F Pulse Rate 93 82 94 Respiratory Rate 17 21 H 24 H Blood Pressure 117/49 L 122/62 106/44 L Pulse Oximetry 100 98 98 Oxygen Delivery Nasal Cannula Nasal Cannula Oxygen Flow Rate 2 2 Exam Narrative: Weight 57.8 kg BMI 21.9 Const: Other: Acutely ill-appearing, frail, elderly, sitting up in bed head of bed at about 50? HENMT: Other: Tacky mucous membranes, no oral pharyngeal erythema, head is normocephalic atraumatic Eyes: Other: Pupils are equal and reactive, no scleral icterus Neck: Other: Mild JVD, no gross thyromegaly, supple Resp: Other: Coarse crackles breath sounds with intermittent wheezing, accessory muscle use Cardio: Other: Regular rate, regular rhythm, 2+ bilateral radial pedal pulses, mild JVD GI: Other: Soft, nontender, nondistended, positive bowel sounds : Other: Pure wick catheter in place with approximately 600 mL urine in the suction canister Skin: Other: Cool to touch, generalized pallor, no petechiae 3-4 second cap refill Neuro: Other: Alert oriented x3, Patient is somnolent but easily arousable to verbal stimuli but falls back asleep quickly, no facial asymmetry, follow simple commands Extrem: Other: 1+ pitting edema bilateral lower extremi ties, no clubbing, no cyanosis Psych: Other: Flat affect, cooperative, fair judgment and insight H&P: Results Labs Labs: Laboratory Tests 04/06/24 18:52 04/06/24 18:52 04/06/24 04/06/24 18:52 20:22 WBC 22.3 H RBC 3.95 L Hgb 12.2 Hct 37.1 MCV 93.9 MCH 30.9 MCHC 32.9 RDW 14.1 Plt Count 324 MPV 9.3 Immature Gran % (Auto) 3.2 H Neut % (Auto) 81.1 H Lymph % (Auto) 7.3 L [place] % (Auto) 8.1 Eos % (Auto) 0.0 Baso % (Auto) 0.3 Lymph # (Auto) 1.63 [place] # (Auto) 1.8 H Eos # (Auto) 0.0 Baso # (Auto) 0.1 Abs Immat Gran (auto) 0.72 H Absolute Neuts (auto) 18.1 H Absolute Nucleated RBC 0.000 Nucleated RBC % 0.0 PT 14.3 INR 1.1 APTT 30.2 D-Dimer 0.48 Sodium 127 L Potassium 4.3 Chloride 96 L Carbon Dioxide 29 Anion Gap 2 L BUN 23 H Creatinine 0.90 Estim Creat Clear Calc Not Reportable Estimated GFR > 60 Glucose 98 Lactic Acid 0.8 Calcium 8.7 Total Bilirubin 0.6 AST 47 H ALT 67 H Alkaline Phosphatase 84 Troponin I 0.119 H* NT-Pro-B Natriuret Pep > 05351 H Total Protein 6.0 L Albumin 3.5 Nasal MRSA (PCR) Not detected Influenza A (RT-PCR) Negative Influenza B (RT-PCR) Negative RSV (RT-PCR) Negative SARS-CoV-2 RNA (RT-PCR) Positive A Impressions Chest X-Ray 04/06/24 19:13 (personally reviewed interpreted agree with radiologic interpretation) IMPRESSION: Bilateral basal pneumonia with bilateral pleural effusion. EKG: Personally reviewed and interpreted Sinus rhythm rate of 87 QTC 453 possible left atrial enlargement, left ventricular hypertrophy with marked baseline artifact in all leads Assessment and Plan Assessment and plan (1) Pneumonia: Qualifiers: Laterality: bilateral Lung location: lower lobe of lung Pneumonia type: due to unspecified organism Qualified Code(s): J18.9 - Pneumonia, unspecified organism Code(s): J18.9 - Pneumonia, unspecified organism Status: Acute (2) Severe aortic stenosis: Code(s): I35.0 - Nonrheumatic aortic (valve) stenosis Status: Acute (3) CHF (congestive heart failure): Qualifiers: Heart failure chronicity: acute on chronic Heart failure type: di astolic Qualified Code(s): I50.33 - Acute on chronic diastolic (congestive) heart failure Code(s): I50.9 - Heart failure, unspecified Status: Acute (4) Elevated troponin: Code(s): R79.89 - Other specified abnormal findings of blood chemistry Status: Acute (5) Chronic respiratory failure with hypoxia, on home oxygen therapy: Code(s): J96.11 - Chronic respiratory failure with hypoxia; Z99.81 - Dependence on supplemental oxygen Status: Acute (6) Chronic obstructive pulmonary disease: Qualifiers: COPD type: COPD with acute lower respiratory infection Qualified Code(s): J44.0 - Chronic obstructive pulmonary disease with (acute) lower respiratory infection Code(s): J44.9 - Chronic obstructive pulmonary disease, unspecified Status: Acute (7) Hyponatremia: Code(s): E87.1 - Hypo-osmolality and hyponatremia Status: Acute Plan Patient has chronic hypoxic respiratory failure with increased respiratory distress. Symptoms arm likely multifactorial due to COVID, underlying pneumonia COVID versus bacterial in nature and likely cardiac decompensation with critical aortic stenosis. Patient was given a dose of Lasix in the ER. Will repeat electrolyte panel in a.m. and consider additional Lasix administration. Will consult Cardiology is she will need somewhat follow-up with his outpatient regar ding critical aortic stenosis and evaluation for possible TAVR. Patient been started empiric antibiotic therapy with cefepime and vancomycin given her recent hospitalization and healthcare exposures in multiple courses of recent antibiotics. Will check urine Legionella antigen and pneumococcal antigen. Will place patient on scheduled nebulizer treatments. Will also add the Decadron and remdesivir given her multiple cor morbidities in the setting of acute COVID infection. Will repeat CBC and electrolyte panel in a.m.. Will monitor coag panels and hepatic function panel per protocol. Patient does have elevated troponin this likely again due to multiple above factors including the patient not wearing her home oxygen despite having respiratory distress. Patient's troponin is trending downward. Will trend serial troponins and monitor in IMU. Will continue home metoprolol. Will marcella tor strict I&O's and daily weights. Patient does have some acute on chronic hyponatremia is unclear if this could be due to pneumonia/Legionella verses fluid overload from heart failure versus relative intravascular volume depletion. Will repeat electrolyte panel in a.m. and monitor. Will resume home levothyroxine. Quality VTE Prophylaxis VTE prophylaxis: pharmacologic ordered (Lovenox 40 mg subQ daily.) Hospitalist [facility] Advance Care Plan I have confirmed that the patient's Advanced Care Plan is present, code status is documented, or surrogate decision maker is listed in patient medical record.: Yes Medication Reconciliation I have utilized all available resources to obtain, update and review the patients current medications (includes all prescriptions, OTC, herbals, cannabis, and nutritional supplements).: Yes
--- NOTE | 2024-04-06 22:48 | ADMGEN ---
This patient, Ella Puckett, was admitted to IMU Room 231-01. Patient/family oriented to hospital policies and general routines including ID bracelet, bed and alarms, visiting hours, pain management, procedures, bathroom and other care routines, personal items, smoking policy, room service/diet, and visiting hours. Information on how to activate the Rapid Response Team has been discussed. Patient/Family are encouraged to report perceived risks to care and to ask questions if they do not understand what they are told or what they should do.
[2024-04-07] VITALS (21 sets, daily range): BP systolic 88–113; BP diastolic 42–66; PULSE 69–83; RESP 16–24; TEMP 36.4–37.1; O2SAT 94–100
[2024-04-07] MEDS: REMDESIVIR 200 MG/NS 250 ML 200 MG/250 ML BAG 250 MG IVPB (00:14)
[2024-04-07 00:24] LABS: Troponin I 0.106 ng/mL (0.000-0.034)
[2024-04-07 03:10] LABS: Basophils Absolute Auto 0.1 K/mm3 (0.0-0.1); Basophils Percent Auto 0.3 % (0.2-1.2); Eosinophils Percent Auto 0.1 % (0-4.4); Hematocrit 36.2 % (37.0-47.0); Immature Granulocyte Absolute 0.42 K/mm3 (0.00-0.031); Immature Granulocyte Percent A 2.2 % (0-0.5); Lymphocytes Absolute Auto 0.81 K/mm3 (0.9-3.2); Lymphocytes Percent Auto 4.2 % (18.3-44.2); Mean Corpuscular HGB Conc 33.1 g/dl (32-36); Mean Corpuscular Hemoglobin 31.3 pg (26-34); Mean Corpuscular Volume 94.3 fl (80-100); Mean Platelet Volume 9.8 fl (7.4-10.4); Monocytes Absolute Auto 0.7 K/mm3 (0.1-0.6); Monocytes Percent Auto 3.4 % (2.6-8.5); Neutrophils Absolute Auto 17.6 K/mm3 (1.3-6.7); Neutrophils Percent Auto 89.8 % (45.5-73.1); Platelet Count Result 326 k/mm3 (150-375); Red Blood Count 3.84 M/mm3 (4.2-5.4); Red Cell Distribution Width 14.1 % (11.5-14.5); White Blood Count 19.5 K/mm3 (4.5-10.0)
[2024-04-07 03:12] LABS: Troponin I 0.105 ng/mL (0.000-0.034)
[2024-04-07 03:17] LABS: Alanine Aminotransferase 55 U/L (6-35); Albumin Level 3.1 g/dL (3.5-5.1); Alkaline Phosphatase 77 U/L (38-126); Anion Gap 3 mmol/L (4-12); Aspartate Amino Transferase 34 U/L (14-36); Bilirubin,Total 0.7 mg/dL (0.2-1.3); Blood Urea Nitrogen 25 mg/dL (7-17); Calcium 8.1 mg/dL (8.4-10.2); Carbon Dioxide 29 mmol/L (22-30); Chloride 100 mmol/L (98-107); Estimated CRCL calculation 44 ml/min; Estimated Glomerular Filt Rate > 60; Glucose 102 mg/dL (65-110); Potassium 3.8 mmol/L (3.4-5.0); Sodium 132 mmol/L (137-145)
[2024-04-07 03:29] LABS: CRP 15.7 mg/dL (<1.0)
[2024-04-07] MEDS: LEVOTHYROXINE SODIUM 112 MCG TABLET PO (06:33)
--- NOTE | 2024-04-07 07:39 | P.PNIM_ITS ---
Progress Note: A&P Assessment and Plan (1) Pneumonia: Qualifiers: Laterality: bilateral Lung location: lower lobe of lung Pneumonia type: due to unspecified organism Qualified Code(s): J18.9 - Pneumonia, unspecified organism Code(s): J18.9 - Pneumonia, unspecified organism Status: Acute Assessment and Plan: * Hospital acquired considering recent admission. Likely bacterial considering fever, chills, elevated WBC * Chest x-ray showing bilateral bibasilar pneumonia with bilateral pleural effusions * Patient started on Cefepime, Doxycycline, and Vancomycin while in the ER * MRSA negative, Vancomycin discontinued * Respiratory panel positive for COVID-19 * Urine strep and urine legionella pending * Blood cultures pending * Currently on 2L NC which patient states she uses as needed at home * Will need another home O2 evaluation before discharging * Continue Albuterol breathing treatments q6h (2) COVID: Code(s): U07.1 - COVID-19 Status: Acute Assessment and Plan: * Respiratory panel positive for COVID-19 * Continue Decadron and Remdesivir * Continue Nebulizer breathing treatments (3) Elevated troponin: Code(s): R79.89 - Other specified abnormal findings of blood chemistry Status: Acute Assessment and Plan: * Likely demand ischemia from Bacterial versus viral pneumonia, CHF exacerbation with proBNP > 01812 with aortic stenosis * Troponin 0.119>0.106>0.105 * Cardiology consulted (4) Hyponatremia: Code(s): E87.1 - Hypo-osmolality and hyponatremia Status: Acute Assessment and Plan: * Initial Na+ 127, now 132 * Continue to trend (5) Chronic obstructive pulmonary disease: Qualifiers: COPD type: COPD with acute lower respiratory infection Qualified Code(s): J44.0 - Chronic obstructive pulmonary disease with (acute) lower respiratory infection Code(s): J44.9 - Chronic obstructive pulmonary disease, unspecified Status: Acute Assessment and Plan: * On 2L NC currently * Former smoker of 50 years, 1 pack per day. * Currently on Decadron and albuterol nebulizer breathing treatments. (6) CHF (congestive heart failure): Qualifiers: Heart failure chronicity: acute on chronic Heart failure type: diastolic Qualified Code(s): I50.33 - Acute on chronic diastolic (congestive) h eart failure Code(s): I50.9 - Heart failure, unspecified Status: Acute Assessment and Plan: * proBNP >51378 * 40mg IV lasix given in the ER * Cardiology following (7) Severe aortic stenosis: Code(s): I35.0 - Nonrheumatic aortic (valve) stenosis Status: Acute Assessment and Plan: * Last Echo from 03/01/24 shown a normal LV systolic function with an EF of 60- 65%, critical aortic stenosis * Cardiology consulted for possible TAVR Time Spent With Patient Time with patient: Greater than 35 minutes Subjective Date/time seen: 04/07/24 07:39 Interval history: Interval history: This is a 78 year old female who presented to the hospital from [facility] with complaints of shortness of breath/dyspnea. Patient was recently hospitalized 03/28-03/31 and was discharged home on prednisone taper. She has reported fever and chills, shortness of breath, and productive cough. Work up in the hospital included a chest x-ray that shown bilateral bibasilar pneumonia with bilateral pleural effusion. Initial labs revealed a WBC 22.3, RBC 3.95, Na+ 127, Chloride 96, AST 47, ALT 67, Troponin 0.119>0.106>0.105, CRP 15.7, proBNP >00753. MRSA was negative. Respiratory panel was positive for COVID. Blood cultures were obtained and pending. EKG showing NSR with supraventricular premature complexes, with a rate of 87, QTc 453. Patient was started on Cefepime, Vancomycin, Remdesivir, Decadron, Doxycycline, and given a dose of 40mg IV Lasix while in the ER. Subjective: Patient denies any fever, chills, nausea, vomiting, diarrhea, abdominal pain, chest pain. Patient endorses shortness of breath, productive cough. She refused yearly immunizations for Flu, COVID, RSV, or pneumonia. She wears O2 at home as needed, 2L however has been requiring it more often. Labs and imaging reviewed. Review of Systems Review of Systems: All systems reviewed & are unremarkable except as noted in HPI and below Constitutional: Constitutional: Reports as per HPI and Reports no additional constitutional complaints Eyes: Eyes: Reports as per HPI and Reports no additional eye complaints ENT: Reports system reviewed and no additional complaints, except as documented and Reports as per HPI Cardiovascular: Cardiovascular: Reports as per HPI and Reports no additional cardiovascular complaints Respiratory: Respiratory: Reports as per HPI and Reports no additional respiratory complaints Gastrointestinal: Gastrointestinal: Reports as per HPI and Reports no additional gastrointestinal complaints Genitourinary: Genitourinary: Reports no additional female genitourinary complaints and Reports as per HPI Musculoskeletal: Musculoskeletal: Reports no additional musculoskeletal complaints and Reports as per HPI Integumentary/Breasts: Skin/Breast: Reports system reviewed and no additional complaints, except as docu and Reports as per HPI Neurologic: Reports system reviewed and no additional complaints, except as documented and Reports as per HPI Psychiatric: Psychiatric: Reports no additional psychiatric complaints and Reports as per HPI Exam Narrative: General: In no acute distress, well nourished Head: atraumatic, no encephalopathy Eyes: PERRLA, sclera clear ENT: moist mucous membranes, nasal passages clear Neck: supple, no JVD, no adenopathy, trachea midline Cardiac: Normal S1 and S2. Aortic murmur, No gallops or friction rubs, peripheral pulses intact. Respiratory: Mild crackles noted right lower lobe, no adventitious lung sounds, currently on 2L NC Gastrointestinal: soft, non-distended, non-tender, normoactive bowel sounds. : voiding without difficulty, clear/yellow urine, has pure wick in place Extremities: moves all extremities well, no edema, good ROM, strength 5/5 Skin: clean, dry, intact. No wounds or lesions. Neuro: Alert and oriented x4, cranial nerves intact, no neuro deficits. Psych: normal mood, normal affect, interactive Objective Data Vital Signs Vital Signs: Vital Signs - 24 hr 04/06/24 16:32 04/06/24 20:02 04/06/24 21:40 Temperature 99.1 F 98.1 F Pulse Rate 93 82 94 Respiratory Rate 17 21 H 24 H Blood Pressure 117/49 L 122/62 106/44 L Pulse Oximetry 100 98 98 Oxygen Delivery Nasal Cannula Nasal Cannula Oxygen Flow Rate 2 2 04/06/24 22:00 04/07/24 00:00 04/07/24 00:00 Temperature 98.7 F Pulse Rate 78 78 83 Respiratory Rate 18 18 Blood Pressure 105/47 L Pulse Oximetry 98 99 Oxygen Delivery Nasal Cannula Oxygen Flow Rate 2 04/07/24 00:00 04/07/24 02:00 04/07/24 04:00 Temperature Pulse Rate 83 78 76 Respiratory Rate 18 Blood Pressure Pulse Oximetry 98 Oxygen Delivery Nasal Cannula Oxygen Flow Rate 2 04/07/24 04:00 04/07/24 04:00 04/07/24 06:00 Temperature 97.5 F L Pulse Rate 78 76 74 Respiratory Rate 24 H Blood Pressure 113/52 L Pulse Oximetry 99 Oxygen Delivery Oxygen Flow Rate Intake/Output Intake/Output: Intake & Output 04/04/24 04/05/24 04/06/24 04/07/24 23:59 23:59 23:59 23:59 Intake Total 650 730 Output Total 1650 Balance 650 -920 Meds/Results Medications: Active Medications Generic Name Dose Route Start Last Admin Trade Name Freq PRN Reason Stop Dose Admin Acetaminophen 650 mg 04/06/24 20:23 Acetaminophen 325 Mg Tablet PO Q4H PRN Mild Pain (1-3) or Fever Atorvastatin Calcium 20 mg 04/07/24 09:00 Atorvastatin 20 Mg Tablet PO DAILY AX[facility] Dexamethasone 6 mg 04/06/24 21:55 04/06/24 22:21 Dexamethasone 2 Mg Tablet PO 04/15/24 08:01 6 mg DAILY@0800 [facility] Administration Enoxaparin Sodium 40 mg 04/07/24 09:00 Enoxaparin 40 Mg/0.4 Ml Syringe SUB-Q DAILY [facility] Fluticasone/Umeclidinium/Vilanterol 1 puff 04/07/24 08:00 Fluticasone/Umeclidin/Vilanter 100-62.5-25 Mcg Ellipta INHALATION DAILYRT [facility] Cefepime HCl 2 gm in 50 mls @ 100 mls/hr 04/07/24 08:00 Maxipime 2 Gm/Ns 50 Ml IVPB Q12H [facility] Doxycycline Hyclate 100 mg in 100 mls @ 100 mls/hr 04/07/24 11:00 Vibramycin 100 Mg/Ns 100 Ml IVPB Q12H [facility] Vancomycin HCl 1,250 mg in 250 mls @ 166.667 mls/hr 04/07/24 21:00 Vancomycin 1,250 Mg/Ns 250 Ml IVPB Q24H [facility] Remdesivir 100 mg in 250 mls @ 250 mls/hr 04/07/24 22:00 IVPB 04/10/24 22:59 Q24H [facility] Levothyroxine Sodium 112 mcg 04/07/24 06:30 04/07/24 06:33 Levothyroxine Sodium 112 Mcg Tablet PO 112 mcg DAILY@0630 [facility] Administration Lorazepam 0.5 mg 04/07/24 02:47 Lorazepam (*Crx) 0.5 Mg Tablet PO TID PRN anxiety Metoprolol Tartrate 25 mg 04/07/24 09:00 Metoprolol Tartrate 25 Mg Tablet PO Q12HR [facility] Sertraline HCl 150 mg 04/07/24 09:00 Sertraline Hcl 50 Mg Tablet PO DAILY [facility] Radiology Results: ITS Impressions Chest X-Ray 04/06/24 19:13 IMPRESSION: Bilateral basal pneumonia with bilateral pleural effusion. Labs Labs: Laboratory Results - last 24 hr 04/06/24 04/06/24 04/06/24 18:52 20:22 23:36 WBC 22.3 H RBC 3.95 L Hgb 12.2 Hct 37.1 MCV 93.9 MCH 30.9 MCHC 32.9 RDW 14.1 Plt Count 324 MPV 9.3 Immature Gran % (Auto) 3.2 H Neut % (Auto) 81.1 H Lymph % (Auto) 7.3 L Porter % (Auto) 8.1 Eos % (Auto) 0.0 Baso % (Auto) 0.3 Lymph # (Auto) 1.63 Porter # (Auto) 1.8 H Eos # (Auto) 0.0 Baso # (Auto) 0.1 Abs Immat Gran (auto) 0.72 H Absolute Neuts (auto) 18.1 H Absolute Nucleated RBC 0.000 Nucleated RBC % 0.0 PT 14.3 INR 1.1 APTT 30.2 D-Dimer 0.48 Sodium 127 L Potassium 4.3 Chloride 96 L Carbon Dioxide 29 Anion Gap 2 L BUN 23 H Creatinine 0.90 Estim Creat Clear Calc Not Reportable Estimated GFR > 60 Glucose 98 Lactic Acid 0.8 Calcium 8.7 Ferritin Total Bilirubin 0.6 AST 47 H ALT 67 H Alkaline Phosphatase 84 Troponin I 0.119 H* 0.106 H* C-Reactive Protein NT-Pro-B Natriuret Pep > 56496 H Total Protein 6.0 L Albumin 3.5 Nasal MRSA (PCR) Not detected Influenza A (RT-PCR) Negative Influenza B (RT-PCR) Negative RSV (RT-PCR) Negative SARS-CoV-2 RNA (RT-PCR) Positive A 04/07/24 04/07/24 02:43 02:43 WBC 19.5 H RBC 3.84 L Hgb 12.0 Hct 36.2 L MCV 94.3 MCH 31.3 MCHC 33.1 RDW 14.1 Plt Count 326 MPV 9.8 Immature Gran % (Auto) 2.2 H Neut % (Auto) 89.8 H Lymph % (Auto) 4.2 L Porter % (Auto) 3.4 Eos % (Auto) 0.1 Baso % (Auto) 0.3 Lymph # (Auto) 0.81 L Porter # (Auto) 0.7 H Eos # (Auto) 0.0 Baso # (Auto) 0.1 Abs Immat Gran (auto) 0.42 H Absolute Neuts (auto) 17.6 H Absolute Nucleated RBC 0.000 Nucleated RBC % 0.0 PT INR APTT D-Dimer Sodium 132 L Potassium 3.8 Chloride 100 Carbon Dioxide 29 Anion Gap 3 L BUN 25 H Creatinine 0.80 Estim Creat Clear Calc 44 Estimated GFR > 60 Glucose 102 Lactic Acid Calcium 8.1 L Ferritin 128.00 Total Bilirubin 0.7 AST 34 ALT 55 H Alkaline Phosphatase 77 Troponin I 0.105 H* C-Reactive Protein 15.7 H Cancelled NT-Pro-B Natriuret Pep Total Protein 6.0 L Albumin 3.1 L Nasal MRSA (PCR) Influenza A (RT-PCR) Influenza B (RT-PCR) RSV (RT-PCR) SARS-CoV-2 RNA (RT-PCR) Imaging Radiologist's impression: XR chest 2V Ordering provider: aJylyn Mckeon PA-C History: 78 years Female with . cough, fever, sob . Comparison: March 26, 2024 FINDINGS: MEDIASTINUM: The cardiac silhouette is not enlarged. LUNGS: No pneumothorax. Bilateral basal interstitial thickening with infiltrate suggestive of pneumonitis with right pleural effusion. Blunting of the left costophrenic angle suggestive of minimal pleural effusion. Opacification in the right midzone is noted. Underlying emphysematous changes. Cystic changes are seen suggestive of bronchiectasis. OTHER: No free air under the diaphragm. IMPRESSION: Bilateral basal pneumonia with bilateral pleural effusion. Reviewed, dictated and finalized at location A. ARD MACHINE OPERATOR Quality VTE Prophylaxis VTE prophylaxis: pharmacologic ordered (Lovenox 40 mg subQ daily.)
[2024-04-07] MEDS: ATORVASTATIN 20 MG TABLET PO (08:50)
[2024-04-07] MEDS: SERTRALINE HCL 50 MG TABLET 150 MG PO (08:50)
[2024-04-07] MEDS: dexAMETHasone 2 MG TABLET 6 MG PO (08:50)
[2024-04-07] MEDS: ENOXAPARIN 40 MG/0.4 ML SYRINGE SUB-Q (08:50)
[2024-04-07] MEDS: METOPROLOL TARTRATE 25 MG TABLET PO ×2 (08:50→21:58)
[2024-04-07] MEDS: CEFEPIME 2 GM/NS 50 ML 2 GM/50 ML BAG IVPB ×2 (08:51→21:45)
[2024-04-07] MEDS: FLUTICASONE/UMECLIDIN/VILANTER 100-62.5-25 MCG ELLIPTA 1 PUFF INHALATION (10:19)
[2024-04-07] MEDS: DOXYCYCLINE 100 MG/NS 100 ML 100 MG/100 ML BAG IVPB (11:31)
--- NOTE | 2024-04-07 12:44 | PM.CNCAR ---
Assessment and Plan Assessment and plan (1) Severe aortic stenosis: Code(s): I35.0 - Nonrheumatic aortic (valve) stenosis Status: Acute Plan Acute on chronic diastolic heart failure secondary to severe critical aortic stenosis Severe to critical aortic stenosis symptomatic Acute hypoxemic respiratory failure secondary to CHF and underlying pneumonia Pneumonia treated versus COVID infection Hypothyroidism Plan Patient with when he to be transfer to [facility] for further workup for possible TAVR likely to be done after recovery from COVID Metoprolol 25 mg b.i.d. Add Lasix 40 mg p.o. b.i.d. Follow-up kidney function electrolytes Treatment of underlying pneumonia per primary team History of Present Illness History of Present Illness Consult date/time: 04/07/24 12:44 Reason For Visit: Pneumonia, elevated troponin, CHF Narrative: 78-year-old female patient who presented to the hospital with progressive shortness of breath. Shortness of breath edema severe present at rest and worse with mild activity. She also noticed bilateral lower extremity swelling. Patient has recent and recurrent admissions to the hospital was shortness of breath hypoxemia about 3 times in the last 5 weeks. Last admissions was discharged on Tuesday to independent living facility on home oxygen. However she continued to have progressive worsening shortness of breath and was not using oxygen. She presented to the hospital with hypoxemia and leukocytosis. She was admitted to the hospital with acute hypoxemic respiratory failure possible pneumonia secondary to COVID infection. Patient had workup included echocardiogram showed critical aortic stenosis. Patient has no history of heart disease. She has been told that she has a murmur since she was young. Review of Systems Review of Systems: All systems reviewed & are unremarkable except as noted in HPI and below [facility] Past Medical History Medical History (Updated 04/07/24 @ 07:57 by Yolie Gann, ROEL) 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 attack Chronic obstructive pulmonary disease Chronic respiratory failure with hypoxia, on home oxygen therapy Depression Diastolic dysfunction Echocardiogram April 2018 demonstrated grade 1 diastolic dysfunction EF of 60% impaired right ventricular systolic dysfunction mild mitral valve regurgitation mild aortic stenosis based on velocities valve not well visualized Emphysema lung Essential (primary) hypertension (12/07/18) Fibromyalgia History of tobacco abuse Hyperlipidemia, unspecified Hypothyroidism Osteoporosis, unspecified Peripheral artery disease Personal history of colonic polyps Severe aortic stenosis Echocardiogram 02/29/2024 demonstrated critical aortic stenosis peak velocity of 5.5 gradient of 65 and valve area of 0.3 with mild aortic regurgitation Sleep disorder breathing Noted on polysomnogram March 2018 Thrombocytosis Transient ischemic attack Vitamin D deficiency, unspecified (12/07/18) Surgical History Surgical History History of appendectomy History of bilateral carpal tunnel release History of bilateral cataract extraction History of cholecystectomy History of colonoscopy with polypectomy [address] Alcantara with pathology demonstrating adenomas polyp History of hysterectomy History of tonsillectomy Family History Family History Father Family history of lung cancer Chronic obstructive pulmonary disease Mother Bulbar myasthenia gravis Chronic obstructive pulmonary disease Unknown Anxiety Depression ADHD Sibling Chronic obstructive pulmonary disease Social History Social History (Updated 04/06/24 @ 22:47 by Shakira Carrera DO) Social History: Code status: DNR/DNI Durable power [facility]: Magno Hernández (oldest son) Smoking packs per day: 1 Smoking cigarettes per day: 20.0 Years smoked: 50 Smoking pack-years: 50.00 Smoking status: Former smoker Tobacco type: cigarettes Second hand tobacco smoke exposure: No Alcohol intake: never Alcohol use details: Rare alcohol use. Substance use: never Substance use type: does not use Do You Feel Safe in your Home?: Yes Lack of Transportation: YES Lack of Food: Never True Current Housing: I Have Housing Concerned About Future Housing: No Difficulty Paying Gas/Electric Bills: No Difficulty Paying for Meds: No Currently Unemployed: No Education: Master's Degree or Higher Difficulty w/ Childcare or Family Care: No Living arrangements: [facility] Additional living arrangements comments: She is in the [facility] independent Living. Occupation/Education: retired Spiritual care concerns: No Meds Home Medications and Allergies Home Medications Medication Instructions Recorded Confirmed Type budesonide 160 mcg-glycopyr 9 2 inh inhalation QAM AND QPM 30 03/16/23 04/06/24 Rx mcg-formot 4.8 mcg/actuation HFA days #10.7 grams inhaler (Breztri Aerosphere) lorazepam 0.5 mg tablet 0.5 mg PO TID PRN anxiety #60 tabs 01/29/24 04/06/24 Rx albuterol sulfate 90 mcg/actuation 1 inh inhalation Q4H PRN shortness 02/21/24 04/06/24 Rx aerosol inhaler (Ventolin HFA) of breath or wheezing #51 grams atorvastatin 20 mg tablet 20 mg PO DAILY 03/01/24 04/06/24 History metoprolol tartrate 25 mg tablet 25 mg PO Q12H 03/01/24 04/06/24 History sertraline 100 mg tablet 150 mg PO DAILY 03/01/24 04/06/24 History levothyroxine 112 mcg tablet 112 mcg PO DAILY 03/26/24 04/06/24 History (Synthroid) amoxicillin 875 mg-potassium 1 tablet PO BID 5 days #10 tabs 04/06/24 04/06/24 Rx clavulanate 125 mg tablet doxycycline hyclate 100 mg tablet 100 mg PO BID 5 days #10 tabs 04/06/24 04/06/24 Rx Allergies Allergy/AdvReac Type Severity Reaction Status Date / Time aspirin Allergy Intermediate Nausea Verified 03/26/24 12:21 Macrolide Antibiotics Allergy Intermediate Unknown Verified 03/26/24 12:21 erythromycin base Allergy Unknown Nausea Verified 03/26/24 12:21 latex Allergy Unknown Itching Verified 03/26/24 12:21 mold Allergy Unknown Difficulty Verified 03/26/24 12:21 Breathing ragweed pollen Allergy Unknown Difficulty Verified 03/26/24 12:21 Breathing Sulfa (Sulfonamide Allergy Unknown Unknown Verified 03/26/24 12:21 Antibiotics) ipratropium AdvReac Severe Itching Verified 03/26/24 12:21 and panic attacks metal Allergy Unknown Itching Uncoded 03/26/24 12:21 Vital Signs Vital Signs - 24 hr 04/06/24 16:32 04/06/24 20:02 04/06/24 21:40 Temperature 37.3 C 36.7 C Pulse Rate 93 82 94 Respiratory Rate 17 21 H 24 H Blood Pressure 117/49 L 122/62 106/44 L Pulse Oximetry 100 98 98 Oxygen Delivery Nasal Cannula Nasal Cannula Oxygen Flow Rate 2 2 04/06/24 22:00 04/07/24 00:00 04/07/24 00:00 Temperature 37.1 C Pulse Rate 78 78 83 Respiratory Rate 18 18 Blood Pressure 105/47 L Pulse Oximetry 98 99 Oxygen Delivery Nasal Cannula Oxygen Flow Rate 2 04/07/24 00:00 04/07/24 02:00 04/07/24 04:00 Temperature Pulse Rate 83 78 76 Respiratory Rate 18 Blood Pressure Pulse Oximetry 98 Oxygen Delivery Nasal Cannula Oxygen Flow Rate 2 04/07/24 04:00 04/07/24 04:00 04/07/24 06:00 Temperature 36.4 C L Pulse Rate 78 76 74 Respiratory Rate 24 H Blood Pressure 113/52 L Pulse Oximetry 99 Oxygen Delivery Oxygen Flow Rate 04/07/24 07:57 04/07/24 08:50 04/07/24 08:00 Temperature 36.4 C L Pulse Rate 80 82 Respiratory Rate 20 Blood Pressure 110/51 L Pulse Oximetry 94 100 Oxygen Delivery Nasal Cannula Oxygen Flow Rate 2 04/07/24 10:27 04/07/24 08:00 04/07/24 10:00 Temperature Pulse Rate 78 71 Respiratory Rate Blood Pressure Pulse Oximetry 98 Oxygen Delivery Nasal Cannula Oxygen Flow Rate 2 04/07/24 12:00 Temperature 36.4 C L Pulse Rate 70 Respiratory Rate 20 Blood Pressure 88/42 L Pulse Oximetry 97 Oxygen Delivery Oxygen Flow Rate Exam Const: General: comfortable and no acute distress Other: Able to lie flat HENMT: Face/Nose/Sinus: Normal nares present and no epistaxis Mouth: Yes moist mucous membranes Eyes: Sclera: sclerae normal Pupils: Equal, round and reactive pupils present Neck: Neck: supple and no JVD Carotids: no bruits Resp: Auscultation: clear to auscultation bilaterally and diminished lung sounds bilateral Other: No chest wall tenderness Cardio: Rate: regular rate Rhythm: regular rhythm Heart sounds: no gallops, Murmur heart sound present systolic and no rubs GI: GI Palp: Yes Soft to palpation and No Tenderness to palpation present (GI) Auscultation: normal bowel sounds Skin: General skin exam: normal color, rashes and/or lesions noted and no erythema Other: Warm Neuro: Cranial nerves: Yes Equal, round and reactive pupils present Speech: normal speech Other: No obvious focal deficit or facial asymmetry Extrem: General: no edema Other: Normal capillary refills Intact distal pulses. Results Labs and Meds 04/07/24 02:43 04/07/24 02:43 Lab results: Cardiac Enzymes 04/06/24 04/06/24 04/07/24 Range/Units 18:52 23:36 02:43 AST 47 H 34 (14-36) U/L Troponin I 0.119 H* 0.106 H* 0.105 H* (0.000-0.034) ng/mL Coagulation 04/06/24 Range/Units 18:52 PT 14.3 (11.1-14.7) Seconds APTT 30.2 (22.3-36.8) Seconds CBC 04/06/24 04/07/24 Range/Units 18:52 02:43 WBC 22.3 H 19.5 H (4.5-10.0) K/mm3 RBC 3.95 L 3.84 L (4.2-5.4) M/mm3 Hgb 12.2 12.0 (12.0-15.0) g/dL Hct 37.1 36.2 L (37.0-47.0) % Plt Count 324 326 (150-375) k/mm3 Lymph # (Auto) 1.63 0.81 L (0.9-3.2) K/mm3 Stanton # (Auto) 1.8 H 0.7 H (0.1-0.6) K/mm3 Eos # (Auto) 0.0 0.0 (0-0.3) K/mm3 Baso # (Auto) 0.1 0.1 (0.0-0.1) K/mm3 Comprehensive Metabolic Panel 04/06/24 04/07/24 Range/Units 18:52 02:43 Sodium 127 L 132 L (137-145) mmol/L Potassium 4.3 3.8 (3.4-5.0) mmol/L Chloride 96 L 100 (98-107) mmol/L Carbon Dioxide 29 29 (22-30) mmol/L BUN 23 H 25 H (7-17) mg/dL Creatinine 0.90 0.80 (0.7-1.0) mg/dL Glucose 98 102 (65-110) mg/dL Calcium 8.7 8.1 L (8.4-10.2) mg/dL AST 47 H 34 (14-36) U/L ALT 67 H 55 H (6-35) U/L Alkaline Phosphatase 84 77 (38-126) U/L Total Protein 6.0 L 6.0 L (6.3-8.2) g/dL Albumin 3.5 3.1 L (3.5-5.1) g/dL Intake and Output 04/06/24 04/07/24 04/07/24 23:59 07:59 15:59 Intake Total 650 730 170 Output Total 2150 Balance 650 -1420 170 Intake: IV 650 250 50 Cefepime 2 gm/Ns 50 ml 2 gm In 50 50 50 ml @ 100 mls/hr IVPB Q12H [facility] Rx#:[id number] Doxycycline 100 mg/Ns 100 ml 100 100 mg In 100 ml @ 100 mls/hr IVPB ONCE ONE Rx#:[id number] Remdesivir 200 mg/Ns 250 ml 200 250 mg In 250 ml @ 250 mls/hr IVPB ONCE ONE Rx#:[id number] Vancomycin 1,500 mg/Ns 500 ml 1 500 ,500 mg In 500 ml @ 250 mls/hr IVPB ONCE ONE Rx#:[id number] Oral 480 120 Output: Catheter Urine 2150 External/Condom 2150 Other: # Unmeasured Voids 1 Patient Weight 04/07/24 23:59 Weight 66 kg
[2024-04-07] MEDS: ALBUTEROL SULFATE NEB 2.5 MG/3 ML INH INHALATION ×2 (14:56→21:14)
[2024-04-07] MEDS: FUROSEMIDE 40 MG TABLET PO (16:49)
[2024-04-07] MEDS: LORazepam (*CRX) 0.5 MG TABLET PO (21:58)
[2024-04-07] MEDS: REMDESIVIR 100 MG/NS 250 ML 100 MG/250 ML BAG 250 MG IVPB (22:43)
[2024-04-08] VITALS (20 sets, daily range): BP systolic 94–105; BP diastolic 44–52; PULSE 65–101; RESP 14–20; TEMP 36.6–36.7; O2SAT 93–100
[2024-04-08] MEDS: ALBUTEROL SULFATE NEB 2.5 MG/3 ML INH INHALATION ×4 (03:30→21:16)
[2024-04-08 05:09] LABS: INR 1.2; Prothrombin Time 15.7 Seconds (11.1-14.7)
[2024-04-08 05:10] LABS: Alanine Aminotransferase 35 U/L (6-35); Albumin Level 2.6 g/dL (3.5-5.1); Alkaline Phosphatase 62 U/L (38-126); Aspartate Amino Transferase 30 U/L (14-36); Bilirubin,Total 0.5 mg/dL (0.2-1.3)
[2024-04-08] MEDS: LEVOTHYROXINE SODIUM 112 MCG TABLET PO (06:16)
--- NOTE | 2024-04-08 08:55 | P.PNIM_ITS ---
Progress Note: A&P Assessment and Plan (1) Pneumonia: Qualifiers: Laterality: bilateral Lung location: lower lobe of lung Pneumonia type: due to unspecified organism Qualified Code(s): J18.9 - Pneumonia, unspecified organism Code(s): J18.9 - Pneumonia, unspecified organism Status: Acute Assessment and Plan: * Hospital acquired considering recent admission. Likely bacterial considering fever, chills, elevated WBC * Chest x-ray showing bilateral bibasilar pneumonia with bilateral pleural effusions * Patient started on Cefepime, Doxycycline, and Vancomycin while in the ER * MRSA negative, Vancomycin discontinued * Respiratory panel positive for COVID-19 * Urine strep and urine legionella pending * Blood cultures pending * Currently on 2L NC which patient states she uses as needed at home * Will need another home O2 evaluation before discharging * Continue Albuterol breathing treatments q6h * WBC increased from 19.5 to 22.1, likely from Decadron. Will wait a day to see if it comes back down. (2) COVID: Code(s): U07.1 - COVID-19 Status: Acute Assessment and Plan: * Respiratory panel positive for COVID-19 * Continue Decadron and Remdesivir * Continue Nebulizer breathing treatments (3) Elevated troponin: Code(s): R79.89 - Other specified abnormal findings of blood chemistry Status: Acute Assessment and Plan: * Likely demand ischemia from Bacterial versus viral pneumonia, CHF exacerbation with proBNP > 97355 with aortic stenosis * Troponin 0.119>0.106>0.105 * Cardiology following * Keep in IMU per Cardiology recommendation due to high potential for decompensation due to her severe aortic stenosis. (4) Hyponatremia: Code(s): E87.1 - Hypo-osmolality and hyponatremia Status: Acute Assessment and Plan: * Initial Na+ 127, now 132 * Continue to trend (5) Chronic obstructive pulmonary disease: Qualifiers: COPD type: COPD with acute lower respiratory infection Qualified Code( s): J44.0 - Chronic obstructive pulmonary disease with (acute) lower respiratory infection Code(s): J44.9 - Chronic obstructive pulmonary disease, unspecified Status: Acute Assessment and Plan: * On 2L NC currently * Former smoker of 50 years, 1 pack per day. * Continue Decadron and albuterol nebulizer breathing treatments. (6) CHF (congestive heart failure): Qualifiers: Heart failure chronicity: acute on chronic Heart failure type: diastolic Qualified Code(s): I50.33 - Acute on chronic diastolic (congestive) heart failure Code(s): I50.9 - Heart failure, unspecified Status: Acute Assessment and Plan: * proBNP >35144 initially * 40mg IV lasix given in the ER * Continue lasix 40 mg BID oral * will continue to monitor * Cardiology following (7) Severe aortic stenosis: Code(s): I35.0 - Nonrheumatic aortic (valve) stenosis Status: Acute Assessment and Plan: * Last Echo from 03/01/24 shown a normal LV systolic function with an EF of 60- 65%, critical aortic stenosis * Cardiology consulted for possible TAVR Time Spent With Patient Time with patient: 25 - 35 minutes Subjective Date/time seen: 04/08/24 08:55 Interval history: Interval history: This is a 78 year old female who presented to the hospital from [facility] with complaints of shortness of breath/dyspnea. Patient was recently hospitalized 03/28-03/31 and was discharged home on prednisone taper. She has reported fever and chills, shortness of breath, and productive cough. Work up in the hospital included a chest x-ray that shown bilateral bibasilar pneumonia with bilateral pleural effusion. Initial labs revealed a WBC 22.3, RBC 3.95, Na+ 127, Chloride 96, AST 47, ALT 67, Troponin 0.119>0.106>0.105, CRP 15.7, proBNP >31593. MRSA was negative. Respiratory panel was positive for COVID. Blood cultures were obtained and pending. EKG showing NSR with supraventricular premature complexes, with a rate of 87, QTc 453. Patient was started on Cefepime, Vancomycin, Remdesivir, Decadron, Doxycycline, and given a dose of 40mg IV Lasix while in the ER. Subjective: Patient reports that she did not sleep very well last night and is tired today otherwise no new issues overnight. Labs reviewed. Review of Systems Review of Systems: All systems reviewed & are unremarkable except as noted in HPI and below Constitutional: Constitutional: Reports as per HPI and Reports no additional constitutional complaints Eyes: Eyes: Reports as per HPI and Reports no additional eye complaints ENT: Reports system reviewed and no additional complaints, except as documented and Reports as per HPI Cardiovascular: Cardiovascular: Reports as per HPI and Reports no additional cardiovascular complaints Respiratory: Respiratory: Reports as per HPI and Reports no additional respiratory complaints Gastrointestinal: Gastrointestinal: Reports as per HPI and Reports no additional gastrointestinal complaints Genitourinary: Genitourinary: Reports no additional female genitourinary complaints and Reports as per HPI Musculoskeletal: Musculoskeletal: Reports no additional musculoskeletal complaints and Reports as per HPI Integumentary/Breasts: Skin/Breast: Reports system reviewed and no additional complaints, except as docu and Reports as per HPI Neurologic: Reports system reviewed and no additional complaints, except as documented and Reports as per HPI Psychiatric: Psychiatric: Reports no additional psychiatric complaints and Reports as per HPI Exam Narrative: General: In no acute distress, well nourished Cardiac: Normal S1 and S2. Aortic murmur, No gallops or friction rubs, peripheral pulses intact. Respiratory: Mild crackles noted right lower lobe, mild expiratory wheeze , currently on 2L NC Gastrointestinal: soft, non-distended, non-tender, normoactive bowel sounds. : voiding without difficulty, clear/yellow urine, has pure wick in place Neuro: Alert and oriented x4 Objective Data Vital Signs Vital Signs: Vital Signs - 24 hr 04/07/24 10:27 04/07/24 10:00 04/07/24 12:00 Temperature 97.5 F L Pulse Rate 71 70 Respiratory Rate 20 Blood Pressure 88/42 L Pulse Oximetry 98 97 Oxygen Delivery Nasal Cannula Oxygen Flow Rate 2 04/07/24 12:00 04/07/24 12:00 04/07/24 14:56 Temperature Pulse Rate 73 72 Respiratory Rate 16 Blood Pressure Pulse Oximetry 97 Oxygen Delivery Nasal Cannula Oxygen Flow Rate 2 04/07/24 14:00 04/07/24 15:10 04/07/24 15:17 Temperature Pulse Rate 69 76 Respiratory Rate 16 Blood Pressure Pulse Oximetry Oxygen Delivery Nasal Cannula Oxygen Flow Rate 2 04/07/24 16:00 04/07/24 16:00 04/07/24 16:00 Temperature 97.9 F Pulse Rate 73 71 Respiratory Rate 16 Blood Pressure 103/66 Pulse Oximetry 97 97 Oxygen Delivery Nasal Cannula Oxygen Flow Rate 2 04/07/24 18:00 04/07/24 19:34 04/07/24 21:14 Temperature 97.7 F Pulse Rate 79 76 74 Respiratory Rate 16 16 Blood Pressure 93/52 L Pulse Oximetry 97 Oxygen Delivery Oxygen Flow Rate 04/07/24 21:22 04/07/24 21:58 04/07/24 20:00 Temperature Pulse Rate 75 Respiratory Rate Blood Pressure Pulse Oximetry 97 97 Oxygen Delivery Nasal Cannula Nasal Cannula Oxygen Flow Rate 2 2 04/08/24 00:00 04/07/24 20:00 04/07/24 22:00 Temperature 97.9 F Pulse Rate 72 78 81 Respiratory Rate 14 Blood Pressure 99/44 L Pulse Oximetry 100 Oxygen Delivery Oxygen Flow Rate 04/08/24 00:00 04/08/24 02:00 04/08/24 00:00 Temperature Pulse Rate 67 66 Respiratory Rate Blood Pressure Pulse Oximetry 100 Oxygen Delivery Nasal Cannula Oxygen Flow Rate 2 04/08/24 03:30 04/08/24 03:40 04/08/24 04:00 Temperature Pulse Rate 75 77 Respiratory Rate 16 16 Blood Pressure Pulse Oximetry 100 Oxygen Delivery Nasal Cannula Oxygen Flow Rate 2 04/08/24 04:00 04/08/24 06:00 04/08/24 08:00 Temperature 97.9 F Pulse Rate 76 74 77 Respiratory Rate 20 Blood Pressure 101/47 L Pulse Oximetry 96 Oxygen Delivery Oxygen Flow Rate Intake/Output Intake/Output: Intake & Output 04/05/24 04/06/24 04/07/24 04/08/24 23:59 23:59 23:59 23:59 Intake Total 650 1740 100 Output Total 2650 1100 Balance 650 -910 -1000 Meds/Results Medications: Active Medications Generic Name Dose Route Start Last Admin Trade Name Freq PRN Reason Stop Dose Admin Acetaminophen 650 mg 04/06/24 20:23 Acetaminophen 325 Mg Tablet PO Q4H PRN Mild Pain (1-3) or Fever Albuterol 2.5 mg 04/07/24 14:00 04/08/24 03:30 Albuterol Sulfate Neb 2.5 Mg/3 Ml Inh INHALATION 2.5 mg Q6HRT AXEL Administration Atorvastatin Calcium 20 mg 04/07/24 09:00 04/07/24 08:50 Atorvastatin 20 Mg Tablet PO 20 mg DAILY AXEL Administration Dexamethasone 6 mg 04/06/24 21:55 04/07/24 08:50 Dexamethasone 2 Mg Tablet PO 04/15/24 08:01 6 mg DAILY@0800 AXEL Administration Enoxaparin Sodium 40 mg 04/07/24 09:00 04/07/24 08:50 Enoxaparin 40 Mg/0.4 Ml Syringe SUB-Q 40 mg DAILY AXEL Administration Fluticasone/Umeclidinium/Vilanterol 1 puff 04/07/24 08:00 04/07/24 10:19 Fluticasone/Umeclidin/Vilanter 100-62.5-25 Mcg Ellipta INHALATION 1 puff DAILYRT AXEL Administration Furosemide 40 mg 04/07/24 17:00 04/07/24 16:49 Furosemide 40 Mg Tablet PO 40 mg BID AXEL Administration Cefepime HCl 2 gm in 50 mls @ 100 mls/hr 04/07/24 08:00 04/07/24 22:15 Maxipime 2 Gm/Ns 50 Ml IVPB Infused Q12H AXEL Infusion Doxycycline Hyclate 100 mg in 100 mls @ 100 mls/hr 04/07/24 11:00 04/08/24 01:00 Vibramycin 100 Mg/Ns 100 Ml IVPB Infused Q12H AXEL Infusion Remdesivir 100 mg in 250 mls @ 250 mls/hr 04/07/24 22:00 04/07/24 23:43 IVPB 04/10/24 22:59 Infused Q24H AXEL Infusion Levothyroxine Sodium 112 mcg 04/07/24 06:30 04/08/24 06:16 Levothyroxine Sodium 112 Mcg Tablet PO 112 mcg DAILY@0630 AXEL Administration Lorazepam 0.5 mg 04/07/24 02:47 04/07/24 21:58 Lorazepam (*Crx) 0.5 Mg Tablet PO 0.5 mg TID PRN Administration anxiety Metoprolol Tartrate 25 mg 04/07/24 09:00 04/07/24 21:58 Metoprolol Tartrate 25 Mg Tablet PO 25 mg Q12HR AXEL Administration Sertraline HCl 150 mg 04/07/24 09:00 04/07/24 08:50 Sertraline Hcl 50 Mg Tablet PO 150 mg DAILY AXEL Administration Radiology Results: ITS Impressions Chest X-Ray 04/06/24 19:13 IMPRESSION: Bilateral basal pneumonia with bilateral pleural effusion. Labs Labs: Laboratory Results - last 24 hr 04/08/24 04:51 PT 15.7 H INR 1.2 Total Bilirubin 0.5 Direct Bilirubin 0.0 AST 30 ALT 35 Alkaline Phosphatase 62 Total Protein 5.0 L Albumin 2.6 L Quality VTE Prophylaxis VTE prophylaxis: pharmacologic ordered (Lovenox 40 mg subQ daily.)
[2024-04-08] MEDS: FLUTICASONE/UMECLIDIN/VILANTER 100-62.5-25 MCG ELLIPTA 1 PUFF INHALATION (09:16)
[2024-04-08] MEDS: CEFEPIME 2 GM/NS 50 ML 2 GM/50 ML BAG IVPB ×2 (09:20→19:41)
[2024-04-08] MEDS: ATORVASTATIN 20 MG TABLET PO (09:20)
[2024-04-08] MEDS: ENOXAPARIN 40 MG/0.4 ML SYRINGE SUB-Q (09:20)
[2024-04-08] MEDS: SERTRALINE HCL 50 MG TABLET 150 MG PO (09:20)
[2024-04-08] MEDS: dexAMETHasone 2 MG TABLET 6 MG PO (09:20)
[2024-04-08] MEDS: SODIUM CHLORIDE 0.9% IV 250 ML 10 ML (09:21)
[2024-04-08] MEDS: FUROSEMIDE 40 MG TABLET PO (09:21)
[2024-04-08 10:04] LABS: Alanine Aminotransferase 36 U/L (6-35); Albumin Level 2.6 g/dL (3.5-5.1); Alkaline Phosphatase 61 U/L (38-126); Anion Gap 5 mmol/L (4-12); Aspartate Amino Transferase 28 U/L (14-36); Bilirubin,Total 0.5 mg/dL (0.2-1.3); Blood Urea Nitrogen 28 mg/dL (7-17); Calcium 7.9 mg/dL (8.4-10.2); Carbon Dioxide 28 mmol/L (22-30); Chloride 99 mmol/L (98-107); Estimated CRCL calculation 40 ml/min; Estimated Glomerular Filt Rate > 60; Glucose 107 mg/dL (65-110); Sodium 132 mmol/L (137-145)
[2024-04-08 10:10] LABS: Basophils Percent Auto 0.2 % (0.2-1.2); Hematocrit 34.6 % (37.0-47.0); Hemoglobin 11.2 g/dL (12.0-15.0); Immature Granulocyte Percent A 0.9 % (0-0.5); Lymphocytes Absolute Auto 1.92 K/mm3 (0.9-3.2); Lymphocytes Percent Auto 8.7 % (18.3-44.2); Mean Corpuscular HGB Conc 32.4 g/dl (32-36); Mean Corpuscular Hemoglobin 31.1 pg (26-34); Mean Corpuscular Volume 96.1 fl (80-100); Mean Platelet Volume 10.1 fl (7.4-10.4); Monocytes Absolute Auto 1.8 K/mm3 (0.1-0.6); Monocytes Percent Auto 7.9 % (2.6-8.5); Neutrophils Absolute Auto 18.2 K/mm3 (1.3-6.7); Neutrophils Percent Auto 82.3 % (45.5-73.1); Platelet Count Result 301 k/mm3 (150-375); Red Cell Distribution Width 14.1 % (11.5-14.5); White Blood Count 22.1 K/mm3 (4.5-10.0)
[2024-04-08] MEDS: DOXYCYCLINE 100 MG/NS 100 ML 100 MG/100 ML BAG IVPB ×2 (11:21)
--- NOTE | 2024-04-08 13:09 | P.PNCA_ITS ---
Progress Note: A&P Assessment and Plan (1) CHF (congestive heart failure): Qualifiers: Heart failure chronicity: acute on chronic Heart failure type: diastolic Qualified Code(s): I50.33 - Acute on chronic diastolic (congestive) heart failure Code(s): I50.9 - Heart failure, unspecified Status: Acute Plan Severe symptomatic aortic stenosis Acute on chronic diastolic heart failure secondary to severe aortic stenosis COVID pneumonia Acute hypoxemic respiratory failure secondary to pneumonia and CHF Plan Change to Lasix IV 40 mg b.i.d. Continue metoprolol Transfer to [facility] for management of aortic stenosis including possible balloon valvuloplasty Subjective Date/time seen: 04/08/24 13:09 Interval history: no acute events cont to have SOB with mild activity Exam Const: General: comfortable and no acute distress Other: Able to lie flat HENMT: Face/Nose/Sinus: Normal nares present and no epistaxis Mouth: Yes moist mucous membranes Eyes: Sclera: sclerae normal Pupils: Equal, round and reactive pupils present Neck: Neck: supple and no JVD Carotids: no bruits Resp: Auscultation: clear to auscultation bilaterally and diminished lung sounds bilateral Other: No chest wall tenderness Cardio: Rate: regular rate Rhythm: regular rhythm Heart sounds: no gallops, Murmur heart sound present systolic and no rubs GI: GI Palp: Yes Soft to palpation and No Tenderness to palpation present (GI) Auscultation: normal bowel sounds Skin: General skin exam: normal color, rashes and/or lesions noted and no erythema Other: Warm Neuro: Cranial nerves: Yes Equal, round and reactive pupils present Speech: normal speech Other: No obvious focal deficit or facial asymmetry Extrem: General: no edema Other: Normal capillary refills Intact distal pulses. Objective Data Vital Signs Vital Signs: Vital Signs - 24 hr 04/07/24 14:56 04/07/24 14:00 04/07/24 15:10 Temperature Pulse Rate 72 69 76 Respiratory Rate 16 16 Blood Pressure Pulse Oximetry Oxygen Delivery Oxygen Flow Rate 04/07/24 15:17 04/07/24 16:00 04/07/24 16:00 Temperature 36.6 C Pulse Rate 73 Respiratory Rate 16 Blood Pressure 103/66 Pulse Oximetry 97 97 Oxygen Delivery Nasal Cannula Nasal Cannula Oxygen Flow Rate 2 2 04/07/24 16:00 04/07/24 18:00 04/07/24 19:34 Temperature 36.5 C Pulse Rate 71 79 76 Respiratory Rate 16 Blood Pressure 93/52 L Pulse Oximetry 97 Oxygen Delivery Oxygen Flow Rate 04/07/24 21:14 04/07/24 21:22 04/07/24 21:58 Temperature Pulse Rate 74 75 Respiratory Rate 16 Blood Pressure Pulse Oximetry 97 Oxygen Delivery Nasal Cannula Oxygen Flow Rate 2 04/07/24 20:00 04/08/24 00:00 04/07/24 20:00 Temperature 36.6 C Pulse Rate 72 78 Respiratory Rate 14 Blood Pressure 99/44 L Pulse Oximetry 97 100 Oxygen Delivery Nasal Cannula Oxygen Flow Rate 2 04/07/24 22:00 04/08/24 00:00 04/08/24 02:00 Temperature Pulse Rate 81 67 66 Respiratory Rate Blood Pressure Pulse Oximetry Oxygen Delivery Oxygen Flow Rate 04/08/24 00:00 04/08/24 03:30 04/08/24 03:40 Temperature Pulse Rate 75 77 Respiratory Rate 16 16 Blood Pressure Pulse Oximetry 100 Oxygen Delivery Nasal Cannula Oxygen Flow Rate 2 04/08/24 04:00 04/08/24 04:00 04/08/24 06:00 Temperature Pulse Rate 76 74 Respiratory Rate Blood Pressure Pulse Oximetry 100 Oxygen Delivery Nasal Cannula Oxygen Flow Rate 2 04/08/24 08:00 04/08/24 08:35 04/08/24 09:17 Temperature 36.6 C Pulse Rate 77 Respiratory Rate 20 Blood Pressure 101/47 L Pulse Oximetry 96 100 Oxygen Delivery Nasal Cannula Nasal Cannula Oxygen Flow Rate 2 3 04/08/24 09:17 04/08/24 11:53 Temperature 36.7 C Pulse Rate 65 87 Respiratory Rate 20 16 Blood Pressure 105/47 L Pulse Oximetry 96 Oxygen Delivery Oxygen Flow Rate Intake/Output Intake/Output: Intake & Output 04/05/24 04/06/24 04/07/24 04/08/24 23:59 23:59 23:59 23:59 Intake Total 650 1740 220 Output Total 2650 1100 Balance 731 -357 -036 Meds/Results Medications: Active Medications Generic Name Dose Route Start Last Admin Trade Name Freq PRN Reason Stop Dose Admin Acetaminophen 650 mg 04/06/24 20:23 Acetaminophen 325 Mg Tablet PO Q4H PRN Mild Pain (1-3) or Fever Albuterol 2.5 mg 04/07/24 14:00 12/08/24 09:12 Albuterol Sulfate Neb 2.5 Mg/3 Ml Inh INHALATION 2.5 mg Q6HRT AXEL Administration Atorvastatin Calcium 20 mg 04/07/24 09:00 04/08/24 09:20 Atorvastatin 20 Mg Tablet PO 20 mg DAILY AXEL Administration Dexamethasone 6 mg 04/06/24 21:55 04/08/24 09:20 Dexamethasone 2 Mg Tablet PO 04/15/24 08:01 6 mg DAILY@0800 AXEL Administration Enoxaparin Sodium 40 mg 04/07/24 09:00 04/08/24 09:20 Enoxaparin 40 Mg/0.4 Ml Syringe SUB-Q 40 mg DAILY AXEL Administration Fluticasone/Umeclidinium/Vilanterol 1 puff 04/07/24 08:00 04/08/24 09:16 Fluticasone/Umeclidin/Vilanter 100-62.5-25 Mcg Ellipta INHALATION 1 puff DAILYRT AXEL Administration Furosemide 40 mg 04/07/24 17:00 04/08/24 09:21 Furosemide 40 Mg Tablet PO 40 mg BID AXEL Administration Cefepime HCl 2 gm in 50 mls @ 100 mls/hr 04/07/24 08:00 04/08/24 09:20 Maxipime 2 Gm/Ns 50 Ml IVPB 100 mls/hr Q12H AXEL Administration Doxycycline Hyclate 100 mg in 100 mls @ 100 mls/hr 04/07/24 11:00 04/08/24 11:21 Vibramycin 100 Mg/Ns 100 Ml IVPB 100 mls/hr Q12H AXEL Administration Remdesivir 100 mg in 250 mls @ 250 mls/hr 04/07/24 22:00 04/07/24 23:43 IVPB 04/10/24 22:59 Infused Q24H AXEL Infusion Levothyroxine Sodium 112 mcg 04/07/24 06:30 04/08/24 06:16 Levothyroxine Sodium 112 Mcg Tablet PO 112 mcg DAILY@0630 AXEL Administration Lorazepam 0.5 mg 04/07/24 02:47 04/07/24 21:58 Lorazepam (*Crx) 0.5 Mg Tablet PO 0.5 mg TID PRN Administration anxiety Metoprolol Tartrate 25 mg 04/07/24 09:00 04/08/24 12:04 Metoprolol Tartrate 25 Mg Tablet PO Not Given Q12HR AXEL Sertraline HCl 150 mg 04/07/24 09:00 04/08/24 09:20 Sertraline Hcl 50 Mg Tablet PO 150 mg DAILY AXEL Administration Radiology Results: ITS Impressions Chest X-Ray 04/06/24 19:13 IMPRESSION: Bilateral basal pneumonia with bilateral pleural effusion. Labs Labs: Laboratory Results - last 24 hr 04/08/24 04/08/24 04/08/24 04:51 04:51 04:51 WBC 22.1 H RBC 3.60 L Hgb 11.2 L Hct 34.6 L MCV 96.1 MCH 31.1 MCHC 32.4 RDW 14.1 Plt Count 301 MPV 10.1 Immature Gran % (Auto) 0.9 H Neut % (Auto) 82.3 H Lymph % (Auto) 8.7 L Liberty % (Auto) 7.9 Eos % (Auto) 0.0 Baso % (Auto) 0.2 Lymph # (Auto) 1.92 Liberty # (Auto) 1.8 H Eos # (Auto) 0.0 Baso # (Auto) 0.0 Abs Immat Gran (auto) 0.20 H Absolute Neuts (auto) 18.2 H Absolute Nucleated RBC 0.000 Nucleated RBC % 0.0 PT 15.7 H INR 1.2 Sodium 132 L Potassium 4.0 Chloride 99 Carbon Dioxide 28 Anion Gap 5 BUN 28 H Creatinine 0.90 Estim Creat Clear Calc 40 Estimated GFR > 60 Glucose 107 Calcium 7.9 L Magnesium 2.0 Total Bilirubin 0.5 0.5 Direct Bilirubin 0.0 AST 30 28 ALT 35 Alkaline Phosphatase Total Protein Albumin 04/08/24 04/08/24 04/08/24 04:51 04:51 04:51 WBC RBC Hgb Hct MCV MCH MCHC RDW Plt Count MPV Immature Gran % (Auto) Neut % (Auto) Lymph % (Auto) Liberty % (Auto) Eos % (Auto) Baso % (Auto) Lymph # (Auto) Liberty # (Auto) Eos # (Auto) Baso # (Auto) Abs Immat Gran (auto) Absolute Neuts (auto) Absolute Nucleated RBC Nucleated RBC % PT INR Sodium Potassium Chloride Carbon Dioxide Anion Gap BUN Creatinine Estim Creat Clear Calc Estimated GFR Glucose Calcium Magnesium Total Bilirubin Direct Bilirubin AST ALT 36 H Alkaline Phosphatase 62 61 Total Protein 5.0 L 5.0 L Albumin 2.6 L 04/08/24 04:51 WBC RBC Hgb Hct MCV MCH MCHC RDW Plt Count MPV Immature Gran % (Auto) Neut % (Auto) Lymph % (Auto) Liberty % (Auto) Eos % (Auto) Baso % (Auto) Lymph # (Auto) Liberty # (Auto) Eos # (Auto) Baso # (Auto) Abs Immat Gran (auto) Absolute Neuts (auto) Absolute Nucleated RBC Nucleated RBC % PT INR Sodium Potassium Chloride Carbon Dioxide Anion Gap BUN Creatinine Estim Creat Clear Calc Estimated GFR Glucose Calcium Magnesium Total Bilirubin Direct Bilirubin AST ALT Alkaline Phosphatase Total Protein Albumin 2.6 L
[2024-04-08] MEDS: FUROSEMIDE INJ 40 MG/4 ML VIAL IV PUSH (17:45)
[2024-04-08] MEDS: METOPROLOL TARTRATE 25 MG TABLET PO (19:14)
--- NOTE | 2024-04-08 21:07 | PC.NURSE ---
Pt to transfer to [facility] room 316-01. Attempted to call pt's son, Doron ([phone]). Left message asking him to call IMU for transfer update.
--- NOTE | 2024-04-08 21:25 | PC.NURSE ---
Pt transferred to [facility] room 316-01, via [facility], for TAVR evaluation.
--- NOTE | 2024-04-29 14:09 | P.TS_ITS ---
Transfer Discharge Sum: Prov Provider Date of admission: 04/08/24 13:59 Primary care physician: Omer Antunez MD Admitting clinician: Shakira Carrera DO Consults: 04/07/24 Consult to Physician Routine Comment: Spoke with and notified him of consult Consulting Provider: Gato Sesay yard caller/MD group to consult: Cardiology Reason for consultation: Critical aortic stenosis Has provider been notified: Yes Discharging clinician: Yolie Gann Anticipated date of transfer: 04/08/24 Receiving physician/facility: [place] DS: Admitting Diagnosis Discharge Date 04/08/24 Admitting Diagnosis Pneumonia Severe aortic stenosis CHF Elevated troponin Chronic respiratory failure with hypoxia, on home oxygen therapy COPD hyponatremia DS: Discharge Diagnosis Discharge Diagnosis (1) Pneumonia: Qualifiers: Laterality: bilateral Lung location: lower lobe of lung Pneumonia type: due to unspecified organism Qualified Code(s): J18.9 - Pneumonia, unspecified organism Code(s): J18.9 - Pneumonia, unspecified organism Status: Acute (2) COVID: Code(s): U07.1 - COVID-19 Status: Acute (3) Elevated troponin: Code(s): R79.89 - Other specified abnormal findings of blood chemistry Status: Acute (4) Hyponatremia: Code(s): E87.1 - Hypo-osmolality and hyponatremia Status: Acute (5) Chronic obstructive pulmonary disease: Qualifiers: COPD type: COPD with acute lower respiratory infection Qualified Code(s): J44.0 - Chronic obstructive pulmonary disease with (acute) lower respiratory infection Code(s): J44.9 - Chronic obstructive pulmonary disease, unspecified Status: Acute (6) CHF (congestive heart failure): Qualifiers: Heart failure chronicity: acute on chronic Heart failure type: diastolic Qualified Code(s): I50.33 - Acute on chronic diastolic (congestive) heart failure Code(s): I50.9 - Heart failure, unspecified Status: Acute (7) Severe aortic stenosis: Code(s): I35.0 - Nonrheumatic aortic (valve) stenosis Status: Acute Transfer Discharge Sum: Med Medications Active and Home Medications: Home Medications budesonide 160 mcg-glycopyr 9 mcg-formot 4.8 mcg/actuation HFA inhaler (Breztri Aerosphere) 2 inh inhalation QAM AND QPM 30 days #10.7 grams 03/16/23 [Rx Confirmed 04/06/24] lorazepam 0.5 mg tablet 0.5 mg PO TID PRN anxiety #60 tabs 01/29/24 [Rx Confirmed 04/06/24] albuterol sulfate 90 mcg/actuation aerosol inhaler (Ventolin HFA) 1 inh inhalation Q4H PRN shortness of breath or wheezing #51 grams 02/21/24 [Rx Confirmed 04/06/24] atorvastatin 20 mg tablet 20 mg PO DAILY 03/01/24 [History Confirmed 04/06/24] metoprolol tartrate 25 mg tablet 25 mg PO Q12H 03/01/24 [History Confirmed 04/06/24] sertraline 100 mg tablet 150 mg PO DAILY 03/01/24 [History Confirmed 04/06/24] levothyroxine 112 mcg tablet (Synthroid) 112 mcg PO DAILY 03/26/24 [History Confirmed 04/06/24] albuterol sulfate 2.5 mg/0.5 mL solution for nebulization 5 mg inhalation Q6H #1 ea 04/10/24 [Rx] Transfer Discharge Sum: Hosp Hospital Course Hospital course: Ella Puckett is a 78 year old female who presented to the hospital from [facility] with complaints of shortness of breath/dyspnea. Patient was recently hospitalized 03/28-03/31 and was discharged home on prednisone taper. She has reported fever and chills, shortness of breath, and productive cough. Work up in the hospital included a chest x-ray that shown bilateral bibasilar pneumonia with bilateral pleural effusion. Initial labs revealed a WBC 22.3, RBC 3.95, Na+ 127, Chloride 96, AST 47, ALT 67, Troponin 0.119>0.106>0.105, CRP 15.7, proBNP >22290. MRSA was negative. Respiratory panel was positive for COVID. Blood cultures were obtained and pending. EKG showing NSR with supraventricular premature complexes, with a rate of 87, QTc 453. Patient was started on Cefepime, Vancomycin, Remdesivir, Decadron, Doxycycline, and given a dose of 40mg IV Lasix while in the ER. Last echo from 05/31/2023 showed a normal LV systolic function with an estimated EF of 60-65% and critical aortic stenosis. Cardiology was consulted and recommended transfer to [facility] for TAVR. [facility] did not have coverage and request was made at [place]. Patient was accepted and transferred to [place] in stable condition. Condition: stable final diagnosis: COVID, community-acquired pneumonia, severe- critical aortic stenosis, acute respiratory failure with hypoxia, acute on chronic congestive heart failure Time Spent with Patient Time attestation: Total time spent providing and/or coordinating transfer services: Exam Narrative: General: In no acute distress, well nourished Cardiac: Normal S1 and S2. Aortic murmur, No gallops or friction rubs, peripheral pulses intact. Respiratory: Mild crackles noted right lower lobe, mild expiratory wheeze , currently on 2L NC Gastrointestinal: soft, non-distended, non-tender, normoactive bowel sounds. : voiding without difficulty, clear/yellow urine, has pure wick in place Neuro: Alert and oriented x4 DS: Data Data Completed and Pending Completed studies during hospitalization: chest x-ray Pending studies at discharge: none Procedures/Treatments: none
== END 2024-04-08 21:25 | disposition short-term general hospital (02) | DRG 177 ==
LOC: ANHED 20:27 → ANHIMU 04-07 07:13
PROVIDERS: Nurse Practitioner Acute Care; Physician Assistant; Admitting Provider Internal Medicine; Emergency Provider Emergency Medicine; PCP Family Medicine; Visit Provider General Practice
DX: U07.1 COVID-19 (principal); I50.33 Acute on chronic diastolic (congestive) heart failure; J18.9 Pneumonia, unspecified organism; J96.21 Acute and chronic respiratory failure with hypoxia; J44.0 Chronic obstructive pulmonary disease with (acute) lower respiratory infection; E87.1 Hypo-osmolality and hyponatremia; J43.9 Emphysema, unspecified; F41.9 Anxiety disorder, unspecified; E78.5 Hyperlipidemia, unspecified; E55.9 Vitamin D deficiency, unspecified; E03.9 Hypothyroidism, unspecified; I11.0 Hypertensive heart disease with heart failure; I35.0 Nonrheumatic aortic (valve) stenosis; I73.9 Peripheral vascular disease, unspecified; R79.89 Other specified abnormal findings of blood chemistry; Z99.81 Dependence on supplemental oxygen; Z86.73 Personal history of transient ischemic attack (TIA), and cerebral infarction without residual deficits; Z90.49 Acquired absence of other specified parts of digestive tract; Z98.41 Cataract extraction status, right eye; Z98.42 Cataract extraction status, left eye; Z66 Do not resuscitate; Z87.891 Personal history of nicotine dependence
CPT/HCPCS: 36415; 71046; 80053; 80076; 82728; 83605; 83735; 83880; 84484; 85025; 85380; 85610; 85730; 86140; 87040; 87637; 87641; 93005; 94640; 96365; 96366; 96367; 96372; 96375; 96376; 97161; 97165; 99285; A9270; G0378; J0248; J0692; J1650; J1940; J3370; J7050; J8540